=== PATIENT | male | born 1950 | race Caucasian/White ===

== ENCOUNTER 2016-07-02 13:26 | Emergency (ER) | payer MEDICARE, OTHER ==
[~2016-07-02] VITALS: Ht 177.8 cm; Wt 124.7 kg
[~2016-07-02 13:26] MED LIST: GLYB5TAB8 PO; NORCO
[2016-07-02 15:14] LABS: Basophils # (auto) 0 uL; Basophils % (auto) 0.2 % (0.0-2.0); DEFINITIVE VIEW TRANSMISSION; Eosinophils # (auto) 0.1 uL; Eosinophils % (auto) 0.4 % (0.0-7.0); Hemoglobin 13.1 g/dL (13.5-17.5); Lymphocytes # (auto) 1.4 uL; Lymphocytes % (auto) 8.3 % (10.0-50.0); Mean Corpuscular Hemoglobin 26.5 pg (28.0-32.0); Mean Corpuscular Volume 82.8 fL (80.0-100.0); Mean Platelet Volume 7.4 fL (7.4-10.4); Monocytes % (auto) 5.8 % (0.0-12.0); Neutrophils # (auto) 14.8 uL; Neutrophils % (auto) 85.3 % (37.0-80.0); Platelet Count (auto) 392 10^3/uL (140-450); Red Cell Distribution Width 14.4 % (11.6-16.0); White Blood Cell 17.3 10^3/uL (4.4-10.8)
[2016-07-02 15:23] LABS: Albumin 2.3 g/dL (3.4-5.0); BUN/Creatinine Ratio 17.2; Calcium 8.5 mg/dL (8.5-10.1); INR 1.12 (0.9-1.15); Partial Thromboplastin Time 29.7 sec (22.64-33.71); Potassium 3.5 mmol/L (3.5-5.1); Prothrombin Time 11.5 sec (9.37-12.3)
[2016-07-02 15:30] LABS: Bilirubin, Total 0.5 mg/dL (0.2-1.0); Total Protein 8.9 g/dL (6.4-8.2)
[2016-07-03] MEDS ORDERED: ACETAMINOPHEN 500 MG TAB PO ONE ×3 (00:45→01:46)
[2016-07-03] MEDS ORDERED: InsuLIN REG 1unit/0.01ml Soln (100units/ml) SC ONE (00:45)
[2016-07-03] MEDS ORDERED: VANCOMYCIN 1GM/250ML D5W 250 ML IV ONE (00:45)
[2016-07-03] MEDS: SODIUM CHLORIDE 0.9% 1,000 ML IV SCH ×3 (00:45→07:55)
[2016-07-03] MEDS ORDERED: cefTRIAXone 1GM/50ML D5W 50 ML IV ONE (00:45)
[2016-07-03 01:03] LABS: Basophils # (auto) 0.2 uL; Basophils % (auto) 1.7 % (0.0-2.0); DEFINITIVE VIEW TRANSMISSION; Eosinophils # (auto) 0 uL; Eosinophils % (auto) 0.2 % (0.0-7.0); Hematocrit 36.9 % (41.0-53.0); Hemoglobin 11.9 g/dL (13.5-17.5); Lymphocytes % (auto) 7.2 % (10.0-50.0); Mean Corpuscular Hemoglobin 26.7 pg (28.0-32.0); Mean Corpuscular Hgb Conc. 32.2 g/dL (32.0-36.0); Mean Corpuscular Volume 82.8 fL (80.0-100.0); Mean Platelet Volume 7.3 fL (7.4-10.4); Monocytes # (auto) 0.8 uL; Monocytes % (auto) 6.1 % (0.0-12.0); Neutrophils # (auto) 11.6 uL; Neutrophils % (auto) 84.8 % (37.0-80.0); Platelet Count (auto) 342 10^3/uL (140-450); Red Cell Distribution Width 13.8 % (11.6-16.0); SUSPECT VIEW TRANSMISSION; White Blood Cell 13.6 10^3/uL (4.4-10.8)
[2016-07-03 01:19] LABS: Albumin 2.1 g/dL (3.4-5.0); Calcium 7.5 mg/dL (8.5-10.1); Potassium 3.6 mmol/L (3.5-5.1)
[2016-07-03 01:21] LABS: BUN/Creatinine Ratio 15.8
[2016-07-03 01:23] LABS: Bilirubin, Total 0.2 mg/dL (0.2-1.0); Total Protein 8.1 g/dL (6.4-8.2)
[2016-07-03 01:30] LABS: Lactic Acid 2.1 mmol/L (0.4-2.0)
[2016-07-03 01:35] LABS: REFLEX LACTIC ACID YES OR NO YES
[2016-07-03 08:00] VITALS: BP 112/61
[2016-07-03 08:40] LABS: Urine Bilirubin Negative (Negative); Urine Blood Negative /uL (Negative); Urine Color Yellow (Yellow); Urine Glucose 3+ mg/dL (Normal); Urine Ketone Negative (Negative); Urine Nitrite Negative (Negative); Urine RBC <1 /hpf (0 - 3); Urine Urobilinogen Normal (Negative)
== END 2016-07-03 08:21 | disposition short-term general hospital (02) ==
LOC: ER 13:29
DX: A41.9 Sepsis, unspecified organism (principal); E11.65 Type 2 diabetes mellitus with hyperglycemia; E11.621 Type 2 diabetes mellitus with foot ulcer; E78.5 Hyperlipidemia, unspecified; J44.9 Chronic obstructive pulmonary disease, unspecified; L03.116 Cellulitis of left lower limb
CPT/HCPCS: 36415; 73700; 80053; 81001; 82010; 82962; 83605; 85025; 85610; 85730; 87040; 87205; 96365; 96368; 96372; 99285; J0696; J1815; J3370

== ENCOUNTER 2016-07-20 15:06 | Inpatient (IN) | payer OTHER ==
[~2016-07-20] VITALS: Ht 177.8 cm; Wt 103.1 kg
[2016-07-20 16:55] VITALS: BP 142/62
[2016-07-20] MEDS ORDERED: ALBUTEROL SULF 2.5 MG/0.5ML(0.5%) NEB SOLN NEB PRN (17:00)
[2016-07-20] MEDS ORDERED: DEXTROSE (50%) 50ML SYRG IV PRN ×2 (17:00)
[2016-07-20] MEDS ORDERED: hydrALAZINE HCL 20 MG/ML VL IV PRN (17:00)
[2016-07-20] MEDS ORDERED: ZOLPIDEM TARTRATE 5 MG TAB PO PRN (17:00)
[2016-07-20] MEDS: ACCU-CHEK COMFORT CURVE STRIP VI SCH ×2 (17:00→21:51)
[2016-07-20] MEDS: InsuLIN REG 1unit/0.01ml Soln (100units/ml) SC SCH ×2 (17:00→21:49)
[2016-07-20] MEDS: MORPHINE SULFATE 4 MG/ML SYRG IV PRN (17:27)
[2016-07-20] MEDS ORDERED: VANCOMYCIN PER PHARMACY 0 MG IV SCH (17:30)
[2016-07-20] MEDS ORDERED: HYDROcodone-ACET 5/325MG TAB PO PRN (17:45)
[2016-07-20] MEDS ORDERED: TEMAZEPAM 15 MG CAP PO PRN (17:45)
[2016-07-20] MEDS ORDERED: ACETAMINOPHEN 325 MG TAB PO PRN (17:45)
[2016-07-20] MEDS ORDERED: MULTIPLE VITAMIN TAB PO ONE (18:00)
[2016-07-20] MEDS ORDERED: ZINC SULFATE 220 MG CAP PO ONE (18:00)
[2016-07-20 18:19] LABS: Basophils # (auto) 0.1 uL; Basophils % (auto) 0.7 % (0.0-2.0); DEFINITIVE VIEW TRANSMISSION; Eosinophils # (auto) 0.2 uL; Eosinophils % (auto) 2.3 % (0.0-7.0); Hematocrit 33.3 % (41.0-53.0); Hemoglobin 10.8 g/dL (13.5-17.5); Lymphocytes # (auto) 2.7 uL; Lymphocytes % (auto) 26.1 % (10.0-50.0); Mean Corpuscular Hemoglobin 25.9 pg (28.0-32.0); Mean Corpuscular Hgb Conc. 32.3 g/dL (32.0-36.0); Mean Corpuscular Volume 80.3 fL (80.0-100.0); Mean Platelet Volume 7.2 fL (7.4-10.4); Monocytes # (auto) 0.9 uL; Monocytes % (auto) 8.2 % (0.0-12.0); Neutrophils # (auto) 6.5 uL; Neutrophils % (auto) 62.7 % (37.0-80.0); Platelet Count (auto) 332 10^3/uL (140-450); Red Cell Distribution Width 15.3 % (11.6-16.0); White Blood Cell 10.4 10^3/uL (4.4-10.8)
[2016-07-20 18:39] LABS: INR 1.08 (0.9-1.15); Prothrombin Time 11.1 sec (9.37-12.3)
[2016-07-20 18:47] LABS: Albumin 2.1 g/dL (3.4-5.0); BUN/Creatinine Ratio 19.3; Calcium 8.3 mg/dL (8.5-10.1); Potassium 3.8 mmol/L (3.5-5.1)
[2016-07-20] MEDS: PIPERACILLIN-TAZOB 3.375GM 100 ML IV SCH ×2 (18:53→23:32)
[2016-07-20] MEDS: Boost Glucose Control 8 Ounces PO SCH ×2 (18:53→21:39)
[2016-07-20 18:55] LABS: Bilirubin, Total 0.4 mg/dL (0.2-1.0); Total Protein 9.4 g/dL (6.4-8.2)
[2016-07-20 20:42] VITALS: BP 142/62
[2016-07-20] MEDS ORDERED: VANCOMYCIN 1,500 MG in D5W 5% 250 ML IV ONE (21:00)
[2016-07-20] MEDS: SODIUM CHLOR 0.9% PF (SALINE LOCK) 10ML VIAL IV SCH (21:10)
[2016-07-20 21:32] VITALS: BP 124/83
[2016-07-20] MEDS: FAMOTIDINE 20 MG TAB PO SCH (21:39)
[2016-07-20] MEDS: ASCORBIC ACID 500 MG TAB PO SCH (21:39)
[2016-07-20] MEDS: ATORVASTATIN 20 MG TAB PO SCH (21:39)
[2016-07-20] MEDS: CIPROFLOXACIN 0.3%OPTH(EYE) SOL 5ML EACHEYE SCH (21:39)
[2016-07-20] MEDS: INSULIN DETEMIR(LEVEMIR) 1unit/0.01ml Soln (100units/ml) SC SCH (21:51)
[2016-07-21] MEDS: CIPROFLOXACIN 0.3%OPTH(EYE) SOL 5ML EACHEYE SCH ×6 (02:00→21:03)
[2016-07-21] MEDS: MORPHINE SULFATE 4 MG/ML SYRG IV PRN ×4 (04:53→16:56)
[2016-07-21] MEDS: ONDANSETRON HCL 4 MG/2 ML VIAL IV PRN ×4 (04:54→16:56)
[2016-07-21 05:17] VITALS: BP 138/76
[2016-07-21] MEDS: SODIUM CHLOR 0.9% PF (SALINE LOCK) 10ML VIAL IV SCH ×3 (05:29→20:59)
[2016-07-21] MEDS: InsuLIN REG 1unit/0.01ml Soln (100units/ml) SC SCH ×4 (05:30→20:58)
[2016-07-21] MEDS: ACCU-CHEK COMFORT CURVE STRIP VI SCH ×4 (05:30→20:59)
[2016-07-21] MEDS: Boost Glucose Control 8 Ounces PO SCH ×4 (05:30→20:59)
[2016-07-21] MEDS: PIPERACILLIN-TAZOB 3.375GM 100 ML IV SCH ×3 (05:48→18:28)
[2016-07-21 09:00] VITALS: BP 100/53
[2016-07-21] MEDS: ENOXAPARIN SOD 40 MG/0.4 ML SYRINGE SC SCH (09:05)
[2016-07-21] MEDS: ASCORBIC ACID 500 MG TAB PO SCH ×2 (09:05→21:02)
[2016-07-21] MEDS: ZINC SULFATE 220 MG CAP PO SCH (09:05)
[2016-07-21] MEDS: FAMOTIDINE 20 MG TAB PO SCH ×2 (09:06→21:02)
[2016-07-21] MEDS: MULTIPLE VITAMIN TAB PO SCH (09:06)
[2016-07-21] MEDS: INSULIN DETEMIR(LEVEMIR) 1unit/0.01ml Soln (100units/ml) SC SCH ×2 (10:00→20:58)
[2016-07-21 12:57] VITALS: BP 145/85
[2016-07-21] MEDS: VANCOMYCIN 1,500 MG in D5W 5% 250 ML IV SCH (15:55)
[2016-07-21 16:53] VITALS: BP 122/71
[2016-07-21] MEDS: DOCUSATE SOD 100 MG CAP PO PRN (16:57)
[2016-07-21 20:58] LABS: INR 1.11 (0.9-1.15); Prothrombin Time 11.4 sec (9.37-12.3)
[2016-07-21] MEDS: ATORVASTATIN 20 MG TAB PO SCH (21:02)
[2016-07-21 22:00] VITALS: BP 120/65
[2016-07-22] MEDS: PIPERACILLIN-TAZOB 3.375GM 100 ML IV SCH ×4 (00:11→17:49)
[2016-07-22] MEDS: ONDANSETRON HCL 4 MG/2 ML VIAL IV PRN ×2 (01:29→17:49)
[2016-07-22] MEDS: MORPHINE SULFATE 4 MG/ML SYRG IV PRN ×2 (01:29→13:46)
[2016-07-22] MEDS: CIPROFLOXACIN 0.3%OPTH(EYE) SOL 5ML EACHEYE SCH ×6 (02:00→22:20)
[2016-07-22] MEDS: VANCOMYCIN 1,500 MG in D5W 5% 250 ML IV SCH ×2 (03:00→17:19)
[2016-07-22 05:00] VITALS: BP 145/83
[2016-07-22] MEDS: SODIUM CHLOR 0.9% PF (SALINE LOCK) 10ML VIAL IV SCH ×4 (05:52→22:20)
[2016-07-22] MEDS: ACCU-CHEK COMFORT CURVE STRIP VI SCH ×4 (05:53→22:00)
[2016-07-22] MEDS: Boost Glucose Control 8 Ounces PO SCH ×3 (05:53→17:37)
[2016-07-22] MEDS: InsuLIN REG 1unit/0.01ml Soln (100units/ml) SC SCH ×4 (05:53→22:38)
[2016-07-22 06:24] LABS: Basophils # (auto) 0.1 uL; DEFINITIVE VIEW TRANSMISSION; Eosinophils # (auto) 0.5 uL; Eosinophils % (auto) 6.2 % (0.0-7.0); Hematocrit 32.5 % (41.0-53.0); Hemoglobin 10.3 g/dL (13.5-17.5); Lymphocytes # (auto) 2.6 uL; Lymphocytes % (auto) 29.1 % (10.0-50.0); Mean Corpuscular Hemoglobin 25.7 pg (28.0-32.0); Mean Corpuscular Hgb Conc. 31.8 g/dL (32.0-36.0); Mean Corpuscular Volume 80.9 fL (80.0-100.0); Mean Platelet Volume 7.4 fL (7.4-10.4); Monocytes # (auto) 0.9 uL; Monocytes % (auto) 9.7 % (0.0-12.0); Neutrophils # (auto) 4.7 uL; Platelet Count (auto) 305 10^3/uL (140-450); Red Cell Distribution Width 15.4 % (11.6-16.0); White Blood Cell 8.8 10^3/uL (4.4-10.8)
[2016-07-22 06:55] LABS: BUN/Creatinine Ratio 13.9; Calcium 8.1 mg/dL (8.5-10.1); Potassium 3.8 mmol/L (3.5-5.1)
[2016-07-22 08:00] VITALS: BP 134/75
[2016-07-22] MEDS ORDERED: ceFAZolin 1GM VL ONE (08:09)
[2016-07-22] MEDS ORDERED: BUPIVACAINE 0.75% INJ 10ML MPV SDV IJ ONE (08:10)
[2016-07-22] MEDS ORDERED: ceFAZolin 1GM/50ML D5W 0 ML IV ONE (09:00)
[2016-07-22] MEDS ORDERED: MIDAZOLAM HCL 1MG/1ML-2 ML VIAL ONE (09:04)
[2016-07-22] MEDS ORDERED: fentaNYL CITRATE 100 MCG/2 ML VL ONE (09:04)
[2016-07-22] MEDS ORDERED: ATROPINE SULF 0.5 MG/5ML SYR ONE (09:05)
[2016-07-22] MEDS ORDERED: KETOROLAC TROMETH 60MG/2ML VIAL IM ONE (09:05)
[2016-07-22] MEDS ORDERED: DEXAMETHASONE SOD PHOS 10MG/1ML VIAL INJ ONE (09:05)
[2016-07-22] MEDS ORDERED: PROPOFOL 10 MG/ML 20 ML IV ONE (09:05)
[2016-07-22] MEDS ORDERED: ONDANSETRON HCL 4 MG/2 ML VIAL ONE (09:05)
[2016-07-22] MEDS ORDERED: LIDOCAINE HCL 2 %PF INJ 10ML AMP IJ ONE (09:05)
[2016-07-22] MEDS ORDERED: KETAMINE HCL 50 MG/ML 10ML VIAL ONE (09:08)
[2016-07-22] MEDS ORDERED: ONDANSETRON HCL 4 MG/2 ML VIAL IV ONE (09:45)
[2016-07-22] MEDS ORDERED: HYDROmorphone HCL 2 MG/ML VL IV PRN (09:45)
[2016-07-22] MEDS: ENOXAPARIN SOD 40 MG/0.4 ML SYRINGE SC SCH (10:00)
[2016-07-22] MEDS: INSULIN DETEMIR(LEVEMIR) 1unit/0.01ml Soln (100units/ml) SC SCH ×2 (10:00→22:39)
[2016-07-22 11:53] VITALS: BP 126/64
[2016-07-22] MEDS ORDERED: LIDOCAINE 1% HCL (LOCAL ANESTH.) INJ 20ML MDV ID ONE (12:30)
[2016-07-22] MEDS: FAMOTIDINE 20 MG TAB PO SCH ×2 (13:09→22:18)
[2016-07-22] MEDS: MULTIPLE VITAMIN TAB PO SCH (13:09)
[2016-07-22] MEDS: ZINC SULFATE 220 MG CAP PO SCH (13:09)
[2016-07-22] MEDS: ASCORBIC ACID 500 MG TAB PO SCH ×2 (13:09→22:18)
[2016-07-22] MEDS: DOCUSATE SOD 100 MG CAP PO PRN (13:46)
[2016-07-22 16:38] VITALS: BP 123/51
[2016-07-22 21:47] VITALS: BP 123/86
[2016-07-22] MEDS: ATORVASTATIN 20 MG TAB PO SCH (22:18)
[2016-07-23] MEDS: PIPERACILLIN-TAZOB 3.375GM 100 ML IV SCH ×3 (00:12→11:33)
[2016-07-23] MEDS: CIPROFLOXACIN 0.3%OPTH(EYE) SOL 5ML EACHEYE SCH ×4 (02:00→15:26)
[2016-07-23 02:28] LABS: BUN/Creatinine Ratio 18.4; Calcium 8.1 mg/dL (8.5-10.1); Potassium 4.4 mmol/L (3.5-5.1)
[2016-07-23] MEDS: VANCOMYCIN 1,500 MG in D5W 5% 250 ML IV SCH (03:00)
[2016-07-23 05:36] VITALS: BP 140/85
[2016-07-23] MEDS: InsuLIN REG 1unit/0.01ml Soln (100units/ml) SC SCH ×2 (06:00→12:11)
[2016-07-23] MEDS: ACCU-CHEK COMFORT CURVE STRIP VI SCH ×2 (06:01→11:33)
[2016-07-23] MEDS: Boost Glucose Control 8 Ounces PO SCH ×3 (06:02→11:34)
[2016-07-23] MEDS: SODIUM CHLOR 0.9% PF (SALINE LOCK) 10ML VIAL IV SCH ×3 (06:03→15:25)
[2016-07-23 06:06] LABS: Basophils # (auto) 0 uL; Basophils % (auto) 0.6 % (0.0-2.0); DEFINITIVE VIEW TRANSMISSION; Eosinophils # (auto) 0 uL; Eosinophils % (auto) 0.1 % (0.0-7.0); Hematocrit 29.9 % (41.0-53.0); Hemoglobin 9.8 g/dL (13.5-17.5); Lymphocytes # (auto) 1.7 uL; Lymphocytes % (auto) 26.1 % (10.0-50.0); Mean Corpuscular Hemoglobin 26.2 pg (28.0-32.0); Mean Corpuscular Hgb Conc. 32.8 g/dL (32.0-36.0); Mean Corpuscular Volume 79.8 fL (80.0-100.0); Mean Platelet Volume 7.8 fL (7.4-10.4); Monocytes # (auto) 0.6 uL; Monocytes % (auto) 9.9 % (0.0-12.0); Neutrophils # (auto) 4.1 uL; Neutrophils % (auto) 63.3 % (37.0-80.0); Platelet Count (auto) 252 10^3/uL (140-450); Potassium 4.2 mmol/L (3.5-5.1); Red Cell Distribution Width 14.9 % (11.6-16.0); White Blood Cell 6.4 10^3/uL (4.4-10.8)
[2016-07-23 06:10] LABS: BUN/Creatinine Ratio 17.8; Calcium 8.4 mg/dL (8.5-10.1)
[2016-07-23 08:42] VITALS: BP 116/62
[2016-07-23] MEDS: ASCORBIC ACID 500 MG TAB PO SCH (10:04)
[2016-07-23] MEDS: FAMOTIDINE 20 MG TAB PO SCH (10:04)
[2016-07-23] MEDS: ZINC SULFATE 220 MG CAP PO SCH (10:05)
[2016-07-23] MEDS: MULTIPLE VITAMIN TAB PO SCH (10:05)
[2016-07-23] MEDS: ENOXAPARIN SOD 40 MG/0.4 ML SYRINGE SC SCH (10:05)
[2016-07-23] MEDS: INSULIN DETEMIR(LEVEMIR) 1unit/0.01ml Soln (100units/ml) SC SCH (10:14)
[2016-07-23 13:00] VITALS: BP_SYST 104; BP_SYST 111; BP_DIAS 58; BP_DIAS 77
[2016-07-23] MEDS: MORPHINE SULFATE 4 MG/ML SYRG IV PRN (15:25)
== END 2016-07-23 18:25 | disposition home or self-care (01) | DRG 981 ==
LOC: TELE-CENTR 15:06 → CENTRAL 07-21 09:06
PROVIDERS: ADMIT Family Medicine; ATTEND Family Medicine
PROC: 0HRNXK3 Replacement of Left Foot Skin with Nonautologous Tissue Substitute, Full Thickness, External Approach (ICD-10-PCS; 2016-07-22)
PROC: 02HV33Z Insertion of Infusion Device into Superior Vena Cava, Percutaneous Approach (ICD-10-PCS; principal; 2016-07-22 09:08)
DX: E11.69 Type 2 diabetes mellitus with other specified complication (principal); E43 Unspecified severe protein-calorie malnutrition; M86.9 Osteomyelitis, unspecified; E87.1 Hypo-osmolality and hyponatremia; L97.529 Non-pressure chronic ulcer of other part of left foot with unspecified severity; D63.8 Anemia in other chronic diseases classified elsewhere; E78.5 Hyperlipidemia, unspecified; N18.3 Chronic kidney disease, stage 3 (moderate); E11.22 Type 2 diabetes mellitus with diabetic chronic kidney disease; E11.21 Type 2 diabetes mellitus with diabetic nephropathy; E11.621 Type 2 diabetes mellitus with foot ulcer; J44.9 Chronic obstructive pulmonary disease, unspecified; Y83.8 Other surgical procedures as the cause of abnormal reaction of the patient, or of later complication, without mention of misadventure at the time of the procedure; Z79.899 Other long term (current) drug therapy; Y92.89 Other specified places as the place of occurrence of the external cause; Z79.4 Long term (current) use of insulin; Z89.412 Acquired absence of left great toe; Z90.49 Acquired absence of other specified parts of digestive tract; Z98.890 Other specified postprocedural states; Z88.1 Allergy status to other antibiotic agents; Z68.32 Body mass index [BMI] 32.0-32.9, adult
CPT/HCPCS: 36415; 36569; 71010; 73630; 80048; 80053; 80202; 82962; 83036; 85025; 85049; 85610; 85730; 86850; 86900; 86901; 87070; 87075; 87081; 87205; 93005; 94640; 97001; 97116; 97530; J0461; J0690; J1100; J1815; J1885; J2250; J2405; J2543; J2704; J3490; J7060; Q4126

== ENCOUNTER → 2016-08-13 | Outpatient (CLI) | payer OTHER ==
[2016-08-13 10:54] LABS: Basophils # (auto) 0 uL; Basophils % (auto) 0.5 % (0.0-2.0); DEFINITIVE VIEW TRANSMISSION; Eosinophils # (auto) 0.4 uL; Eosinophils % (auto) 5.3 % (0.0-7.0); Hematocrit 35.3 % (41.0-53.0); Lymphocytes # (auto) 2.8 uL; Lymphocytes % (auto) 35.2 % (10.0-50.0); Mean Corpuscular Hemoglobin 24.8 pg (28.0-32.0); Mean Corpuscular Hgb Conc. 31.1 g/dL (32.0-36.0); Mean Corpuscular Volume 79.6 fL (80.0-100.0); Mean Platelet Volume 8.4 fL (7.4-10.4); Monocytes # (auto) 0.5 uL; Monocytes % (auto) 6.6 % (0.0-12.0); Neutrophils # (auto) 4.2 uL; Neutrophils % (auto) 52.4 % (37.0-80.0); Platelet Count (auto) 304 10^3/uL (140-450); Red Cell Distribution Width 16.3 % (11.6-16.0)
[2016-08-13 11:08] LABS: Urine Bilirubin Negative (Negative); Urine Blood Negative /uL (Negative); Urine Color Yellow (Yellow); Urine Glucose Normal (Normal); Urine Ketone Negative (Negative); Urine Nitrite Negative (Negative); Urine RBC 1 /hpf (0 - 3); Urine Squamous Epithelial Cell FEW /hpf (<5); Urine Urobilinogen Normal (Negative); Urine pH 5.5 (5.0-8.0)
[2016-08-13 11:41] LABS: Albumin 2.7 g/dL (3.4-5.0); BUN/Creatinine Ratio 13.7; Bilirubin, Total 0.2 mg/dL (0.2-1.0); Calcium 8.5 mg/dL (8.5-10.1); Potassium 4.1 mmol/L (3.5-5.1); Total Protein 9.1 g/dL (6.4-8.2)
== END | disposition home or self-care (01) ==
LOC: LAB 09:57
DX: M86.9 Osteomyelitis, unspecified (principal); E11.21 Type 2 diabetes mellitus with diabetic nephropathy
CPT/HCPCS: 36415; 80053; 80061; 81001; 83036; 84443; 85025; 85652

== ENCOUNTER 2016-09-03 18:10 | Inpatient (IN) | payer OTHER ==
[~2016-09-03] VITALS: Ht 177.8 cm; Wt 100.3 kg
[2016-09-03 19:12] LABS: Basophils # (auto) 0 uL; Basophils % (auto) 0.5 % (0.0-2.0); DEFINITIVE VIEW TRANSMISSION; Eosinophils # (auto) 0.4 uL; Eosinophils % (auto) 4.6 % (0.0-7.0); Hematocrit 35.1 % (41.0-53.0); Hemoglobin 11.5 g/dL (13.5-17.5); Lymphocytes # (auto) 2.6 uL; Lymphocytes % (auto) 31.2 % (10.0-50.0); Mean Corpuscular Hemoglobin 26.1 pg (28.0-32.0); Mean Corpuscular Hgb Conc. 32.8 g/dL (32.0-36.0); Mean Corpuscular Volume 79.6 fL (80.0-100.0); Mean Platelet Volume 8.5 fL (7.4-10.4); Monocytes # (auto) 0.6 uL; Monocytes % (auto) 6.7 % (0.0-12.0); Neutrophils # (auto) 4.7 uL; Platelet Count (auto) 314 10^3/uL (140-450); Red Cell Distribution Width 17.4 % (11.6-16.0); White Blood Cell 8.3 10^3/uL (4.4-10.8)
[2016-09-03 19:18] LABS: INR 1.02 (0.9-1.15); Partial Thromboplastin Time 26.1 sec (22.64-33.71); Prothrombin Time 10.5 sec (9.37-12.3)
[2016-09-03 20:58] LABS: Alkaline Phosphatase 92 U/L (45-117); Anion Gap 13 (5-15); Aspartate Aminotransferase 38 U/L (15-37); BUN/Creatinine Ratio 10.4; Bilirubin, Total 0.2 mg/dL (0.2-1.0); Blood Urea Nitrogen 13 mg/dL (7-18); Calcium 8.8 mg/dL (8.5-10.1); Carbon Dioxide 25 mmol/L (21-32); Chloride 103 mmol/L (98-107); GFR African American 75 mL/min; GFR Non-African American 62 mL/min; Glucose 286 mg/dL (74-106); Sodium 141 mmol/L (136-145); Total Protein 8.9 g/dL (6.4-8.2)
[2016-09-03] MEDS ORDERED: SODIUM CHLORIDE 0.9% 1,000 ML IV ONE (23:00)
[2016-09-04] MEDS ORDERED: HYDROcodone-ACET 10/325MG TAB PO ONE
[2016-09-04] MEDS ORDERED: DEXTROSE (50%) 50ML SYRG IV PRN (05:00)
[2016-09-04] MEDS: SODIUM CHLORIDE 0.9% 1,000 ML IV SCH ×3 (05:20→21:40)
[2016-09-04] MEDS: ACCU-CHEK COMFORT CURVE STRIP VI SCH ×4 (06:00→23:36)
[2016-09-04] MEDS: InsuLIN REG 1unit/0.01ml Soln (100units/ml) SC SCH ×4 (06:00→23:47)
[2016-09-04 08:00] VITALS: BP 111/85
[2016-09-04] MEDS: MORPHINE SULF INJ 2 MG/ML SYRINGE 1ML IV PRN ×4 (08:34→21:25)
[2016-09-04] MEDS: ONDANSETRON HCL 4 MG/2 ML VIAL IV PRN ×3 (08:39→21:32)
[2016-09-04 09:08] VITALS: BP 111/85
[2016-09-04] MEDS ORDERED: ceFAZolin 1GM/50ML D5W 50 ML IV ONE (09:23)
[2016-09-04] MEDS ORDERED: ceFAZolin 1GM VL ONE (09:47)
[2016-09-04] MEDS ORDERED: fentaNYL CITRATE 100 MCG/2 ML VL ONE (10:51)
[2016-09-04] MEDS ORDERED: MIDAZOLAM HCL 1MG/1ML-2 ML VIAL ONE (10:51)
[2016-09-04] MEDS ORDERED: PROPOFOL 10 MG/ML 20 ML IV ONE (10:52)
[2016-09-04] MEDS ORDERED: DEXAMETHASONE SOD PHOS 10MG/1ML VIAL INJ ONE (10:52)
[2016-09-04] MEDS ORDERED: HYDROmorphone HCL 2 MG/ML VL IV PRN (11:30)
[2016-09-04] MEDS ORDERED: ePHEDrine SULFATE 50 MG/ML AMP IV PRN (11:30)
[2016-09-04] MEDS ORDERED: LABETALOL HCL 5 MG/ML 4ML SYRINGE IV PRN (11:30)
[2016-09-04] MEDS ORDERED: KETOROLAC TROMETH 30 MG/ML 1ML VIAL IV ONE (11:30)
[2016-09-04] MEDS ORDERED: ONDANSETRON HCL 4 MG/2 ML VIAL IV ONE (11:30)
[2016-09-04] MEDS ORDERED: MORPHINE SULF INJ 2 MG/ML SYRINGE 1ML IV PRN (11:30)
[2016-09-04] MEDS ORDERED: hydrALAZINE HCL 20 MG/ML VL IV PRN (11:30)
[2016-09-04] MEDS ORDERED: MIDAZOLAM HCL 1MG/1ML-2 ML VIAL IV PRN (11:30)
[2016-09-04] MEDS: HYDROcodone-ACET 5/325MG TAB PO PRN (17:23)
[2016-09-04 20:00] VITALS: BP 130/79
[2016-09-04 22:00] VITALS: BP 130/79
[2016-09-05] MEDS: HYDROcodone-ACET 5/325MG TAB PO PRN (02:38)
[2016-09-05] MEDS ORDERED: diphenhdrAMINE HCL 25 MG CAP PO PRN (04:00)
[2016-09-05 05:00] VITALS: BP 116/70
[2016-09-05 06:03] LABS: Basophils # (auto) 0 uL; Basophils % (auto) 0.2 % (0.0-2.0); DEFINITIVE VIEW TRANSMISSION; Eosinophils # (auto) 0 uL; Hematocrit 31.5 % (41.0-53.0); Hemoglobin 10.3 g/dL (13.5-17.5); Lymphocytes # (auto) 1.2 uL; Lymphocytes % (auto) 17.6 % (10.0-50.0); Mean Corpuscular Hemoglobin 25.8 pg (28.0-32.0); Mean Corpuscular Hgb Conc. 32.6 g/dL (32.0-36.0); Mean Corpuscular Volume 79.2 fL (80.0-100.0); Mean Platelet Volume 8.6 fL (7.4-10.4); Monocytes # (auto) 0.2 uL; Neutrophils # (auto) 5.4 uL; Neutrophils % (auto) 79.2 % (37.0-80.0); Platelet Count (auto) 270 10^3/uL (140-450); Red Cell Distribution Width 17.2 % (11.6-16.0); White Blood Cell 6.9 10^3/uL (4.4-10.8)
[2016-09-05] MEDS: ACCU-CHEK COMFORT CURVE STRIP VI SCH ×2 (06:11→12:00)
[2016-09-05] MEDS: InsuLIN REG 1unit/0.01ml Soln (100units/ml) SC SCH ×2 (06:30→12:00)
[2016-09-05 06:38] LABS: Calcium 8.1 mg/dL (8.5-10.1); Potassium 4.2 mmol/L (3.5-5.1)
[2016-09-05 06:42] LABS: BUN/Creatinine Ratio 15.5
[2016-09-05 07:57] VITALS: BP 122/66
[2016-09-05 11:40] VITALS: BP 104/63
[2016-09-05 13:32] VITALS: BP 122/66
== END 2016-09-05 14:30 | disposition home or self-care (01) | DRG 623 ==
LOC: ER 18:23 → OVERFLOW 18:24 → TELE-CENTR 09-04 12:37
PROVIDERS: ADMIT Emergency Medicine; ATTEND Internal Medicine
PROC: 0HRNXK3 Replacement of Left Foot Skin with Nonautologous Tissue Substitute, Full Thickness, External Approach (ICD-10-PCS; 2016-09-04)
PROC: 0JBR0ZZ Excision of Left Foot Subcutaneous Tissue and Fascia, Open Approach (ICD-10-PCS; principal; 2016-09-04 11:01)
DX: E11.621 Type 2 diabetes mellitus with foot ulcer (principal); L97.429 Non-pressure chronic ulcer of left heel and midfoot with unspecified severity; E11.65 Type 2 diabetes mellitus with hyperglycemia; J44.9 Chronic obstructive pulmonary disease, unspecified; E78.5 Hyperlipidemia, unspecified; E66.9 Obesity, unspecified; Z88.2 Allergy status to sulfonamides; Z88.1 Allergy status to other antibiotic agents; Z87.891 Personal history of nicotine dependence; Z68.31 Body mass index [BMI] 31.0-31.9, adult
CPT/HCPCS: 36415; 71010; 80048; 80053; 82962; 83036; 84484; 85025; 85610; 85730; 87070; 87075; 87077; 87081; 87186; 87205; 93005; 96360; 96361; J0690; J1100; J1815; J2250; J2405; J2704

== ENCOUNTER 2016-10-08 17:10 | Inpatient (IN) | payer OTHER ==
[~2016-10-08] VITALS: Ht 177.8 cm; Wt 103.4 kg
[2016-10-08 19:26] LABS: Basophils # (auto) 0.1 uL; Basophils % (auto) 0.7 % (0.0-2.0); DEFINITIVE VIEW TRANSMISSION; Eosinophils # (auto) 0.4 uL; Eosinophils % (auto) 4.6 % (0.0-7.0); Hematocrit 36.2 % (41.0-53.0); Hemoglobin 12.1 g/dL (13.5-17.5); Lymphocytes # (auto) 3.5 uL; Lymphocytes % (auto) 41.8 % (10.0-50.0); Mean Corpuscular Hemoglobin 26.5 pg (28.0-32.0); Mean Corpuscular Hgb Conc. 33.3 g/dL (32.0-36.0); Mean Corpuscular Volume 79.6 fL (80.0-100.0); Mean Platelet Volume 8.8 fL (7.4-10.4); Monocytes # (auto) 0.6 uL; Monocytes % (auto) 6.8 % (0.0-12.0); Neutrophils # (auto) 3.9 uL; Neutrophils % (auto) 46.1 % (37.0-80.0); Platelet Count (auto) 290 10^3/uL (140-450); Red Cell Distribution Width 16.2 % (11.6-16.0); White Blood Cell 8.4 10^3/uL (4.4-10.8)
[2016-10-08 19:42] LABS: Albumin 3.1 g/dL (3.4-5.0); BUN/Creatinine Ratio 15.4; Calcium 8.3 mg/dL (8.5-10.1); Magnesium 1.9 mg/dL (1.6-2.6); Potassium 4.4 mmol/L (3.5-5.1)
[2016-10-08 19:44] LABS: Bilirubin, Total 0.2 mg/dL (0.2-1.0); Total Protein 8.2 g/dL (6.4-8.2)
[2016-10-08 19:45] LABS: INR 0.93 (0.9-1.15); Partial Thromboplastin Time 25.5 sec (22.64-33.71)
[2016-10-08] MEDS ORDERED: ONDANSETRON HCL 4 MG/2 ML VIAL IV ONE (19:45)
[2016-10-08] MEDS ORDERED: CLINDAMYCIN 600MG IV 50 ML IV ONE (19:45)
[2016-10-08] MEDS ORDERED: ACETAMINOPHEN 325 MG TAB PO PRN (22:30)
[2016-10-08] MEDS ORDERED: DEXTROSE (50%) 50ML SYRG IV PRN (22:30)
[2016-10-08] MEDS ORDERED: HYDROcodone-ACET 5/325MG TAB PO PRN (22:30)
[2016-10-08] MEDS ORDERED: ONDANSETRON HCL 4 MG/2 ML VIAL IV PRN (22:30)
[2016-10-08] MEDS: SODIUM CHLORIDE 0.9% 1,000 ML IV SCH (22:44)
[2016-10-08 23:00] VITALS: BP 157/78
[2016-10-08] MEDS: ACCU-CHEK COMFORT CURVE STRIP VI SCH (23:28)
[2016-10-08] MEDS: InsuLIN REG 1unit/0.01ml Soln (100units/ml) SC SCH (23:49)
[2016-10-09] MEDS ORDERED: SIMV-8 PO (02:42)
[2016-10-09] MEDS: MORPHINE SULF INJ 2 MG/ML SYRINGE 1ML IV PRN ×3 (04:59→23:03)
[2016-10-09 05:00] VITALS: BP 111/68
[2016-10-09] MEDS: CLINDAMYCIN 600MG IV 50 ML IV SCH ×3 (05:39→22:38)
[2016-10-09] MEDS: ACCU-CHEK COMFORT CURVE STRIP VI SCH ×4 (05:48→22:00)
[2016-10-09] MEDS: InsuLIN REG 1unit/0.01ml Soln (100units/ml) SC SCH ×2 (05:48→11:35)
[2016-10-09 05:52] LABS: Basophils # (auto) 0.1 uL; Basophils % (auto) 0.6 % (0.0-2.0); DEFINITIVE VIEW TRANSMISSION; Eosinophils # (auto) 0.4 uL; Eosinophils % (auto) 4.2 % (0.0-7.0); Hematocrit 38.6 % (41.0-53.0); Hemoglobin 12.6 g/dL (13.5-17.5); Lymphocytes % (auto) 32.8 % (10.0-50.0); Mean Corpuscular Hemoglobin 26.4 pg (28.0-32.0); Mean Corpuscular Hgb Conc. 32.7 g/dL (32.0-36.0); Mean Corpuscular Volume 80.7 fL (80.0-100.0); Mean Platelet Volume 8.8 fL (7.4-10.4); Monocytes # (auto) 0.6 uL; Monocytes % (auto) 7.1 % (0.0-12.0); Neutrophils % (auto) 55.3 % (37.0-80.0); Platelet Count (auto) 305 10^3/uL (140-450); Red Cell Distribution Width 16.7 % (11.6-16.0)
[2016-10-09 06:20] LABS: Albumin 3.2 g/dL (3.4-5.0); Bilirubin, Total 0.2 mg/dL (0.2-1.0); Calcium 8.4 mg/dL (8.5-10.1); Total Protein 8.6 g/dL (6.4-8.2)
[2016-10-09 08:00] VITALS: BP 111/73
[2016-10-09 08:38] VITALS: BP 111/73
[2016-10-09] MEDS: FAMOTIDINE 20 MG TAB PO SCH ×2 (09:30→22:39)
[2016-10-09] MEDS ORDERED: ceFAZolin 1GM/50ML D5W 50 ML IV ONE (10:53)
[2016-10-09] MEDS: SODIUM CHLORIDE 0.9% 1,000 ML IV SCH (11:34)
[2016-10-09] MEDS ORDERED: ceFAZolin 1GM VL ONE (12:37)
[2016-10-09] MEDS ORDERED: fentaNYL CITRATE 100 MCG/2 ML VL ONE (12:46)
[2016-10-09] MEDS ORDERED: PROPOFOL 10 MG/ML 20 ML IV ONE (12:46)
[2016-10-09] MEDS ORDERED: ONDANSETRON HCL 4 MG/2 ML VIAL IV ONE (13:30)
[2016-10-09] MEDS ORDERED: ePHEDrine SULFATE 50 MG/ML AMP IV PRN (13:30)
[2016-10-09] MEDS ORDERED: hydrALAZINE HCL 20 MG/ML VL IV PRN (13:30)
[2016-10-09] MEDS ORDERED: fentaNYL CITRATE 100 MCG/2 ML VL IV ONE (14:00)
[2016-10-09] MEDS ORDERED: DEXTROSE (50%) 50ML SYRG IV PRN (17:15)
[2016-10-09 17:40] VITALS: BP 102/70
[2016-10-09] MEDS: metFORMIN HYDROCHLORIDE 500 MG TAB PO SCH (18:11)
[2016-10-09] MEDS: glyBURIDE 5 MG TAB PO SCH (18:12)
[2016-10-09 22:00] VITALS: BP 113/52
[2016-10-09] MEDS ORDERED: ATORVASTATIN 20 MG TAB PO SCH (22:00)
[2016-10-09] MEDS ORDERED: InsuLIN REG 1unit/0.01ml Soln (100units/ml) SC SCH (22:00)
[2016-10-10 05:00] VITALS: BP 124/75
[2016-10-10] MEDS: MORPHINE SULF INJ 2 MG/ML SYRINGE 1ML IV PRN (05:31)
[2016-10-10] MEDS: CLINDAMYCIN 600MG IV 50 ML IV SCH (06:53)
[2016-10-10] MEDS: ACCU-CHEK COMFORT CURVE STRIP VI SCH ×2 (06:53→11:57)
[2016-10-10] MEDS: InsuLIN REG 1unit/0.01ml Soln (100units/ml) SC SCH ×2 (06:53→11:57)
[2016-10-10 08:00] VITALS: BP 133/68
[2016-10-10] MEDS: metFORMIN HYDROCHLORIDE 500 MG TAB PO SCH (08:37)
[2016-10-10] MEDS: glyBURIDE 5 MG TAB PO SCH (08:37)
[2016-10-10] MEDS: FAMOTIDINE 20 MG TAB PO SCH (10:21)
[2016-10-10 12:00] VITALS: BP 135/73
[2016-10-10] MEDS ORDERED: fentaNYL CITRATE 100 MCG/2 ML VL ONE (12:21)
[2016-10-10 13:16] VITALS: BP 135/73
== END 2016-10-10 14:15 | disposition home or self-care (01) | DRG 623 ==
LOC: ER 17:18 → OVERFLOW 17:19 → WEST WING 22:49
PROVIDERS: ADMIT Nurse Practitioner; ATTEND Internal Medicine Pulmonary Disease
PROC: 0HRNXK3 Replacement of Left Foot Skin with Nonautologous Tissue Substitute, Full Thickness, External Approach (ICD-10-PCS; 2016-10-09)
PROC: 0JBR0ZZ Excision of Left Foot Subcutaneous Tissue and Fascia, Open Approach (ICD-10-PCS; principal; 2016-10-09 12:49)
DX: E11.628 Type 2 diabetes mellitus with other skin complications (principal); E44.1 Mild protein-calorie malnutrition; L03.116 Cellulitis of left lower limb; S91.302A Unspecified open wound, left foot, initial encounter; J44.9 Chronic obstructive pulmonary disease, unspecified; I10 Essential (primary) hypertension; E78.5 Hyperlipidemia, unspecified; I27.2 Other secondary pulmonary hypertension; M20.42 Other hammer toe(s) (acquired), left foot; D63.8 Anemia in other chronic diseases classified elsewhere; L30.9 Dermatitis, unspecified; E11.65 Type 2 diabetes mellitus with hyperglycemia; M47.814 Spondylosis without myelopathy or radiculopathy, thoracic region; Z82.49 Family history of ischemic heart disease and other diseases of the circulatory system; Z83.3 Family history of diabetes mellitus; Z89.412 Acquired absence of left great toe; Z88.2 Allergy status to sulfonamides; Z68.32 Body mass index [BMI] 32.0-32.9, adult
CPT/HCPCS: 36415; 71010; 73630; 80053; 82962; 83036; 83735; 85025; 85610; 85730; 87070; 87075; 87077; 87081; 87186; 87205; 93005; 94761; 96365; 96366; 96375; J0690; J1815; J2405; J2704; J3490; Q4126

== ENCOUNTER 2016-11-12 16:50 | Inpatient (IN) | payer OTHER ==
[~2016-11-12] VITALS: Ht 177.8 cm; Wt 98.4 kg
[~2016-11-12 16:50] MED LIST changes: +SIMV-8 PO
[2016-11-12 17:45] LABS: Basophils # (auto) 0.1 uL; Basophils % (auto) 0.6 % (0.0-2.0); Eosinophils # (auto) 0.3 uL; Eosinophils % (auto) 3.6 % (0.0-7.0); Hemoglobin 13.1 g/dL (13.5-17.5); Lymphocytes # (auto) 3.1 uL; Lymphocytes % (auto) 33.6 % (10.0-50.0); Mean Corpuscular Hgb Conc. 33.7 g/dL (32.0-36.0); Mean Corpuscular Volume 80.4 fL (80.0-100.0); Mean Platelet Volume 8.9 fL (7.4-10.4); Monocytes # (auto) 0.6 uL; Monocytes % (auto) 6.5 % (0.0-12.0); Neutrophils # (auto) 5.2 uL; Neutrophils % (auto) 55.7 % (37.0-80.0); Platelet Count (auto) 312 10^3/uL (140-450); Red Cell Distribution Width 15.3 % (11.6-16.0); White Blood Cell 9.4 10^3/uL (4.4-10.8)
[2016-11-12 18:01] LABS: Albumin 3.3 g/dL (3.4-5.0); Alkaline Phosphatase 84 U/L (45-117); Anion Gap 9 (5-15); Aspartate Aminotransferase 17 U/L (15-37); BUN/Creatinine Ratio 17.5; Bilirubin, Total 0.2 mg/dL (0.2-1.0); Blood Urea Nitrogen 22 mg/dL (7-18); Calcium 8.5 mg/dL (8.5-10.1); Carbon Dioxide 26 mmol/L (21-32); Chloride 106 mmol/L (98-107); GFR African American 74 mL/min; GFR Non-African American 61 mL/min; Glucose 305 mg/dL (74-106); Potassium 4.3 mmol/L (3.5-5.1); Sodium 141 mmol/L (136-145); Total Protein 8.5 g/dL (6.4-8.2)
[2016-11-12 22:07] LABS: Urine RBC None Seen /hpf (0 - 3)
[2016-11-12 22:23] LABS: Urine Bilirubin Negative (Negative); Urine Blood Negative /uL (Negative); Urine Color Yellow (Yellow); Urine Hyaline Cast FEW /lpf (0 - 2); Urine Ketone Negative (Negative); Urine Nitrite Negative (Negative); Urine Urobilinogen Normal (Negative)
[2016-11-12 22:24] LABS: Urine Glucose 4+ mg/dL (Normal)
[2016-11-13] MEDS ORDERED: DEXTROSE (50%) 50ML SYRG IV PRN (00:15)
[2016-11-13] MEDS ORDERED: ACETAMINOPHEN 325 MG TAB PO PRN (00:15)
[2016-11-13] MEDS ORDERED: ONDANSETRON HCL 4 MG/2 ML VIAL IV PRN (00:15)
[2016-11-13] MEDS ORDERED: TEMAZEPAM 15 MG CAP PO PRN (00:15)
[2016-11-13] MEDS ORDERED: ONDANSETRON HCL 4 MG/2 ML VIAL ONE (00:21)
[2016-11-13] MEDS ORDERED: HYDROcodone-ACET 5/325MG TAB ONE (00:21)
[2016-11-13 00:42] LABS: INR 0.95 (0.9-1.15); Partial Thromboplastin Time 24.7 sec (22.64-33.71); Prothrombin Time 10.3 sec (9.37-12.3)
[2016-11-13 01:00] VITALS: BP 112/62
[2016-11-13] MEDS: SODIUM CHLORIDE 0.9% 1,000 ML IV SCH ×2 (01:00→14:20)
[2016-11-13] MEDS ORDERED: METF-316 PO (01:24)
[2016-11-13] MEDS ORDERED: NOR5T PO (01:24)
[2016-11-13] MEDS: InsuLIN REG 1unit/0.01ml Soln (100units/ml) SC SCH ×4 (05:43→23:52)
[2016-11-13] MEDS: ACCU-CHEK COMFORT CURVE STRIP VI SCH ×4 (05:43→23:51)
[2016-11-13 06:00] VITALS: BP 94/58
[2016-11-13] MEDS: HYDROcodone-ACET 5/325MG TAB PO PRN ×3 (06:50→20:23)
[2016-11-13 08:00] VITALS: BP 110/70
[2016-11-13] MEDS ORDERED: ceFAZolin 1GM/50ML D5W 50 ML IV ONE (08:14)
[2016-11-13] MEDS: FAMOTIDINE 20 MG TAB PO SCH ×2 (10:00→21:31)
[2016-11-13] MEDS: LOSARTAN POTASSIUM 25 MG TAB PO SCH (10:00)
[2016-11-13] MEDS ORDERED: ceFAZolin 1GM VL ONE (11:04)
[2016-11-13] MEDS ORDERED: BUPIVACAINE 0.75% INJ 10ML MPV SDV IJ ONE (11:04)
[2016-11-13] MEDS ORDERED: fentaNYL CITRATE 100 MCG/2 ML VL ONE (11:11)
[2016-11-13] MEDS ORDERED: MIDAZOLAM HCL 1MG/1ML-2 ML VIAL ONE (11:13)
[2016-11-13] MEDS ORDERED: HYDROmorphone HCL 2 MG/ML VL IV PRN (11:15)
[2016-11-13] MEDS ORDERED: KETOROLAC TROMETH 30 MG/ML 1ML VIAL IV ONE (11:15)
[2016-11-13] MEDS ORDERED: ePHEDrine SULFATE 50 MG/ML AMP IV PRN (11:15)
[2016-11-13] MEDS ORDERED: ONDANSETRON HCL 4 MG/2 ML VIAL IV ONE (11:15)
[2016-11-13] MEDS ORDERED: LABETALOL HCL 5 MG/ML 4ML SYRINGE IV PRN (11:15)
[2016-11-13] MEDS ORDERED: MORPHINE SULF INJ 2 MG/ML SYRINGE 1ML IV PRN (11:15)
[2016-11-13] MEDS ORDERED: MIDAZOLAM HCL 1MG/1ML-2 ML VIAL IV PRN (11:15)
[2016-11-13] MEDS ORDERED: PROPOFOL 10 MG/ML 20 ML IV ONE (11:25)
[2016-11-13] MEDS: Boost Glucose Control 8 Ounces PO SCH ×3 (12:00→21:31)
[2016-11-13 12:31] VITALS: BP 122/66
[2016-11-13 17:00] VITALS: BP 112/62
[2016-11-13 22:00] VITALS: BP 137/76
[2016-11-13] MEDS ORDERED: ATORVASTATIN 20 MG TAB PO SCH (22:00)
[2016-11-14] MEDS: SODIUM CHLORIDE 0.9% 1,000 ML IV SCH (04:20)
[2016-11-14 05:00] VITALS: BP 119/68
[2016-11-14 05:42] LABS: Basophils # (auto) 0.1 uL; Basophils % (auto) 0.7 % (0.0-2.0); Eosinophils # (auto) 0.3 uL; Eosinophils % (auto) 4.7 % (0.0-7.0); Hematocrit 35.1 % (41.0-53.0); Hemoglobin 11.9 g/dL (13.5-17.5); Lymphocytes # (auto) 2.8 uL; Lymphocytes % (auto) 37.5 % (10.0-50.0); Mean Corpuscular Hemoglobin 27.1 pg (28.0-32.0); Mean Corpuscular Hgb Conc. 33.8 g/dL (32.0-36.0); Mean Corpuscular Volume 80.1 fL (80.0-100.0); Monocytes # (auto) 0.6 uL; Monocytes % (auto) 7.5 % (0.0-12.0); Neutrophils # (auto) 3.7 uL; Neutrophils % (auto) 49.6 % (37.0-80.0); Platelet Count (auto) 235 10^3/uL (140-450); Red Cell Distribution Width 14.9 % (11.6-16.0); White Blood Cell 7.4 10^3/uL (4.4-10.8)
[2016-11-14] MEDS: InsuLIN REG 1unit/0.01ml Soln (100units/ml) SC SCH ×2 (06:00→11:02)
[2016-11-14] MEDS: ACCU-CHEK COMFORT CURVE STRIP VI SCH ×2 (06:00→11:03)
[2016-11-14] MEDS: Boost Glucose Control 8 Ounces PO SCH ×2 (06:00→12:16)
[2016-11-14] MEDS: HYDROcodone-ACET 5/325MG TAB PO PRN (06:01)
[2016-11-14 06:12] LABS: Albumin 2.7 g/dL (3.4-5.0); Bilirubin, Total 0.2 mg/dL (0.2-1.0); Calcium 8.1 mg/dL (8.5-10.1); Total Protein 7.3 g/dL (6.4-8.2)
[2016-11-14 07:54] VITALS: BP 123/74
[2016-11-14 08:23] VITALS: BP 110/10
[2016-11-14] MEDS: LOSARTAN POTASSIUM 25 MG TAB PO SCH (09:59)
[2016-11-14] MEDS: FAMOTIDINE 20 MG TAB PO SCH (09:59)
[2016-11-14 12:14] VITALS: BP 118/74
[2016-11-14 14:28] VITALS: BP 103/67
[2016-11-14] MEDS ORDERED: CLIN1CAP4 PO (14:34)
[2016-11-14] MEDS ORDERED: SACC250C PO (14:34)
[2016-11-14 14:58] VITALS: BP 103/67
== END 2016-11-14 15:16 | disposition home or self-care (01) | DRG 623 ==
LOC: ER 16:53 → OVERFLOW 16:54 → EAST 11-13 00:40
PROVIDERS: ADMIT Nurse Practitioner; ATTEND Internal Medicine
PROC: 0HRLXK3 Replacement of Left Lower Leg Skin with Nonautologous Tissue Substitute, Full Thickness, External Approach (ICD-10-PCS; 2016-11-13)
PROC: 0JBR0ZZ Excision of Left Foot Subcutaneous Tissue and Fascia, Open Approach (ICD-10-PCS; principal; 2016-11-13 11:18)
DX: E11.621 Type 2 diabetes mellitus with foot ulcer (principal); L03.116 Cellulitis of left lower limb; E44.0 Moderate protein-calorie malnutrition; L97.529 Non-pressure chronic ulcer of other part of left foot with unspecified severity; E11.65 Type 2 diabetes mellitus with hyperglycemia; E78.5 Hyperlipidemia, unspecified; E66.9 Obesity, unspecified; I10 Essential (primary) hypertension; J44.9 Chronic obstructive pulmonary disease, unspecified; Z82.49 Family history of ischemic heart disease and other diseases of the circulatory system; Z83.3 Family history of diabetes mellitus; Z88.2 Allergy status to sulfonamides; Z80.8 Family history of malignant neoplasm of other organs or systems; Z68.31 Body mass index [BMI] 31.0-31.9, adult; Z79.899 Other long term (current) drug therapy; Z89.412 Acquired absence of left great toe
CPT/HCPCS: 36415; 80053; 81001; 82962; 83735; 84484; 85025; 85610; 85730; 87070; 87075; 87081; J0690; J1815; J2250; J2405; J2704; J3490

== ENCOUNTER → 2016-12-26 | Outpatient (CLI) | payer OTHER ==
[~2016-12-26] MED LIST changes: +CLIN1CAP4 PO; +HYDR-4663 PO; +METF-372 PO; -NORCO; +SACC250C PO
== END | disposition home or self-care (01) ==
LOC: LAB 12:09
PROVIDERS: ATTEND Internal Medicine
DX: G89.29 Other chronic pain (principal)
CPT/HCPCS: 80307

== ENCOUNTER → 2017-01-22 | Outpatient (CLI) | payer OTHER ==
[2017-01-22 11:39] LABS: Basophils # (auto) 0.1 uL; CONDITION Y; Eosinophils # (auto) 0.3 uL; Eosinophils % (auto) 4.2 % (0.0-7.0); Hematocrit 35.4 % (41.0-53.0); Hemoglobin 11.9 g/dL (13.5-17.5); Lymphocytes # (auto) 3.2 uL; Mean Corpuscular Hemoglobin 27.4 pg (28.0-32.0); Mean Corpuscular Hgb Conc. 33.8 g/dL (32.0-36.0); Mean Corpuscular Volume 81.1 fL (80.0-100.0); Mean Platelet Volume 7.9 fL (7.4-10.4); Monocytes # (auto) 0.5 uL; Monocytes % (auto) 7.1 % (0.0-12.0); Neutrophils # (auto) 3.3 uL; Neutrophils % (auto) 44.7 % (37.0-80.0); Platelet Count (auto) 317 10^3/uL (140-450); Red Cell Distribution Width 14.7 % (11.6-16.0); White Blood Cell 7.4 10^3/uL (4.4-10.8)
[2017-01-22 12:17] LABS: Albumin 3.1 g/dL (3.4-5.0); BUN/Creatinine Ratio 13.7; Bilirubin, Total 0.2 mg/dL (0.2-1.0); Calcium 8.6 mg/dL (8.5-10.1); Potassium 4.2 mmol/L (3.5-5.1); Total Protein 8.6 g/dL (6.4-8.2)
== END | disposition home or self-care (01) ==
LOC: LAB 11:10
PROVIDERS: ATTEND Physician Assistant
DX: E11.21 Type 2 diabetes mellitus with diabetic nephropathy (principal); I73.9 Peripheral vascular disease, unspecified; N18.2 Chronic kidney disease, stage 2 (mild); L97.929 Non-pressure chronic ulcer of unspecified part of left lower leg with unspecified severity
CPT/HCPCS: 36415; 80053; 80061; 82306; 82607; 83036; 84153; 84403; 84443; 85025

== ENCOUNTER 2017-03-18 23:14 | Inpatient (IN) | payer OTHER ==
[~2017-03-18] VITALS: Ht 177.8 cm; Wt 103.0 kg
[2017-03-19 00:10] LABS: Basophils # (auto) 0.1 uL; Basophils % (auto) 0.6 % (0.0-2.0); Eosinophils # (auto) 0.3 uL; Eosinophils % (auto) 2.9 % (0.0-7.0); Hematocrit 35.5 % (41.0-53.0); Hemoglobin 11.7 g/dL (13.5-17.5); Lymphocytes # (auto) 2.9 uL; Lymphocytes % (auto) 26.1 % (10.0-50.0); Mean Corpuscular Hemoglobin 26.7 pg (28.0-32.0); Mean Corpuscular Hgb Conc. 32.8 g/dL (32.0-36.0); Mean Corpuscular Volume 81.3 fL (80.0-100.0); Mean Platelet Volume 7.8 fL (6.9-10.8); Monocytes # (auto) 0.7 uL; Monocytes % (auto) 6.3 % (0.0-12.0); Neutrophils # (auto) 7.3 uL; Neutrophils % (auto) 64.1 % (37.0-80.0); Nucleated Red Blood Cells % 0.1 %; Platelet Count (auto) 335 10^3/uL (140-450); Red Cell Distribution Width 15.2 % (11.8-14.3); White Blood Cell 11.3 10^3/uL (4.4-10.8)
[2017-03-19 00:33] LABS: Albumin 3.1 g/dL (3.4-5.0); BUN/Creatinine Ratio 14.2; Calcium 7.9 mg/dL (8.5-10.1); Potassium 4.5 mmol/L (3.5-5.1)
[2017-03-19 00:39] LABS: Bilirubin, Total 0.2 mg/dL (0.2-1.0); Total Protein 8.8 g/dL (6.4-8.2)
[2017-03-19] MEDS ORDERED: ALUM & MAG HYDROX-SIMETH LIQ(MAALOX) 30 ML PO ONE (03:45)
[2017-03-19] MEDS ORDERED: cefTRIAXone 1GM/50ML D5W 50 ML IV ONE (09:15)
[2017-03-19] MEDS ORDERED: CLINDAMYCIN 600MG IV 50 ML IV ONE (09:15)
[2017-03-19] MEDS ORDERED: LORazepam 0.5 MG TAB PO PRN (09:15)
[2017-03-19] MEDS ORDERED: PROMETHAZINE HCL 25 MG/ML 1ML IV PRN (09:15)
[2017-03-19] MEDS ORDERED: MORPHINE SULF INJ 2 MG/ML SYRINGE 1ML IV PRN ×2 (09:15)
[2017-03-19] MEDS ORDERED: DEXTROSE (50%) 50ML SYRG IV PRN (09:15)
[2017-03-19] MEDS ORDERED: NITROGLYCERIN 0.4 MG SL TAB SL PRN (09:15)
[2017-03-19] MEDS ORDERED: LACTULOSE 20Gm/30ML SOLN PO PRN (09:15)
[2017-03-19] MEDS ORDERED: TEMAZEPAM 15 MG CAP PO PRN (09:15)
[2017-03-19] MEDS ORDERED: ACETAMINOPHEN 500 MG TAB PO PRN (09:15)
[2017-03-19] MEDS ORDERED: PIPERACILLIN-TAZOB 3.375GM 100 ML IV ONE (09:30)
[2017-03-19] MEDS ORDERED: VANCOMYCIN PER PHARMACY 0 MG IV SCH (09:30)
[2017-03-19 09:46] LABS: INR 0.94 (0.9-1.15); Partial Thromboplastin Time 26.2 sec (22.64-33.71); Prothrombin Time 10.2 sec (9.37-12.3)
[2017-03-19] MEDS: SODIUM CHLORIDE 0.9% 1,000 ML IV SCH ×2 (09:54→11:00)
[2017-03-19] MEDS: ENOXAPARIN SOD 40 MG/0.4 ML SYRINGE SC SCH (09:59)
[2017-03-19] MEDS: HYDROcodone-ACET 5/325MG TAB PO PRN ×2 (10:00→19:54)
[2017-03-19] MEDS ORDERED: VANCOMYCIN 1GM/250ML D5W 250 ML IV SCH (11:00)
[2017-03-19] MEDS: PIPERACILLIN-TAZOB 3.375GM 100 ML IV SCH ×3 (12:00→23:57)
[2017-03-19] MEDS ORDERED: DULO20CA PO (12:00)
[2017-03-19] MEDS: InsuLIN REG 1unit/0.01ml Soln (100units/ml) SC SCH ×3 (12:00→19:58)
[2017-03-19] MEDS: ACCU-CHEK COMFORT CURVE STRIP VI SCH ×3 (12:25→19:54)
[2017-03-19] MEDS: VANCOMYCIN 1GM/250ML D5W 250 ML IV SCH (12:59)
[2017-03-19] MEDS ORDERED: CLINDAMYCIN 600MG IV 50 ML IV SCH (14:00)
[2017-03-19] MEDS ORDERED: BUPIVACAINE 0.75% INJ 10ML MPV SDV IJ ONE (15:00)
[2017-03-19] MEDS ORDERED: ceFAZolin 1GM VL ONE (15:00)
[2017-03-19] MEDS ORDERED: SODIUM CHLORIDE LOCK 20 ML ONE (15:14)
[2017-03-19] MEDS ORDERED: PROPOFOL 10 MG/ML 20 ML IV ONE (15:14)
[2017-03-19] MEDS ORDERED: MEPERIDINE HCL (50 MG/ML) 1 ML VIAL ONE (15:14)
[2017-03-19] MEDS ORDERED: MIDAZOLAM HCL 1MG/1ML-2 ML VIAL ONE (15:14)
[2017-03-19] MEDS ORDERED: ACCU-CHEK COMFORT CURVE STRIP VI ONE (16:00)
[2017-03-19] MEDS ORDERED: METOCLOPRAMIDE HCL 5MG/ml INJ 2ml VIAL IV ONE (16:00)
[2017-03-19] MEDS ORDERED: HYDROmorphone HCL 2 MG/ML VL IV PRN (16:00)
[2017-03-19 17:00] VITALS: BP 112/69
[2017-03-19 22:00] VITALS: BP 103/60
[2017-03-20] MEDS: ACCU-CHEK COMFORT CURVE STRIP VI SCH ×6 (00:03→20:15)
[2017-03-20] MEDS: InsuLIN REG 1unit/0.01ml Soln (100units/ml) SC SCH ×6 (00:04→20:15)
[2017-03-20] MEDS: VANCOMYCIN 1GM/250ML D5W 250 ML IV SCH ×2 (01:13→15:24)
[2017-03-20] MEDS: HYDROcodone-ACET 5/325MG TAB PO PRN ×2 (01:37→07:48)
[2017-03-20 04:53] LABS: Urine Bilirubin Negative (Negative); Urine Blood Negative /uL (Negative); Urine Color Yellow (Yellow); Urine Glucose 4+ mg/dL (Normal); Urine Ketone Negative (Negative); Urine Nitrite Negative (Negative); Urine RBC <1 /hpf (0 - 3); Urine Urobilinogen Normal (Negative); Urine pH 5.5 (5.0-8.0)
[2017-03-20 05:00] VITALS: BP 104/60
[2017-03-20] MEDS: SODIUM CHLORIDE 0.9% 1,000 ML IV SCH ×2 (05:01→16:32)
[2017-03-20 06:00] LABS: Basophils # (auto) 0 uL; Basophils % (auto) 0.5 % (0.0-2.0); Eosinophils # (auto) 0 uL; Eosinophils % (auto) 0.1 % (0.0-7.0); Hematocrit 35.1 % (41.0-53.0); Hemoglobin 11.5 g/dL (13.5-17.5); Lymphocytes % (auto) 10.7 % (10.0-50.0); Mean Corpuscular Hemoglobin 26.3 pg (28.0-32.0); Mean Corpuscular Hgb Conc. 32.7 g/dL (32.0-36.0); Mean Corpuscular Volume 80.4 fL (80.0-100.0); Mean Platelet Volume 8.1 fL (6.9-10.8); Monocytes # (auto) 0.1 uL; Monocytes % (auto) 1.3 % (0.0-12.0); Neutrophils # (auto) 8.4 uL; Neutrophils % (auto) 87.4 % (37.0-80.0); Platelet Count (auto) 291 10^3/uL (140-450); Red Cell Distribution Width 15.3 % (11.8-14.3); White Blood Cell 9.6 10^3/uL (4.4-10.8)
[2017-03-20] MEDS: PIPERACILLIN-TAZOB 3.375GM 100 ML IV SCH ×3 (06:11→18:12)
[2017-03-20] MEDS ORDERED: DEXTROSE (50%) 50ML SYRG IV PRN (06:15)
[2017-03-20 06:27] LABS: Albumin 2.7 g/dL (3.4-5.0); BUN/Creatinine Ratio 17.4; Bilirubin, Total 0.2 mg/dL (0.2-1.0); Calcium 8.2 mg/dL (8.5-10.1); Potassium 4.5 mmol/L (3.5-5.1); Total Protein 8.2 g/dL (6.4-8.2)
[2017-03-20 08:00] VITALS: BP 143/81
[2017-03-20] MEDS ORDERED: cefTRIAXone 1GM/50ML D5W 50 ML IV SCH (09:00)
[2017-03-20] MEDS: ENOXAPARIN SOD 40 MG/0.4 ML SYRINGE SC SCH (10:11)
[2017-03-20 12:00] VITALS: BP_SYST 93
[2017-03-20 17:00] VITALS: BP 127/71
[2017-03-20] MEDS: PRO-STAT 64 30ML PO SCH (18:12)
[2017-03-20] MEDS: ASCORBIC ACID 500 MG TAB PO SCH (21:15)
[2017-03-20 21:50] VITALS: BP 105/56
[2017-03-21] MEDS: SODIUM CHLORIDE 0.9% 1,000 ML IV SCH ×2 (02:14→11:29)
[2017-03-21] MEDS: VANCOMYCIN 1GM/250ML D5W 250 ML IV SCH (02:14)
[2017-03-21] MEDS: InsuLIN REG 1unit/0.01ml Soln (100units/ml) SC SCH ×4 (04:25→12:00)
[2017-03-21] MEDS: ACCU-CHEK COMFORT CURVE STRIP VI SCH ×4 (04:25→12:00)
[2017-03-21 05:00] VITALS: BP 109/71
[2017-03-21] MEDS: HYDROcodone-ACET 5/325MG TAB PO PRN (05:32)
[2017-03-21 05:47] LABS: Basophils # (auto) 0.1 uL; Basophils % (auto) 0.5 % (0.0-2.0); Eosinophils # (auto) 0 uL; Eosinophils % (auto) 0.1 % (0.0-7.0); Hematocrit 35.9 % (41.0-53.0); Hemoglobin 11.7 g/dL (13.5-17.5); Lymphocytes # (auto) 2.5 uL; Lymphocytes % (auto) 19.4 % (10.0-50.0); Mean Corpuscular Hemoglobin 25.9 pg (28.0-32.0); Mean Corpuscular Hgb Conc. 32.5 g/dL (32.0-36.0); Mean Corpuscular Volume 79.7 fL (80.0-100.0); Mean Platelet Volume 7.8 fL (6.9-10.8); Monocytes # (auto) 0.5 uL; Monocytes % (auto) 4.1 % (0.0-12.0); Neutrophils # (auto) 9.9 uL; Neutrophils % (auto) 75.9 % (37.0-80.0); Platelet Count (auto) 311 10^3/uL (140-450); Red Cell Distribution Width 15.4 % (11.8-14.3)
[2017-03-21 05:56] LABS: INR 0.98 (0.9-1.15); Prothrombin Time 10.7 sec (9.37-12.3)
[2017-03-21 06:07] LABS: Albumin 2.8 g/dL (3.4-5.0); BUN/Creatinine Ratio 17.5; Calcium 8.7 mg/dL (8.5-10.1); Magnesium 2.5 mg/dL (1.6-2.6)
[2017-03-21 06:09] LABS: Bilirubin, Total 0.2 mg/dL (0.2-1.0)
[2017-03-21] MEDS: PIPERACILLIN-TAZOB 3.375GM 100 ML IV SCH ×3 (06:22→12:00)
[2017-03-21] MEDS ORDERED: INSULIN DETEMIR(LEVEMIR) 1unit/0.01ml Soln (100units/ml) SC SCH (07:00)
[2017-03-21 07:38] VITALS: BP 143/81
[2017-03-21] MEDS: PRO-STAT 64 30ML PO SCH (08:00)
[2017-03-21] MEDS: ASCORBIC ACID 500 MG TAB PO SCH (09:10)
[2017-03-21] MEDS: ENOXAPARIN SOD 40 MG/0.4 ML SYRINGE SC SCH (09:10)
[2017-03-21] MEDS ORDERED: MULTIPLE VITAMINS W/ MINERALS TAB PO SCH (10:00)
[2017-03-21 10:54] VITALS: BP 111/49
[2017-03-21 11:24] VITALS: BP 111/49
== END 2017-03-21 12:20 | disposition home or self-care (01) | DRG 264 ==
LOC: ER 23:15 → TELE 23:16 → TELE-E-ADS 03-19 11:39 → TELE-EAST 03-19 16:18 → EAST 03-19 20:43
PROVIDERS: ADMIT Internal Medicine; ATTEND Family Medicine
PROC: 0JBR0ZZ Excision of Left Foot Subcutaneous Tissue and Fascia, Open Approach (ICD-10-PCS; 2017-03-19)
PROC: 0HRNXK3 Replacement of Left Foot Skin with Nonautologous Tissue Substitute, Full Thickness, External Approach (ICD-10-PCS; principal; 2017-03-19 15:20)
DX: E11.51 Type 2 diabetes mellitus with diabetic peripheral angiopathy without gangrene (principal); E11.621 Type 2 diabetes mellitus with foot ulcer; I50.9 Heart failure, unspecified; I11.0 Hypertensive heart disease with heart failure; F33.9 Major depressive disorder, recurrent, unspecified; E11.65 Type 2 diabetes mellitus with hyperglycemia; A49.02 Methicillin resistant Staphylococcus aureus infection, unspecified site; E78.5 Hyperlipidemia, unspecified; D72.829 Elevated white blood cell count, unspecified; L97.529 Non-pressure chronic ulcer of other part of left foot with unspecified severity; I25.10 Atherosclerotic heart disease of native coronary artery without angina pectoris; Z83.3 Family history of diabetes mellitus; Z82.49 Family history of ischemic heart disease and other diseases of the circulatory system; Z89.412 Acquired absence of left great toe; Z90.49 Acquired absence of other specified parts of digestive tract; Z89.422 Acquired absence of other left toe(s); Z88.2 Allergy status to sulfonamides
CPT/HCPCS: 36415; 71020; 73630; 80053; 80202; 81001; 82962; 83036; 83735; 85025; 85610; 85652; 85730; 87040; 87081; 87086; 93005; 96365; 96367; J0690; J1815; J2250; J2543; J2704; J3490

== ENCOUNTER 2017-04-20 11:55 | Emergency (ER) | payer OTHER ==
[~2017-04-20] VITALS: Ht 177.8 cm; Wt 101.2 kg
[~2017-04-20 11:55] MED LIST changes: -CLIN1CAP4 PO; +DULO20CA PO; -HYDR-4663 PO; +HYDR-4683 PO; -SACC250C PO
[2017-04-20 13:14] LABS: Basophils # (auto) 0.1 uL; Eosinophils # (auto) 0.2 uL; Lymphocytes # (auto) 1.5 uL; Monocytes # (auto) 0.4 uL
[2017-04-20 13:16] LABS: Basophils % (auto) 1.3 % (0.0-2.0); Eosinophils % (auto) 2.3 % (0.0-7.0); Hematocrit 42.5 % (41.0-53.0); Hemoglobin 14.1 g/dL (13.5-17.5); Lymphocytes % (auto) 18.3 % (10.0-50.0); Mean Corpuscular Hemoglobin 26.6 pg (28.0-32.0); Mean Corpuscular Hgb Conc. 33.1 g/dL (32.0-36.0); Mean Corpuscular Volume 80.5 fL (80.0-100.0); Mean Platelet Volume 8.4 fL (6.9-10.8); Monocytes % (auto) 4.9 % (0.0-12.0); Neutrophils % (auto) 73.2 % (37.0-80.0); Platelet Count (auto) 307 10^3/uL (140-450); Red Cell Distribution Width 16.5 % (11.8-14.3); White Blood Cell 8.2 10^3/uL (4.4-10.8)
[2017-04-20 13:34] LABS: Albumin 3.7 g/dL (3.4-5.0); Anion Gap 8 (5-15); Blood Urea Nitrogen 17 mg/dL (7-18); Carbon Dioxide 24 mmol/L (21-32); Chloride 107 mmol/L (98-107); Glucose 304 mg/dL (74-106); Magnesium 1.9 mg/dL (1.6-2.6); Sodium 139 mmol/L (136-145)
[2017-04-20 13:36] LABS: Aspartate Aminotransferase 19 U/L (15-37); BUN/Creatinine Ratio 14.9; GFR African American 83 mL/min; GFR Non-African American 68 mL/min
[2017-04-20 13:41] LABS: Alkaline Phosphatase 112 U/L (45-117); Bilirubin, Total 0.3 mg/dL (0.2-1.0)
[2017-04-20 13:44] LABS: Potassium 5.9 mmol/L (3.5-5.1)
[2017-04-20] MEDS ORDERED: SODIUM CHLORIDE 0.9% 1,000 ML IV ONE (14:41)
[2017-04-20] MEDS ORDERED: PROMETHAZINE HCL 25 MG/ML 1ML IV ONE (15:15)
[2017-04-20] MEDS ORDERED: NALBUPHINE HCL 10 MG/1ml INJECTION IV ONE (15:15)
[2017-04-20] MEDS ORDERED: InsuLIN REG 1unit/0.01ml Soln (100units/ml) IV ONE (15:15)
[2017-04-20] MEDS ORDERED: cefTRIAXone 1GM/50ML D5W 50 ML IV ONE (15:15)
[2017-04-20] MEDS ORDERED: FUROSEMIDE 20 MG TAB PO ONE (17:45)
[2017-04-20 18:21] VITALS: BP 98/60
== END 2017-04-20 17:32 | disposition home or self-care (01) ==
LOC: ER 11:55
DX: E11.65 Type 2 diabetes mellitus with hyperglycemia (principal); E87.5 Hyperkalemia; E11.622 Type 2 diabetes mellitus with other skin ulcer; L98.499 Non-pressure chronic ulcer of skin of other sites with unspecified severity; Z88.8 Allergy status to other drugs, medicaments and biological substances; Z79.899 Other long term (current) drug therapy; E78.5 Hyperlipidemia, unspecified
CPT/HCPCS: 36415; 71020; 80053; 82962; 83735; 84443; 84484; 85025; 93005; 94761; 96361; 96365; 96375; 99285; J0696; J2300; J2550; J7030

== ENCOUNTER → 2017-09-01 | Outpatient (CLI) | payer OTHER | END | disposition home or self-care (01) | LOC: LAB 11:12 | PROVIDERS: ATTEND Family Medicine | DX: E11.8 Type 2 diabetes mellitus with unspecified complications (principal) | CPT/HCPCS: 36415; 83036 ==

== ENCOUNTER → 2017-10-15 | Day surgery (SDC) | payer OTHER ==
[2017-10-13 12:41] LABS: Urine WBC None Seen /hpf (0 - 3)
[2017-10-13 13:02] LABS: Basophils # (auto) 0.1 uL; Eosinophils # (auto) 0.3 uL; Hemoglobin 13.1 g/dL (13.5-17.5); Lymphocytes # (auto) 2.2 uL; Mean Corpuscular Hemoglobin 26.6 pg (28.0-32.0); Nucleated Red Blood Cells % 0.1 %; Red Blood Cells 4.94 10^6/uL (4.5-5.90); White Blood Cell 6.9 10^3/uL (4.4-10.8)
[2017-10-13 13:04] LABS: Eosinophils % (auto) 3.8 % (0.0-7.0); Hematocrit 39.8 % (41.0-53.0); Lymphocytes % (auto) 31.5 % (10.0-50.0); Mean Corpuscular Volume 80.5 fL (80.0-100.0); Monocytes # (auto) 0.5 uL; Monocytes % (auto) 7.5 % (0.0-12.0); Neutrophils # (auto) 3.9 uL; Neutrophils % (auto) 56.2 % (37.0-80.0); Platelet Count (auto) 267 10^3/uL (140-450); Red Cell Distribution Width 16.3 % (11.8-14.3)
[2017-10-13 13:17] LABS: Urine Bacteria NONE SEEN /hpf (None Seen); Urine Blood Negative /uL (Negative); Urine Specific Gravity 1.022 (1.001-1.035)
[2017-10-13 13:24] LABS: BUN/Creatinine Ratio 11.4; Bilirubin, Total 0.3 mg/dL (0.2-1.0); Calcium 8.2 mg/dL (8.5-10.1); Potassium 4.7 mmol/L (3.5-5.1); Total Protein 8.8 g/dL (6.4-8.2)
[2017-10-13 13:26] LABS: INR 0.91 (0.9-1.15); Partial Thromboplastin Time 25.5 sec (22.64-33.71); Prothrombin Time 9.9 sec (9.37-12.3)
[~2017-10-15] VITALS: Ht 177.8 cm; Wt 104.3 kg
[~2017-10-15] MED LIST changes: +ACCU-CHEK COMFORT CURVE STRIP VI ONE; +DEXAMETHASONE SOD PHOS 10MG/1ML VIAL INJ ONE; +INSUINJ49 SC; +KETOROLAC TROMETH 30 MG/ML 1ML VIAL IV ONE; +LABETALOL HCL 5 MG/ML 4ML SYRINGE IV PRN; -METF-372 PO; +MIDAZOLAM HCL 1MG/1ML-2 ML VIAL IV PRN; +MIDAZOLAM HCL 1MG/1ML-2 ML VIAL ONE; +MORPHINE SULFATE 8mg/ml INJ SDV IV ONE; +MORPHINE SULFATE 8mg/ml INJ SDV IV PRN; +ONDANSETRON HCL 4 MG/2 ML VIAL IV ONE; +PROPOFOL 10 MG/ML 20 ML IV ONE; +ceFAZolin 1GM VL ONE; +ceFAZolin 1GM/50ML 50 ML IV ONE; +ePHEDrine SULFATE 50 MG/ML AMP IV PRN; +fentaNYL CITRATE 100 MCG/2 ML VL IV ONE; +fentaNYL CITRATE 100 MCG/2 ML VL ONE
[2017-10-15 17:09] VITALS: BP 123/67
== END | disposition home or self-care (01) ==
LOC: SUR 10:33
PROVIDERS: ATTEND Podiatrist Foot & Ankle Surgery
DX: E11.621 Type 2 diabetes mellitus with foot ulcer (principal); L97.529 Non-pressure chronic ulcer of other part of left foot with unspecified severity; Z88.1 Allergy status to other antibiotic agents; Z88.2 Allergy status to sulfonamides; E66.9 Obesity, unspecified; Z68.33 Body mass index [BMI] 33.0-33.9, adult; J44.9 Chronic obstructive pulmonary disease, unspecified; F32.9 Major depressive disorder, single episode, unspecified; Z87.891 Personal history of nicotine dependence; I10 Essential (primary) hypertension
CPT/HCPCS: 15004; 15275; 36415; 80053; 81001; 82962; 85025; 85610; 85730; 87075; 87077; 87186; 87205; C1887; J0690; J1100; J2250; J2704; J3010; Q4126

== ENCOUNTER 2017-12-01 03:37 | Inpatient (IN) | payer OTHER ==
[~2017-12-01] VITALS: Ht 177.8 cm; Wt 102.1 kg
[~2017-12-01 03:37] MED LIST changes: -ACCU-CHEK COMFORT CURVE STRIP VI ONE; -DEXAMETHASONE SOD PHOS 10MG/1ML VIAL INJ ONE; -KETOROLAC TROMETH 30 MG/ML 1ML VIAL IV ONE; -LABETALOL HCL 5 MG/ML 4ML SYRINGE IV PRN; -MIDAZOLAM HCL 1MG/1ML-2 ML VIAL IV PRN; -MIDAZOLAM HCL 1MG/1ML-2 ML VIAL ONE; -MORPHINE SULFATE 8mg/ml INJ SDV IV ONE; -MORPHINE SULFATE 8mg/ml INJ SDV IV PRN; -ONDANSETRON HCL 4 MG/2 ML VIAL IV ONE; -PROPOFOL 10 MG/ML 20 ML IV ONE; -ceFAZolin 1GM VL ONE; -ceFAZolin 1GM/50ML 50 ML IV ONE; -ePHEDrine SULFATE 50 MG/ML AMP IV PRN; -fentaNYL CITRATE 100 MCG/2 ML VL IV ONE; -fentaNYL CITRATE 100 MCG/2 ML VL ONE
[2017-12-01 04:21] LABS: Basophils # (auto) 0.1 uL; Lymphocytes # (auto) 2.8 uL
[2017-12-01 04:22] LABS: Basophils % (auto) 1.1 % (0.0-2.0); Eosinophils # (auto) 0.3 uL; Eosinophils % (auto) 3.8 % (0.0-7.0); Hematocrit 38.3 % (41.0-53.0); Hemoglobin 12.8 g/dL (13.5-17.5); Mean Corpuscular Hemoglobin 26.8 pg (28.0-32.0); Mean Corpuscular Hgb Conc. 33.4 g/dL (32.0-36.0); Mean Corpuscular Volume 80.4 fL (80.0-100.0); Monocytes # (auto) 0.7 uL; Monocytes % (auto) 7.7 % (0.0-12.0); Neutrophils # (auto) 5.1 uL; Neutrophils % (auto) 56.4 % (37.0-80.0); Platelet Count (auto) 241 10^3/uL (140-450); Red Blood Cells 4.76 10^6/uL (4.5-5.90); Red Cell Distribution Width 15.1 % (11.8-14.3)
[2017-12-01 04:42] LABS: Alanine Aminotransferase 28 U/L (16-61); Alkaline Phosphatase 101 U/L (45-117); Anion Gap 9 (5-15); Aspartate Aminotransferase 16 U/L (15-37); BUN/Creatinine Ratio 16.8; Bilirubin, Total 0.2 mg/dL (0.2-1.0); Blood Urea Nitrogen 24 mg/dL (7-18); Calcium 8.1 mg/dL (8.5-10.1); Carbon Dioxide 25 mmol/L (21-32); Chloride 102 mmol/L (98-107); GFR African American 63 mL/min; GFR Non-African American 52 mL/min; Glucose 341 mg/dL (74-106); Potassium 4.1 mmol/L (3.5-5.1); Sodium 136 mmol/L (136-145); Total Protein 8.6 g/dL (6.4-8.2)
[2017-12-01 04:47] LABS: INR 0.93 (0.9-1.15); Partial Thromboplastin Time 26.8 sec (23.78-33.04)
[2017-12-01] MEDS ORDERED: ONDANSETRON HCL 4 MG/2 ML VIAL IV ONE (06:45)
[2017-12-01] MEDS ORDERED: ONDANSETRON HCL 4 MG/2 ML VIAL ONE (06:47)
[2017-12-01] MEDS ORDERED: ASPirin 81 mg TAB PO ONE (07:30)
[2017-12-01] MEDS ORDERED: InsuLIN REG 1unit/0.01ml Soln (100units/ml) IV ONE (07:45)
[2017-12-01] MEDS ORDERED: glyBURIDE 5 MG TAB PO ONE (10:00)
[2017-12-01] MEDS ORDERED: DOCUSATE SOD 100 MG CAP PO PRN (10:00)
[2017-12-01] MEDS ORDERED: MORPHINE SULFATE 8mg/ml INJ SDV IV PRN (10:00)
[2017-12-01] MEDS ORDERED: TEMAZEPAM 15 MG CAP PO PRN (10:00)
[2017-12-01] MEDS ORDERED: ACETAMINOPHEN 325 MG TAB PO PRN (10:00)
[2017-12-01] MEDS ORDERED: ONDANSETRON HCL 4 MG/2 ML VIAL IV PRN (10:00)
[2017-12-01] MEDS ORDERED: cefTRIAXone 1GM/10ml IVPUSH 10 ML IV ONE (10:00)
[2017-12-01] MEDS ORDERED: INSULIN 70/30 1unit/0.01ml Susp (100units/ml) SC ONE (10:00)
[2017-12-01] MEDS ORDERED: DEXTROSE (50%) 50ML SYRG IV PRN (10:00)
[2017-12-01] MEDS: CLINDAMYCIN 300MG IV 50 ML IV SCH ×2 (11:00→11:20)
[2017-12-01] MEDS: DULoxetine HCL 30 MG CAP PO SCH (11:12)
[2017-12-01] MEDS: ASCORBIC ACID 500 MG TAB PO SCH ×2 (11:12→21:17)
[2017-12-01] MEDS: MULTIPLE VITAMIN TAB PO SCH (11:12)
[2017-12-01] MEDS: ZINC SULFATE 220 MG CAP PO SCH (11:12)
[2017-12-01] MEDS: FAMOTIDINE 20 MG TAB PO SCH ×2 (11:12→21:16)
[2017-12-01] MEDS: ACCU-CHEK COMFORT CURVE STRIP VI SCH ×3 (11:21→21:24)
[2017-12-01] MEDS: InsuLIN REG 1unit/0.01ml Soln (100units/ml) SC SCH ×3 (11:21→21:32)
[2017-12-01] MEDS ORDERED: VANCOMYCIN PER PHARMACY 0 MG IV SCH (11:45)
[2017-12-01] MEDS: IPRATROPIUM BROM 0.5 MG/2.5ML INH SOL NEB SCH ×2 (11:50→19:48)
[2017-12-01] MEDS: ALBUTEROL SULF 2.5 MG/0.5ML(0.5%) NEB SOLN NEB SCH ×2 (11:50→19:48)
[2017-12-01] MEDS ORDERED: ALUM & MAG HYDROX-SIMETH LIQ(MAALOX) 30 ML ONE (11:58)
[2017-12-01] MEDS ORDERED: ALUM & MAG HYDROX-SIMETH LIQ(MAALOX) 30 ML PO PRN (12:00)
[2017-12-01 12:08] LABS: Urine Bacteria NONE SEEN /hpf (None Seen); Urine Blood Negative /uL (Negative); Urine Specific Gravity 1.033 (1.001-1.035); Urine WBC 1 /hpf (0 - 3)
[2017-12-01] MEDS: PANTOPRAZOLE 40 MG/10 ML VIAL IV SCH (12:25)
[2017-12-01] MEDS: Boost Glucose Control 8 Ounces PO SCH ×2 (12:36→18:00)
[2017-12-01] MEDS: VANCOMYCIN 1GM/250ML 250 ML IV SCH (13:11)
[2017-12-01 13:39] VITALS: BP 146/75
[2017-12-01] MEDS: SODIUM CHLOR 0.9% PF (SALINE LOCK) 10ML VIAL/SYR IV SCH ×2 (14:04→21:16)
[2017-12-01 14:43] VITALS: BP 146/75
[2017-12-01] MEDS: HYDROcodone-ACET 5/325MG TAB PO PRN (17:05)
[2017-12-01 17:07] VITALS: BP 124/74
[2017-12-01] MEDS: INSULIN 70/30 1unit/0.01ml Susp (100units/ml) SC SCH (18:00)
[2017-12-01] MEDS: glyBURIDE 5 MG TAB PO SCH (20:18)
[2017-12-01] MEDS: ATORVASTATIN 20 MG TAB PO SCH (21:17)
[2017-12-01 22:00] VITALS: BP 118/66
[2017-12-02] MEDS: ALBUTEROL SULF 2.5 MG/0.5ML(0.5%) NEB SOLN NEB SCH ×4 (00:20→18:17)
[2017-12-02] MEDS: IPRATROPIUM BROM 0.5 MG/2.5ML INH SOL NEB SCH ×4 (00:20→18:17)
[2017-12-02] MEDS: VANCOMYCIN 1GM/250ML 250 ML IV SCH ×2 (01:08→14:08)
[2017-12-02 04:56] VITALS: BP 105/70
[2017-12-02 05:53] LABS: Basophils # (auto) 0.1 uL; Hemoglobin 12.9 g/dL (13.5-17.5); Lymphocytes # (auto) 1.3 uL; Monocytes # (auto) 0.5 uL; Neutrophils # (auto) 4.9 uL; White Blood Cell 7.1 10^3/uL (4.4-10.8)
[2017-12-02 05:55] LABS: Basophils % (auto) 0.8 % (0.0-2.0); Eosinophils # (auto) 0.3 uL; Eosinophils % (auto) 4.9 % (0.0-7.0); Hematocrit 38.2 % (41.0-53.0); Lymphocytes % (auto) 18.4 % (10.0-50.0); Mean Corpuscular Hgb Conc. 33.8 g/dL (32.0-36.0); Mean Corpuscular Volume 79.7 fL (80.0-100.0); Monocytes % (auto) 6.8 % (0.0-12.0); Neutrophils % (auto) 69.1 % (37.0-80.0); Platelet Count (auto) 210 10^3/uL (140-450)
[2017-12-02] MEDS: SODIUM CHLOR 0.9% PF (SALINE LOCK) 10ML VIAL/SYR IV SCH ×3 (06:11→22:01)
[2017-12-02] MEDS: glyBURIDE 5 MG TAB PO SCH ×2 (06:35→18:00)
[2017-12-02] MEDS: ACCU-CHEK COMFORT CURVE STRIP VI SCH ×4 (06:35→21:56)
[2017-12-02 06:40] LABS: Alanine Aminotransferase 25 U/L (16-61); Albumin 2.7 g/dL (3.4-5.0); Alkaline Phosphatase 94 U/L (45-117); Anion Gap 10 (5-15); Aspartate Aminotransferase 16 U/L (15-37); BUN/Creatinine Ratio 17.8; Bilirubin, Total 0.3 mg/dL (0.2-1.0); Blood Urea Nitrogen 16 mg/dL (7-18); Calcium 8.4 mg/dL (8.5-10.1); Carbon Dioxide 24 mmol/L (21-32); Chloride 104 mmol/L (98-107); GFR African American 108 mL/min; GFR Non-African American 89 mL/min; Glucose 206 mg/dL (74-106); Potassium 4.2 mmol/L (3.5-5.1); Sodium 138 mmol/L (136-145); Total Protein 7.9 g/dL (6.4-8.2)
[2017-12-02] MEDS: InsuLIN REG 1unit/0.01ml Soln (100units/ml) SC SCH ×4 (06:42→21:55)
[2017-12-02] MEDS: Boost Glucose Control 8 Ounces PO SCH ×3 (08:00→18:00)
[2017-12-02 09:00] VITALS: BP 133/69
[2017-12-02] MEDS ORDERED: cefTRIAXone 1GM/10ml IVPUSH 10 ML IV SCH (09:00)
[2017-12-02] MEDS: INSULIN 70/30 1unit/0.01ml Susp (100units/ml) SC SCH ×2 (10:00→17:46)
[2017-12-02] MEDS: DULoxetine HCL 30 MG CAP PO SCH (10:28)
[2017-12-02] MEDS: ZINC SULFATE 220 MG CAP PO SCH (10:28)
[2017-12-02] MEDS: PANTOPRAZOLE 40 MG/10 ML VIAL IV SCH (10:28)
[2017-12-02] MEDS: MULTIPLE VITAMIN TAB PO SCH (10:29)
[2017-12-02] MEDS: ASCORBIC ACID 500 MG TAB PO SCH ×2 (10:29→21:55)
[2017-12-02] MEDS: FAMOTIDINE 20 MG TAB PO SCH ×2 (10:29→21:55)
[2017-12-02] MEDS: HYDROcodone-ACET 5/325MG TAB PO PRN ×2 (10:31→22:00)
[2017-12-02 13:00] VITALS: BP 121/83
[2017-12-02] MEDS: LEVOFLOXACIN 500MG 100 ML IV SCH (14:08)
[2017-12-02 17:00] VITALS: BP 147/78
[2017-12-02] MEDS: BUDESONIDE (INHALATION) 0.5 MG/2 ML NEB NEB SCH (18:18)
[2017-12-02] MEDS: ATORVASTATIN 20 MG TAB PO SCH (21:55)
[2017-12-02 22:00] VITALS: BP 123/71
[2017-12-03] MEDS: VANCOMYCIN 1GM/250ML 250 ML IV SCH ×2 (01:29→13:07)
[2017-12-03 05:23] VITALS: BP 107/56
[2017-12-03] MEDS: glyBURIDE 5 MG TAB PO SCH ×2 (06:43→18:14)
[2017-12-03] MEDS: HYDROcodone-ACET 5/325MG TAB PO PRN ×2 (06:43→18:30)
[2017-12-03] MEDS: InsuLIN REG 1unit/0.01ml Soln (100units/ml) SC SCH ×4 (06:44→17:00)
[2017-12-03] MEDS: ACCU-CHEK COMFORT CURVE STRIP VI SCH ×3 (06:44→17:00)
[2017-12-03] MEDS: SODIUM CHLOR 0.9% PF (SALINE LOCK) 10ML VIAL/SYR IV SCH ×2 (06:44→13:45)
[2017-12-03] MEDS: IPRATROPIUM BROM 0.5 MG/2.5ML INH SOL NEB SCH ×4 (07:49→18:00)
[2017-12-03] MEDS: BUDESONIDE (INHALATION) 0.5 MG/2 ML NEB NEB SCH (07:49)
[2017-12-03] MEDS: ALBUTEROL SULF 2.5 MG/0.5ML(0.5%) NEB SOLN NEB SCH ×4 (07:49→18:00)
[2017-12-03] MEDS: INSULIN 70/30 1unit/0.01ml Susp (100units/ml) SC SCH ×2 (08:00→18:14)
[2017-12-03] MEDS: Boost Glucose Control 8 Ounces PO SCH ×3 (08:00→18:13)
[2017-12-03 09:05] VITALS: BP 120/65
[2017-12-03] MEDS: PANTOPRAZOLE 40 MG/10 ML VIAL IV SCH (09:31)
[2017-12-03] MEDS: LEVOFLOXACIN 500MG 100 ML IV SCH (09:31)
[2017-12-03] MEDS: DULoxetine HCL 30 MG CAP PO SCH (10:00)
[2017-12-03] MEDS: ASCORBIC ACID 500 MG TAB PO SCH (10:00)
[2017-12-03] MEDS: FAMOTIDINE 20 MG TAB PO SCH (10:00)
[2017-12-03] MEDS: MULTIPLE VITAMIN TAB PO SCH (10:00)
[2017-12-03] MEDS: ZINC SULFATE 220 MG CAP PO SCH (10:00)
[2017-12-03] MEDS ORDERED: SODIUM CHLORIDE 0.9% 1,000 ML IV ONE (12:00)
[2017-12-03 13:26] VITALS: BP 120/40
[2017-12-03] MEDS ORDERED: IOHEXOL 350 MG/ML 100ML IJ ONE (13:31)
[2017-12-03] MEDS ORDERED: ASCO500T11 PO (14:54)
[2017-12-03] MEDS ORDERED: LEVO-28 PO (15:45)
[2017-12-03] MEDS ORDERED: [UNRECOGNIZED DRUG - CODE] EX (15:45)
[2017-12-03] MEDS ORDERED: ASPI81CH43 PO (15:45)
[2017-12-03 16:58] VITALS: BP 120/70
[2017-12-03] MEDS ORDERED: Boost Glucose Control 8 Ounces PO SCH (18:00)
[2017-12-04] MEDS ORDERED: ASPirin-EC 81 mg tab PO SCH (10:00)
== END 2017-12-03 20:20 | disposition home or self-care (01) | DRG 191 ==
LOC: EDBD 03:37 → ER 03:42 → OVERFLOW 03:43 → CENTRAL 13:30
PROVIDERS: ADMIT Internal Medicine; ATTEND Internal Medicine
DX: J44.0 Chronic obstructive pulmonary disease with (acute) lower respiratory infection (principal); J45.901 Unspecified asthma with (acute) exacerbation; I24.9 Acute ischemic heart disease, unspecified; E44.0 Moderate protein-calorie malnutrition; I13.0 Hypertensive heart and chronic kidney disease with heart failure and stage 1 through stage 4 chronic kidney disease, or unspecified chronic kidney disease; N17.9 Acute kidney failure, unspecified; J44.1 Chronic obstructive pulmonary disease with (acute) exacerbation; E11.21 Type 2 diabetes mellitus with diabetic nephropathy; J20.9 Acute bronchitis, unspecified; E11.65 Type 2 diabetes mellitus with hyperglycemia; E83.51 Hypocalcemia; D63.8 Anemia in other chronic diseases classified elsewhere; E11.22 Type 2 diabetes mellitus with diabetic chronic kidney disease; Z68.32 Body mass index [BMI] 32.0-32.9, adult; E78.00 Pure hypercholesterolemia, unspecified; E78.5 Hyperlipidemia, unspecified; F41.9 Anxiety disorder, unspecified; N18.3 Chronic kidney disease, stage 3 (moderate); G47.00 Insomnia, unspecified; K59.00 Constipation, unspecified; I70.0 Atherosclerosis of aorta; I70.201 Unspecified atherosclerosis of native arteries of extremities, right leg; I50.9 Heart failure, unspecified; B95.61 Methicillin susceptible Staphylococcus aureus infection as the cause of diseases classified elsewhere; S81.802A Unspecified open wound, left lower leg, initial encounter; S81.801A Unspecified open wound, right lower leg, initial encounter; X58.XXXA Exposure to other specified factors, initial encounter; Z79.4 Long term (current) use of insulin; Z82.49 Family history of ischemic heart disease and other diseases of the circulatory system; Z83.3 Family history of diabetes mellitus; Z86.14 Personal history of Methicillin resistant Staphylococcus aureus infection; Z89.412 Acquired absence of left great toe; Z88.2 Allergy status to sulfonamides; Z79.899 Other long term (current) drug therapy; Z88.1 Allergy status to other antibiotic agents; Y93.89 Activity, other specified; Y92.89 Other specified places as the place of occurrence of the external cause; Y99.8 Other external cause status
CPT/HCPCS: 36415; 71045; 75635; 78582; 80053; 80202; 81001; 82962; 83036; 83605; 83735; 83880; 84443; 84484; 85025; 85379; 85610; 85730; 87040; 87077; 87081; 87186; 87205; 93005; 93306; 93923; 93970; 94640; 96365; 96372; 96375; C9113; J1815; J1956; J2405; J3490

== ENCOUNTER → 2018-03-23 | Outpatient (CLI) | payer OTHER ==
[~2018-03-23] MED LIST changes: +ASCO500T11 PO; +ASPI81CH43 PO; +LEVO-28 PO; +[UNRECOGNIZED DRUG - CODE] EX
[2018-03-23 10:41] LABS: Urine Bacteria NONE SEEN /hpf (None Seen); Urine Blood Negative /uL (Negative); Urine Specific Gravity 1.027 (1.001-1.035); Urine WBC 2 /hpf (0 - 3)
[2018-03-23 10:54] LABS: Albumin 3.1 g/dL (3.4-5.0); BUN/Creatinine Ratio 14.3; Bilirubin, Total 0.3 mg/dL (0.2-1.0); Calcium 8.4 mg/dL (8.5-10.1); Potassium 4.1 mmol/L (3.5-5.1); Total Protein 9.2 g/dL (6.4-8.2)
[2018-03-23 10:58] LABS: Basophils # (auto) 0.1 uL; Eosinophils # (auto) 0.4 uL; Hemoglobin 14.5 g/dL (13.5-17.5); Lymphocytes # (auto) 3.7 uL; Monocytes # (auto) 0.7 uL
[2018-03-23 10:59] LABS: Basophils % (auto) 1.1 % (0.0-2.0); Eosinophils % (auto) 4.7 % (0.0-7.0); Hematocrit 44.2 % (41.0-53.0); Lymphocytes % (auto) 42.5 % (10.0-50.0); Mean Corpuscular Hemoglobin 26.5 pg (28.0-32.0); Mean Corpuscular Hgb Conc. 32.8 g/dL (32.0-36.0); Mean Corpuscular Volume 80.7 fL (80.0-100.0); Monocytes % (auto) 7.8 % (0.0-12.0); Neutrophils # (auto) 3.8 uL; Neutrophils % (auto) 43.9 % (37.0-80.0); Nucleated Red Blood Cells % 0.1 %; Platelet Count (auto) 238 10^3/uL (140-450); Red Blood Cells 5.48 10^6/uL (4.5-5.90); Red Cell Distribution Width 15.2 % (11.8-14.3); White Blood Cell 8.6 10^3/uL (4.4-10.8)
== END | disposition home or self-care (01) ==
LOC: LAB 10:11
PROVIDERS: ATTEND Nurse Practitioner
DX: E11.9 Type 2 diabetes mellitus without complications (principal); E78.00 Pure hypercholesterolemia, unspecified; E55.9 Vitamin D deficiency, unspecified; Z88.1 Allergy status to other antibiotic agents; Z88.2 Allergy status to sulfonamides
CPT/HCPCS: 36415; 80053; 80061; 81001; 82043; 82306; 83036; 84443; 85025

== ENCOUNTER → 2018-04-08 | Outpatient (CLI) | payer OTHER ==
[2018-04-08 10:25] LABS: Alcohol, Urine < 3.0 mg/dL (0-5); Amphetamine Screen, Urine NEGATIVE (NEGATIVE); Barbiturate Scree,Urine NEGATIVE (NEGATIVE); Benzodiazephine Screen, Urine NEGATIVE (NEGATIVE); Cannabinoid Screen, Urine NEGATIVE (NEGATIVE); Cocaine Screen, Urine NEGATIVE (NEGATIVE); Opiate Scree,Urine NEGATIVE (NEGATIVE); Phencyclidine Screen, Urine NEGATIVE (NEGATIVE)
== END | disposition home or self-care (01) ==
LOC: LAB 09:32
PROVIDERS: ATTEND Nurse Practitioner
DX: Z02.83 Encounter for blood-alcohol and blood-drug test (principal)
CPT/HCPCS: 80307

== ENCOUNTER → 2018-06-16 | Outpatient (CLI) | payer OTHER | END | disposition home or self-care (01) | LOC: XY 09:01 | PROVIDERS: ATTEND Internal Medicine | DX: I70.202 Unspecified atherosclerosis of native arteries of extremities, left leg (principal); I77.1 Stricture of artery | CPT/HCPCS: 93925 ==

== ENCOUNTER → 2018-08-19 | Outpatient (CLI) | payer OTHER, MEDICARE ==
[2018-08-19 15:46] LABS: Basophils # (auto) 0.1 uL; Mean Corpuscular Hemoglobin 26.6 pg (28.0-32.0); Monocytes # (auto) 0.5 uL; Neutrophils # (auto) 4.2 uL; Nucleated Red Blood Cells % 0.1 %; White Blood Cell 7.8 10^3/uL (4.4-10.8)
[2018-08-19 15:47] LABS: Basophils % (auto) 1.6 % (0.0-2.0); Eosinophils # (auto) 0.4 uL; Eosinophils % (auto) 4.7 % (0.0-7.0); Hematocrit 43.4 % (41.0-53.0); Hemoglobin 14.1 g/dL (13.5-17.5); Lymphocytes # (auto) 2.6 uL; Lymphocytes % (auto) 33.8 % (10.0-50.0); Mean Corpuscular Hgb Conc. 32.5 g/dL (32.0-36.0); Monocytes % (auto) 6.5 % (0.0-12.0); Neutrophils % (auto) 53.4 % (37.0-80.0); Platelet Count (auto) 267 10^3/uL (140-450); Red Blood Cells 5.29 10^6/uL (4.5-5.90); Red Cell Distribution Width 14.4 % (11.8-14.3)
[2018-08-19 15:59] LABS: Potassium 4.2 mmol/L (3.5-5.1)
[2018-08-19 16:08] LABS: BUN/Creatinine Ratio 12.5
[2018-08-19 16:09] LABS: Albumin 3.2 g/dL (3.4-5.0); Bilirubin, Total 0.3 mg/dL (0.2-1.0); Calcium 8.6 mg/dL (8.5-10.1); Total Protein 9.6 g/dL (6.4-8.2); Uric Acid 5.2 mg/dL (3.5-7.2)
[2018-08-19 16:10] LABS: Prostate Specific Antigen 3.25 ng/mL (0.0-4.0)
[2018-08-19 16:12] LABS: Folate (Folic Acid) 19.04 ng/mL (5.38-24)
[2018-08-19 16:31] LABS: Urine Bacteria NONE SEEN /hpf (None Seen); Urine Blood Negative /uL (Negative); Urine Specific Gravity 1.027 (1.001-1.035); Urine WBC 2 /hpf (0 - 3)
== END | disposition home or self-care (01) ==
LOC: LAB 15:10
PROVIDERS: ATTEND Nurse Practitioner
DX: E11.9 Type 2 diabetes mellitus without complications (principal); E78.5 Hyperlipidemia, unspecified; I11.0 Hypertensive heart disease with heart failure; I50.9 Heart failure, unspecified
CPT/HCPCS: 36415; 80053; 80061; 81001; 82043; 82270; 82306; 82607; 82746; 83036; 84153; 84443; 84550; 85025

== ENCOUNTER → 2018-11-11 | Outpatient (CLI) | payer OTHER, MEDICARE ==
[2018-11-11 11:55] LABS: Basophils # (auto) 0.1 uL; Monocytes # (auto) 0.5 uL
[2018-11-11 11:57] LABS: Basophils % (auto) 1.1 % (0.0-2.0); Eosinophils # (auto) 0.4 uL; Eosinophils % (auto) 6.1 % (0.0-7.0); Hematocrit 39.9 % (41.0-53.0); Hemoglobin 13.3 g/dL (13.5-17.5); Lymphocytes # (auto) 2.2 uL; Lymphocytes % (auto) 30.7 % (10.0-50.0); Mean Corpuscular Hemoglobin 26.3 pg (28.0-32.0); Mean Corpuscular Hgb Conc. 33.4 g/dL (32.0-36.0); Mean Corpuscular Volume 78.8 fL (80.0-100.0); Neutrophils # (auto) 3.9 uL; Neutrophils % (auto) 55.1 % (37.0-80.0); Nucleated Red Blood Cells % 0.1 %; Platelet Count (auto) 288 10^3/uL (140-450); Red Blood Cells 5.06 10^6/uL (4.5-5.90); Red Cell Distribution Width 15.6 % (11.8-14.3); White Blood Cell 7.1 10^3/uL (4.4-10.8)
[2018-11-11 12:28] LABS: Urine Bacteria NONE SEEN /hpf (None Seen); Urine Blood Negative /uL (Negative); Urine Specific Gravity 1.021 (1.001-1.035); Urine WBC 2 /hpf (0 - 3)
[2018-11-11 12:42] LABS: Calcium 8.6 mg/dL (8.5-10.1); Potassium 4.1 mmol/L (3.5-5.1)
[2018-11-11 12:49] LABS: BUN/Creatinine Ratio 15.4; Bilirubin, Total 0.3 mg/dL (0.2-1.0); Total Protein 9.2 g/dL (6.4-8.2)
== END | disposition home or self-care (01) ==
LOC: LAB 11:25
PROVIDERS: ATTEND Nurse Practitioner
DX: E78.5 Hyperlipidemia, unspecified (principal); E11.9 Type 2 diabetes mellitus without complications
CPT/HCPCS: 36415; 80053; 80061; 81001; 82043; 82306; 83036; 85025

== ENCOUNTER → 2018-12-29 | Outpatient (CLI) | payer OTHER, MEDICARE ==
[2018-12-29 13:32] LABS: Basophils # (auto) 0.1 uL; Eosinophils # (auto) 0.4 uL; Mean Corpuscular Volume 79.2 fL (80.0-100.0); Neutrophils # (auto) 3.9 uL; Nucleated Red Blood Cells % 0.1 %; Red Cell Distribution Width 16.3 % (11.8-14.3); Urine Bacteria NONE SEEN /hpf (None Seen); Urine Blood Negative /uL (Negative); Urine Specific Gravity 1.024 (1.001-1.035); Urine Sperm PRESENT /hpf (None Seen); Urine WBC 3 /hpf (0 - 3)
[2018-12-29 13:34] LABS: Basophils % (auto) 1.3 % (0.0-2.0); Eosinophils % (auto) 5.3 % (0.0-7.0); Hematocrit 40.1 % (41.0-53.0); Hemoglobin 13.3 g/dL (13.5-17.5); Lymphocytes # (auto) 2.7 uL; Lymphocytes % (auto) 35.5 % (10.0-50.0); Mean Corpuscular Hemoglobin 26.3 pg (28.0-32.0); Mean Corpuscular Hgb Conc. 33.2 g/dL (32.0-36.0); Monocytes # (auto) 0.5 uL; Monocytes % (auto) 6.6 % (0.0-12.0); Neutrophils % (auto) 51.3 % (37.0-80.0); Platelet Count (auto) 277 10^3/uL (140-450); Red Blood Cells 5.07 10^6/uL (4.5-5.90); White Blood Cell 7.7 10^3/uL (4.4-10.8)
[2018-12-29 14:43] LABS: Albumin 3.1 g/dL (3.4-5.0); BUN/Creatinine Ratio 12.9; Calcium 8.9 mg/dL (8.5-10.1); Potassium 4.1 mmol/L (3.5-5.1)
[2018-12-29 14:47] LABS: Bilirubin, Total 0.3 mg/dL (0.2-1.0); Total Protein 9.4 g/dL (6.4-8.2)
== END | disposition home or self-care (01) ==
LOC: LAB 12:59
PROVIDERS: ATTEND Nurse Practitioner
DX: E78.5 Hyperlipidemia, unspecified (principal); E11.9 Type 2 diabetes mellitus without complications
CPT/HCPCS: 36415; 80053; 80061; 81001; 82043; 82306; 83036; 85025

== ENCOUNTER 2019-03-03 11:28 | Day surgery (SDC) | payer OTHER ==
[2019-02-26 14:46] LABS: Basophils # (auto) 0.1 uL; Eosinophils # (auto) 0.3 uL; Hemoglobin 13.5 g/dL (13.5-17.5); Nucleated Red Blood Cells % 0.1 %
[2019-02-26 14:48] LABS: Basophils % (auto) 1.2 % (0.0-2.0); Eosinophils % (auto) 2.7 % (0.0-7.0); Hematocrit 41.2 % (41.0-53.0); Lymphocytes # (auto) 2.9 uL; Lymphocytes % (auto) 27.3 % (10.0-50.0); Mean Corpuscular Hemoglobin 26.1 pg (28.0-32.0); Mean Corpuscular Hgb Conc. 32.7 g/dL (32.0-36.0); Monocytes # (auto) 0.7 uL; Monocytes % (auto) 6.9 % (0.0-12.0); Neutrophils # (auto) 6.5 uL; Neutrophils % (auto) 61.9 % (37.0-80.0); Platelet Count (auto) 301 10^3/uL (140-450); Red Blood Cells 5.15 10^6/uL (4.5-5.90); Red Cell Distribution Width 15.8 % (11.8-14.3); Urine Blood Negative /uL (Negative); Urine Specific Gravity 1.026 (1.001-1.035); White Blood Cell 10.5 10^3/uL (4.4-10.8)
[2019-02-26 15:04] LABS: INR 0.95 (0.9-1.15); Partial Thromboplastin Time 25.4 sec (23.64-32.05)
[2019-02-26 15:24] LABS: Albumin 3.4 g/dL (3.4-5.0); Calcium 8.8 mg/dL (8.5-10.1); Potassium 4.4 mmol/L (3.5-5.1)
[2019-02-26 15:27] LABS: BUN/Creatinine Ratio 13.8; Bilirubin, Total 0.3 mg/dL (0.2-1.0); Total Protein 10.2 g/dL (6.4-8.2)
[~2019-03-03] VITALS: Ht 177.8 cm; Wt 102.1 kg
[~2019-03-03 11:28] MED LIST changes: -HYDR-4683 PO; +HYDR-4833 PO; -LEVO-28 PO; -[UNRECOGNIZED DRUG - CODE] EX
[2019-03-03] MEDS ORDERED: ceFAZolin 1GM/50ML 50 ML IV ONE (12:44)
[2019-03-03] MEDS ORDERED: ROPIVACAINE 0.5% (5MG/ML) 20ML AMPULE IJ ONE (14:15)
[2019-03-03] MEDS ORDERED: MIDAZOLAM HCL 1MG/1ML-2 ML VIAL ONE (14:43)
[2019-03-03] MEDS ORDERED: fentaNYL CITRATE 100 MCG/2 ML VL ONE (14:43)
[2019-03-03] MEDS ORDERED: PROPOFOL 10 MG/ML 20 ML IV ONE (14:45)
[2019-03-03] MEDS ORDERED: ceFAZolin 1GM VL ONE (14:51)
[2019-03-03 15:52] VITALS: BP 106/65
== END 2019-03-03 16:05 | disposition home or self-care (01) ==
LOC: SUR 11:28
PROVIDERS: ATTEND Podiatrist Foot & Ankle Surgery
DX: E11.621 Type 2 diabetes mellitus with foot ulcer (principal); J44.9 Chronic obstructive pulmonary disease, unspecified; F32.9 Major depressive disorder, single episode, unspecified; Z88.2 Allergy status to sulfonamides; Z88.8 Allergy status to other drugs, medicaments and biological substances; Z88.1 Allergy status to other antibiotic agents; Z79.899 Other long term (current) drug therapy; Z79.4 Long term (current) use of insulin; Z79.82 Long term (current) use of aspirin; Z87.891 Personal history of nicotine dependence
CPT/HCPCS: 28112; 36415; 80053; 81003; 82962; 85025; 85610; 85730; 87070; 87075; 87077; 87186; 87205; 93005; C1781; C1887; J0690; J2250; J2704; J2795; J3010; J7030

== ENCOUNTER → 2019-03-18 | Outpatient (CLI) | payer OTHER ==
[2019-03-18 08:59] LABS: Potassium 4.2 mmol/L (3.5-5.1)
[2019-03-18 09:08] LABS: Albumin 3.2 g/dL (3.4-5.0); BUN/Creatinine Ratio 11.1; Bilirubin, Total 0.3 mg/dL (0.2-1.0); Calcium 8.8 mg/dL (8.5-10.1); Total Protein 9.5 g/dL (6.4-8.2)
== END | disposition home or self-care (01) ==
LOC: LAB 08:25
PROVIDERS: ATTEND Nurse Practitioner
DX: E11.9 Type 2 diabetes mellitus without complications (principal); J44.9 Chronic obstructive pulmonary disease, unspecified; Z87.891 Personal history of nicotine dependence
CPT/HCPCS: 36415; 80053; 83036

== ENCOUNTER → 2019-05-26 | Outpatient (CLI) | payer OTHER ==
[2019-05-26 10:25] LABS: Basophils # (auto) 0.1 uL; Eosinophils # (auto) 0.3 uL; Monocytes # (auto) 0.5 uL; Neutrophils # (auto) 4.1 uL
[2019-05-26 10:27] LABS: Basophils % (auto) 1.2 % (0.0-2.0); Eosinophils % (auto) 4.5 % (0.0-7.0); Hematocrit 38.4 % (41.0-53.0); Hemoglobin 12.6 g/dL (13.5-17.5); Lymphocytes # (auto) 2.3 uL; Lymphocytes % (auto) 31.3 % (10.0-50.0); Mean Corpuscular Hemoglobin 26.4 pg (28.0-32.0); Mean Corpuscular Hgb Conc. 32.8 g/dL (32.0-36.0); Mean Corpuscular Volume 80.4 fL (80.0-100.0); Monocytes % (auto) 7.1 % (0.0-12.0); Neutrophils % (auto) 55.9 % (37.0-80.0); Nucleated Red Blood Cells % 0.1 %; Platelet Count (auto) 281 10^3/uL (140-450); Red Blood Cells 4.77 10^6/uL (4.5-5.90); White Blood Cell 7.3 10^3/uL (4.4-10.8)
[2019-05-26 11:00] LABS: Albumin 2.9 g/dL (3.4-5.0); Calcium 8.3 mg/dL (8.5-10.1); Potassium 4.3 mmol/L (3.5-5.1)
[2019-05-26 11:05] LABS: BUN/Creatinine Ratio 9.7; Bilirubin, Total 0.3 mg/dL (0.2-1.0); Total Protein 8.8 g/dL (6.4-8.2)
== END | disposition home or self-care (01) ==
LOC: LAB 10:08
PROVIDERS: ATTEND Nurse Practitioner
DX: E78.5 Hyperlipidemia, unspecified (principal); E11.9 Type 2 diabetes mellitus without complications
CPT/HCPCS: 36415; 80053; 80061; 83036; 85025

== ENCOUNTER 2019-06-10 10:34 | Emergency (ER) | payer MEDICARE, OTHER ==
[~2019-06-10] VITALS: Ht 177.8 cm; Wt 101.2 kg
[2019-06-10 10:51] VITALS: BP 103/63
[2019-06-10] MEDS ORDERED: KETOROLAC TROMETH 30 MG/ML 1ML VIAL IM ONE (13:00)
[2019-06-10] MEDS ORDERED: HYDROcodone-ACET 7.5/325MG TAB PO ONE (13:00)
[2019-06-10] MEDS ORDERED: KETOROLAC TROMETH 30 MG/ML 1ML VIAL IV ONE (13:00)
== END 2019-06-10 13:32 | disposition home or self-care (01) ==
LOC: ER 10:34
DX: M10.041 Idiopathic gout, right hand (principal); J44.9 Chronic obstructive pulmonary disease, unspecified; I11.0 Hypertensive heart disease with heart failure; I50.9 Heart failure, unspecified; E78.5 Hyperlipidemia, unspecified; E11.9 Type 2 diabetes mellitus without complications; Z88.1 Allergy status to other antibiotic agents; Z88.2 Allergy status to sulfonamides; Z79.4 Long term (current) use of insulin
CPT/HCPCS: 82962; 96372; J1885

== ENCOUNTER 2019-06-19 22:09 | Emergency (ER) | payer MEDICARE, OTHER ==
[~2019-06-19] VITALS: Ht 177.8 cm; Wt 99.8 kg
[2019-06-19 22:48] LABS: Basophils # (auto) 0.1 uL; Eosinophils # (auto) 0.3 uL; Hemoglobin 12.7 g/dL (13.5-17.5); Lymphocytes # (auto) 2.6 uL; Nucleated Red Blood Cells % 0.1 %
[2019-06-19 22:50] LABS: Basophils % (auto) 0.6 % (0.0-2.0); Eosinophils % (auto) 3.2 % (0.0-7.0); Hematocrit 38.9 % (41.0-53.0); Lymphocytes % (auto) 28.3 % (10.0-50.0); Mean Corpuscular Hemoglobin 25.9 pg (28.0-32.0); Mean Corpuscular Hgb Conc. 32.7 g/dL (32.0-36.0); Mean Corpuscular Volume 79.2 fL (80.0-100.0); Monocytes % (auto) 10.6 % (0.0-12.0); Neutrophils # (auto) 5.2 uL; Neutrophils % (auto) 57.3 % (37.0-80.0); Platelet Count (auto) 317 10^3/uL (140-450); Red Blood Cells 4.91 10^6/uL (4.5-5.90); Red Cell Distribution Width 14.6 % (11.8-14.3)
[2019-06-19 23:05] LABS: Calcium 8.5 mg/dL (8.5-10.1); Potassium 3.9 mmol/L (3.5-5.1)
[2019-06-19 23:09] LABS: BUN/Creatinine Ratio 11.5; Bilirubin, Total 0.3 mg/dL (0.2-1.0); Total Protein 9.4 g/dL (6.4-8.2); Uric Acid 4.4 mg/dL (3.5-7.2)
[2019-06-20 05:08] VITALS: BP 129/72
[2019-06-20] MEDS ORDERED: ONDANSETRON HCL 4 MG/2 ML VIAL IV ONE (05:30)
[2019-06-20] MEDS ORDERED: MORPHINE SULFATE 4 MG/ML SYR/VIAL IV ONE (05:30)
== END 2019-06-20 05:46 | disposition left against medical advice (07) ==
LOC: ER 22:11
DX: M10.9 Gout, unspecified (principal); M25.531 Pain in right wrist; Z53.21 Procedure and treatment not carried out due to patient leaving prior to being seen by health care provider
CPT/HCPCS: 36415; 80053; 82962; 84550; 85025

== ENCOUNTER 2019-06-21 22:58 | Inpatient (IN) | payer OTHER ==
[~2019-06-21] VITALS: Ht 177.8 cm; Wt 100.1 kg
[2019-06-21 22:28] VITALS: BP 143/68
--- NOTE | 2019-06-21 22:28 | NUR ---
Direct Admit Note SOLISTIFFANY admitted to Telemetry/MS unit as a direct admit from [place]. Patient oriented to Jody Newell, primary RN, unit, room, bed, and unit policies regarding patient care and visiting hours. Patient now on continuous telemetry monitoring, tele box # [id number] and telemetry reading on arrival to unit is sinus tachycardia. Patient placed on bedside oxygen, weighed by bedscale and encouraged to call if they need something. All questions and concerns addressed, patient verbalized understanding. MD notified of patients arrival and admit orders received.
[2019-06-22] MEDS ORDERED: DEXTROSE (50%) 50ML SYRG IV PRN
[2019-06-22] MEDS ORDERED: TEMAZEPAM 15 MG CAP PO PRN
[2019-06-22] MEDS ORDERED: VANCOMYCIN PER PHARMACY 0 MG IV SCH
[2019-06-22] MEDS ORDERED: ACETAMINOPHEN 325 MG TAB PO PRN
[2019-06-22] MEDS ORDERED: VANCOMYCIN 1GM/250ML 250 ML IV ONE (00:15)
[2019-06-22] MEDS: ACCU-CHEK COMFORT CURVE STRIP VI SCH ×4 (00:22→18:55)
[2019-06-22] MEDS: PIPERACILLIN-TAZOB 3.375GM 100 ML IV SCH ×2 (00:43→06:12)
[2019-06-22 01:56] LABS: Basophils # (auto) 0.1 uL; Basophils % (auto) 1.2 % (0.0-2.0); Eosinophils # (auto) 0.1 uL; Eosinophils % (auto) 1.1 % (0.0-7.0); Hematocrit 35.6 % (41.0-53.0); Hemoglobin 11.5 g/dL (13.5-17.5); Lymphocytes # (auto) 2.3 uL; Lymphocytes % (auto) 24.4 % (10.0-50.0); Mean Corpuscular Hemoglobin 25.5 pg (28.0-32.0); Mean Corpuscular Hgb Conc. 32.4 g/dL (32.0-36.0); Mean Corpuscular Volume 78.9 fL (80.0-100.0); Monocytes # (auto) 1.3 uL; Monocytes % (auto) 13.5 % (0.0-12.0); Neutrophils # (auto) 5.7 uL; Neutrophils % (auto) 59.8 % (37.0-80.0); Nucleated Red Blood Cells % 0.1 %; Platelet Count (auto) 262 10^3/uL (140-450); Red Blood Cells 4.51 10^6/uL (4.5-5.90); Red Cell Distribution Width 15.3 % (11.8-14.3); White Blood Cell 9.5 10^3/uL (4.4-10.8)
[2019-06-22 02:15] LABS: Albumin 2.6 g/dL (3.4-5.0); Anion Gap 10 (5-15); BUN/Creatinine Ratio 12.2; Blood Urea Nitrogen 19 mg/dL (7-18); Calcium 8.5 mg/dL (8.5-10.1); Carbon Dioxide 21 mmol/L (21-32); Chloride 104 mmol/L (98-107); GFR African American 57 mL/min; GFR Non-African American 47 mL/min; Glucose 130 mg/dL (74-106); Potassium 3.8 mmol/L (3.5-5.1); Sodium 135 mmol/L (136-145)
[2019-06-22 02:18] LABS: Alanine Aminotransferase 21 U/L (16-61); Alkaline Phosphatase 107 U/L (45-117); Aspartate Aminotransferase 23 U/L (15-37); Bilirubin, Total 0.6 mg/dL (0.2-1.0); Total Protein 9.1 g/dL (6.4-8.2)
[2019-06-22] MEDS: HYDROcodone-ACET 5/325MG TAB PO PRN ×2 (02:20→06:25)
[2019-06-22] MEDS ORDERED: SODIUM CHLORIDE 0.9% 500 ML IV ONE (03:00)
[2019-06-22 03:43] LABS: CRP High Sensitivity > 19.0 mg/dL (< 0.3)
[2019-06-22] MEDS: SODIUM CHLORIDE 0.9% 1,000 ML IV SCH ×2 (04:08→18:15)
[2019-06-22 04:22] LABS: Urine Bacteria FEW /hpf (None Seen); Urine Blood Negative /uL (Negative); Urine Hyaline Cast FEW /lpf (0 - 2); Urine Mucus FEW (None Seen); Urine Specific Gravity 1.027 (1.001-1.035); Urine WBC 19 /hpf (0 - 3)
[2019-06-22 05:07] VITALS: BP 120/48
[2019-06-22] MEDS: InsuLIN REG 1unit/0.01ml Soln (100units/ml) SC SCH ×4 (06:12→18:55)
[2019-06-22 06:54] LABS: Basophils # (auto) 0.1 uL; Basophils % (auto) 0.7 % (0.0-2.0); Eosinophils # (auto) 0.1 uL; Eosinophils % (auto) 0.6 % (0.0-7.0); Hematocrit 34.3 % (41.0-53.0); Hemoglobin 11.5 g/dL (13.5-17.5); Mean Corpuscular Volume 79.4 fL (80.0-100.0); Red Blood Cells 4.32 10^6/uL (4.5-5.90)
[2019-06-22 06:58] LABS: Lymphocytes # (auto) 1.3 uL; Lymphocytes % (auto) 13.4 % (10.0-50.0); Mean Corpuscular Hemoglobin 26.5 pg (28.0-32.0); Mean Corpuscular Hgb Conc. 33.4 g/dL (32.0-36.0); Neutrophils # (auto) 7.4 uL; Neutrophils % (auto) 75.3 % (37.0-80.0); Platelet Count (auto) 230 10^3/uL (140-450); Red Cell Distribution Width 15.2 % (11.8-14.3); White Blood Cell 9.8 10^3/uL (4.4-10.8)
[2019-06-22 07:26] LABS: Calcium 8.3 mg/dL (8.5-10.1); Potassium 3.9 mmol/L (3.5-5.1)
[2019-06-22 07:28] LABS: BUN/Creatinine Ratio 13.9
--- NOTE | 2019-06-22 08:25 | NUR ---
Opening Note Assumed care of patient, he is A& O x4, no s/s of distress at this time. Patient is c/o pain to the right hand, states that [place] does not work. Will notify MD. Patient is otherwise comfortable. POC discussed with patient, bed is in lowest, locked position, call light within reach, will continue to monitor Q1h and PRN.
[2019-06-22 09:00] VITALS: BP 112/68
[2019-06-22] MEDS: FAMOTIDINE 20 MG TAB PO SCH ×3 (09:57→22:00)
--- NOTE | 2019-06-22 10:30 | NUR ---
Paged Dr. Blas Regarding patient pain. Will await orders.
--- NOTE | 2019-06-22 11:52 | NUR ---
WOUND CARE NOTE: Wound care in to see patient per wound care request regarding multiple wounds that are noted present on admission. Bedside nurse took photograph of patient's wounds upon admission for reference. Patient is 68 y/o male admitted for Rt hand swelling. Patient with history of DM. Patient is resting in bed in Rm. 294B. He's awake, alert and oriented. He's in no stated pain at this time. Patient is able to turn and reposition self. His Alexandre score is 19. Skin/wound assessment done with the assistance of another nurse, ÓGMEZ Hampton. Patient noted with multiple open and scabbed wounds to BLE and Rt posterior upper back. Patient reported that he has had the BLE wound for four years and he' s under the care of Dr. Le for his wounds. Scabbed wound to his Rt upper back is "from scratching" he reported. He added that it will heal but then he will itch and scratch it. Patient's L plantar foot has 3x1.5x0.5cm open full thickness wound. Wound bed is red with yellow hyperkeratotic ring, no drainage or odor noted. His L great toe noted missing with well healed scar to dorsal aspect of L foot. Cleansed patient's multiple wounds with wound cleanser,patted dry with gauze, applied Thera honey gel to Lt plantar foot and Rt. upper back wound. Covered Rt upper back wound with large Opti foam gentle dressing. Covered L Plantar foot wound with Opti foam, wrapped with Kerlix and secured with tape. BLE wounds covered with Xeroform dressing, Telfa, wrapped with Kerlix and secured with tape. Patient tolerated well. All wound stats documented in nurse intervention, wound assessment part. RECOMMENDATION: Daily/PRN dressing change to Lt plantar foot wound ;EOD/PRN dressing change to BLE wounds, Q3days/PRN dressing change to Rt upper back wounds per MD order; BID/PRN cleaning and application of Barrier cream to sacral,buttocks as preventative, Dietary consult due to presence of wounds, frequent turning and repositioning schedule as condition permits, redistribute pressure points with pillows, elevate heels on pillows, continue monitoring by wound care while patient is hospitalized. Addendum: 06/22/19 at 1721 by Beatriz Ramirez RN Amended: Links added.
--- NOTE | 2019-06-22 12:36 | NUR ---
Dr. Blas at bedside. Informed doctor of patient pain unrelieved with [place]onough, would like stronger pain meds. Doctor notified this RN he will place the order. Orders for hand CT and solumedrol, received read back and verified. Will medicate per orders.
[2019-06-22] MEDS ORDERED: methylPREDNISolone SOD SUCC 125 MG/2 ML VL IV ONE (12:45)
[2019-06-22] MEDS: MEROPENEM 1GM IVPB 100 ML IV SCH ×2 (14:39→21:57)
--- NOTE | 2019-06-22 16:30 | NUR ---
Patient complaining of pain to the IV in the left hand Patient not tolerating IV, painful. No s/s of infiltration or swelling, patient states "it hurts" when normal saline flushed through IV. Will attempt new IV. IV discontinued, catheter intact pressure dressing applied.
[2019-06-22] MEDS: OXYCODONE W/ ACETAMINOPHEN 5/325MG TABLET PO PRN (16:31)
[2019-06-22] MEDS ORDERED: VANCOMYCIN 1GM/250ML 250 ML IV SCH (17:00)
--- NOTE | 2019-06-22 17:00 | NUR ---
No IV attempt successful at this time.
--- NOTE | 2019-06-22 17:19 | NUR ---
Spoke to Dr. Sotelo on telephone Orders received, read back and verified.
[2019-06-22] MEDS ORDERED: CHOL20007 PO (17:24)
[2019-06-22 17:29] VITALS: BP 154/67
--- NOTE | 2019-06-22 18:00 | NUR ---
No IV attempt successful at this time. Will place order for midline.
--- NOTE | 2019-06-22 18:30 | NUR ---
Spoke to Tag Meter Operator Diana. No PICC/midline nurse available. Sent ER nurse to place IV.
--- NOTE | 2019-06-22 19:06 | NUR ---
IV placed to the left upper arm 20G, patient tolerated well. MANGANESE WHEELER Jose Armando placed successfully.
[2019-06-22] MEDS: VANCOMYCIN 1GM/250ML 250 ML IV SCH (19:51)
[2019-06-22 21:47] VITALS: BP 148/80
[2019-06-22] MEDS: methylPREDNISolone SOD SUCC 125 MG/2 ML VL IV SCH (21:57)
[2019-06-22] MEDS: ATORVASTATIN 20 MG TAB PO SCH ×2 (21:58→22:00)
--- NOTE | 2019-06-22 22:41 | NUR ---
Confusion Pt attempted to walk out of room claiming "Im going to walk home." Pt states "you are all trying to kill me." Pt called . Pt placed back into bed. Pt given temazepam 15mg Po after reorienting for 40 mins.
[2019-06-23] MEDS: InsuLIN REG 1unit/0.01ml Soln (100units/ml) SC SCH ×4 (00:59→18:05)
--- NOTE | 2019-06-23 01:02 | NUR ---
Rounds pt apologized for earlier episode of confusion, and claims he is "much better now."
--- NOTE | 2019-06-23 01:31 | NUR ---
Rounds Pt sleeping in bed. Sitter at bedside.
[2019-06-23 05:01] VITALS: BP 141/67
[2019-06-23] MEDS: SODIUM CHLORIDE 0.9% 1,000 ML IV SCH ×2 (05:40→19:00)
--- NOTE | 2019-06-23 05:53 | NUR ---
IV insertion IV access obtained, via clean sterile technique by inserting 22 gauge catheter at right forearm after 2 attempts. IV secured properly. No trauma to site. Patient tolerated well.
[2019-06-23] MEDS: ACCU-CHEK COMFORT CURVE STRIP VI SCH ×4 (06:00→17:46)
[2019-06-23] MEDS: MEROPENEM 1GM IVPB 100 ML IV SCH ×3 (06:45→22:19)
--- NOTE | 2019-06-23 07:31 | NUR ---
closing Notes endorsed care to day shift nursetaisha.
--- NOTE | 2019-06-23 07:55 | NUR ---
Opening Shift Note Assumed care of patient, awake and alertx4. Patient on room air, no S/S of distress/SOB or pain. Instructed on POC and to call for assist PRN. Bed at lowest locked position, side rails up x2 and call light within reach. Will continue to monitor for changes Q1hr and PRN.
[2019-06-23 08:30] VITALS: BP 121/78
[2019-06-23 08:34] LABS: Basophils # (auto) 0 uL; Eosinophils # (auto) 0 uL; Lymphocytes # (auto) 0.9 uL; Mean Corpuscular Hgb Conc. 33.2 g/dL (32.0-36.0); Monocytes # (auto) 0.2 uL; Neutrophils # (auto) 9.3 uL; White Blood Cell 10.5 10^3/uL (4.4-10.8)
[2019-06-23 08:37] LABS: Basophils % (auto) 0.1 % (0.0-2.0); Hematocrit 39.5 % (41.0-53.0); Hemoglobin 13.1 g/dL (13.5-17.5); Lymphocytes % (auto) 8.8 % (10.0-50.0); Mean Corpuscular Hemoglobin 26.5 pg (28.0-32.0); Mean Corpuscular Volume 79.9 fL (80.0-100.0); Monocytes % (auto) 2.1 % (0.0-12.0); Platelet Count (auto) 332 10^3/uL (140-450); Red Blood Cells 4.94 10^6/uL (4.5-5.90); Red Cell Distribution Width 15.2 % (11.8-14.3)
[2019-06-23 09:00] VITALS: BP 121/78
[2019-06-23] MEDS: methylPREDNISolone SOD SUCC 125 MG/2 ML VL IV SCH (09:02)
[2019-06-23 09:03] LABS: Calcium 9.5 mg/dL (8.5-10.1); Potassium 3.9 mmol/L (3.5-5.1)
[2019-06-23] MEDS: OXYCODONE W/ ACETAMINOPHEN 5/325MG TABLET PO PRN ×2 (09:03→15:51)
[2019-06-23] MEDS: FAMOTIDINE 20 MG TAB PO SCH ×2 (09:03→22:20)
[2019-06-23 09:08] LABS: BUN/Creatinine Ratio 15.6; Bilirubin, Total 0.4 mg/dL (0.2-1.0); Total Protein 10.9 g/dL (6.4-8.2)
[2019-06-23] MEDS: VANCOMYCIN 1GM/250ML 250 ML IV SCH (11:38)
--- NOTE | 2019-06-23 12:39 | NUR ---
Midline Placement: Patient educated on need for midline placement. All risks and benefits explained and all questions and concerns addresses prior to procedure. 18g/10cm midline inserted via Basilic vein using Ultrasound. Sterile technique utilized. Blood return obtained from single lumen and flushed easily with NS using proper technique. Midline secured with saline lock; biodisc and occlusive dressing applied. Primary RN notified. Midline lot # [id number].
[2019-06-23 13:00] VITALS: BP 128/62
--- NOTE | 2019-06-23 13:35 | NUR ---
Nutrition consult/assessment Notes Please see attached link for complete assessment Est. Needs ABW 89 k kcal (23-25 kcal/kgBW), 71-89 gms pro (0.8-1.0 gms/kgBW r/t wounds elev RFT). Will continue to monitor pertinent labs and reassess nutrient need prn Addendum: 06/23/19 at [address] Amended: Links added.
[2019-06-23 17:00] VITALS: BP 139/72
--- NOTE | 2019-06-23 18:40 | NUR ---
WOUND CARE TO LEFT FOOT AND RIGHT BACK COMPLETED, PER MD ORDERS. PATIENT TOLERATED WELL.
--- NOTE | 2019-06-23 19:26 | NUR ---
Opening Shift Note Received report from day nurseAlta. Assumed care of patient, awake, alert, and orientated x 4. No S/S of distress/SOB or pain. Bed brakes locked, and bed is in lowest position. Side rails are up x 2 and call light is with in reach. Hob is 30 degrees. Instructed on POC and to call for assist PRN, will continue to monitor for changes Q1hr and PRN.
--- NOTE | 2019-06-23 19:35 | NUR ---
END OF SHIFT NOTE: CARE ENDORSED TO NOC RN . PATIENT COMFORTABLY RESTING IN BED, BED IN LOWEST LOCKED POSITION AND CALL LIGHT WITHIN REACH.
[2019-06-23 21:56] VITALS: BP 138/84
[2019-06-23] MEDS: ATORVASTATIN 20 MG TAB PO SCH (22:20)
[2019-06-24] MEDS: InsuLIN REG 1unit/0.01ml Soln (100units/ml) SC SCH ×4 (00:43→17:02)
[2019-06-24 02:53] LABS: Basophils # (auto) 0.1 uL; Eosinophils # (auto) 0 uL; Hemoglobin 11.2 g/dL (13.5-17.5); Mean Corpuscular Volume 78.6 fL (80.0-100.0); Monocytes # (auto) 0.6 uL; Red Cell Distribution Width 15.4 % (11.8-14.3)
[2019-06-24 02:55] LABS: Basophils % (auto) 0.4 % (0.0-2.0); Hematocrit 33.9 % (41.0-53.0); Lymphocytes # (auto) 1.2 uL; Lymphocytes % (auto) 8.6 % (10.0-50.0); Mean Corpuscular Hemoglobin 25.9 pg (28.0-32.0); Monocytes % (auto) 4.5 % (0.0-12.0); Neutrophils # (auto) 11.6 uL; Neutrophils % (auto) 86.5 % (37.0-80.0); Platelet Count (auto) 336 10^3/uL (140-450); Red Blood Cells 4.32 10^6/uL (4.5-5.90); White Blood Cell 13.4 10^3/uL (4.4-10.8)
[2019-06-24 03:21] LABS: BUN/Creatinine Ratio 24.6; Calcium 8.8 mg/dL (8.5-10.1); Potassium 4.2 mmol/L (3.5-5.1)
[2019-06-24 03:30] LABS: CRP High Sensitivity 13.8 mg/dL (< 0.3)
[2019-06-24] MEDS: VANCOMYCIN 1GM/250ML 250 ML IV SCH ×2 (03:59→16:25)
[2019-06-24] MEDS: HYDROcodone-ACET 5/325MG TAB PO PRN ×2 (04:08→20:45)
[2019-06-24 04:54] VITALS: BP 127/66
[2019-06-24] MEDS: ACCU-CHEK COMFORT CURVE STRIP VI SCH ×4 (05:21→17:01)
[2019-06-24] MEDS: MEROPENEM 1GM IVPB 100 ML IV SCH ×3 (05:21→20:53)
--- NOTE | 2019-06-24 07:37 | NUR ---
CLOSING NOTES ENDORSED CARE TO DAY SHIFT NURSEBOUBACAR.
[2019-06-24 08:00] VITALS: BP 142/86
--- NOTE | 2019-06-24 08:00 | NUR ---
Opening Shift Note Assumed care of patient, awake and alert. No S/S of distress/SOB or pain. Rt and Lt leg dressings clean, dry, and intact. Instructed on POC and to call for assist PRN, will continue to monitor for changes Q1hr and PRN.
[2019-06-24 09:00] VITALS: BP 174/87
[2019-06-24] MEDS: FAMOTIDINE 20 MG TAB PO SCH ×2 (09:02→20:53)
[2019-06-24] MEDS: ENOXAPARIN SOD 40 MG/0.4 ML SYRINGE SC SCH (09:03)
[2019-06-24] MEDS: SODIUM CHLORIDE 0.9% 1,000 ML IV SCH ×2 (09:03→20:54)
[2019-06-24 12:42] VITALS: BP 146/73
--- NOTE | 2019-06-24 13:01 | NUR ---
MIDLINE ASSESSED Primary RN reports that midline to left upper extremity is not flushing. Midline assessed. Dressing is clean, dry, and in tact. No redness or swelling noted. Pt denies any pain at the insertion site. Midline is not flushing with NS and no blood return noted. Dressing removed and catheter was noted to be kinked. Catheter adjusted using sterile technique. Resecured with stat-lock and biodisc. New tegaderm occlusive dressing was placed. Pt tolerated well. Flushes easily with NS, and blood return noted. Primary RN notified.
[2019-06-24 13:20] LABS: INR 1.06 (0.9-1.15); Partial Thromboplastin Time 26.5 sec (23.64-32.05)
--- NOTE | 2019-06-24 16:07 | NUR ---
Called and talked to Dr. Sánchez as per pt's request regarding pt receiving Humalin 70/30 30 units BID, orders received to place the order for pt to receive the humalin 70/30.
[2019-06-24 17:00] VITALS: BP 142/67
[2019-06-24] MEDS: INSULIN 70/30 1unit/0.01ml Susp (100units/ml) SC SCH (17:03)
[2019-06-24] MEDS ORDERED: INSULIN 70/30 1unit/0.01ml Susp (100units/ml) SC SCH (18:00)
--- NOTE | 2019-06-24 19:55 | NUR ---
Opening Shift Note Assumed care of patient, awake and alert. No S/S of distress/SOB on room air. Instructed on POC and to call for assistance PRN, will continue to monitor for changes Q1hr and PRN. Dressings to back changed for open scratch burt, area cleansed and patted dry with sterile gauze, and covered with optifoam
[2019-06-24 20:00] VITALS: BP 142/86
[2019-06-24] MEDS: ATORVASTATIN 20 MG TAB PO SCH (20:53)
[2019-06-25] MEDS: InsuLIN REG 1unit/0.01ml Soln (100units/ml) SC SCH ×5 (00:46→23:34)
[2019-06-25] MEDS: HYDROcodone-ACET 5/325MG TAB PO PRN ×4 (03:32→21:36)
[2019-06-25 05:11] VITALS: BP 128/78
[2019-06-25] MEDS: ACCU-CHEK COMFORT CURVE STRIP VI SCH ×5 (06:17→23:35)
[2019-06-25] MEDS: VANCOMYCIN 1GM/250ML 250 ML IV SCH ×2 (06:18→20:04)
[2019-06-25] MEDS: OXYCODONE W/ ACETAMINOPHEN 5/325MG TABLET PO PRN ×2 (06:25→12:50)
[2019-06-25] MEDS: MEROPENEM 1GM IVPB 100 ML IV SCH ×3 (07:32→21:36)
[2019-06-25 08:00] VITALS: BP 136/92
[2019-06-25] MEDS: ENOXAPARIN SOD 40 MG/0.4 ML SYRINGE SC SCH (08:50)
[2019-06-25] MEDS: FAMOTIDINE 20 MG TAB PO SCH ×2 (08:51→21:36)
[2019-06-25] MEDS: INSULIN 70/30 1unit/0.01ml Susp (100units/ml) SC SCH ×2 (08:51→17:52)
[2019-06-25 09:17] VITALS: BP 136/92
--- NOTE | 2019-06-25 09:30 | NUR ---
MD EDWARDS REQUESTED FOR PATIENT TO RECEIVE PICC LINE. WILL CARRY OUT ORDERS
[2019-06-25] MEDS: SODIUM CHLORIDE 0.9% 1,000 ML IV SCH (11:00)
--- NOTE | 2019-06-25 11:04 | NUR ---
PATIENT REFUSES PICC LINE PATIENT CURRENTLY HAS MID LINE. CALLED MD EDWARDS TO SEE IF MID LINE IS ACCEPTABLE SINCE PATIENT IS REFUSING MID LINE. MD VERBALIZED MID LINE IS ACCEPTABLE. WILL CONTINUE TO MONITOR
[2019-06-25 13:14] VITALS: BP 126/73
[2019-06-25 16:54] VITALS: BP 134/83
[2019-06-25] MEDS: ONDANSETRON HCL 4 MG/2 ML VIAL IV PRN (20:15)
--- NOTE | 2019-06-25 20:15 | NUR ---
assumed care, pt. awake, relatives at bedside, rt. hand elevated on pillow, c/o nausea, zofran given iv as ordered, no sob.
[2019-06-25] MEDS: ATORVASTATIN 20 MG TAB PO SCH (21:36)
[2019-06-25 22:43] VITALS: BP 143/84
[2019-06-26] MEDS: SODIUM CHLORIDE 0.9% 1,000 ML IV SCH (00:20)
[2019-06-26] MEDS: HYDROcodone-ACET 5/325MG TAB PO PRN ×3 (01:37→17:55)
[2019-06-26 05:16] VITALS: BP 123/88
[2019-06-26] MEDS: MEROPENEM 1GM IVPB 100 ML IV SCH (05:34)
[2019-06-26] MEDS: OXYCODONE W/ ACETAMINOPHEN 5/325MG TABLET PO PRN ×3 (05:35→21:34)
[2019-06-26] MEDS: ACCU-CHEK COMFORT CURVE STRIP VI SCH ×4 (05:35→23:35)
[2019-06-26] MEDS: InsuLIN REG 1unit/0.01ml Soln (100units/ml) SC SCH ×4 (05:35→23:35)
--- NOTE | 2019-06-26 08:00 | NUR ---
OPENING SHIFT NOTE ASSUMED CARE OF PT. PT IS AWAKE AND ALERT. NO SOB OR SIGNS OF DISTRESS NOTED. ASSESSED BLOOD GLUCOSE AND ADMINISTERED SCHEDULED INSULIN. INSTRUCTED ON POC AND TO CALL FOR HELP PRN. BED IN LOWEST POSITION WITH SIDE RAILS UP X2. WILL CONTINUE TO MONITOR.
[2019-06-26] MEDS: INSULIN 70/30 1unit/0.01ml Susp (100units/ml) SC SCH ×2 (08:43→17:48)
[2019-06-26 08:58] VITALS: BP 130/71
[2019-06-26] MEDS: ENOXAPARIN SOD 40 MG/0.4 ML SYRINGE SC SCH (10:00)
[2019-06-26 10:04] LABS: Basophils # (auto) 0.1 uL; Eosinophils # (auto) 0.2 uL; Hemoglobin 13.1 g/dL (13.5-17.5); Monocytes # (auto) 0.8 uL; Red Blood Cells 4.97 10^6/uL (4.5-5.90)
[2019-06-26 10:06] LABS: Eosinophils % (auto) 1.6 % (0.0-7.0); Hematocrit 39.2 % (41.0-53.0); Lymphocytes # (auto) 2.7 uL; Lymphocytes % (auto) 27.9 % (10.0-50.0); Mean Corpuscular Hemoglobin 26.3 pg (28.0-32.0); Mean Corpuscular Hgb Conc. 33.3 g/dL (32.0-36.0); Mean Corpuscular Volume 78.9 fL (80.0-100.0); Monocytes % (auto) 8.1 % (0.0-12.0); Neutrophils # (auto) 5.9 uL; Neutrophils % (auto) 61.4 % (37.0-80.0); Nucleated Red Blood Cells % 0.1 %; Platelet Count (auto) 344 10^3/uL (140-450); White Blood Cell 9.6 10^3/uL (4.4-10.8)
[2019-06-26 10:39] LABS: Albumin 2.3 g/dL (3.4-5.0); Calcium 8.7 mg/dL (8.5-10.1)
[2019-06-26 10:47] LABS: BUN/Creatinine Ratio 24.3; Bilirubin, Total 0.3 mg/dL (0.2-1.0); CRP High Sensitivity 5.16 mg/dL (< 0.3); Total Protein 8.4 g/dL (6.4-8.2)
[2019-06-26] MEDS: FAMOTIDINE 20 MG TAB PO SCH ×2 (11:52→21:34)
[2019-06-26 13:18] VITALS: BP 124/85
[2019-06-26] MEDS: ceFAZolin 1GM/50ML 50 ML IV SCH ×2 (13:52→21:33)
[2019-06-26] MEDS ORDERED: LIDOCAINE 1% (LOCAL ANESTH.) PF 5ml SDV ID ONE (14:00)
--- NOTE | 2019-06-26 14:30 | NUR ---
Nutrition Follow-up Notes Wt.: 101.1 kg pt was sleeping with no family by bedside. per records pt with severe sepsis, due to cellulitis and gout. pt with no distress noted currently on CCHO 60 gm/meal diet with adequate PO of 75% x 4 per RN doc Est. Needs ABW 89 k kcal (23-25 kcal/kgBW), 71-89 gms pro (0.8-1.0 gms/kgBW r/t wounds elev RFT). Will continue to monitor pertinent labs and reassess nutrient need prn Labs: BUN 31 H, GLU 352 H Skin: Alexandre scale 17, mod risk cellulitis, ulcer per casing tester. refer to WC notes for details GI: Pt had 1 BM today per casing tester. PES: Altered nutrition related lab values r/t current/chronic medical condition aeb elev RFT A1C hyperglycemia, mild hypoalb Decreased nutrient needs r/t adiposity aeb pt`s high BMI of 32.8 kgm2 Will continue to monitor PO intake, skin status, pertinent labs and weight trend. F/u in 3-5 days. Rec.: 1.) refer to CDE on DC. 2) consider MVI/C bid. 3) consider renal specific 80 gm protein 2 gm na diet along with current diet if RFT elev. 4) continue current plan of care
--- NOTE | 2019-06-26 15:38 | NUR ---
PICC line placement Patient/Patient significant other educated on need for PICC line placement. All risks and benefits explained and all questions and concerns addressed prior to procedure. Noted past medical history and allergies with no contraindications. INR and Plt counts within acceptable range. 4 fr PICC line inserted via left cephalic vein using [employer] US and Tip Location System. Sterile technique with maximum barrier precautions utilized. Blood return obtained from the lumen and each flushed easily with NS using proper technique. PICC secured with Stat-lock; biodisc and occlusive dressing applied. Stat portable chest x-ray obtained for PICC tip placement.PICC was exchanged over guidewire.
--- NOTE | 2019-06-26 16:00 | NUR ---
PAGED WAX PATTERN REPAIRER ENGINEERING PATTERNMAKER REGARDING CONSULT. AWAITING CALL BACK.
--- NOTE | 2019-06-26 17:00 | NUR ---
ASSISTANT ATTORNEY GENERAL RETURNED CALL. SAID THEY WOULD FOLLOW UP ON 06/28.
[2019-06-26 17:01] VITALS: BP 134/78
--- NOTE | 2019-06-26 18:21 | NUR ---
WOUND CARE PERFORMED ON LEFT FOOT ORDERED.
--- NOTE | 2019-06-26 19:35 | NUR ---
ASSUMED CARE, PT. AWAKE, NO SOB.
[2019-06-26] MEDS: SODIUM CHLOR 0.9% PF (SALINE LOCK) 10ML VIAL/SYR IV SCH (21:33)
[2019-06-26] MEDS: ATORVASTATIN 20 MG TAB PO SCH (21:34)
[2019-06-26 22:00] VITALS: BP 131/74
[2019-06-26 23:59] LABS: Creatinine, Urine 44.5 mg/dL (30.0-125.0); Protein, Urine 14.9 mg/dL (0.0-11.9)
[2019-06-27] MEDS: OXYCODONE W/ ACETAMINOPHEN 5/325MG TABLET PO PRN ×4 (03:13→21:48)
[2019-06-27] MEDS: ceFAZolin 1GM/50ML 50 ML IV SCH ×3 (05:36→21:45)
[2019-06-27] MEDS: ACCU-CHEK COMFORT CURVE STRIP VI SCH ×4 (05:37→23:26)
[2019-06-27] MEDS: InsuLIN REG 1unit/0.01ml Soln (100units/ml) SC SCH ×4 (05:37→23:26)
[2019-06-27 05:40] VITALS: BP 137/78
--- NOTE | 2019-06-27 08:12 | NUR ---
OPENING SHIFT NOTE RESUMED CARE OF PT. PT IS AWAKE AND ALERT. SITTING UP IN BED. NO SOB OR SIGNS OF DISTRESS NOTED. ASSESSED BLOOD GLUCOSE AND ADMINISTERED SCHEDULED INSULIN. INSTRUCTED ON POC AND TO CALL FOR HELP PRN. BED IN LOWEST POSITION WITH SIDE RAILS UP X2. WILL CONTINUE TO MONITOR.
[2019-06-27] MEDS: INSULIN 70/30 1unit/0.01ml Susp (100units/ml) SC SCH ×2 (08:17→19:00)
[2019-06-27 09:00] VITALS: BP 133/75
[2019-06-27] MEDS: SODIUM CHLOR 0.9% PF (SALINE LOCK) 10ML VIAL/SYR IV SCH ×2 (09:52→21:45)
[2019-06-27] MEDS: FAMOTIDINE 20 MG TAB PO SCH ×2 (09:52→21:45)
[2019-06-27] MEDS: ENOXAPARIN SOD 40 MG/0.4 ML SYRINGE SC SCH (09:52)
[2019-06-27 13:00] VITALS: BP 134/84
--- NOTE | 2019-06-27 13:30 | NUR ---
PT STATED HE WILL NOT DO MRI HE IS CLAUSTROPHOBIC. WOULD LIKE TO EXPLORE DEFERENT OPTIONS OUTPATIENT. IS AWARE.
[2019-06-27] MEDS: ONDANSETRON HCL 4 MG/2 ML VIAL IV PRN (14:02)
[2019-06-27 17:07] VITALS: BP 122/69
--- NOTE | 2019-06-27 18:22 | NUR ---
EOD WOUND CARE PERFORMED TO BLE AND DAILY WOUND CARE PERFORMED TO LEFT FOOT, AND RIGHT UPPER BACK PER ORDERS.
--- NOTE | 2019-06-27 19:05 | NUR ---
ASSUMED CARE, PT. AWAKE, NO C/O PAIN, NO SOB.
[2019-06-27] MEDS: ATORVASTATIN 20 MG TAB PO SCH (21:45)
[2019-06-27 22:00] VITALS: BP 137/67
[2019-06-28] MEDS: OXYCODONE W/ ACETAMINOPHEN 5/325MG TABLET PO PRN ×3 (01:49→20:28)
[2019-06-28 05:00] VITALS: BP 113/75
[2019-06-28] MEDS: ceFAZolin 1GM/50ML 50 ML IV SCH ×2 (05:31→14:30)
[2019-06-28] MEDS: InsuLIN REG 1unit/0.01ml Soln (100units/ml) SC SCH ×3 (05:31→18:00)
[2019-06-28] MEDS: ACCU-CHEK COMFORT CURVE STRIP VI SCH ×3 (05:32→18:00)
--- NOTE | 2019-06-28 07:55 | NUR ---
ASSUMED CARE OF PT. SLEEPING DEEPLY. HAS CALLED [facility] ASKING PT BE TOLD TO CALL HER URGENTLY. AWAKENED, VERBALLY APPROPRIATE. LUNG SOUNDS CLEAR. RETURNED FOR ASSESSMENT C/O PAIN TO RT WRIST AND HAND. UN ABLE TO USE TO WRITE ON MENU FROM DIETARY ASKS FOR ASSISTANCE. MEDICATED WITH PRN FOR PAIN.
[2019-06-28] MEDS: INSULIN 70/30 1unit/0.01ml Susp (100units/ml) SC SCH ×2 (08:16→18:00)
--- NOTE | 2019-06-28 08:51 | NUR ---
I faxed home IV ATB order to [facility].
[2019-06-28 09:00] VITALS: BP_SYST 122; BP_SYST 137; BP_DIAS 77; BP_DIAS 78
[2019-06-28] MEDS: SODIUM CHLOR 0.9% PF (SALINE LOCK) 10ML VIAL/SYR IV SCH ×2 (10:00→22:32)
[2019-06-28] MEDS: ENOXAPARIN SOD 40 MG/0.4 ML SYRINGE SC SCH (10:30)
[2019-06-28] MEDS: FAMOTIDINE 20 MG TAB PO SCH ×2 (10:30→22:33)
[2019-06-28 10:52] LABS: Hepatitis B Core IgM Negative; Hepatitis B Surface Antigen Negative (Negative)
[2019-06-28] MEDS ORDERED: ALPRAZolam 0.5 MG TAB PO ONE (12:30)
[2019-06-28] MEDS ORDERED: COLCHICINE 0.6 MG CAP PO ONE (12:30)
[2019-06-28 13:00] VITALS: BP 150/65
--- NOTE | 2019-06-28 16:54 | NUR ---
assessment Patient is a 68 year old male who is alert and oriented. Patients cognitive abilities are intact. Prior to admission patient lived home with family and functioned independently. Patient informed me he is able to care for his own ADLs. Per patient he will return home to his prior living arrangements post discharge and family will transport him home. Patient uses [facility] for PCP. Patient has a ss consult for home IV ABX. Patient informed me his daughter Tammie can be taught to do IV ABX. Veronika SW 1 will satisfy MD order. I informed patient he has a right to speak to a social media designer regarding all care. I informed patient he has a right to participate in any and all discharge planning. Patient does not have a POA and advanced directive. I have offered patient information on POA and advanced directives. I informed the patient the advantages and benefits of having an Advanced Directive. Patient verbalized understanding and agreed to discharge plan. Addendum: 06/28/19 at 1656 by Jennifer TAM Amended: Links added.
[2019-06-28 16:56] VITALS: BP 117/77
--- NOTE | 2019-06-28 19:10 | NUR ---
OPENING NOTE- NOC SHIFT PATIENT IS ALERT AND ORIENTED X4 AND MAKES APPROPRIATE EYE CONTACT. PATIENT IS IN BED, BED IS LOCKED AT LOWEST POSITION, BED RAILS UP X2 AND HEAD OF BED IS UP >30 DEGREES FOR SAFETY PRECAUTIONS. PATIENT STATES THAT PAIN TO RIGHT ARM IS CONSTANT AND DOES NOT FEEL BETTER WITH MEDICATION. DISCUSSED POC WITH PATIENT AND INSTRUCTED PATIENT TO CALL PRN; PATIENT VERBALIZED UNDERSTANDING. WILL CONTINUE TO MONITOR Q1H AND PRN.
[2019-06-28 21:37] VITALS: BP 137/72
[2019-06-28] MEDS: ATORVASTATIN 20 MG TAB PO SCH (22:33)
[2019-06-29] MEDS: ACCU-CHEK COMFORT CURVE STRIP VI SCH ×4 (00:18→17:39)
[2019-06-29] MEDS: InsuLIN REG 1unit/0.01ml Soln (100units/ml) SC SCH ×4 (00:18→17:54)
[2019-06-29] MEDS: OXYCODONE W/ ACETAMINOPHEN 5/325MG TABLET PO PRN ×3 (02:02→13:07)
[2019-06-29 05:05] VITALS: BP 129/71
--- NOTE | 2019-06-29 07:10 | NUR ---
ENDORSED PATIENT CARE TO DAY SHIFT NURSE YAMILA MAGAÑA.
[2019-06-29] MEDS: INSULIN 70/30 1unit/0.01ml Susp (100units/ml) SC SCH ×2 (08:00→17:54)
[2019-06-29 08:06] LABS: Immunoglobulin G, Serum 2010 mg/dL (700-1600)
[2019-06-29 09:00] VITALS: BP 128/71
[2019-06-29] MEDS: SODIUM CHLOR 0.9% PF (SALINE LOCK) 10ML VIAL/SYR IV SCH (09:23)
[2019-06-29] MEDS ORDERED: COLCHICINE 0.6 MG CAP PO SCH (10:00)
[2019-06-29] MEDS: ENOXAPARIN SOD 40 MG/0.4 ML SYRINGE SC SCH (10:19)
[2019-06-29] MEDS: FAMOTIDINE 20 MG TAB PO SCH (10:19)
--- NOTE | 2019-06-29 10:53 | NUR ---
I faxed order for home IV ATB Rocephin to [facility].
--- NOTE | 2019-06-29 10:55 | NUR ---
D/C planning Per consult for home health IV abx. Order has been reviewed and approved by YONATAN Atwood. [employer] will be working on IV abx. Contact [facility] fax:( [phone]) faxed [facility] records with authorization number for home health [id number] and for [facility] [id number]. Contact [facility] Ph:) Fax:( [phone]) faxed medical records. Per Don from [facility] order has been received and service to start upon d/c day. Informed patient at bedside regarding home health orders. Patient stated his daughter in law aTmmie will help with IV abx. Patient verbalize understating d/c plan. Addendum: 06/29/19 at 1154 by ANSLEY CALDERON Amended: Links added.
--- NOTE | 2019-06-29 12:00 | NUR ---
WOUND CARE NOTE: IN TO TAKE DISCHARGE PHOTOS OF ALL WOUNDS PER PROTOCOL AT THIS TIME. PATIENT SCHEDULED TO DISCHARGE THIS PM. ALL WOUNDS CLEANSED AND DRESSED PER MD ORDER, PHOTOGRAPHED FOR REFERENCE. PATIENT EDUCATED IN WOUND CARE AND NEED TO CONTINUES WITH DRESSING CHANGES AND FOLLOW UP WITH DR. EDWARDS OUT PATIENT. PATIENT VERBALIZED UNDERSTANDING. WOUND CARE TEAM WILL CONTINUE TO MONITOR UNTIL DISCHARGE.
--- NOTE | 2019-06-29 12:18 | NUR ---
I re-faxed home IV Rocephin order to [facility].
--- NOTE | 2019-06-29 12:32 | NUR ---
I spoke with Tammie at [facility], she did receive the additional order for home IV Rocephin-she is aware that the patient is discharging home today-she will contact patient regarding delivery time.
[2019-06-29 13:00] VITALS: BP 129/69
[2019-06-29] MEDS: ONDANSETRON HCL 4 MG/2 ML VIAL IV PRN (13:07)
[2019-06-29 17:00] VITALS: BP 154/82
[2019-06-29] MEDS ORDERED: ceFAZolin 1GM/50ML 50 ML IV SCH (17:50)
--- NOTE | 2019-06-29 18:45 | NUR ---
pt to be discharged home. home health arranged per case mgt. all paperwork signed. picc line in right upper arm intact. awaiting family to pick pt up at this time.
--- NOTE | 2019-06-29 19:15 | NUR ---
OPENING NOTE NOC SHIFT PATIENT IS WAITING IN BED FOR FAMILY. DISCHARGE HAS BEEN COMPLETED BY DAY SHIFT NURSE.
--- NOTE | 2019-06-29 19:59 | NUR ---
PATIENT OFF FLOOR WITH FAMILY AT THIS TIME DISCHARGE COMPLETED BY DAY SHIFT RN. PATIENT WENT HOME WITH PICC LINE TO LEFT UA, NO REDNESS OR TENDERNESS NOTED TO SITE. FLUSHES WELL. PATIENT IS AWARE OF HOME HEALTH THAT WAS ARRANGED FOR HOME ANTIBIOTICS AND WAS GIVEN FOLLOW UP INFORMATION. PATIENT LEFT FLOOR WITH FAMILY IN WHEELCHAIR. NO S/SX OF DISTRESS, SOB OR PAIN.
--- NOTE | 2019-07-02 17:04 | NUR ---
re-assessment I have called patient and left him a message to return my call. I will offer patient private pay caregiver resources. Waiting for return call now. Addendum: 07/02/19 at 1705 by Jennifer TAM Amended: Links added.
== END 2019-06-29 19:59 | disposition home health service (06) | DRG 871 ==
LOC: TELE-WESTW 22:58 → WEST WING 06-23 09:33
PROVIDERS: ADMIT Nurse Practitioner; ATTEND Internal Medicine
PROC: 02HV33Z Insertion of Infusion Device into Superior Vena Cava, Percutaneous Approach (ICD-10-PCS; principal; 2019-06-26)
DX: A41.9 Sepsis, unspecified organism (principal); N17.0 Acute kidney failure with tubular necrosis; L03.113 Cellulitis of right upper limb; M86.672 Other chronic osteomyelitis, left ankle and foot; R65.20 Severe sepsis without septic shock; L97.529 Non-pressure chronic ulcer of other part of left foot with unspecified severity; E11.621 Type 2 diabetes mellitus with foot ulcer; E11.69 Type 2 diabetes mellitus with other specified complication; D50.9 Iron deficiency anemia, unspecified; I11.0 Hypertensive heart disease with heart failure; E78.5 Hyperlipidemia, unspecified; I50.9 Heart failure, unspecified; Z88.8 Allergy status to other drugs, medicaments and biological substances; Z88.2 Allergy status to sulfonamides; Z89.412 Acquired absence of left great toe
CPT/HCPCS: 36415; 36569; 71045; 73200; 73700; 80048; 80053; 80202; 81001; 82570; 82784; 82962; 83036; 83883; 84156; 84550; 85025; 85610; 85652; 85730; 86141; 86334; 86335; 86703; 86705; 86803; 87040; 87077; 87186; 87205; 87340; 93306; G0378; J0690; J1815; J2185; J2405; J2543

== ENCOUNTER → 2019-07-09 | Outpatient (CLI) | payer OTHER ==
[~2019-07-09] MED LIST changes: -ASCO500T11 PO; +CHOL20007 PO
[2019-07-09 11:25] LABS: Basophils # (auto) 0.1 uL; Eosinophils # (auto) 0.4 uL; Monocytes # (auto) 0.7 uL; Neutrophils # (auto) 4.8 uL
[2019-07-09 11:26] LABS: Basophils % (auto) 1.2 % (0.0-2.0); Eosinophils % (auto) 5.2 % (0.0-7.0); Hematocrit 35.5 % (41.0-53.0); Hemoglobin 11.6 g/dL (13.5-17.5); Lymphocytes # (auto) 2.3 uL; Lymphocytes % (auto) 27.4 % (10.0-50.0); Mean Corpuscular Hemoglobin 25.8 pg (28.0-32.0); Mean Corpuscular Hgb Conc. 32.8 g/dL (32.0-36.0); Mean Corpuscular Volume 78.7 fL (80.0-100.0); Monocytes % (auto) 8.4 % (0.0-12.0); Neutrophils % (auto) 57.8 % (37.0-80.0); Platelet Count (auto) 305 10^3/uL (140-450); Red Blood Cells 4.51 10^6/uL (4.5-5.90); White Blood Cell 8.3 10^3/uL (4.4-10.8)
[2019-07-09 11:45] LABS: Urine Bacteria NONE SEEN /hpf (None Seen); Urine Blood Negative /uL (Negative); Urine Hyaline Cast FEW /lpf (0 - 2); Urine Mucus FEW (None Seen); Urine Specific Gravity 1.011 (1.001-1.035); Urine WBC 3 /hpf (0 - 3)
[2019-07-09 11:54] LABS: Calcium 8.5 mg/dL (8.5-10.1); Potassium 3.8 mmol/L (3.5-5.1)
[2019-07-09 11:58] LABS: Albumin 2.5 g/dL (3.4-5.0); BUN/Creatinine Ratio 7.6; Bilirubin, Total 0.3 mg/dL (0.2-1.0); Total Protein 8.7 g/dL (6.4-8.2)
== END | disposition home or self-care (01) ==
LOC: LAB 10:58
PROVIDERS: ATTEND Nurse Practitioner
DX: E11.9 Type 2 diabetes mellitus without complications (principal); E78.5 Hyperlipidemia, unspecified
CPT/HCPCS: 36415; 80053; 80061; 81001; 82043; 83036; 84443; 85025

== ENCOUNTER → 2019-07-12 | Outpatient (CLI) | payer OTHER ==
[~2019-07-12] MED LIST changes: +PERCOT PO
[2019-07-12 12:32] LABS: Basophils # (auto) 0.1 uL; Eosinophils # (auto) 0.3 uL; Monocytes # (auto) 0.8 uL; Platelet Count (auto) 217 10^3/uL (140-450)
[2019-07-12 12:34] LABS: Basophils % (auto) 0.9 % (0.0-2.0); Hematocrit 31.7 % (41.0-53.0); Hemoglobin 10.6 g/dL (13.5-17.5); Lymphocytes # (auto) 1.5 uL; Lymphocytes % (auto) 20.7 % (10.0-50.0); Mean Corpuscular Hemoglobin 26.3 pg (28.0-32.0); Mean Corpuscular Hgb Conc. 33.6 g/dL (32.0-36.0); Mean Corpuscular Volume 78.3 fL (80.0-100.0); Monocytes % (auto) 11.4 % (0.0-12.0); Neutrophils # (auto) 4.6 uL; Red Blood Cells 4.05 10^6/uL (4.5-5.90); Red Cell Distribution Width 15.9 % (11.8-14.3); White Blood Cell 7.3 10^3/uL (4.4-10.8)
[2019-07-12 13:34] LABS: Albumin 2.4 g/dL (3.4-5.0); Potassium 5.2 mmol/L (3.5-5.1)
[2019-07-12 13:41] LABS: Bilirubin, Total 0.3 mg/dL (0.2-1.0)
== END | disposition home or self-care (01) ==
LOC: LAB 12:17
PROVIDERS: ATTEND Internal Medicine
DX: M86.9 Osteomyelitis, unspecified (principal)
CPT/HCPCS: 36415; 80053; 80202; 85025

== ENCOUNTER 2019-07-13 11:34 | Inpatient (IN) | payer OTHER ==
[~2019-07-13] VITALS: Ht 177.8 cm; Wt 79.6 kg
[~2019-07-13 11:34] MED LIST changes: -PERCOT PO
[2019-07-13] MEDS ORDERED: SODIUM CHLORIDE 0.9% 500 ML IV ONE (12:15)
[2019-07-13 14:03] LABS: Basophils # (auto) 0.1 uL; Hemoglobin 10.2 g/dL (13.5-17.5); Neutrophils # (auto) 4.6 uL; White Blood Cell 6.8 10^3/uL (4.4-10.8)
[2019-07-13 14:05] LABS: Basophils % (auto) 0.8 % (0.0-2.0); Eosinophils # (auto) 0.3 uL; Eosinophils % (auto) 3.7 % (0.0-7.0); Hematocrit 30.7 % (41.0-53.0); Lymphocytes # (auto) 1.1 uL; Lymphocytes % (auto) 16.3 % (10.0-50.0); Mean Corpuscular Hemoglobin 26.1 pg (28.0-32.0); Mean Corpuscular Hgb Conc. 33.2 g/dL (32.0-36.0); Mean Corpuscular Volume 78.7 fL (80.0-100.0); Monocytes # (auto) 0.8 uL; Monocytes % (auto) 11.4 % (0.0-12.0); Neutrophils % (auto) 67.8 % (37.0-80.0); Platelet Count (auto) 205 10^3/uL (140-450); Red Cell Distribution Width 15.3 % (11.8-14.3)
[2019-07-13 14:11] LABS: Albumin 2.3 g/dL (3.4-5.0); Calcium 8.6 mg/dL (8.5-10.1); Potassium 4.2 mmol/L (3.5-5.1)
[2019-07-13 14:15] LABS: Bilirubin, Total 0.2 mg/dL (0.2-1.0); Total Protein 8.5 g/dL (6.4-8.2)
[2019-07-13] MEDS ORDERED: MORPHINE SULFATE 4 MG/ML SYR/VIAL IV PRN (16:15)
[2019-07-13] MEDS ORDERED: NITROGLYCERIN 0.4 MG SL TAB SL PRN (16:15)
[2019-07-13] MEDS ORDERED: LEVOFLOXACIN 250MG 50 ML IV SCH (16:15)
[2019-07-13] MEDS ORDERED: DEXTROSE (50%) 50ML SYRG IV PRN (16:15)
[2019-07-13] MEDS ORDERED: MORPHINE SULF INJ 2 MG/ML SYRINGE 1ML IV PRN (16:15)
[2019-07-13] MEDS: InsuLIN REG 1unit/0.01ml Soln (100units/ml) SC SCH ×2 (17:00→21:39)
[2019-07-13] MEDS: ACCU-CHEK COMFORT CURVE STRIP VI SCH ×2 (17:29→21:39)
[2019-07-13] MEDS: SODIUM CHLORIDE 0.9% 1,000 ML IV SCH (17:31)
[2019-07-13 18:33] VITALS: BP 146/75
[2019-07-13] MEDS: LEVOFLOXACIN 500MG 100 ML IV SCH (18:52)
[2019-07-13] MEDS ORDERED: PERCOT PO (19:09)
[2019-07-13] MEDS ORDERED: PNEUMOCOCCAL VACC POLYS 25 MCG/0.5 ML VIAL IM ONE (19:15)
[2019-07-13] MEDS: metroNIDAZOLE 500MG/100ML 100 ML IV SCH (21:38)
[2019-07-13] MEDS: INSULIN 70/30 1unit/0.01ml Susp (100units/ml) SC SCH (21:38)
[2019-07-13] MEDS: FAMOTIDINE (10MG/ML) 2ML VL IV SCH (21:39)
[2019-07-13 22:10] VITALS: BP 112/65
[2019-07-13] MEDS: OXYCODONE W/ ACETAMINOPHEN 5/325MG TABLET PO PRN (22:32)
[2019-07-14] MEDS: SODIUM CHLORIDE 0.9% 1,000 ML IV SCH ×3 (02:45→20:40)
[2019-07-14 05:04] VITALS: BP 124/57
[2019-07-14] MEDS: metroNIDAZOLE 500MG/100ML 100 ML IV SCH ×3 (06:13→22:10)
[2019-07-14] MEDS: OXYCODONE W/ ACETAMINOPHEN 5/325MG TABLET PO PRN ×2 (06:14→20:06)
[2019-07-14 06:43] LABS: Basophils # (auto) 0 uL; Basophils % (auto) 0.7 % (0.0-2.0); Eosinophils # (auto) 0.3 uL; Hematocrit 30.1 % (41.0-53.0); Lymphocytes # (auto) 1.2 uL; Monocytes # (auto) 0.7 uL; Red Blood Cells 3.84 10^6/uL (4.5-5.90); White Blood Cell 5.7 10^3/uL (4.4-10.8)
[2019-07-14] MEDS: InsuLIN REG 1unit/0.01ml Soln (100units/ml) SC SCH ×4 (06:43→22:00)
[2019-07-14] MEDS: ACCU-CHEK COMFORT CURVE STRIP VI SCH ×4 (06:43→22:10)
[2019-07-14 06:44] LABS: Eosinophils % (auto) 5.1 % (0.0-7.0); Lymphocytes % (auto) 20.7 % (10.0-50.0); Mean Corpuscular Hemoglobin 26.1 pg (28.0-32.0); Mean Corpuscular Hgb Conc. 33.3 g/dL (32.0-36.0); Mean Corpuscular Volume 78.4 fL (80.0-100.0); Monocytes % (auto) 12.2 % (0.0-12.0); Neutrophils # (auto) 3.5 uL; Neutrophils % (auto) 61.3 % (37.0-80.0); Platelet Count (auto) 194 10^3/uL (140-450); Red Cell Distribution Width 15.4 % (11.8-14.3)
[2019-07-14 06:58] LABS: Albumin 2.1 g/dL (3.4-5.0); BUN/Creatinine Ratio 7.4; Bilirubin, Total 0.2 mg/dL (0.2-1.0); Calcium 8.4 mg/dL (8.5-10.1)
[2019-07-14 09:00] VITALS: BP_SYST 91; BP_SYST 98; BP_DIAS 63; BP_DIAS 70
[2019-07-14] MEDS: INSULIN 70/30 1unit/0.01ml Susp (100units/ml) SC SCH ×2 (10:00→22:00)
[2019-07-14] MEDS: FAMOTIDINE (10MG/ML) 2ML VL IV SCH (10:06)
[2019-07-14 13:00] VITALS: BP 128/75
[2019-07-14 17:00] VITALS: BP 118/76
[2019-07-14] MEDS: ONDANSETRON HCL 4 MG/2 ML VIAL IV PRN (17:26)
[2019-07-14 21:35] VITALS: BP 129/68
[2019-07-14] MEDS: FLORASTOR (S. BOULARDII) 250 MG CAP PO SCH (22:10)
[2019-07-15 01:17] LABS: Urine Bacteria FEW /hpf (None Seen); Urine Blood Negative /uL (Negative); Urine Hyaline Cast FEW /lpf (0 - 2); Urine Specific Gravity 1.006 (1.001-1.035); Urine WBC 2 /hpf (0 - 3)
[2019-07-15 04:42] VITALS: BP 123/62
[2019-07-15] MEDS: metroNIDAZOLE 500MG/100ML 100 ML IV SCH ×3 (05:35→21:29)
[2019-07-15] MEDS: OXYCODONE W/ ACETAMINOPHEN 5/325MG TABLET PO PRN ×2 (05:39→21:29)
[2019-07-15 05:59] LABS: Calcium 8.7 mg/dL (8.5-10.1); Potassium 4.8 mmol/L (3.5-5.1)
[2019-07-15 06:02] LABS: BUN/Creatinine Ratio 6.9
[2019-07-15] MEDS: InsuLIN REG 1unit/0.01ml Soln (100units/ml) SC SCH ×4 (06:43→21:28)
[2019-07-15] MEDS: ACCU-CHEK COMFORT CURVE STRIP VI SCH ×4 (06:43→21:28)
[2019-07-15 09:00] VITALS: BP 109/57
[2019-07-15] MEDS: FAMOTIDINE (10MG/ML) 2ML VL IV SCH (09:17)
[2019-07-15] MEDS: FLORASTOR (S. BOULARDII) 250 MG CAP PO SCH ×2 (09:18→21:29)
[2019-07-15] MEDS: INSULIN 70/30 1unit/0.01ml Susp (100units/ml) SC SCH ×2 (10:00→21:28)
[2019-07-15] MEDS: ONDANSETRON HCL 4 MG/2 ML VIAL IV PRN ×2 (10:31→21:29)
[2019-07-15 13:00] VITALS: BP 106/60
[2019-07-15] MEDS: SODIUM CHLORIDE 0.9% 1,000 ML IV SCH (15:00)
[2019-07-15 17:00] VITALS: BP 105/63
[2019-07-15] MEDS: LEVOFLOXACIN 500MG 100 ML IV SCH (17:30)
[2019-07-15] MEDS ORDERED: MORPHINE SULF INJ 2 MG/ML SYRINGE 1ML IV PRN (18:15)
[2019-07-15 21:38] VITALS: BP 134/68
[2019-07-15] MEDS: DAKINS HALF STR 0.25% (NaHypochlorite) 473 ML TOPICAL SOL TOP SCH (23:45)
[2019-07-16 04:48] VITALS: BP 145/72
[2019-07-16] MEDS: metroNIDAZOLE 500MG/100ML 100 ML IV SCH ×3 (05:34→21:53)
[2019-07-16] MEDS: OXYCODONE W/ ACETAMINOPHEN 5/325MG TABLET PO PRN ×3 (05:34→18:20)
[2019-07-16 05:37] LABS: Eosinophils # (auto) 0.4 uL; Eosinophils % (auto) 6.8 % (0.0-7.0); Monocytes # (auto) 0.7 uL; Red Cell Distribution Width 15.4 % (11.8-14.3); White Blood Cell 5.6 10^3/uL (4.4-10.8)
[2019-07-16] MEDS: ACCU-CHEK COMFORT CURVE STRIP VI SCH ×4 (05:38→22:02)
[2019-07-16] MEDS: InsuLIN REG 1unit/0.01ml Soln (100units/ml) SC SCH ×4 (05:38→21:59)
[2019-07-16 05:41] LABS: Basophils # (auto) 0.1 uL; Hemoglobin 10.6 g/dL (13.5-17.5); Lymphocytes # (auto) 1.3 uL; Lymphocytes % (auto) 23.8 % (10.0-50.0); Mean Corpuscular Hgb Conc. 33.1 g/dL (32.0-36.0); Mean Corpuscular Volume 78.5 fL (80.0-100.0); Neutrophils # (auto) 3.2 uL; Neutrophils % (auto) 56.4 % (37.0-80.0); Platelet Count (auto) 228 10^3/uL (140-450); Red Blood Cells 4.08 10^6/uL (4.5-5.90)
[2019-07-16 05:55] LABS: Calcium 8.7 mg/dL (8.5-10.1); Potassium 4.8 mmol/L (3.5-5.1)
[2019-07-16 09:00] VITALS: BP 125/64
[2019-07-16] MEDS: INSULIN 70/30 1unit/0.01ml Susp (100units/ml) SC SCH ×2 (10:00→21:59)
[2019-07-16] MEDS: FLORASTOR (S. BOULARDII) 250 MG CAP PO SCH ×2 (10:09→21:53)
[2019-07-16] MEDS: FAMOTIDINE (10MG/ML) 2ML VL IV SCH (10:09)
[2019-07-16] MEDS: DAKINS HALF STR 0.25% (NaHypochlorite) 473 ML TOPICAL SOL TOP SCH ×2 (10:10→22:02)
[2019-07-16] MEDS: SODIUM CHLORIDE 0.9% 1,000 ML IV SCH (11:03)
[2019-07-16] MEDS: ONDANSETRON HCL 4 MG/2 ML VIAL IV PRN ×2 (11:49→18:19)
[2019-07-16 13:00] VITALS: BP 115/69
[2019-07-16 17:00] VITALS: BP 110/60
[2019-07-16 22:00] VITALS: BP 144/74
[2019-07-17] MEDS: ONDANSETRON HCL 4 MG/2 ML VIAL IV PRN ×2 (02:10→16:58)
[2019-07-17 05:00] VITALS: BP_SYST 134; BP_SYST 160; BP_DIAS 80; BP_DIAS 81
[2019-07-17] MEDS: metroNIDAZOLE 500MG/100ML 100 ML IV SCH ×3 (05:46→23:12)
[2019-07-17] MEDS: SODIUM CHLORIDE 0.9% 1,000 ML IV SCH (06:44)
[2019-07-17] MEDS: ACCU-CHEK COMFORT CURVE STRIP VI SCH ×4 (06:44→23:12)
[2019-07-17] MEDS: InsuLIN REG 1unit/0.01ml Soln (100units/ml) SC SCH ×4 (06:44→23:48)
[2019-07-17 07:42] LABS: Calcium 8.6 mg/dL (8.5-10.1); Potassium 4.7 mmol/L (3.5-5.1)
[2019-07-17] MEDS: OXYCODONE W/ ACETAMINOPHEN 5/325MG TABLET PO PRN ×2 (08:10→16:59)
[2019-07-17 09:00] VITALS: BP 138/66
[2019-07-17] MEDS: DAKINS HALF STR 0.25% (NaHypochlorite) 473 ML TOPICAL SOL TOP SCH ×2 (10:00→22:00)
[2019-07-17] MEDS: ENOXAPARIN SOD 30 MG/0.3 ML SYRINGE SC SCH (10:09)
[2019-07-17] MEDS: FAMOTIDINE (10MG/ML) 2ML VL IV SCH (10:10)
[2019-07-17] MEDS: FLORASTOR (S. BOULARDII) 250 MG CAP PO SCH ×2 (10:10→23:12)
[2019-07-17] MEDS: INSULIN 70/30 1unit/0.01ml Susp (100units/ml) SC SCH ×2 (10:10→22:00)
[2019-07-17 13:00] VITALS: BP 128/74
[2019-07-17] MEDS: LEVOFLOXACIN 500MG 100 ML IV SCH (16:59)
[2019-07-17 17:00] VITALS: BP 123/66
[2019-07-17 22:00] VITALS: BP 138/85
[2019-07-18] MEDS: SODIUM CHLORIDE 0.9% 1,000 ML IV SCH ×2 (03:00→21:53)
[2019-07-18] MEDS: OXYCODONE W/ ACETAMINOPHEN 5/325MG TABLET PO PRN ×2 (03:44→13:59)
[2019-07-18] MEDS: ONDANSETRON HCL 4 MG/2 ML VIAL IV PRN ×3 (03:50→13:59)
[2019-07-18 05:23] VITALS: BP 148/72
[2019-07-18 05:53] LABS: Potassium 4.4 mmol/L (3.5-5.1)
[2019-07-18 06:06] LABS: Eosinophils # (auto) 0.4 uL; Hemoglobin 10.3 g/dL (13.5-17.5); Lymphocytes # (auto) 1.1 uL
[2019-07-18 06:08] LABS: Basophils # (auto) 0 uL; Basophils % (auto) 0.9 % (0.0-2.0); Eosinophils % (auto) 7.1 % (0.0-7.0); Hematocrit 31.3 % (41.0-53.0); Lymphocytes % (auto) 22.7 % (10.0-50.0); Mean Corpuscular Hemoglobin 25.8 pg (28.0-32.0); Mean Corpuscular Hgb Conc. 32.8 g/dL (32.0-36.0); Mean Corpuscular Volume 78.6 fL (80.0-100.0); Monocytes # (auto) 0.6 uL; Monocytes % (auto) 12.7 % (0.0-12.0); Neutrophils # (auto) 2.8 uL; Neutrophils % (auto) 56.6 % (37.0-80.0); Platelet Count (auto) 237 10^3/uL (140-450); Red Blood Cells 3.99 10^6/uL (4.5-5.90); Red Cell Distribution Width 15.2 % (11.8-14.3)
[2019-07-18 06:12] LABS: Albumin 2.3 g/dL (3.4-5.0); BUN/Creatinine Ratio 8.7; Bilirubin, Total 0.2 mg/dL (0.2-1.0); Calcium 8.3 mg/dL (8.5-10.1); Magnesium 1.7 mg/dL (1.6-2.6); Phosphorus 4.9 mg/dL (2.5-4.90); Total Protein 8.3 g/dL (6.4-8.2)
[2019-07-18] MEDS: metroNIDAZOLE 500MG/100ML 100 ML IV SCH ×3 (06:45→21:50)
[2019-07-18] MEDS: InsuLIN REG 1unit/0.01ml Soln (100units/ml) SC SCH ×4 (06:46→21:52)
[2019-07-18] MEDS: ACCU-CHEK COMFORT CURVE STRIP VI SCH ×4 (06:46→21:51)
[2019-07-18 08:00] LABS: BUN/Creatinine Ratio 8.3; Calcium 8.4 mg/dL (8.5-10.1); Potassium 4.8 mmol/L (3.5-5.1)
[2019-07-18 09:00] VITALS: BP 142/72
[2019-07-18] MEDS: ENOXAPARIN SOD 30 MG/0.3 ML SYRINGE SC SCH (09:44)
[2019-07-18] MEDS: FAMOTIDINE (10MG/ML) 2ML VL IV SCH (09:44)
[2019-07-18] MEDS: FLORASTOR (S. BOULARDII) 250 MG CAP PO SCH ×2 (09:45→21:50)
[2019-07-18] MEDS: INSULIN 70/30 1unit/0.01ml Susp (100units/ml) SC SCH ×2 (09:45→21:53)
[2019-07-18] MEDS: DAKINS HALF STR 0.25% (NaHypochlorite) 473 ML TOPICAL SOL TOP SCH ×2 (09:45→17:45)
[2019-07-18 13:00] VITALS: BP 121/74
[2019-07-18] MEDS ORDERED: SACC250C PO (14:36)
[2019-07-18] MEDS ORDERED: FAM20T PO (14:36)
[2019-07-18] MEDS ORDERED: INSUINJ49 SC (14:36)
[2019-07-18] MEDS ORDERED: ASPI81CH43 PO (14:36)
[2019-07-18] MEDS ORDERED: CHOL20007 PO (14:36)
[2019-07-18] MEDS ORDERED: SIMV-8 PO (14:36)
[2019-07-18] MEDS ORDERED: DAKI0.25 TOP (14:36)
[2019-07-18] MEDS ORDERED: DULO20CA PO (14:36)
[2019-07-18 17:00] VITALS: BP 142/78
[2019-07-18 21:46] VITALS: BP 147/77
[2019-07-19] MEDS: ONDANSETRON HCL 4 MG/2 ML VIAL IV PRN ×4 (00:53→21:23)
[2019-07-19] MEDS: OXYCODONE W/ ACETAMINOPHEN 5/325MG TABLET PO PRN ×3 (00:53→21:23)
[2019-07-19 05:32] VITALS: BP 125/88
[2019-07-19] MEDS: ACCU-CHEK COMFORT CURVE STRIP VI SCH ×4 (05:57→22:19)
[2019-07-19] MEDS: InsuLIN REG 1unit/0.01ml Soln (100units/ml) SC SCH ×4 (05:57→22:00)
[2019-07-19] MEDS: metroNIDAZOLE 500MG/100ML 100 ML IV SCH ×3 (05:57→22:18)
[2019-07-19 06:54] LABS: Calcium 8.7 mg/dL (8.5-10.1); Potassium 4.8 mmol/L (3.5-5.1)
[2019-07-19 09:00] VITALS: BP 123/65
[2019-07-19] MEDS: FLORASTOR (S. BOULARDII) 250 MG CAP PO SCH ×2 (09:59→22:18)
[2019-07-19] MEDS: FAMOTIDINE (10MG/ML) 2ML VL IV SCH (09:59)
[2019-07-19] MEDS: ENOXAPARIN SOD 30 MG/0.3 ML SYRINGE SC SCH (09:59)
[2019-07-19] MEDS: DAKINS HALF STR 0.25% (NaHypochlorite) 473 ML TOPICAL SOL TOP SCH ×2 (10:00→22:00)
[2019-07-19] MEDS: INSULIN 70/30 1unit/0.01ml Susp (100units/ml) SC SCH ×2 (10:00→22:00)
[2019-07-19 13:00] VITALS: BP 124/63
[2019-07-19] MEDS: LEVOFLOXACIN 500MG 100 ML IV SCH (17:17)
[2019-07-19 22:00] VITALS: BP 140/83
[2019-07-20] MEDS: SODIUM CHLORIDE 0.9% 1,000 ML IV SCH ×2 (01:00→15:15)
[2019-07-20 05:09] VITALS: BP 148/83
[2019-07-20] MEDS: metroNIDAZOLE 500MG/100ML 100 ML IV SCH ×3 (06:04→21:59)
[2019-07-20] MEDS: InsuLIN REG 1unit/0.01ml Soln (100units/ml) SC SCH ×4 (06:33→21:59)
[2019-07-20] MEDS: ACCU-CHEK COMFORT CURVE STRIP VI SCH ×4 (06:33→22:00)
[2019-07-20 06:43] LABS: BUN/Creatinine Ratio 10.5; Calcium 8.4 mg/dL (8.5-10.1); Potassium 4.5 mmol/L (3.5-5.1)
[2019-07-20] MEDS: ONDANSETRON HCL 4 MG/2 ML VIAL IV PRN ×2 (07:52→15:21)
[2019-07-20] MEDS: OXYCODONE W/ ACETAMINOPHEN 5/325MG TABLET PO PRN ×2 (07:53→15:21)
[2019-07-20 08:00] VITALS: BP 127/73
[2019-07-20 09:00] VITALS: BP 127/73
[2019-07-20] MEDS: FAMOTIDINE (10MG/ML) 2ML VL IV SCH (09:43)
[2019-07-20] MEDS: ENOXAPARIN SOD 30 MG/0.3 ML SYRINGE SC SCH (09:44)
[2019-07-20] MEDS: DAKINS HALF STR 0.25% (NaHypochlorite) 473 ML TOPICAL SOL TOP SCH ×2 (09:44→22:00)
[2019-07-20] MEDS: FLORASTOR (S. BOULARDII) 250 MG CAP PO SCH ×2 (09:44→21:59)
[2019-07-20] MEDS: INSULIN 70/30 1unit/0.01ml Susp (100units/ml) SC SCH ×2 (11:11→21:59)
[2019-07-20 13:00] VITALS: BP 114/75
[2019-07-20 17:02] VITALS: BP 133/80
[2019-07-20 22:00] VITALS: BP 115/71
[2019-07-21] MEDS: OXYCODONE W/ ACETAMINOPHEN 5/325MG TABLET PO PRN ×3 (00:40→19:48)
[2019-07-21 05:07] VITALS: BP 144/71
[2019-07-21] MEDS: ONDANSETRON HCL 4 MG/2 ML VIAL IV PRN ×2 (06:45→16:36)
[2019-07-21] MEDS: metroNIDAZOLE 500MG/100ML 100 ML IV SCH (06:48)
[2019-07-21] MEDS: InsuLIN REG 1unit/0.01ml Soln (100units/ml) SC SCH ×4 (06:49→21:49)
[2019-07-21] MEDS: ACCU-CHEK COMFORT CURVE STRIP VI SCH ×4 (06:49→21:49)
[2019-07-21 07:17] LABS: BUN/Creatinine Ratio 11.2; Calcium 8.2 mg/dL (8.5-10.1); Potassium 4.2 mmol/L (3.5-5.1)
[2019-07-21 08:00] VITALS: BP 128/67
[2019-07-21 08:30] VITALS: BP 128/67
[2019-07-21] MEDS: DAKINS HALF STR 0.25% (NaHypochlorite) 473 ML TOPICAL SOL TOP SCH ×2 (10:00→21:49)
[2019-07-21] MEDS: ENOXAPARIN SOD 30 MG/0.3 ML SYRINGE SC SCH (11:28)
[2019-07-21] MEDS: FLORASTOR (S. BOULARDII) 250 MG CAP PO SCH ×2 (11:29→21:48)
[2019-07-21] MEDS: FAMOTIDINE (10MG/ML) 2ML VL IV SCH (11:29)
[2019-07-21] MEDS: INSULIN 70/30 1unit/0.01ml Susp (100units/ml) SC SCH ×2 (11:29→21:49)
[2019-07-21 12:30] VITALS: BP 125/75
[2019-07-21] MEDS: ceFAZolin 1GM 2 GM in D5W 5% 100 ML IV SCH ×2 (15:46→21:48)
[2019-07-21] MEDS: ALPRAZolam 0.5 MG TAB PO PRN ×2 (16:36→22:40)
[2019-07-21 17:11] VITALS: BP 99/56
[2019-07-21 20:00] VITALS: BP 101/75
[2019-07-22 00:24] VITALS: BP 132/48
[2019-07-22 04:55] VITALS: BP 134/65
[2019-07-22] MEDS: ceFAZolin 1GM 2 GM in D5W 5% 100 ML IV SCH ×3 (06:00→22:09)
[2019-07-22] MEDS: ACCU-CHEK COMFORT CURVE STRIP VI SCH ×4 (06:42→22:18)
[2019-07-22] MEDS: InsuLIN REG 1unit/0.01ml Soln (100units/ml) SC SCH ×4 (06:43→22:00)
[2019-07-22] MEDS: ALPRAZolam 0.5 MG TAB PO PRN ×3 (06:43→21:30)
[2019-07-22 06:50] LABS: BUN/Creatinine Ratio 11.8; Calcium 8.3 mg/dL (8.5-10.1); Potassium 4.1 mmol/L (3.5-5.1)
[2019-07-22 09:00] VITALS: BP 113/65
[2019-07-22] MEDS: DAKINS HALF STR 0.25% (NaHypochlorite) 473 ML TOPICAL SOL TOP SCH ×2 (10:00→22:21)
[2019-07-22] MEDS: FAMOTIDINE (10MG/ML) 2ML VL IV SCH (11:06)
[2019-07-22] MEDS: ENOXAPARIN SOD 30 MG/0.3 ML SYRINGE SC SCH (11:06)
[2019-07-22] MEDS: FLORASTOR (S. BOULARDII) 250 MG CAP PO SCH ×2 (11:06→22:14)
[2019-07-22] MEDS: INSULIN 70/30 1unit/0.01ml Susp (100units/ml) SC SCH ×2 (11:34→22:00)
[2019-07-22 13:00] VITALS: BP 118/68
[2019-07-22 17:00] VITALS: BP 126/67
[2019-07-22 22:00] VITALS: BP 130/66
[2019-07-23 05:00] VITALS: BP 114/75
[2019-07-23] MEDS: ALPRAZolam 0.5 MG TAB PO PRN (06:02)
[2019-07-23] MEDS: ceFAZolin 1GM 2 GM in D5W 5% 100 ML IV SCH ×2 (06:30→14:00)
[2019-07-23] MEDS: ACCU-CHEK COMFORT CURVE STRIP VI SCH ×2 (06:34→12:11)
[2019-07-23] MEDS: InsuLIN REG 1unit/0.01ml Soln (100units/ml) SC SCH ×2 (06:38→12:11)
[2019-07-23 07:00] LABS: Potassium 4.3 mmol/L (3.5-5.1)
[2019-07-23 07:08] LABS: BUN/Creatinine Ratio 13.9; Calcium 8.7 mg/dL (8.5-10.1)
[2019-07-23 09:00] VITALS: BP 132/84
[2019-07-23] MEDS: DAKINS HALF STR 0.25% (NaHypochlorite) 473 ML TOPICAL SOL TOP SCH (10:00)
[2019-07-23] MEDS: ENOXAPARIN SOD 30 MG/0.3 ML SYRINGE SC SCH (10:14)
[2019-07-23] MEDS: FLORASTOR (S. BOULARDII) 250 MG CAP PO SCH (10:15)
[2019-07-23] MEDS: FAMOTIDINE (10MG/ML) 2ML VL IV SCH (10:15)
[2019-07-23] MEDS: OXYCODONE W/ ACETAMINOPHEN 5/325MG TABLET PO PRN (10:23)
[2019-07-23] MEDS: INSULIN 70/30 1unit/0.01ml Susp (100units/ml) SC SCH (12:12)
[2019-07-23 13:48] VITALS: BP 125/77
== END 2019-07-23 17:49 | disposition home health service (06) | DRG 683 ==
LOC: ER 11:34 → TELE 11:35 → TELE-CENTR 17:41 → CENTRAL 07-15 17:14
PROVIDERS: ADMIT Internal Medicine; ATTEND Internal Medicine
DX: N17.0 Acute kidney failure with tubular necrosis (principal); L03.116 Cellulitis of left lower limb; L03.113 Cellulitis of right upper limb; E87.2 Acidosis; I13.0 Hypertensive heart and chronic kidney disease with heart failure and stage 1 through stage 4 chronic kidney disease, or unspecified chronic kidney disease; L03.115 Cellulitis of right lower limb; E44.0 Moderate protein-calorie malnutrition; T36.8X5A Adverse effect of other systemic antibiotics, initial encounter; E11.22 Type 2 diabetes mellitus with diabetic chronic kidney disease; E66.9 Obesity, unspecified; D50.9 Iron deficiency anemia, unspecified; L97.529 Non-pressure chronic ulcer of other part of left foot with unspecified severity; R80.9 Proteinuria, unspecified; E11.621 Type 2 diabetes mellitus with foot ulcer; I50.9 Heart failure, unspecified; N18.3 Chronic kidney disease, stage 3 (moderate); E78.00 Pure hypercholesterolemia, unspecified; E78.5 Hyperlipidemia, unspecified; F32.9 Major depressive disorder, single episode, unspecified; J44.9 Chronic obstructive pulmonary disease, unspecified; N14.1 Nephropathy induced by other drugs, medicaments and biological substances; Z79.4 Long term (current) use of insulin; Z79.82 Long term (current) use of aspirin; Z79.899 Other long term (current) drug therapy; Z82.49 Family history of ischemic heart disease and other diseases of the circulatory system; Z83.3 Family history of diabetes mellitus; Y92.89 Other specified places as the place of occurrence of the external cause; Z68.25 Body mass index [BMI] 25.0-25.9, adult
CPT/HCPCS: 36415; 71045; 76775; 80048; 80053; 80202; 81001; 82306; 82550; 82962; 83735; 83970; 84100; 85025; 87045; 87081; 87205; 87427; 87493; 96360; G0378; J0690; J1815; J1956; J2405; J3490; J7060

== ENCOUNTER → 2019-07-30 | Outpatient (CLI) | payer OTHER ==
[~2019-07-30] MED LIST changes: +DAKI0.25 TOP; +FAM20T PO; -GLYB5TAB8 PO; -HYDR-4833 PO; +SACC250C PO
[2019-07-30 10:40] LABS: Basophils # (auto) 0.2 uL; Basophils % (auto) 1.9 % (0.0-2.0); Eosinophils # (auto) 0.2 uL; Hemoglobin 11.7 g/dL (13.5-17.5); Lymphocytes # (auto) 1.9 uL; Monocytes # (auto) 0.6 uL
[2019-07-30 10:42] LABS: Hematocrit 35.9 % (41.0-53.0); Lymphocytes % (auto) 22.4 % (10.0-50.0); Mean Corpuscular Hemoglobin 25.9 pg (28.0-32.0); Mean Corpuscular Hgb Conc. 32.6 g/dL (32.0-36.0); Mean Corpuscular Volume 79.3 fL (80.0-100.0); Monocytes % (auto) 7.7 % (0.0-12.0); Neutrophils # (auto) 5.4 uL; Platelet Count (auto) 279 10^3/uL (140-450); Red Blood Cells 4.52 10^6/uL (4.5-5.90); Red Cell Distribution Width 15.8 % (11.8-14.3); White Blood Cell 8.2 10^3/uL (4.4-10.8)
[2019-07-30 11:23] LABS: Albumin 2.9 g/dL (3.4-5.0); Calcium 8.5 mg/dL (8.5-10.1)
[2019-07-30 11:27] LABS: BUN/Creatinine Ratio 21.3; Bilirubin, Total 0.2 mg/dL (0.2-1.0); Total Protein 9.4 g/dL (6.4-8.2)
== END | disposition home or self-care (01) ==
LOC: LAB 10:16
PROVIDERS: ATTEND Nurse Practitioner
DX: E11.9 Type 2 diabetes mellitus without complications (principal)
CPT/HCPCS: 36415; 80053; 85025

== ENCOUNTER → 2019-08-11 | Outpatient (CLI) | payer OTHER ==
[2019-08-11 14:01] LABS: Basophils # (auto) 0.1 uL; Eosinophils # (auto) 0.6 uL; Hemoglobin 12.6 g/dL (13.5-17.5); Lymphocytes # (auto) 2.9 uL
[2019-08-11 14:02] LABS: Basophils % (auto) 1.3 % (0.0-2.0); Eosinophils % (auto) 6.8 % (0.0-7.0); Hematocrit 38.1 % (41.0-53.0); Lymphocytes % (auto) 30.8 % (10.0-50.0); Mean Corpuscular Hemoglobin 25.8 pg (28.0-32.0); Mean Corpuscular Hgb Conc. 33.1 g/dL (32.0-36.0); Mean Corpuscular Volume 77.9 fL (80.0-100.0); Monocytes # (auto) 0.8 uL; Monocytes % (auto) 8.2 % (0.0-12.0); Neutrophils # (auto) 4.9 uL; Neutrophils % (auto) 52.9 % (37.0-80.0); Nucleated Red Blood Cells % 0.1 %; Platelet Count (auto) 224 10^3/uL (140-450); Red Blood Cells 4.88 10^6/uL (4.5-5.90); Red Cell Distribution Width 16.2 % (11.8-14.3); White Blood Cell 9.2 10^3/uL (4.4-10.8)
[2019-08-11 14:27] LABS: Albumin 3.1 g/dL (3.4-5.0); Calcium 9.2 mg/dL (8.5-10.1); Potassium 4.4 mmol/L (3.5-5.1)
[2019-08-11 14:30] LABS: Bilirubin, Total 0.2 mg/dL (0.2-1.0); Total Protein 9.9 g/dL (6.4-8.2)
[2019-08-11 14:32] LABS: BUN/Creatinine Ratio 29.3
== END | disposition home or self-care (01) ==
LOC: LAB 13:50
PROVIDERS: ATTEND Nurse Practitioner
DX: E11.22 Type 2 diabetes mellitus with diabetic chronic kidney disease (principal); N18.2 Chronic kidney disease, stage 2 (mild)
CPT/HCPCS: 36415; 80053; 85025

== ENCOUNTER → 2019-09-01 | Outpatient (CLI) | payer OTHER ==
[2019-09-01 13:26] LABS: Basophils # (auto) 0.1 10 ^3/uL (0-0.2); Basophils % (auto) 1.2 % (0.0-2.0); Eosinophils # (auto) 0.5 10 ^3/uL (0-0.8); Eosinophils % (auto) 6.7 % (0.0-7.0); Hematocrit 33.9 % (41.0-53.0); Hemoglobin 11.3 g/dL (13.5-17.5); Lymphocytes # (auto) 2.3 10 ^3/uL (0.4-5.4); Lymphocytes % (auto) 31.1 % (10.0-50.0); Mean Corpuscular Hemoglobin 26.1 pg (28.0-32.0); Mean Corpuscular Hgb Conc. 33.3 g/dL (32.0-36.0); Mean Corpuscular Volume 78.3 fL (80.0-100.0); Monocytes # (auto) 0.7 10 ^3/uL (0-1.3); Monocytes % (auto) 9.1 % (0.0-12.0); Neutrophils # (auto) 3.9 10 ^3/uL (1.6-8.6); Neutrophils % (auto) 51.9 % (37.0-80.0); Nucleated Red Blood Cells % 0.1 %; Platelet Count (auto) 254 10^3/uL (140-450); Red Blood Cells 4.33 10^6/uL (4.5-5.90); Red Cell Distribution Width 16.1 % (11.8-14.3); White Blood Cell 7.4 10^3/uL (4.4-10.8)
[2019-09-01 15:18] LABS: Albumin 2.8 g/dL (3.4-5.0); Calcium 9.1 mg/dL (8.5-10.1); Potassium 4.2 mmol/L (3.5-5.1)
[2019-09-01 15:24] LABS: BUN/Creatinine Ratio 18.2; Bilirubin, Total 0.2 mg/dL (0.2-1.0); Total Protein 9.5 g/dL (6.4-8.2)
== END | disposition home or self-care (01) ==
LOC: LAB 13:10
PROVIDERS: ATTEND Nurse Practitioner
DX: E11.9 Type 2 diabetes mellitus without complications (principal); E78.5 Hyperlipidemia, unspecified
CPT/HCPCS: 36415; 80053; 80061; 83036; 85025

== ENCOUNTER → 2019-11-25 | Outpatient (CLI) | payer OTHER | END | disposition home or self-care (01) | LOC: LAB 12:29 | PROVIDERS: ATTEND Nurse Practitioner | DX: Z12.11 Encounter for screening for malignant neoplasm of colon (principal) | CPT/HCPCS: 82270 ==

== ENCOUNTER → 2019-12-06 | Outpatient (CLI) | payer OTHER ==
[~2019-12-06] MED LIST changes: -FAM20T PO; +FAMO20TA10 PO
[2019-12-06 10:23] LABS: Basophils # (auto) 0.1 10 ^3/uL (0-0.2); Basophils % (auto) 1.2 % (0.0-2.0); Eosinophils # (auto) 0.2 10 ^3/uL (0-0.8); Eosinophils % (auto) 2.1 % (0.0-7.0); Hematocrit 38.5 % (41.0-53.0); Lymphocytes # (auto) 2.6 10 ^3/uL (0.4-5.4); Lymphocytes % (auto) 25.3 % (10.0-50.0); Mean Corpuscular Hemoglobin 27.2 pg (28.0-32.0); Mean Corpuscular Hgb Conc. 33.7 g/dL (32.0-36.0); Mean Corpuscular Volume 80.6 fL (80.0-100.0); Monocytes # (auto) 0.8 10 ^3/uL (0-1.3); Monocytes % (auto) 7.6 % (0.0-12.0); Neutrophils # (auto) 6.5 10 ^3/uL (1.6-8.6); Neutrophils % (auto) 63.8 % (37.0-80.0); Platelet Count (auto) 272 10^3/uL (140-450); Red Blood Cells 4.78 10^6/uL (4.5-5.90); Red Cell Distribution Width 15.6 % (11.8-14.3); White Blood Cell 10.3 10^3/uL (4.4-10.8)
[2019-12-06 10:35] LABS: Urine Bacteria NONE SEEN /hpf (None Seen); Urine Blood Negative /uL (Negative); Urine Specific Gravity 1.017 (1.001-1.035); Urine WBC 2 /hpf (0 - 3)
[2019-12-06 10:52] LABS: Albumin 3.1 g/dL (3.4-5.0); Calcium 8.8 mg/dL (8.5-10.1); Potassium 4.2 mmol/L (3.5-5.1)
[2019-12-06 10:56] LABS: Bilirubin, Total 0.3 mg/dL (0.2-1.0); Total Protein 9.9 g/dL (6.4-8.2)
== END | disposition home or self-care (01) ==
LOC: LAB 10:05
PROVIDERS: ATTEND Nurse Practitioner
DX: E78.5 Hyperlipidemia, unspecified (principal); I10 Essential (primary) hypertension; E11.9 Type 2 diabetes mellitus without complications
CPT/HCPCS: 36415; 80053; 80061; 81001; 82043; 83036; 84443; 85025

== ENCOUNTER 2020-02-14 15:13 | Inpatient (IN) | payer OTHER ==
[~2020-02-14] VITALS: Ht 177.8 cm; Wt 87.1 kg
[2020-02-14] MEDS ORDERED: PANT40TA2 PO (15:49)
[2020-02-14 16:40] VITALS: BP 126/71
[2020-02-14] MEDS ORDERED: LORazepam 0.5 MG TAB PO PRN (16:45)
[2020-02-14] MEDS ORDERED: DEXTROSE (50%) 50ML SYRG IV PRN (16:45)
[2020-02-14] MEDS ORDERED: MORPHINE SULF INJ 2 MG/ML SYRINGE 1ML IV PRN ×2 (16:45)
[2020-02-14] MEDS ORDERED: NITROGLYCERIN 0.4 MG SL TAB SL PRN ×2 (16:45)
[2020-02-14] MEDS ORDERED: ACETAMINOPHEN 325 MG TAB PO PRN (16:45)
[2020-02-14] MEDS ORDERED: ALUM & MAG HYDROX-SIMETH LIQ(MAALOX) 30 ML PO PRN (16:45)
[2020-02-14] MEDS: ACCU-CHEK COMFORT CURVE STRIP VI SCH ×2 (17:00→22:32)
[2020-02-14] MEDS: InsuLIN REG 1unit/0.01ml Soln (100units/ml) SC SCH ×2 (18:20→22:34)
--- NOTE | 2020-02-14 18:20 | NUR ---
Blood Glucose Elevated blood glucose of 421, followed protocol. paged awaiting call back.
[2020-02-14 19:03] LABS: Basophils # (auto) 0.1 10 ^3/uL (0-0.2); Basophils % (auto) 0.5 % (0.0-2.0); Eosinophils # (auto) 0 10 ^3/uL (0-0.8); Eosinophils % (auto) 0.1 % (0.0-7.0); Lymphocytes # (auto) 1.6 10 ^3/uL (0.4-5.4); Monocytes # (auto) 0.9 10 ^3/uL (0-1.3)
[2020-02-14 19:05] LABS: Hemoglobin 11.9 g/dL (13.5-17.5); Lymphocytes % (auto) 8.1 % (10.0-50.0); Mean Corpuscular Hemoglobin 25.7 pg (28.0-32.0); Mean Corpuscular Hgb Conc. 31.3 g/dL (32.0-36.0); Mean Corpuscular Volume 82.3 fL (80.0-100.0); Monocytes % (auto) 4.5 % (0.0-12.0); Neutrophils # (auto) 16.8 10 ^3/uL (1.6-8.6); Neutrophils % (auto) 86.8 % (37.0-80.0); Platelet Count (auto) 392 10^3/uL (140-450); Red Blood Cells 4.62 10^6/uL (4.5-5.90); Red Cell Distribution Width 15.6 % (11.8-14.3); White Blood Cell 19.4 10^3/uL (4.4-10.8)
[2020-02-14] MEDS ORDERED: INSULIN LANTUS (GLARGINE) 1 /0.01ml (100units/ml) SC ONE (19:15)
[2020-02-14 19:19] LABS: Anion Gap 13 (5-15); Blood Urea Nitrogen 31 mg/dL (7-18); Calcium 9.2 mg/dL (8.5-10.1); Carbon Dioxide 20 mmol/L (21-32); Chloride 90 mmol/L (98-107); Potassium 3.5 mmol/L (3.5-5.1); Sodium 123 mmol/L (136-145)
--- NOTE | 2020-02-14 19:20 | NUR ---
Opening Shift Note Assumed care of patient after receiving report. Patient is awake and alert with no S/S of distress/SOB or pain. Call light within reach, bed in lowest locked position, HOB semi fowlers. Instructed on POC and to call for assist PRN, will continue to monitor for changes Q1hr and PRN.
--- NOTE | 2020-02-14 19:20 | NUR ---
Care endorsed to NOC RN.
[2020-02-14 19:25] LABS: GFR African American 46 mL/min; GFR Non-African American 38 mL/min; HDL Cholesterol 19 mg/dL (40-59); LDL Cholesterol 77 mg/dL (< 100); Triglycerides 117 mg/dL (< 150)
[2020-02-14] MEDS ORDERED: SODIUM CHLORIDE 0.9% 1,000 ML IV ONE (19:30)
[2020-02-14 19:37] LABS: Glucose 449 mg/dL (74-106)
--- NOTE | 2020-02-14 19:38 | NUR ---
Critical lab Received critical lab result of glucose of 449. aware of elevated blood glucose, administered one time Lantus dose. Will continue to monitor.
[2020-02-14] MEDS: MORPHINE SULF INJ 2 MG/ML SYRINGE 1ML IV PRN (19:43)
--- NOTE | 2020-02-14 19:46 | NUR ---
patient c/o lower extremities pain, rates it at 7/10, pain medication given per MD orders.
--- NOTE | 2020-02-14 20:00 | NUR ---
Assessment Patient is noted to have bandages around bilateral lower extremities, bandages are C/D/I. Bandage also on left foot, C/D/I. Per report and patient, bandages were placed today and not to be removed, following appointment with Dr. Banks where I&D was performed on left foot. Will continue to monitor.
[2020-02-14 20:05] LABS: BUN/Creatinine Ratio 16.5; Cholesterol 114 mg/dL (< 200)
[2020-02-14] MEDS: LINEZOLID 600MG/300ML 300 ML IV SCH (20:23)
[2020-02-14 21:54] VITALS: BP 117/60
--- NOTE | 2020-02-14 22:00 | NUR ---
Elevated glucose Scheduled accu check at this time of 412, followed protocol and rechecked at 419. MD aware of elevated glucose and trending down. Administered scheduled regular insulin and long acting insulin. Will recheck.
[2020-02-14] MEDS: SODIUM CHLORIDE 0.9% 1,000 ML IV SCH (22:31)
[2020-02-14] MEDS: ATORVASTATIN 20 MG TAB PO SCH (22:32)
[2020-02-14] MEDS: INSULIN LANTUS (GLARGINE) 1 /0.01ml (100units/ml) SC SCH (22:33)
[2020-02-14] MEDS: FAMOTIDINE 20 MG TAB PO SCH (22:34)
--- NOTE | 2020-02-14 23:30 | NUR ---
Glucose reassessment Reassessed glucose, trending down at 375. Will continue to monitor.
[2020-02-15] MEDS: HYDROcodone-ACET 5/325MG TAB PO PRN (03:35)
--- NOTE | 2020-02-15 03:35 | NUR ---
Patient complains of pain 8/10 and requesting Bamberg at this time. Administered Bamberg at this time. Will reassess and continue to monitor.
[2020-02-15 05:00] VITALS: BP 100/56
[2020-02-15 06:48] LABS: Basophils # (auto) 0.1 10 ^3/uL (0-0.2); Hemoglobin 10.7 g/dL (13.5-17.5); Lymphocytes # (auto) 1.9 10 ^3/uL (0.4-5.4); Monocytes # (auto) 0.9 10 ^3/uL (0-1.3)
[2020-02-15] MEDS: ACCU-CHEK COMFORT CURVE STRIP VI SCH ×4 (06:48→22:07)
[2020-02-15 06:50] LABS: Basophils % (auto) 0.4 % (0.0-2.0); Eosinophils # (auto) 0.3 10 ^3/uL (0-0.8); Eosinophils % (auto) 1.8 % (0.0-7.0); Hematocrit 33.3 % (41.0-53.0); Lymphocytes % (auto) 13.1 % (10.0-50.0); Mean Corpuscular Hemoglobin 26.1 pg (28.0-32.0); Mean Corpuscular Hgb Conc. 32.2 g/dL (32.0-36.0); Monocytes % (auto) 6.4 % (0.0-12.0); Neutrophils # (auto) 11.4 10 ^3/uL (1.6-8.6); Neutrophils % (auto) 78.3 % (37.0-80.0); Platelet Count (auto) 321 10^3/uL (140-450); Red Blood Cells 4.12 10^6/uL (4.5-5.90); Red Cell Distribution Width 15.3 % (11.8-14.3); White Blood Cell 14.6 10^3/uL (4.4-10.8)
[2020-02-15] MEDS: InsuLIN REG 1unit/0.01ml Soln (100units/ml) SC SCH ×4 (06:51→22:07)
[2020-02-15 07:00] LABS: Potassium 3.2 mmol/L (3.5-5.1)
[2020-02-15 07:08] LABS: Albumin 1.8 g/dL (3.4-5.0); BUN/Creatinine Ratio 26.6; Bilirubin, Total 0.3 mg/dL (0.2-1.0); Calcium 8.7 mg/dL (8.5-10.1); Magnesium 2.1 mg/dL (1.6-2.6); Phosphorus 3.2 mg/dL (2.5-4.90); Total Protein 9.4 g/dL (6.4-8.2)
[2020-02-15 07:18] LABS: INR 1.1 (0.9-1.15); Partial Thromboplastin Time 28.5 sec (23.0-31.2)
[2020-02-15] MEDS: LINEZOLID 600MG/300ML 300 ML IV SCH ×2 (07:47→20:00)
[2020-02-15 07:50] VITALS: BP 99/55
--- NOTE | 2020-02-15 07:50 | NUR ---
Scheduled IV abx given per order. Patient resting comfortably in bed with no distress noted. Patient stable.
--- NOTE | 2020-02-15 08:25 | NUR ---
Patient taken via wheelchair to XR Dept for CT of left foot.
--- NOTE | 2020-02-15 08:35 | NUR ---
Patient returned to unit in stable condition.
[2020-02-15] MEDS: SODIUM CHLORIDE 0.9% 1,000 ML IV SCH (09:15)
[2020-02-15 09:46] VITALS: BP 99/55
--- NOTE | 2020-02-15 09:55 | NUR ---
Patient wheeled to bathroom and back to bed. Had bowel movement and emptied 300 mls of clear, yellow urine from urinal. Patient stable at this time.
[2020-02-15] MEDS ORDERED: MEROPENEM 500MG IVPB 50 ML IV SCH (10:00)
[2020-02-15] MEDS: ASPirin 81 mg TAB PO SCH (10:12)
[2020-02-15] MEDS: PANTOPRAZOLE 40 MG TAB PO SCH (10:12)
[2020-02-15] MEDS: DULoxetine HCL 30 MG CAP PO SCH (10:12)
[2020-02-15] MEDS: FAMOTIDINE 20 MG TAB PO SCH (10:12)
--- NOTE | 2020-02-15 10:13 | NUR ---
Scheduled medications given per order. Patient stable, talking on cell phone.
--- NOTE | 2020-02-15 12:10 | NUR ---
Checked blood sugar: 300 mg/dl - will cover per sliding scale. Addendum: 02/15/20 at 1245 by WANDA VILLAR RN RN Covered per sliding scale.
[2020-02-15 12:55] VITALS: BP 111/60
[2020-02-15 16:49] VITALS: BP 101/57
--- NOTE | 2020-02-15 18:10 | NUR ---
Checked blood sugar: 339 mg/dl - will cover per sliding scale.
[2020-02-15] MEDS: ONDANSETRON HCL 4 MG/2 ML VIAL IV PRN (18:58)
--- NOTE | 2020-02-15 18:58 | NUR ---
Patient resting quietly in bed; requested medication for nausea. Nausea med given and covered per sliding scale. Patient stable throughout shift.
--- NOTE | 2020-02-15 19:30 | NUR ---
Assessment of pt Wrapped wounds to glenroy lower legs and left foot. pt stated he just wrapped them at home and does not wish to have them unwrapped at time of assessment. pt was educated to the fact that staff needs to examine his wounds and document them with pictures. pt stated he understands but will allow it tomorrow morning and that right now he would like to just rest.
--- NOTE | 2020-02-15 20:46 | NUR ---
Opening Shift Note Assumed care of patient after receiving report from GÓMEZ Grant. Patient is awake and alert with no S/S of distress/SOB or pain. Call light within reach, bed in lowest locked position with rails up x2, HOB semi fowlers. Instructed on POC and to call for assist PRN, will continue to monitor for changes Q1hr and PRN.
[2020-02-15 22:00] VITALS: BP 114/73
[2020-02-15] MEDS: INSULIN LANTUS (GLARGINE) 1 /0.01ml (100units/ml) SC SCH (22:08)
[2020-02-15] MEDS: MEROPENEM 1GM IVPB 100 ML IV SCH (22:10)
[2020-02-15] MEDS: ATORVASTATIN 20 MG TAB PO SCH (22:12)
--- NOTE | 2020-02-16 02:12 | NUR ---
pt asleep, resting comfortably in bed. no s/s of distress or pain noted at this time. will continue to monitor Q1H and PRN.
--- NOTE | 2020-02-16 03:56 | NUR ---
during hourly rounding pt had c/o nausea, nausea medication administered, will reassess effectiveness of antinausea medication within the hour. consent for debridement being obtained.
[2020-02-16] MEDS: SODIUM CHLORIDE 0.9% 1,000 ML IV SCH ×2 (03:59→18:20)
[2020-02-16] MEDS: ONDANSETRON HCL 4 MG/2 ML VIAL IV PRN (04:00)
--- NOTE | 2020-02-16 04:30 | NUR ---
reassessed pt's nausea and pt stated it has been relieved. pt was again requested to unwrap wounds for examination and pictures for documentation. pt stated he wants to rest and will do it in the morning. will endorse to day shift nurse.
[2020-02-16 05:00] VITALS: BP 110/65
[2020-02-16] MEDS: ACCU-CHEK COMFORT CURVE STRIP VI SCH ×4 (06:07→21:43)
[2020-02-16] MEDS: InsuLIN REG 1unit/0.01ml Soln (100units/ml) SC SCH ×4 (06:12→21:44)
--- NOTE | 2020-02-16 06:27 | NUR ---
pt asleep, resting comfortably in bed. no s/s of distress or pain noted at this time. BSG taken and insulin administered per orders. will continue to monitor Q1H and PRN
--- NOTE | 2020-02-16 07:19 | NUR ---
End of shift Shift report given to day shift RNJuanita. Endorsed taking pictures of pt glenroy leg wounds back to day shift RN.
[2020-02-16] MEDS: LINEZOLID 600MG/300ML 300 ML IV SCH ×2 (07:50→19:46)
[2020-02-16 07:55] VITALS: BP 112/63
--- NOTE | 2020-02-16 07:55 | NUR ---
Scheduled IV abx given per order. Patient resting quietly in bed with no complaint of pain or discomfort. Patient stable at this time.
[2020-02-16 08:00] VITALS: BP 112/63
[2020-02-16] MEDS: DULoxetine HCL 30 MG CAP PO SCH (10:00)
[2020-02-16] MEDS: ASPirin 81 mg TAB PO SCH (10:00)
[2020-02-16] MEDS: PANTOPRAZOLE 40 MG TAB PO SCH (10:00)
[2020-02-16] MEDS: FAMOTIDINE 20 MG TAB PO SCH (10:00)
--- NOTE | 2020-02-16 10:20 | NUR ---
Patient taken to pre-op for I&D.
[2020-02-16] MEDS ORDERED: ceFAZolin 1GM/50ML 50 ML IV ONE (11:15)
[2020-02-16] MEDS ORDERED: GLYCOPYRROLATE 0.2 MG/ML 1ML VIAL ONE (11:16)
[2020-02-16] MEDS ORDERED: MIDAZOLAM HCL 1MG/1ML-2 ML VIAL ONE (11:16)
[2020-02-16] MEDS ORDERED: METOCLOPRAMIDE HCL 5MG/ml INJ 2ml VIAL ONE (11:16)
[2020-02-16] MEDS ORDERED: diphenhdrAMINE HCL 50 MG/1 ML VL ONE (11:16)
[2020-02-16] MEDS ORDERED: PROPOFOL 10 MG/ML 20 ML IV ONE (11:17)
[2020-02-16] MEDS ORDERED: fentaNYL CITRATE 100 MCG/2 ML VL ONE (11:31)
[2020-02-16] MEDS ORDERED: LIDOCAINE 2% (LOCAL ANESTH.) PF 5ml SDV ONE (11:44)
[2020-02-16] MEDS ORDERED: ACCU-CHEK COMFORT CURVE STRIP VI ONE (11:45)
[2020-02-16] MEDS ORDERED: NALOXONE HCL 0.4 MG/ML VIAL IV PRN (11:45)
[2020-02-16] MEDS ORDERED: ONDANSETRON HCL 4 MG/2 ML VIAL IV PRN (11:45)
[2020-02-16] MEDS ORDERED: HYDROmorphone HCL 2 MG/ML VL IV PRN ×2 (11:45)
--- NOTE | 2020-02-16 11:45 | NUR ---
Patient in OR; unable to to accucheck at this time.
--- NOTE | 2020-02-16 13:05 | NUR ---
Blood sugar checked in OR; result 220 mg/dl.
--- NOTE | 2020-02-16 13:15 | NUR ---
Patient returned to unit in stable condition. Procedure: status-post left foot 2nd and 3rd toe debridement; covered with gauze and coban.
[2020-02-16] MEDS: MEROPENEM 1GM IVPB 100 ML IV SCH ×2 (14:33→21:42)
--- NOTE | 2020-02-16 14:35 | NUR ---
Scheduled IV abx given per order. Patient resting quietly in bed at this time.
--- NOTE | 2020-02-16 15:02 | NUR ---
I faxed home IV ATB order to [facility].
--- NOTE | 2020-02-16 15:43 | NUR ---
I received a call from Jennifer at [facility] ([phone])-she said they did receive the order, they are just waiting on line type, discharge date and home health agency-I let her know that I would follow up with her tomorrow.
--- NOTE | 2020-02-16 16:25 | NUR ---
Received call from Xiao PICC line nurse. Inquired regarding consent; needs to be signed by patient and doctor. Per Xiao, she will insert PICC line tomorrow.
[2020-02-16 16:44] VITALS: BP 113/71
--- NOTE | 2020-02-16 17:00 | NUR ---
Entered patient's room to obtain consent for PICC line placement on tomorrow. Patient states that his insurance will not pay for home visits and did not sign consent at this time. Francisca psychologist social Jennifer Duggan. Awaiting call back. Addendum: 02/16/20 at 1801 by WANDA VILLAR RN RN Francisca Hagen, PICC nurse as well.
--- NOTE | 2020-02-16 18:00 | NUR ---
Checked blood sugar: 223 mg/dl - will cover per sliding scale. Patient resting in bed with no complaint of pain at this time. Patient stable. Addendum: 02/16/20 at 1820 by WANDA VILLAR RN RN Covered per sliding scale.
--- NOTE | 2020-02-16 18:05 | NUR ---
Received call back from Olga Morales daja. Patient's insurance was verified per chart; per Jennifer, patient does have coverage for home visits. Will have patient sign consent for PICC line placement for IV therapy.
--- NOTE | 2020-02-16 18:55 | NUR ---
Patient stable since return to unit from OR.
[2020-02-16] MEDS: HYDROcodone-ACET 5/325MG TAB PO PRN (19:46)
--- NOTE | 2020-02-16 19:46 | NUR ---
OPEN NOTE assumed care of pt upon entering room pt awake, alert and on room air with no distress noted or expressed. pt oriented to this nurse. pt updated on plan of care. pt reports pain of 6 out of 10 in left foot, this nurse to medicate per MD and SHANTEL order. pt bed locked, low and 2x rails up. call light in reach, pt encouraged to call as needed. this nurse to round q1hr and prn.
[2020-02-16] MEDS: ATORVASTATIN 20 MG TAB PO SCH (21:43)
[2020-02-16 22:00] VITALS: BP 118/63
[2020-02-16] MEDS: INSULIN 70/30 1unit/0.01ml Susp (100units/ml) SC SCH (22:19)
[2020-02-17 05:00] VITALS: BP 115/55
[2020-02-17] MEDS: HYDROcodone-ACET 5/325MG TAB PO PRN (05:26)
[2020-02-17] MEDS: ACCU-CHEK COMFORT CURVE STRIP VI SCH ×4 (06:33→22:14)
[2020-02-17] MEDS: InsuLIN REG 1unit/0.01ml Soln (100units/ml) SC SCH ×4 (06:34→22:14)
[2020-02-17 07:02] LABS: Basophils # (auto) 0.1 10 ^3/uL (0-0.2); Basophils % (auto) 0.7 % (0.0-2.0); Eosinophils # (auto) 0.3 10 ^3/uL (0-0.8); Eosinophils % (auto) 3.2 % (0.0-7.0); Hematocrit 30.9 % (41.0-53.0); Hemoglobin 10.4 g/dL (13.5-17.5); Lymphocytes # (auto) 1.8 10 ^3/uL (0.4-5.4); Lymphocytes % (auto) 19.7 % (10.0-50.0); Mean Corpuscular Hgb Conc. 33.8 g/dL (32.0-36.0); Mean Corpuscular Volume 79.9 fL (80.0-100.0); Monocytes # (auto) 0.7 10 ^3/uL (0-1.3); Monocytes % (auto) 7.9 % (0.0-12.0); Neutrophils # (auto) 6.3 10 ^3/uL (1.6-8.6); Neutrophils % (auto) 68.5 % (37.0-80.0); Nucleated Red Blood Cells % 0.5 %; Platelet Count (auto) 334 10^3/uL (140-450); Red Blood Cells 3.87 10^6/uL (4.5-5.90); Red Cell Distribution Width 14.9 % (11.8-14.3); White Blood Cell 9.1 10^3/uL (4.4-10.8)
[2020-02-17 07:28] LABS: Potassium 3.6 mmol/L (3.5-5.1)
[2020-02-17 07:46] LABS: Albumin 1.6 g/dL (3.4-5.0); BUN/Creatinine Ratio 21.9; Bilirubin, Total 0.2 mg/dL (0.2-1.0); Calcium 8.1 mg/dL (8.5-10.1); Magnesium 2.2 mg/dL (1.6-2.6); Phosphorus 3.1 mg/dL (2.5-4.90); Total Protein 8.5 g/dL (6.4-8.2)
--- NOTE | 2020-02-17 07:50 | NUR ---
opening note assumed care of patient from NOC RN. Patient is AOX4 no s/s of distress noted. Bed is in lowest locked position, side rails up x2, call light is with in reach. Updated patient on plan of care and patient verbalized understanding. Will continue to monitor q1hr and PRN.
[2020-02-17 08:00] VITALS: BP 100/59
[2020-02-17] MEDS: LINEZOLID 600MG/300ML 300 ML IV SCH ×2 (09:16→20:35)
[2020-02-17] MEDS: PANTOPRAZOLE 40 MG TAB PO SCH (09:16)
[2020-02-17] MEDS ORDERED: MEROPENEM 1GM IVPB 100 ML IV SCH (09:16)
[2020-02-17] MEDS: ASPirin 81 mg TAB PO SCH (09:16)
[2020-02-17] MEDS: FAMOTIDINE 20 MG TAB PO SCH (09:16)
[2020-02-17] MEDS: DULoxetine HCL 30 MG CAP PO SCH (09:16)
[2020-02-17] MEDS: ENOXAPARIN SOD 30 MG/0.3 ML SYRINGE SC SCH (09:17)
[2020-02-17] MEDS: INSULIN 70/30 1unit/0.01ml Susp (100units/ml) SC SCH ×2 (10:08→22:14)
[2020-02-17] MEDS: SODIUM CHLORIDE 0.9% 1,000 ML IV SCH (11:13)
--- NOTE | 2020-02-17 11:25 | NUR ---
Physician rounding Dr. AVINA at bedside. MD updated patient on plan of care and spoke to patients regarding at home Iv antibiotics infusion. Patient and their verbalized understanding and verbalized agreement. Will continue to monitor.
[2020-02-17 11:49] VITALS: BP 140/72
[2020-02-17] MEDS: MEROPENEM 1GM IVPB 100 ML IV SCH ×2 (14:50→22:20)
--- NOTE | 2020-02-17 15:39 | NUR ---
I faxed updated home IV ATB order to [facility]-I also called [facility] and left message for Jennifer [phone] extension [phone].
[2020-02-17] MEDS: MORPHINE SULF INJ 2 MG/ML SYRINGE 1ML IV PRN ×2 (15:42→22:19)
--- NOTE | 2020-02-17 15:50 | NUR ---
I received a call from Jennifer at [facility]-I let her know that [facility] will be following the patient-will follow up with her tomorrow to finalize the arrangements.
--- NOTE | 2020-02-17 16:46 | NUR ---
Assessment Patient is a 69- year old male who is alert and oriented. Prior to admission patient lived home with his and functioned independently. Patient informed me he can care for his own ADLs. Per patient he will return home to his prior living arrangements post discharge and family will transport him home. Advised patient there is a social service consult for home health IV abx with Zyvox 600mg IV bid and foot dressing wound care. Informed patient clinical information will be faxed to a contracted home health agency with health plan. Informed patient he has a right to speak to a secondary social studies teacher regarding all care. Informed patient he has a right to participate in all discharge planning. Patient verbalized understanding and agreed to discharge plan. Placed call to patient Alena advising her patient will need IV abx twice a day and if she will be able to assist with the IV abx. Per Alena she will be able to assist with the IV abx. Alena verbalize understanding d/c plan. Clinical information was reviewed and approved by [facility]. Faxed clinical information to [facility]. Per Lilian with [facility] patient has been accepted and service to start within 24hrs upon d/c day. HAYDE Hurtado will completed the IV abx. Addendum: 02/17/20 at 1653 by ANSLEY TAM Amended: Links added.
[2020-02-17 16:48] VITALS: BP 122/63
--- NOTE | 2020-02-17 17:59 | NUR ---
PICC LINE 2 UNSUCCESSFUL ATTEMPTS FOR PICC LINE AND ONE ATTEMPT FOR MIDLINE. WIRE WILL NOT ADVANCE. PT REQUESTING TO WAIT UNTIL TOMORROW FOR A NEW ATTEMPT PRIMARY RN NOTIFIED
--- NOTE | 2020-02-17 19:35 | NUR ---
Opening Shift Note Assumed care of patient, awake and alert x4. No S/S of distress/SOB or pain. Dressing to left foot and left/right valdes are C/D/I. Call light is within reach, side rails up x2, bed is in the lowest position. Instructed on POC and to call for assist PRN, will continue to monitor for changes Q1hr and PRN.
[2020-02-17 21:50] VITALS: BP 126/87
[2020-02-17] MEDS: ONDANSETRON HCL 4 MG/2 ML VIAL IV PRN (22:19)
[2020-02-17] MEDS: ATORVASTATIN 20 MG TAB PO SCH (22:19)
--- NOTE | 2020-02-18 02:40 | NUR ---
IV insertion to RFA 22g IV access obtained, via clean sterile technique by inserting 22 gauge catheter at the RFA after 4 attempt(s). IV secured properly. No trauma to site. Patient tolerated well. IV removal from LFA due to leaking IV DC'd with clean sterile technique, catheter fully intact. Pressure dressing applied to site. Patient tolerated well.
[2020-02-18 05:10] VITALS: BP 115/71
[2020-02-18] MEDS: SODIUM CHLORIDE 0.9% 1,000 ML IV SCH ×2 (06:16→20:33)
[2020-02-18] MEDS: ACCU-CHEK COMFORT CURVE STRIP VI SCH ×4 (06:17→22:00)
[2020-02-18] MEDS: MEROPENEM 1GM IVPB 100 ML IV SCH ×3 (06:17→23:06)
[2020-02-18] MEDS: InsuLIN REG 1unit/0.01ml Soln (100units/ml) SC SCH ×4 (06:20→22:00)
[2020-02-18] MEDS ORDERED: DAKINS HALF STR 0.25% (NaHypochlorite) 473 ML TOPICAL SOL TOP ONE (07:15)
--- NOTE | 2020-02-18 07:40 | NUR ---
Opening note Assumed care of patient from NOC RN. Patient is AOx4 no s/s of distress or shortness of breath noted. Bed is in lowest locked position, call light is within reach, and side rails are up x2. Updated patient on plan of care and patient verbalized understanding. Will continue to monitor q1hr and PRN.
[2020-02-18 08:00] VITALS: BP 113/61
--- NOTE | 2020-02-18 09:00 | NUR ---
Received call from block and case maker Received call from [facility] regarding a possibility to have 2000 zyvox changed to an earlier time. Per [facility] if patient is able to receive 2 doses today home health IV infusion can begin tomorrow. Will notify
[2020-02-18] MEDS: LINEZOLID 600MG/300ML 300 ML IV SCH ×2 (09:14→20:29)
[2020-02-18] MEDS: MORPHINE SULF INJ 2 MG/ML SYRINGE 1ML IV PRN ×2 (09:15→20:25)
[2020-02-18] MEDS: ENOXAPARIN SOD 30 MG/0.3 ML SYRINGE SC SCH (10:30)
[2020-02-18] MEDS: DULoxetine HCL 30 MG CAP PO SCH (10:30)
[2020-02-18] MEDS: ASPirin 81 mg TAB PO SCH (10:30)
[2020-02-18] MEDS: PANTOPRAZOLE 40 MG TAB PO SCH (10:30)
[2020-02-18] MEDS: FAMOTIDINE 20 MG TAB PO SCH (10:30)
[2020-02-18] MEDS: INSULIN 70/30 1unit/0.01ml Susp (100units/ml) SC SCH ×2 (10:43→22:00)
[2020-02-18 12:00] VITALS: BP 107/54
--- NOTE | 2020-02-18 12:34 | NUR ---
called physician Called and left message to Dr. Blas regarding antibiotics. Awaiting call back.
--- NOTE | 2020-02-18 12:37 | NUR ---
Received call back Received call back from Dr. Blas. Will be contacting pharmacist regarding antibiotic time change.
--- NOTE | 2020-02-18 12:39 | NUR ---
Spoke with pharmacist spoke with [facility] pharmacist regarding time change fro zyvox. Per pharmacist she will assess availability to change time.
--- NOTE | 2020-02-18 12:40 | NUR ---
Midline Placement: Unsuccessful with PICC line placement. PICC line would not advance central despite multiple interventions. Dr Blas was notified. Informed him that a midline would allow for 4 weeks of IV abx. States okay to place midline if PICC line placement is unsuccessful. Patient educated on need for midline placement. All risks and benefits explained and all questions and concerns addresses prior to procedure. 18g/10cm midline inserted via right cephalic vein using Ultrasound. Sterile technique utilized. Blood return obtained from lumen and flushed easily with NS using proper technique. Midline secured with saline lock; biodisc and occlusive dressing applied. Primary RN notified.
--- NOTE | 2020-02-18 12:50 | NUR ---
Physician rounding at bedside. Updated MD on patient status. MD preformed dressing change to left foot, patient tolerated procedure well. New orders were received, will follow through.
--- NOTE | 2020-02-18 12:55 | NUR ---
Received call back from pharmacist Per Pharmacist patient is able to receive 2000 Zyvox at 1600 or 1700.
[2020-02-18] MEDS ORDERED: INSUINJ49 SC (13:07)
[2020-02-18] MEDS ORDERED: ATOR20TA50 PO (13:07)
--- NOTE | 2020-02-18 13:15 | NUR ---
Dressing change Changed bilateral leg dressings using xeroform and krilex. Patient tolerated procedure well. Educated patient to call fro assistance as needed. Patient verbalized understanding. Will continue to monitor.
--- NOTE | 2020-02-18 13:20 | NUR ---
Left message for Left message for Dr. Blas regarding D/C and wound vac orders. Awaiting call back.
--- NOTE | 2020-02-18 13:25 | NUR ---
Call back received. Per Dr. Blas patient can be D/C once wound vac is placed.
--- NOTE | 2020-02-18 13:27 | NUR ---
Received call from Received call from Dr. Blas regarding wound vac. Per MD he will be contacting Dr. Le regarding placement as out patient. Awaiting call back.
--- NOTE | 2020-02-18 13:29 | NUR ---
Notified manager performance Called [facility] regarding IV Antibiotic time change. Updated [facility] regarding wound vac placement, and discharge.
--- NOTE | 2020-02-18 15:32 | NUR ---
Nutrition Assessment Notes Please refer to link for full assessment notes. Est Energy needs: 2215-6779 kcals (20-23 kcal/kgBW) Est Protein needs: 87-96 gms/day (1.0-1.1 gm/kgBW) Will continue to monitor and reassess prn. Addendum: 02/18/20 at [address] Amended: Links added.
--- NOTE | 2020-02-18 15:55 | NUR ---
Discharge Per Dr. Blas D/C is to be held due to wound vac placement. Will follow through.
[2020-02-18 16:00] VITALS: BP 117/67
--- NOTE | 2020-02-18 16:47 | NUR ---
D/C Planning Regarding social service consult for wound vac. Pending on Wound Vac to be placed and Wound Nurse needs to complete documentation before ordering WOUND VAC. DR. Blas has been informed.
--- NOTE | 2020-02-18 19:21 | NUR ---
End of shift note Endorsed care to BECKY Paz. No s/s of distress noted. Addendum: 02/18/20 at 1921 by EPHRAIM LUX RN Brady GONCALVES.
--- NOTE | 2020-02-18 20:00 | NUR ---
Opening Shift Note Assumed care of patient, awake and alert. Patient c/o of left foot pain. Dressing to left lower extremities are clean, dry and intact. Instructed on POC and to call for assist PRN, will continue to monitor for changes Q1hr and PRN. Bed in low position call light in reach.
[2020-02-18 22:13] VITALS: BP 133/68
[2020-02-18] MEDS: ATORVASTATIN 20 MG TAB PO SCH (23:05)
[2020-02-19 05:07] VITALS: BP 116/66
[2020-02-19] MEDS: ONDANSETRON HCL 4 MG/2 ML VIAL IV PRN (05:14)
--- NOTE | 2020-02-19 05:14 | NUR ---
Patient complains of nausea. Medicated with Zofran MG IVP.
[2020-02-19] MEDS: MEROPENEM 1GM IVPB 100 ML IV SCH ×2 (05:59→15:14)
[2020-02-19] MEDS: InsuLIN REG 1unit/0.01ml Soln (100units/ml) SC SCH ×4 (06:04→22:28)
[2020-02-19] MEDS: ACCU-CHEK COMFORT CURVE STRIP VI SCH ×4 (06:05→22:28)
--- NOTE | 2020-02-19 06:48 | NUR ---
Patient awake and denies nausea or discomfort. AM accucheck: 107 mg/dl.
[2020-02-19 08:00] VITALS: BP 97/58
[2020-02-19 09:00] VITALS: BP 97/58
[2020-02-19] MEDS: LINEZOLID 600MG/300ML 300 ML IV SCH (09:02)
[2020-02-19] MEDS: DULoxetine HCL 30 MG CAP PO SCH (09:02)
[2020-02-19] MEDS: PANTOPRAZOLE 40 MG TAB PO SCH (09:03)
[2020-02-19] MEDS: HYDROcodone-ACET 5/325MG TAB PO PRN (09:03)
[2020-02-19] MEDS: ENOXAPARIN SOD 30 MG/0.3 ML SYRINGE SC SCH (09:04)
[2020-02-19] MEDS: INSULIN 70/30 1unit/0.01ml Susp (100units/ml) SC SCH ×2 (09:04→22:26)
[2020-02-19] MEDS: ASPirin 81 mg TAB PO SCH (10:00)
[2020-02-19] MEDS: FAMOTIDINE 20 MG TAB PO SCH (10:00)
--- NOTE | 2020-02-19 11:00 | NUR ---
WOUND CARE NOTE: IN TO SEE PATIENT AT THIS TIME FOR WOUND VAC PLACEMENT, PER MD ORDER. PATIENT WAS ADMITTED TO [facility] WITH DIAGNOSIS OF SEPSIS, CELLULITIS OF LEFT LOWER LIMB. CURRENT LISA SCORE IS 16. PATIENT HAS MULTIPLE CO-MORBIDITIES, INCLUDING: DIABETES MELLITUS, COPD, HTN, ANEMIA, S/P AMPUTATION OF LEFT # 1 TOE MULTIPLE MONTHS AGO, AND I&D ABSCESS TO THE LEFT FOOT PRIOR TO ADMIT. PATIENT IS AN ACTIVE SMOKER. 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 PATIENT HAS A TOTAL OF 5 WOUNDS TO THE LEFT FOOT, WITH OPEN AMPUTATION OF LEFT FOOT 2,3, TOES, POST DEBRIDEMENT LEFT PLANTAR FOOT, AND 3 INCISIONS FROM HIS INCISION AND DRAINAGE PROCEDURE. WOUND MEASUREMENTS AND PHOTOGRAPHS TAKEN AT THIS TIME. LEFT OPEN AMPUTATION HAS EXPOSED TENDON NOTED, LEFT PLANTAR FOREFOOT WOUND HAS PALPABLE BONE. ALL WOUNDS CLEANSED WITH WOUND CLEANSER, PATTED DRY WITH STERILE GAUZE. APPLIED CAVILON BARRIER FILM, CLEAR FILM DRAPE TO ALL PERIWOUND AREAS, PACKED LEFT DORSAL AND PLANTAR FOREFOOT WOUNDS WITH WHITE FOAM. APPLIED BLACK GRANUFOAM INTO ALL OPEN WOUNDS. CREATED BRIDGE TO LEFT ANTERIOR ANKLE. APPLIED TRAC PADS, WOUND VAC, SETTING TO 125 MM/HG CONTINUOUS. GOOD SUCTION , NO LEAKS DETECTED. PATIENT TOLERATED DRESSING CHANGE WELL, NOTING MINIMAL PAIN BY PATIENT. RECOMMEND: Q 3 DAY/PRN DRESSING CHANGE UTILIZING WOUND VAC, CONTINUED MONITORING BY WOUND CARE TEAM AND RACE CAR MECHANIC UNTIL DISCHARGE. PATIENT TO RECEIVE HOME WOUND VAC WITH HOME HEALTHCARE AT TIME OF DISCHARGE. [employer]. THERAPY INSURANCE AUTHORIZATION FORM V.7.0 FILLED OUT, PLACED IN CHART FOR ACTION BY INDUSTRIAL ROOFER HELPER/CASE MANAGMENT NURSES. Addendum: 02/19/20 at 1421 by Iesha Yousif RN Amended: Links added.
[2020-02-19] MEDS: MORPHINE SULF INJ 2 MG/ML SYRINGE 1ML IV PRN ×2 (12:30→22:13)
[2020-02-19 13:00] VITALS: BP 101/55
[2020-02-19] MEDS: SODIUM CHLORIDE 0.9% 1,000 ML IV SCH (13:13)
--- NOTE | 2020-02-19 14:50 | NUR ---
re-assessment Per Deyanira at [facility] medication will be delivered to patients home between 8pm and 10pm [facility]. Per Alena cardoza it is okay for patient to take wound vac that he has on and we will have a replacement delivered to hospital. Wound Vac request and all paperwork has been sent to [facility]. Per Don at [facility] health service will start tomorrow morning 02/20/2020. Per Dr Blas discharge is in and patient can go home after 5pm dose of antibiotic. Alta MAGAÑA has been notified as well as patient. Addendum: 02/19/20 at 1524 by Jennifer TAM Amended: Links added.
--- NOTE | 2020-02-19 14:58 | NUR ---
Per Jennifer social media senior associate, Home health nurse is unavailable for Friday02/20/20. She will continue working and will notify me once its all figured out. Dr. Blas aware of discharge hold until further notice.
--- NOTE | 2020-02-19 15:00 | NUR ---
Awaiting for call from [facility] Deaf/Hard Of Hearing Specialist regarding discharge plans.
[2020-02-19 17:00] VITALS: BP 113/62
--- NOTE | 2020-02-19 19:09 | NUR ---
Closing note Patient is comfortably resting in bed on room air, no s/s of distress/sob noted/stated. Bed at lowest locked position and call light within reach. Will endorse care to NOC RN.
--- NOTE | 2020-02-19 20:00 | NUR ---
Opening Shift Note Assumed care of patient, awake and alert. No S/S of distress/SOB or pain. Instructed on POC and to call for assist PRN, will continue to monitor for changes Q1hr and PRN. Wound Vac in place with brown drainage noted in tubing. Dressings to bilateral lower extremities are clean and dry. Bed in low position and call light is in reach.
[2020-02-19] MEDS ORDERED: DAPTOmycin 350 MG in SODIUM CHL 0.9% 50 ML IV SCH (21:00)
--- NOTE | 2020-02-19 21:00 | NUR ---
New IV antibiotic order for Daptomycin 350 mg not available for administration.
[2020-02-19 22:00] VITALS: BP 124/82
--- NOTE | 2020-02-19 22:13 | NUR ---
Patient complains of pain to left foot and "cold" sensation. Patient medicated with Morphine 2 mg IVP.
[2020-02-20 05:00] VITALS: BP 136/72
[2020-02-20] MEDS: InsuLIN REG 1unit/0.01ml Soln (100units/ml) SC SCH ×2 (06:22→12:24)
[2020-02-20] MEDS: ACCU-CHEK COMFORT CURVE STRIP VI SCH ×2 (06:23→11:30)
--- NOTE | 2020-02-20 06:37 | NUR ---
IV to right forearm noted with swelling and redness. IV D/C'd with canula intact. Right upper arm midline IV used for IVF.
--- NOTE | 2020-02-20 06:40 | NUR ---
Patient resting comfortably no distress noted.
--- NOTE | 2020-02-20 06:42 | NUR ---
Pharmacy notified regarding a time change for Daptomycin administration. Per Pharmacy administration time will be 1000 this morning.
[2020-02-20 07:01] LABS: Eosinophils # (auto) 0.2 10 ^3/uL (0-0.8); Mean Corpuscular Volume 80.4 fL (80.0-100.0); Monocytes # (auto) 0.6 10 ^3/uL (0-1.3)
[2020-02-20 07:04] LABS: Basophils # (auto) 0.1 10 ^3/uL (0-0.2); Basophils % (auto) 0.7 % (0.0-2.0); Eosinophils % (auto) 2.8 % (0.0-7.0); Hematocrit 32.6 % (41.0-53.0); Lymphocytes # (auto) 2.2 10 ^3/uL (0.4-5.4); Lymphocytes % (auto) 25.7 % (10.0-50.0); Mean Corpuscular Hemoglobin 27.2 pg (28.0-32.0); Mean Corpuscular Hgb Conc. 33.8 g/dL (32.0-36.0); Neutrophils # (auto) 5.5 10 ^3/uL (1.6-8.6); Neutrophils % (auto) 63.8 % (37.0-80.0); Platelet Count (auto) 353 10^3/uL (140-450); Red Blood Cells 4.05 10^6/uL (4.5-5.90); Red Cell Distribution Width 15.1 % (11.8-14.3); White Blood Cell 8.7 10^3/uL (4.4-10.8)
[2020-02-20 07:25] LABS: Calcium 8.1 mg/dL (8.5-10.1); Potassium 3.8 mmol/L (3.5-5.1)
[2020-02-20 07:32] LABS: BUN/Creatinine Ratio 16.3
--- NOTE | 2020-02-20 07:39 | NUR ---
Opening Shift Note Assumed care of patient, patient sitting up in bed on room air, breath sounds even and unlabored. No S/S of distress/SOB. Patient c/o pain to the left foot, rates it 8/10, will medicate per MD orders. Instructed on POC and to call for assist PRN. Bed at lowest locked position and call light within reach. Will continue to monitor for changes Q1hr and PRN
[2020-02-20 08:00] VITALS: BP 141/71
--- NOTE | 2020-02-20 08:11 | NUR ---
Received a call from the volunteer desk, to inform me that the patient's was downstairs to pick pulling machine operator something from the patient. Upon questioning he patient, he stated "my is downstairs and is here to pick pulling machine operator her medication, i dispense it to her". I explained to him that he cannot hold her medication here with us, i explained our policy, he verbalized [id number] and sent the medication down for his .
--- NOTE | 2020-02-20 08:14 | NUR ---
Patient is c/o pain to left foot, will medicate per MD orders. Addendum: 02/20/20 at 1120 by Lizzy Sewell RN 08:47 patient states no pain to left foot.
[2020-02-20] MEDS: ASPirin 81 mg TAB PO SCH (08:15)
[2020-02-20] MEDS: FAMOTIDINE 20 MG TAB PO SCH (08:16)
[2020-02-20] MEDS: ENOXAPARIN SOD 30 MG/0.3 ML SYRINGE SC SCH (08:16)
[2020-02-20] MEDS: DULoxetine HCL 30 MG CAP PO SCH (08:16)
[2020-02-20] MEDS: PANTOPRAZOLE 40 MG TAB PO SCH (08:16)
[2020-02-20] MEDS: MORPHINE SULF INJ 2 MG/ML SYRINGE 1ML IV PRN (08:17)
--- NOTE | 2020-02-20 09:00 | NUR ---
[facility] Print Color Operator called inquiring about the patient's discharge planning. Awaiting for Dr. Blas.
[2020-02-20] MEDS ORDERED: DAPTOmycin 350 MG in SODIUM CHL 0.9% 50 ML IV SCH (10:00)
[2020-02-20 10:01] VITALS: BP 141/71
[2020-02-20] MEDS: INSULIN 70/30 1unit/0.01ml Susp (100units/ml) SC SCH (11:19)
--- NOTE | 2020-02-20 12:00 | NUR ---
Faxed paper work to [facility] and [facility]. Jennifer from Feed Management Advisor informed/ aware.
[2020-02-20] MEDS: HYDROcodone-ACET 5/325MG TAB PO PRN (12:31)
[2020-02-20 13:00] VITALS: BP 111/61
--- NOTE | 2020-02-20 13:12 | NUR ---
Per Jennifer (YONATAN), patient is all set up to go home. Per Lucy at [facility] patient's medication will be delivered between 7-10PM.
[2020-02-20 13:29] VITALS: BP 111/61
--- NOTE | 2020-02-20 14:44 | NUR ---
Called patient's and informed her that patient is has an order to discharge.
--- NOTE | 2020-02-20 16:15 | NUR ---
received a call from the volunteer's desk, patient's is worried because their preferred pharmacy will not have the prescribed insulin ready until tomorrow. Informed patient , that they can try another [facility]. Patient's is requesting for patient to stay until tomorrow. I kindly stated that the patient is already discharged and is expecting to start his home health antibiotics and wound vac tomorrow. I explained to the patient to follow the discharge orders, again.
--- NOTE | 2020-02-20 16:15 | NUR ---
Discharge instructions given as ordered. Encourage to follow up with PMD as instructed. All questions and concerns addressed. Patient verbalized understanding. Medication reconciliation form completed and copy given to patient. Patient taken to vehicle via wheelchair with all personal belongings, accompanied by this nurse. Patient left with midline on the right upper arm secured, in place,dressing CDI. No distress noted at time of departure.
--- NOTE | 2020-02-22 15:34 | NUR ---
re-assessment Per Gabe at [facility] [phone] ext [phone] he had authorized wound vac yesterday and someone canceled the order on his end. I call Gabe back and he informed me everything was set to be delivered and when they called patient he refused the wound vac. I call patient and he informed me he has a copay and wanted to keep the hospital wound vac so he didn't have to pay. I informed patient he will have to pay his copay and return the hospital wound vac. Patient agreed. I informed Gabe from [facility] to deliver wound vac to patient. Addendum: 02/22/20 at 1547 by Jennifer TAM Amended: Links added.
== END 2020-02-20 16:22 | disposition home health service (06) | DRG 853 ==
LOC: UNDOADMIN 15:13 → WEST WING 15:13 → TELE-WESTW 15:13
PROVIDERS: ADMIT Hospitalist; ATTEND Internal Medicine
PROC: 0Y6U0Z3 Detachment at Left 3rd Toe, Low, Open Approach (ICD-10-PCS; 2020-02-16)
PROC: 0JBR0ZZ Excision of Left Foot Subcutaneous Tissue and Fascia, Open Approach (ICD-10-PCS; 2020-02-16)
PROC: 0Y6S0Z3 Detachment at Left 2nd Toe, Low, Open Approach (ICD-10-PCS; principal; 2020-02-16 11:20)
DX: A41.9 Sepsis, unspecified organism (principal); A48.0 Gas gangrene; L03.116 Cellulitis of left lower limb; L02.612 Cutaneous abscess of left foot; E44.0 Moderate protein-calorie malnutrition; M86.8X7 Other osteomyelitis, ankle and foot; E11.52 Type 2 diabetes mellitus with diabetic peripheral angiopathy with gangrene; B95.2 Enterococcus as the cause of diseases classified elsewhere; B95.61 Methicillin susceptible Staphylococcus aureus infection as the cause of diseases classified elsewhere; E11.21 Type 2 diabetes mellitus with diabetic nephropathy; N18.3 Chronic kidney disease, stage 3 (moderate); D64.9 Anemia, unspecified; E78.5 Hyperlipidemia, unspecified; E11.65 Type 2 diabetes mellitus with hyperglycemia; E11.22 Type 2 diabetes mellitus with diabetic chronic kidney disease; E11.69 Type 2 diabetes mellitus with other specified complication; J44.9 Chronic obstructive pulmonary disease, unspecified; Z83.3 Family history of diabetes mellitus; Z82.49 Family history of ischemic heart disease and other diseases of the circulatory system; Z79.899 Other long term (current) drug therapy; Z79.82 Long term (current) use of aspirin; Z91.19 Patient's noncompliance with other medical treatment and regimen; Z88.1 Allergy status to other antibiotic agents; Z88.2 Allergy status to sulfonamides; Z91.11 Patient's noncompliance with dietary regimen; Z68.27 Body mass index [BMI] 27.0-27.9, adult
CPT/HCPCS: 36415; 71045; 73700; 80048; 80053; 80061; 82550; 82962; 83036; 83735; 84100; 84443; 84484; 85025; 85610; 85730; 87040; 87070; 87077; 87186; 87205; 93005; 93306; G0378; J0690; J1815; J2001; J2185; J2250; J2405; J2704

== ENCOUNTER → 2020-02-15 | Outpatient (CLI) | payer OTHER ==
[~2020-02-15] MED LIST changes: +PANT40TA2 PO
== END | disposition home or self-care (01) ==
LOC: LAB 07:43
PROVIDERS: ATTEND Podiatrist
DX: E11.621 Type 2 diabetes mellitus with foot ulcer (principal)
CPT/HCPCS: 87075; 87077; 87186; 87205

== ENCOUNTER → 2020-02-24 | Emergency (ER) | payer OTHER ==
[~2020-02-24] VITALS: Ht 177.8 cm; Wt 86.2 kg
[~2020-02-24] MED LIST changes: +ATOR20TA50 PO
[2020-02-24 10:31] VITALS: BP 102/55
== END | disposition home or self-care (01) ==
LOC: ER 09:12
DX: T82.49XA Other complication of vascular dialysis catheter, initial encounter (principal); E11.621 Type 2 diabetes mellitus with foot ulcer; I11.0 Hypertensive heart disease with heart failure; I50.9 Heart failure, unspecified; J44.9 Chronic obstructive pulmonary disease, unspecified; Z86.14 Personal history of Methicillin resistant Staphylococcus aureus infection; Y83.9 Surgical procedure, unspecified as the cause of abnormal reaction of the patient, or of later complication, without mention of misadventure at the time of the procedure; Y92.89 Other specified places as the place of occurrence of the external cause
CPT/HCPCS: 36410

== ENCOUNTER → 2020-02-25 | Outpatient (CLI) | payer OTHER ==
[2020-02-25 13:24] LABS: Basophils # (auto) 0 10 ^3/uL (0-0.2); Hematocrit 24.3 % (41.0-53.0); Hemoglobin 7.9 g/dL (13.5-17.5); Lymphocytes # (auto) 2.1 10 ^3/uL (0.4-5.4); Monocytes # (auto) 0.5 10 ^3/uL (0-1.3); Monocytes % (auto) 7.1 % (0.0-12.0); Neutrophils # (auto) 3.8 10 ^3/uL (1.6-8.6); Nucleated Red Blood Cells % 0.1 %; Platelet Count (auto) 213 10^3/uL (140-450); White Blood Cell 6.6 10^3/uL (4.4-10.8)
[2020-02-25 13:26] LABS: Basophils % (auto) 0.2 % (0.0-2.0); Eosinophils # (auto) 0.3 10 ^3/uL (0-0.8); Eosinophils % (auto) 3.8 % (0.0-7.0); Mean Corpuscular Hemoglobin 26.5 pg (28.0-32.0); Mean Corpuscular Hgb Conc. 32.5 g/dL (32.0-36.0); Mean Corpuscular Volume 81.8 fL (80.0-100.0); Neutrophils % (auto) 56.9 % (37.0-80.0); Red Blood Cells 2.97 10^6/uL (4.5-5.90); Red Cell Distribution Width 15.1 % (11.8-14.3)
[2020-02-25 13:32] LABS: Albumin 2.1 g/dL (3.4-5.0); Potassium 5.3 mmol/L (3.5-5.1)
[2020-02-25 13:35] LABS: Bilirubin, Total 0.3 mg/dL (0.2-1.0); Total Protein 8.5 g/dL (6.4-8.2)
== END | disposition home or self-care (01) ==
LOC: LAB 13:08
PROVIDERS: ATTEND Internal Medicine
DX: M86.172 Other acute osteomyelitis, left ankle and foot (principal)
CPT/HCPCS: 36415; 80053; 82550; 85025

== ENCOUNTER → 2020-05-10 | Day surgery (SDC) | payer OTHER ==
[2020-05-05 12:39] LABS: Urine WBC None Seen /hpf (0 - 3)
[2020-05-05 12:42] LABS: Basophils # (auto) 0.1 10 ^3/uL (0-0.2); Basophils % (auto) 1.4 % (0.0-2.0); Eosinophils # (auto) 0.3 10 ^3/uL (0-0.8); Eosinophils % (auto) 4.4 % (0.0-7.0); Hematocrit 35.6 % (41.0-53.0); Hemoglobin 11.8 g/dL (13.5-17.5); Lymphocytes # (auto) 3.2 10 ^3/uL (0.4-5.4); Lymphocytes % (auto) 41.7 % (10.0-50.0); Mean Corpuscular Hemoglobin 27.2 pg (28.0-32.0); Mean Corpuscular Hgb Conc. 33.2 g/dL (32.0-36.0); Monocytes # (auto) 0.5 10 ^3/uL (0-1.3); Monocytes % (auto) 6.9 % (0.0-12.0); Neutrophils # (auto) 3.5 10 ^3/uL (1.6-8.6); Neutrophils % (auto) 45.6 % (37.0-80.0); Nucleated Red Blood Cells % 0.2 %; Platelet Count (auto) 219 10^3/uL (140-450); Red Blood Cells 4.34 10^6/uL (4.5-5.90); Red Cell Distribution Width 15.9 % (11.8-14.3); White Blood Cell 7.7 10^3/uL (4.4-10.8)
[2020-05-05 12:55] LABS: Urine Bacteria NONE SEEN /hpf (None Seen); Urine Blood Negative /uL (Negative); Urine Specific Gravity 1.017 (1.001-1.035)
[2020-05-05 13:05] LABS: INR 0.97 (0.9-1.15); Partial Thromboplastin Time 25.2 sec (23.0-31.2)
[2020-05-05 13:49] LABS: Potassium 4.1 mmol/L (3.5-5.1)
[2020-05-05 13:57] LABS: Albumin 2.9 g/dL (3.4-5.0); BUN/Creatinine Ratio 25.9; Bilirubin, Total 0.2 mg/dL (0.2-1.0); Calcium 8.2 mg/dL (8.5-10.1); Total Protein 9.1 g/dL (6.4-8.2)
[~2020-05-10] VITALS: Ht 177.8 cm; Wt 86.2 kg
[~2020-05-10] MED LIST changes: +ACCU-CHEK COMFORT CURVE STRIP VI ONE; -DAKI0.25 TOP; +DexAMETHasone SOD PHOS 10MG/1ML VIAL INJ ONE; +HYDROmorphone HCL 2 MG/ML VL IV PRN; +LABETALOL HCL 5 MG/ML 4ML SYRINGE IV PRN; +MEPERIDINE HCL (25 MG/ML) 1ML VIAL ONE; +METO5TAB2 PO; +MIDAZOLAM HCL 1MG/1ML-2 ML VIAL IV PRN; +MIDAZOLAM HCL 1MG/1ML-2 ML VIAL ONE; +MORPHINE SULFATE 4 MG/ML SYR/VIAL IV PRN; +NEOMYCIN-BACITRACIN-POLYM 15GM TOP OINT TOP ONE; +ONDANSETRON HCL 4 MG/2 ML VIAL IV PRN; +PROPOFOL 10 MG/ML 20 ML IV ONE; -SACC250C PO; -SIMV-8 PO; +ceFAZolin 1GM VL ONE; +ceFAZolin 1GM/50ML 50 ML IV ONE; +ePHEDrine SULFATE 50 MG/ML AMP IV PRN; +fentaNYL CITRATE 100 MCG/2 ML VL ONE
[2020-05-10] MEDS: ROPIVACAINE 0.5% (5MG/ML) 20ML AMPULE IJ ONE (10:38)
[2020-05-10 11:37] VITALS: BP 114/53
== END | disposition home or self-care (01) ==
LOC: SUR 07:32
PROVIDERS: ATTEND Podiatrist Foot & Ankle Surgery
DX: E11.621 Type 2 diabetes mellitus with foot ulcer (principal); M86.8X8 Other osteomyelitis, other site; J43.9 Emphysema, unspecified; I25.10 Atherosclerotic heart disease of native coronary artery without angina pectoris; E11.42 Type 2 diabetes mellitus with diabetic polyneuropathy; Z20.828 Contact with and (suspected) exposure to other viral communicable diseases; Z88.1 Allergy status to other antibiotic agents; Z98.890 Other specified postprocedural states; Z79.899 Other long term (current) drug therapy; Z79.82 Long term (current) use of aspirin
CPT/HCPCS: 28112; 28820; 36415; 80053; 81001; 82962; 85025; 85610; 85730; 87070; 87075; 87077; 87186; 87205; J0690; J1100; J2175; J2250; J2704; J2795; J3010; U0003

== ENCOUNTER 2020-10-31 13:38 | Observation (INO) | payer OTHER ==
[~2020-10-31] VITALS: Ht 177.8 cm; Wt 96.6 kg
[~2020-10-31 13:38] MED LIST changes: -ACCU-CHEK COMFORT CURVE STRIP VI ONE; -DexAMETHasone SOD PHOS 10MG/1ML VIAL INJ ONE; -HYDROmorphone HCL 2 MG/ML VL IV PRN; -LABETALOL HCL 5 MG/ML 4ML SYRINGE IV PRN; -MEPERIDINE HCL (25 MG/ML) 1ML VIAL ONE; -MIDAZOLAM HCL 1MG/1ML-2 ML VIAL IV PRN; -MIDAZOLAM HCL 1MG/1ML-2 ML VIAL ONE; -MORPHINE SULFATE 4 MG/ML SYR/VIAL IV PRN; -NEOMYCIN-BACITRACIN-POLYM 15GM TOP OINT TOP ONE; -ONDANSETRON HCL 4 MG/2 ML VIAL IV PRN; -PROPOFOL 10 MG/ML 20 ML IV ONE; -ceFAZolin 1GM VL ONE; -ceFAZolin 1GM/50ML 50 ML IV ONE; -ePHEDrine SULFATE 50 MG/ML AMP IV PRN; -fentaNYL CITRATE 100 MCG/2 ML VL ONE
[2020-10-31] MEDS ORDERED: cefTRIAXone 1GM/50ML D5W 50 ML IV ONE (14:00)
[2020-10-31] MEDS ORDERED: CLINDAMYCIN 600MG IV 50 ML IV ONE (14:00)
[2020-10-31] MEDS ORDERED: OXYCODONE W/ ACETAMINOPHEN 5/325MG TABLET PO ONE (15:00)
[2020-10-31 15:02] LABS: Basophils # (auto) 0.1 10 ^3/uL (0-0.2); Basophils % (auto) 0.7 % (0.0-2.0); Eosinophils # (auto) 0.4 10 ^3/uL (0-0.8); Eosinophils % (auto) 3.2 % (0.0-7.0); Hematocrit 35.9 % (41.0-53.0); Lymphocytes # (auto) 2.6 10 ^3/uL (0.4-5.4); Lymphocytes % (auto) 22.4 % (10.0-50.0); Mean Corpuscular Hemoglobin 27.2 pg (28.0-32.0); Mean Corpuscular Hgb Conc. 33.3 g/dL (32.0-36.0); Mean Corpuscular Volume 81.5 fL (80.0-100.0); Monocytes # (auto) 0.8 10 ^3/uL (0-1.3); Monocytes % (auto) 7.3 % (0.0-12.0); Neutrophils # (auto) 7.7 10 ^3/uL (1.6-8.6); Neutrophils % (auto) 66.4 % (37.0-80.0); Nucleated Red Blood Cells % 0.2 %; Platelet Count (auto) 283 10^3/uL (140-450); Red Cell Distribution Width 15.2 % (11.8-14.3); White Blood Cell 11.6 10^3/uL (4.4-10.8)
[2020-10-31 15:14] LABS: Albumin 2.9 g/dL (3.4-5.0); Anion Gap 10 (5-15); Blood Urea Nitrogen 28 mg/dL (7-18); Calcium 8.7 mg/dL (8.5-10.1); Carbon Dioxide 20 mmol/L (21-32); Chloride 105 mmol/L (98-107); Glucose 270 mg/dL (74-106); Potassium 4.5 mmol/L (3.5-5.1); Sodium 135 mmol/L (136-145)
[2020-10-31 15:21] LABS: INR 0.99 (0.9-1.15); Partial Thromboplastin Time 27.9 sec (23.0-31.2)
[2020-10-31 15:30] LABS: Alanine Aminotransferase 22 U/L (16-61); Alkaline Phosphatase 128 U/L (45-117); Aspartate Aminotransferase 20 U/L (15-37); Bilirubin, Total 0.3 mg/dL (0.2-1.0); GFR African American 72 mL/min; GFR Non-African American 60 mL/min; Total Protein 9.7 g/dL (6.4-8.2)
[2020-10-31] MEDS ORDERED: DEXTROSE (50%) 50ML SYRG IV PRN (17:15)
[2020-10-31] MEDS ORDERED: MORPHINE SULF INJ 2 MG/ML SYRINGE 1ML IV PRN ×2 (17:15)
[2020-10-31] MEDS ORDERED: ONDANSETRON HCL 4 MG/2 ML VIAL IV PRN (17:15)
[2020-10-31] MEDS ORDERED: NITROGLYCERIN 0.4 MG SL TAB SL PRN (17:15)
[2020-10-31] MEDS ORDERED: VANCOMYCIN PER PHARMACY 0 MG IV SCH (17:15)
[2020-10-31] MEDS ORDERED: ACETAMINOPHEN 500 MG TAB PO PRN (17:15)
[2020-10-31] MEDS ORDERED: VANCOMYCIN 1GM/250ML 250 ML IV ONE (18:00)
[2020-10-31] MEDS: InsuLIN REG 1unit/0.01ml Soln (100units/ml) SC SCH (20:51)
[2020-10-31] MEDS: INSULIN 70/30 1unit/0.01ml Susp (100units/ml) SC SCH (20:51)
[2020-10-31] MEDS: metroNIDAZOLE 500MG/100ML 100 ML IV SCH (20:54)
[2020-10-31] MEDS: ACCU-CHEK COMFORT CURVE STRIP VI SCH (20:55)
[2020-10-31 22:00] VITALS: BP 137/75
[2020-10-31] MEDS ORDERED: FAMOTIDINE 20 MG TAB PO SCH (22:00)
[2020-10-31] MEDS ORDERED: ATORVASTATIN 20 MG TAB PO SCH (22:00)
[2020-10-31] MEDS: HYDROcodone-ACET 5/325MG TAB PO PRN (22:19)
[2020-10-31 23:36] VITALS: BP 137/75
[2020-11-01 02:48] LABS: Urine Bacteria FEW /hpf (None Seen); Urine Blood Negative /uL (Negative); Urine Mucus FEW (None Seen); Urine Specific Gravity 1.009 (1.001-1.035); Urine WBC 1 /hpf (0 - 3)
[2020-11-01 05:00] VITALS: BP 119/59
[2020-11-01] MEDS: InsuLIN REG 1unit/0.01ml Soln (100units/ml) SC SCH ×3 (05:45→17:00)
[2020-11-01] MEDS: metroNIDAZOLE 500MG/100ML 100 ML IV SCH ×2 (05:45→14:11)
[2020-11-01] MEDS: ACCU-CHEK COMFORT CURVE STRIP VI SCH ×3 (05:45→17:00)
[2020-11-01] MEDS: HYDROcodone-ACET 5/325MG TAB PO PRN ×2 (08:24→14:11)
[2020-11-01] MEDS ORDERED: cefTRIAXone 1GM/50ML D5W 50 ML IV SCH (08:30)
[2020-11-01 09:00] VITALS: BP 122/69
[2020-11-01] MEDS ORDERED: VANCOMYCIN 1GM/250ML 250 ML IV SCH (09:00)
[2020-11-01] MEDS ORDERED: PROPOFOL 10 MG/ML 20 ML IV ONE (09:23)
[2020-11-01] MEDS ORDERED: MIDAZOLAM HCL 1MG/1ML-2 ML VIAL ONE (09:23)
[2020-11-01] MEDS ORDERED: fentaNYL CITRATE 100 MCG/2 ML VL ONE (09:23)
[2020-11-01] MEDS ORDERED: SODIUM CHLORIDE LOCK 10 ML ONE (09:23)
[2020-11-01] MEDS ORDERED: ONDANSETRON HCL 4 MG/2 ML VIAL ONE (09:23)
[2020-11-01] MEDS: SILVER SULFADIAZINE 1 % TOPICAL CREAM 50GM TOP ONE ×2 (09:25→11:48)
[2020-11-01] MEDS ORDERED: ROPIVACAINE 0.5% (5MG/ML) 20ML AMPULE IJ ONE (09:44)
[2020-11-01] MEDS ORDERED: MORPHINE SULFATE 4 MG/ML SYR/VIAL IV PRN (09:45)
[2020-11-01] MEDS ORDERED: METOCLOPRAMIDE HCL 5MG/ml INJ 2ml VIAL IV PRN (09:45)
[2020-11-01] MEDS ORDERED: HYDROmorphone HCL 2 MG/ML VL IV PRN (09:45)
[2020-11-01] MEDS ORDERED: ACCU-CHEK COMFORT CURVE STRIP VI ONE (09:45)
[2020-11-01] MEDS ORDERED: ceFAZolin 1GM/50ML 50 ML IV ONE (09:57)
[2020-11-01] MEDS ORDERED: ASPirin 81 mg TAB PO SCH (10:00)
[2020-11-01] MEDS: INSULIN 70/30 1unit/0.01ml Susp (100units/ml) SC SCH (10:00)
[2020-11-01] MEDS ORDERED: PANTOPRAZOLE 40 MG TAB PO SCH (10:00)
[2020-11-01] MEDS ORDERED: ceFAZolin 1GM VL ONE (10:06)
[2020-11-01 17:00] VITALS: BP 101/70
[2020-11-01 18:18] VITALS: BP 101/70
== END 2020-11-01 18:50 | disposition home or self-care (01) ==
LOC: ER 13:38 → OVERFLOW 17:14 → INTOOBSV 17:14 → CENTRAL 20:27
PROVIDERS: ADMIT Nurse Practitioner Acute Care; ATTEND Internal Medicine
DX: L03.116 Cellulitis of left lower limb (principal); Z20.822 Contact with and (suspected) exposure to COVID-19; S90.822A Blister (nonthermal), left foot, initial encounter; E11.65 Type 2 diabetes mellitus with hyperglycemia; E11.22 Type 2 diabetes mellitus with diabetic chronic kidney disease; I12.9 Hypertensive chronic kidney disease with stage 1 through stage 4 chronic kidney disease, or unspecified chronic kidney disease; N18.30 Chronic kidney disease, stage 3 unspecified; E44.0 Moderate protein-calorie malnutrition; E78.00 Pure hypercholesterolemia, unspecified; J44.9 Chronic obstructive pulmonary disease, unspecified; I70.8 Atherosclerosis of other arteries; J98.11 Atelectasis; Z79.82 Long term (current) use of aspirin; Z79.899 Other long term (current) drug therapy; Z87.891 Personal history of nicotine dependence; Z79.4 Long term (current) use of insulin; Z86.14 Personal history of Methicillin resistant Staphylococcus aureus infection; X58.XXXA Exposure to other specified factors, initial encounter; Y93.89 Activity, other specified; Y92.89 Other specified places as the place of occurrence of the external cause
CPT/HCPCS: 10140; 36415; 71045; 73700; 80053; 81001; 82043; 82565; 82962; 83036; 83605; 84484; 85025; 85610; 85730; 86850; 86900; 86901; 87040; 87070; 87075; 87077; 87081; 87186; 87205; 87426; 93005; 93925; 96365; 96366; 96367; 96372; 99285; G0378; J0690; J0696; J1815; J2250; J2405; J2704; J2795; J3010; J3370; J3490; J7030; U0003

== ENCOUNTER 2020-12-11 08:29 | Inpatient (IN) | payer OTHER ==
[~2020-12-11] VITALS: Ht 177.8 cm; Wt 98.0 kg
[2020-12-11] MEDS ORDERED: PIPERACILLIN-TAZOB 3.375GM 100 ML IV ONE (09:30)
[2020-12-11] MEDS ORDERED: SODIUM CHLORIDE 0.9% 1,000 ML IV ONE (09:30)
[2020-12-11 10:53] LABS: Basophils # (auto) 0.1 10 ^3/uL (0-0.2); Basophils % (auto) 1.1 % (0.0-2.0); Eosinophils # (auto) 0.3 10 ^3/uL (0-0.8); Eosinophils % (auto) 3.9 % (0.0-7.0); Hematocrit 40.5 % (41.0-53.0); Hemoglobin 13.5 g/dL (13.5-17.5); Lymphocytes # (auto) 2.9 10 ^3/uL (0.4-5.4); Lymphocytes % (auto) 41.4 % (10.0-50.0); Mean Corpuscular Hemoglobin 27.5 pg (28.0-32.0); Mean Corpuscular Hgb Conc. 33.3 g/dL (32.0-36.0); Mean Corpuscular Volume 82.4 fL (80.0-100.0); Monocytes # (auto) 0.5 10 ^3/uL (0-1.3); Monocytes % (auto) 7.4 % (0.0-12.0); Neutrophils # (auto) 3.2 10 ^3/uL (1.6-8.6); Neutrophils % (auto) 46.2 % (37.0-80.0); Nucleated Red Blood Cells % 0.1 %; Platelet Count (auto) 233 10^3/uL (140-450); Red Blood Cells 4.92 10^6/uL (4.5-5.90); Red Cell Distribution Width 15.2 % (11.8-14.3); White Blood Cell 6.9 10^3/uL (4.4-10.8)
[2020-12-11 11:10] LABS: INR 0.97 (0.9-1.15); Partial Thromboplastin Time 25.7 sec (23.0-31.2)
[2020-12-11 11:12] LABS: Albumin 3.2 g/dL (3.4-5.0); Anion Gap 8 (5-15); Blood Urea Nitrogen 24 mg/dL (7-18); Carbon Dioxide 23 mmol/L (21-32); Chloride 107 mmol/L (98-107); Glucose 179 mg/dL (74-106); Potassium 4.1 mmol/L (3.5-5.1); Sodium 138 mmol/L (136-145)
[2020-12-11 11:20] LABS: Alanine Aminotransferase 27 U/L (16-61); Alkaline Phosphatase 104 U/L (45-117); Aspartate Aminotransferase 17 U/L (15-37); BUN/Creatinine Ratio 22.6; Bilirubin, Total 0.4 mg/dL (0.2-1.0); GFR African American 89 mL/min; GFR Non-African American 73 mL/min
[2020-12-11] MEDS ORDERED: IOHEXOL 300 MG/ML 100ML BOTTLE IJ ONE (11:27)
[2020-12-11] MEDS ORDERED: HYDROcodone-ACET 10/325MG TAB PO ONE (11:30)
[2020-12-11] MEDS ORDERED: MORPHINE SULF INJ 2 MG/ML SYRINGE 1ML IV PRN ×2 (11:45)
[2020-12-11] MEDS ORDERED: ACETAMINOPHEN 500 MG TAB PO PRN (11:45)
[2020-12-11] MEDS ORDERED: DEXTROSE (50%) 50ML SYRG IV PRN (11:45)
[2020-12-11] MEDS ORDERED: NITROGLYCERIN 0.4 MG SL TAB SL PRN (11:45)
[2020-12-11] MEDS: metroNIDAZOLE 500MG/100ML 100 ML IV SCH ×2 (14:14→22:13)
[2020-12-11 18:31] VITALS: BP 137/67
[2020-12-11] MEDS: ACCU-CHEK COMFORT CURVE STRIP VI SCH ×2 (18:39→22:14)
[2020-12-11] MEDS: InsuLIN REG 1unit/0.01ml Soln (100units/ml) SC SCH ×2 (18:48→23:24)
[2020-12-11 21:17] LABS: Urine Bacteria FEW /hpf (None Seen); Urine Blood Negative /uL (Negative); Urine Specific Gravity 1.012 (1.001-1.035); Urine WBC <1 /hpf (0 - 3)
[2020-12-11 22:00] VITALS: BP_SYST 145
[2020-12-11] MEDS: ATORVASTATIN 20 MG TAB PO SCH (22:13)
[2020-12-12 06:00] VITALS: BP 108/68
[2020-12-12] MEDS: metroNIDAZOLE 500MG/100ML 100 ML IV SCH ×3 (06:18→21:48)
[2020-12-12] MEDS: ACCU-CHEK COMFORT CURVE STRIP VI SCH ×4 (06:19→21:47)
[2020-12-12] MEDS: InsuLIN REG 1unit/0.01ml Soln (100units/ml) SC SCH ×4 (06:20→22:00)
[2020-12-12] MEDS: cefTRIAXone 1GM/50ML D5W 50 ML IV SCH (09:16)
[2020-12-12] MEDS: PANTOPRAZOLE 40 MG TAB PO SCH (09:16)
[2020-12-12 09:38] VITALS: BP 103/64
[2020-12-12 12:41] VITALS: BP 144/73
[2020-12-12 16:57] VITALS: BP 107/65
[2020-12-12] MEDS: ATORVASTATIN 20 MG TAB PO SCH (21:48)
[2020-12-12] MEDS: HYDROcodone-ACET 5/325MG TAB PO PRN (21:51)
[2020-12-12 22:00] VITALS: BP 135/69
[2020-12-13 05:00] VITALS: BP 113/65
[2020-12-13] MEDS: metroNIDAZOLE 500MG/100ML 100 ML IV SCH ×3 (05:33→21:25)
[2020-12-13] MEDS: ACCU-CHEK COMFORT CURVE STRIP VI SCH ×4 (06:17→21:26)
[2020-12-13] MEDS: InsuLIN REG 1unit/0.01ml Soln (100units/ml) SC SCH ×4 (07:00→21:36)
[2020-12-13 08:48] VITALS: BP 105/66
[2020-12-13] MEDS: cefTRIAXone 1GM/50ML D5W 50 ML IV SCH (09:54)
[2020-12-13] MEDS: HYDROcodone-ACET 5/325MG TAB PO PRN ×2 (09:55→23:52)
[2020-12-13] MEDS: PANTOPRAZOLE 40 MG TAB PO SCH (09:55)
[2020-12-13] MEDS ORDERED: ceFAZolin 1GM VL ONE (10:56)
[2020-12-13] MEDS ORDERED: ROPIVACAINE 0.5% (5MG/ML) 20ML AMPULE IJ ONE (10:56)
[2020-12-13] MEDS ORDERED: NEOMYCIN-BACITRACIN-POLYM 15GM TOP OINT TOP ONE (10:56)
[2020-12-13] MEDS ORDERED: MEPERIDINE HCL (25 MG/ML) 1ML VIAL ONE (11:09)
[2020-12-13] MEDS ORDERED: MIDAZOLAM HCL 1MG/1ML-2 ML VIAL ONE (11:09)
[2020-12-13] MEDS ORDERED: fentaNYL CITRATE 100 MCG/2 ML VL ONE (11:09)
[2020-12-13] MEDS ORDERED: ceFAZolin 1GM/50ML 100 ML IV ONE (11:23)
[2020-12-13] MEDS ORDERED: DexAMETHasone SOD PHOS 10MG/1ML VIAL INJ ONE (11:41)
[2020-12-13] MEDS ORDERED: PROPOFOL 10 MG/ML 20 ML IV ONE (11:42)
[2020-12-13] MEDS ORDERED: MIDAZOLAM HCL 1MG/1ML-2 ML VIAL IV PRN (12:30)
[2020-12-13] MEDS ORDERED: HYDROmorphone HCL 2 MG/ML VL IV PRN (12:30)
[2020-12-13] MEDS ORDERED: ePHEDrine SULFATE 50 MG/ML AMP IV PRN (12:30)
[2020-12-13] MEDS ORDERED: LABETALOL HCL 5 MG/ML 4ML SYRINGE IV PRN (12:30)
[2020-12-13] MEDS ORDERED: MORPHINE SULFATE 4 MG/ML SYR/VIAL IV PRN (12:30)
[2020-12-13] MEDS ORDERED: ONDANSETRON HCL 4 MG/2 ML VIAL IV PRN (12:30)
[2020-12-13 13:43] VITALS: BP 107/69
[2020-12-13 16:38] VITALS: BP 112/70
[2020-12-13] MEDS ORDERED: LIDOCAINE 1% (LOCAL ANESTH.) PF 5ml SDV ID ONE (20:00)
[2020-12-13] MEDS: SODIUM CHLOR 0.9% PF (SALINE LOCK) 10ML VIAL/SYR IV SCH (21:23)
[2020-12-13] MEDS: ATORVASTATIN 20 MG TAB PO SCH (21:26)
[2020-12-13 22:00] VITALS: BP 113/64
[2020-12-14 05:00] VITALS: BP 119/68
[2020-12-14] MEDS: ACCU-CHEK COMFORT CURVE STRIP VI SCH ×4 (06:11→23:36)
[2020-12-14] MEDS: metroNIDAZOLE 500MG/100ML 100 ML IV SCH ×3 (06:12→22:43)
[2020-12-14] MEDS: InsuLIN REG 1unit/0.01ml Soln (100units/ml) SC SCH ×4 (06:17→22:45)
[2020-12-14 08:44] VITALS: BP 127/69
[2020-12-14] MEDS: PANTOPRAZOLE 40 MG TAB PO SCH (09:02)
[2020-12-14] MEDS: SODIUM CHLOR 0.9% PF (SALINE LOCK) 10ML VIAL/SYR IV SCH ×2 (09:03→22:43)
[2020-12-14] MEDS: cefTRIAXone 1GM/50ML D5W 50 ML IV SCH (09:03)
[2020-12-14] MEDS: HYDROcodone-ACET 5/325MG TAB PO PRN (11:53)
[2020-12-14 13:16] VITALS: BP 131/69
[2020-12-14 16:29] VITALS: BP 136/74
[2020-12-14 22:00] VITALS: BP 138/74
[2020-12-14] MEDS: ATORVASTATIN 20 MG TAB PO SCH (22:43)
[2020-12-15 05:00] VITALS: BP 130/81
[2020-12-15] MEDS: metroNIDAZOLE 500MG/100ML 100 ML IV SCH (06:11)
[2020-12-15] MEDS: ACCU-CHEK COMFORT CURVE STRIP VI SCH ×2 (06:11→11:36)
[2020-12-15] MEDS: InsuLIN REG 1unit/0.01ml Soln (100units/ml) SC SCH ×2 (06:12→11:37)
[2020-12-15 09:00] VITALS: BP 99/59
[2020-12-15] MEDS: cefTRIAXone 1GM/50ML D5W 50 ML IV SCH (09:27)
[2020-12-15] MEDS: HYDROcodone-ACET 5/325MG TAB PO PRN (09:28)
[2020-12-15] MEDS: PANTOPRAZOLE 40 MG TAB PO SCH (09:28)
[2020-12-15] MEDS: SODIUM CHLOR 0.9% PF (SALINE LOCK) 10ML VIAL/SYR IV SCH (09:29)
[2020-12-15] MEDS ORDERED: levoFLOXacin 750MG 150 ML IV ONE (11:15)
[2020-12-15 12:56] VITALS: BP 102/62
[2020-12-16] MEDS ORDERED: levoFLOXacin 750MG 150 ML IV SCH (10:00)
== END 2020-12-15 14:28 | disposition home health service (06) | DRG 617 ==
LOC: ER 08:29 → TELE 11:41 → TELE-WESTW 17:30
PROVIDERS: ADMIT Nurse Practitioner Acute Care; ATTEND Family Medicine
PROC: 05HA33Z Insertion of Infusion Device into Left Brachial Vein, Percutaneous Approach (ICD-10-PCS; 2020-12-13)
PROC: B54NZZA Ultrasonography of Left Upper Extremity Veins, Guidance (ICD-10-PCS; 2020-12-13)
PROC: 0Y6W0Z0 Detachment at Left 4th Toe, Complete, Open Approach (ICD-10-PCS; principal; 2020-12-13 11:30)
PROC: 0QTP0ZZ Resection of Left Metatarsal, Open Approach (ICD-10-PCS; 2020-12-13 11:30)
DX: E11.69 Type 2 diabetes mellitus with other specified complication (principal); M86.8X8 Other osteomyelitis, other site; Z20.822 Contact with and (suspected) exposure to COVID-19; T87.9 Unspecified complications of amputation stump; N18.31 Chronic kidney disease, stage 3a; E66.9 Obesity, unspecified; J44.9 Chronic obstructive pulmonary disease, unspecified; E11.621 Type 2 diabetes mellitus with foot ulcer; B95.61 Methicillin susceptible Staphylococcus aureus infection as the cause of diseases classified elsewhere; E11.22 Type 2 diabetes mellitus with diabetic chronic kidney disease; I12.9 Hypertensive chronic kidney disease with stage 1 through stage 4 chronic kidney disease, or unspecified chronic kidney disease; Y83.8 Other surgical procedures as the cause of abnormal reaction of the patient, or of later complication, without mention of misadventure at the time of the procedure; L08.9 Local infection of the skin and subcutaneous tissue, unspecified; L97.529 Non-pressure chronic ulcer of other part of left foot with unspecified severity; Z79.4 Long term (current) use of insulin; Z79.82 Long term (current) use of aspirin; Z82.49 Family history of ischemic heart disease and other diseases of the circulatory system; Z83.3 Family history of diabetes mellitus; Z87.891 Personal history of nicotine dependence; Z89.432 Acquired absence of left foot; Z79.899 Other long term (current) drug therapy; Y92.89 Other specified places as the place of occurrence of the external cause; Z68.31 Body mass index [BMI] 31.0-31.9, adult
CPT/HCPCS: 36415; 36569; 71045; 73701; 73718; 80053; 81001; 82962; 83036; 83605; 84484; 85025; 85610; 85730; 86850; 86900; 86901; 87040; 87070; 87075; 87077; 87081; 87186; 87205; 87426; 93005; 93926; 96365; 96366; 96367; G0378; J0690; J0696; J1100; J1815; J1956; J2250; J2543; J2704; J3490

== ENCOUNTER → 2021-08-21 | Outpatient (CLI) | payer OTHER ==
[2021-08-21 11:25] LABS: Basophils # (auto) 0.1 10 ^3/uL (0-0.2); Basophils % (auto) 0.8 % (0.0-2.0); Eosinophils # (auto) 0.4 10 ^3/uL (0-0.8); Eosinophils % (auto) 4.9 % (0.0-7.0); Hematocrit 35.7 % (41.0-53.0); Hemoglobin 12.1 g/dL (13.5-17.5); Lymphocytes # (auto) 2.8 10 ^3/uL (0.4-5.4); Lymphocytes % (auto) 38.6 % (10.0-50.0); Mean Corpuscular Hemoglobin 25.9 pg (28.0-32.0); Mean Corpuscular Hgb Conc. 33.9 g/dL (32.0-36.0); Mean Corpuscular Volume 76.5 fL (80.0-100.0); Monocytes # (auto) 0.6 10 ^3/uL (0-1.3); Neutrophils # (auto) 3.4 10 ^3/uL (1.6-8.6); Neutrophils % (auto) 47.7 % (37.0-80.0); Nucleated Red Blood Cells % 0.3 %; Red Blood Cells 4.67 10^6/uL (4.5-5.90); Red Cell Distribution Width 15.1 % (11.8-14.3); White Blood Cell 7.2 10^3/uL (4.4-10.8)
[2021-08-21 14:09] LABS: Albumin 2.4 g/dL (3.4-5.0); Calcium 8.3 mg/dL (8.5-10.1)
[2021-08-21 14:16] LABS: BUN/Creatinine Ratio 17.5; Bilirubin, Total 0.3 mg/dL (0.2-1.0); Cholesterol 163.4 mg/dL (< 200); Total Protein 8.8 g/dL (6.4-8.2); Triglycerides 161.9 mg/dL (< 150)
== END | disposition home or self-care (01) ==
LOC: LAB 07:05
PROVIDERS: ATTEND Student in an Organized Health Care Education/Training Program
DX: Z00.01 Encounter for general adult medical examination with abnormal findings (principal)
CPT/HCPCS: 36415; 80053; 80061; 82274; 83036; 85025

== ENCOUNTER 2021-12-15 17:29 | Emergency (ER) | payer MEDICARE, OTHER ==
[~2021-12-15] VITALS: Ht 177.8 cm; Wt 88.9 kg
[2021-12-15 20:43] VITALS: BP 116/78
[2021-12-15] MEDS ORDERED: AMOXICILLIN/CLAVUL 875 MG TAB PO ONE (21:15)
[2021-12-15] MEDS ORDERED: AMOX-277 PO (21:30)
== END 2021-12-15 21:44 | disposition home or self-care (01) ==
LOC: ER 17:29
DX: J06.9 Acute upper respiratory infection, unspecified (principal); R07.89 Other chest pain; J44.9 Chronic obstructive pulmonary disease, unspecified; E11.9 Type 2 diabetes mellitus without complications; I10 Essential (primary) hypertension; E78.5 Hyperlipidemia, unspecified; Z88.1 Allergy status to other antibiotic agents; Z88.2 Allergy status to sulfonamides
CPT/HCPCS: 93005

== ENCOUNTER → 2022-02-12 | Outpatient (CLI) | payer OTHER, MEDICARE ==
[~2022-02-12] MED LIST changes: +AMOX-277 PO
[2022-02-12 14:28] LABS: Basophils # (auto) 0.1 10 ^3/uL (0-0.2); Eosinophils # (auto) 0.3 10 ^3/uL (0-0.8); Hemoglobin 11.4 g/dL (13.5-17.5); Lymphocytes # (auto) 2.4 10 ^3/uL (0.4-5.4); White Blood Cell 6.1 10^3/uL (4.4-10.8)
[2022-02-12 14:31] LABS: Eosinophils % (auto) 4.7 % (0.0-7.0); Hematocrit 35.7 % (41.0-53.0); Lymphocytes % (auto) 39.4 % (10.0-50.0); Mean Corpuscular Hemoglobin 25.4 pg (28.0-32.0); Mean Corpuscular Hgb Conc. 31.9 g/dL (32.0-36.0); Mean Corpuscular Volume 79.4 fL (80.0-100.0); Monocytes # (auto) 0.5 10 ^3/uL (0-1.3); Monocytes % (auto) 7.6 % (0.0-12.0); Neutrophils # (auto) 2.9 10 ^3/uL (1.6-8.6); Neutrophils % (auto) 47.3 % (37.0-80.0); Nucleated Red Blood Cells % 0.1 %; Red Blood Cells 4.49 10^6/uL (4.5-5.90); Red Cell Distribution Width 17.5 % (11.8-14.3)
[2022-02-12 14:49] LABS: BUN/Creatinine Ratio 22.4; Calcium 8.6 mg/dL (8.5-10.1); Potassium 4.2 mmol/L (3.5-5.1)
== END | disposition home or self-care (01) ==
LOC: LAB 14:04
PROVIDERS: ATTEND Student in an Organized Health Care Education/Training Program
DX: Z01.812 Encounter for preprocedural laboratory examination (principal); H25.011 Cortical age-related cataract, right eye
CPT/HCPCS: 36415; 80048; 83036; 85025

== ENCOUNTER 2022-05-26 17:40 | Emergency (ER) | payer MEDICARE, OTHER ==
[~2022-05-26] VITALS: Ht 177.8 cm; Wt 87.0 kg
[2022-05-26] MEDS ORDERED: ALBUTEROL SULF 2.5 MG/0.5ML(0.5%) NEB SOLN HHN ONE (18:15)
[2022-05-26] MEDS ORDERED: IPRATROPIUM BROM 0.5 MG/2.5ML INH SOL HHN ONE (18:15)
[2022-05-26 19:10] LABS: Basophils # (auto) 0.1 10 ^3/uL (0-0.2); Basophils % (auto) 1.1 % (0.0-2.0); Eosinophils # (auto) 0.4 10 ^3/uL (0-0.8); Eosinophils % (auto) 3.9 % (0.0-7.0); Hematocrit 37.3 % (41.0-53.0); Hemoglobin 12.1 g/dL (13.5-17.5); Lymphocytes # (auto) 3.1 10 ^3/uL (0.4-5.4); Lymphocytes % (auto) 32.1 % (10.0-50.0); Mean Corpuscular Hemoglobin 25.9 pg (28.0-32.0); Mean Corpuscular Hgb Conc. 32.5 g/dL (32.0-36.0); Mean Corpuscular Volume 79.8 fL (80.0-100.0); Monocytes # (auto) 0.7 10 ^3/uL (0-1.3); Monocytes % (auto) 7.2 % (0.0-12.0); Neutrophils # (auto) 5.4 10 ^3/uL (1.6-8.6); Neutrophils % (auto) 55.7 % (37.0-80.0); Nucleated Red Blood Cells % 0.1 %; Red Blood Cells 4.68 10^6/uL (4.5-5.90); White Blood Cell 9.6 10^3/uL (4.4-10.8)
[2022-05-26 20:56] LABS: Alanine Aminotransferase 24 U/L (16-61); Albumin 3.1 g/dL (3.4-5.0); Anion Gap 10 (5-15); Aspartate Aminotransferase 15 U/L (15-37); Blood Urea Nitrogen 36 mg/dL (7-18); Calcium 8.9 mg/dL (8.5-10.1); Carbon Dioxide 26 mmol/L (21-32); Chloride 104 mmol/L (98-107); GFR African American 62 mL/min; GFR Non-African American 51 mL/min; Glucose 227 mg/dL (74-106); Sodium 140 mmol/L (136-145)
[2022-05-26 20:59] LABS: Alkaline Phosphatase 131 U/L (45-117); Bilirubin, Total 0.3 mg/dL (0.2-1.0); Total Protein 9.1 g/dL (6.4-8.2)
[2022-05-26] MEDS ORDERED: ALBU108A5 IN (21:44)
[2022-05-26] MEDS ORDERED: predniSONE 20 MG TAB PO ONE (21:45)
[2022-05-26] MEDS ORDERED: PRED20TA2 PO (21:51)
[2022-05-27 01:25] VITALS: BP 131/76
== END 2022-05-27 01:30 | disposition home or self-care (01) ==
LOC: ER 17:40
DX: J44.9 Chronic obstructive pulmonary disease, unspecified (principal); E11.9 Type 2 diabetes mellitus without complications; L97.329 Non-pressure chronic ulcer of left ankle with unspecified severity; L97.319 Non-pressure chronic ulcer of right ankle with unspecified severity; I10 Essential (primary) hypertension; Z20.822 Contact with and (suspected) exposure to COVID-19
CPT/HCPCS: 36415; 71045; 80053; 83880; 84484; 85025; 87040; 87426; 87804; 94640; 99284; J7512; J7644

== ENCOUNTER 2023-04-30 17:06 | Inpatient (IN) | payer OTHER, MEDICAID ==
[~2023-04-30] VITALS: Ht 167.6 cm; Wt 75.5 kg
[~2023-04-30 17:06] MED LIST changes: +ALBU108A5 IN; -AMOX-277 PO; +AMOX875T4 PO; +PRED20TA2 PO
[2023-04-30 19:09] VITALS: PULSE 81; RESP 20; O2SAT 97
[2023-04-30 19:20] VITALS: PULSE 77; RESP 18; O2SAT 95
[2023-04-30] MEDS ORDERED: PIPERACILLIN-TAZOB 3.375GM 100 ML IV ONE (19:30)
[2023-04-30 20:11] LABS: Basophils # (auto) 0.1 10 ^3/uL (0-0.2); Basophils % (auto) 0.6 % (0.0-2.0); Eosinophils # (auto) 0.3 10 ^3/uL (0-0.8); Eosinophils % (auto) 2.1 % (0.0-7.0); Hematocrit 34.4 % (41.0-53.0); Hemoglobin 11.3 g/dL (13.5-17.5); Lymphocytes # (auto) 1.7 10 ^3/uL (0.4-5.4); Lymphocytes % (auto) 13.6 % (10.0-50.0); Mean Corpuscular Hemoglobin 27.4 pg (28.0-32.0); Mean Corpuscular Hgb Conc. 32.7 g/dL (32.0-36.0); Mean Corpuscular Volume 83.6 fL (80.0-100.0); Neutrophils # (auto) 9.6 10 ^3/uL (1.6-8.6); Neutrophils % (auto) 75.7 % (37.0-80.0); Nucleated Red Blood Cells % 0.1 %; Red Blood Cells 4.12 10^6/uL (4.5-5.90); Red Cell Distribution Width 14.7 % (11.8-14.3); White Blood Cell 12.7 10^3/uL (4.4-10.8)
[2023-04-30 20:22] LABS: Alanine Aminotransferase 12 U/L (7-40); Albumin 3.4 g/dL (3.2-4.8); Alkaline Phosphatase 101 U/L (46-116); Anion Gap 8 (5-15); Aspartate Aminotransferase 10 U/L (13-40); BUN/Creatinine Ratio 12.6 (10.0-20.0); Bilirubin, Total 0.3 mg/dL (0.2-1.0); Blood Urea Nitrogen 13 mg/dL (9-23); Calcium 8.6 mg/dL (8.5-10.1); Carbon Dioxide 28 mmol/L (20-30); Chloride 95 mmol/L (98-107); Glucose 363 mg/dL (74-106); Potassium 3.8 mmol/L (3.5-5.1); Sodium 131 mmol/L (136-145); Total Protein 8.4 g/dL (5.7-8.2)
[2023-04-30 20:30] LABS: CRP High Sensitivity 19.69 mg/dL (<1.0)
[2023-04-30] MEDS ORDERED: MORPHINE SULFATE INJ 2 MG/ml SYRG IV PRN (21:00)
[2023-04-30] MEDS ORDERED: NITROGLYCERIN 0.4 MG SL TAB SL PRN (21:00)
[2023-04-30] MEDS ORDERED: DEXTROSE (50%) 50ML SYRG IV PRN (21:00)
[2023-04-30] MEDS ORDERED: ONDANSETRON HCL 4 MG/2 ML VIAL IV PRN (21:00)
[2023-04-30] MEDS ORDERED: HYDROcodone-ACET 5/325MG TAB PO PRN (21:00)
[2023-04-30] MEDS ORDERED: ATORVASTATIN 20 MG TAB PO SCH (22:00)
[2023-04-30] MEDS: ACCU-CHEK COMFORT CURVE STRIP VI SCH (22:24)
[2023-04-30] MEDS: InsuLIN REG 1unit/0.01ml Soln (100units/ml) SC SCH (22:30)
[2023-04-30 23:30] VITALS: BP_SYST 105; BP_SYST 170; BP_DIAS 59; BP_DIAS 63; PULSE 72; PULSE 89; RESP 14; RESP 18; TEMP 97.6; TEMP 98.4; O2SAT 93; O2SAT 96
[2023-04-30 23:45] VITALS: BP 105/59; PULSE 72; RESP 18; TEMP 97.6; O2SAT 93
[2023-05-01] VITALS (11 sets, daily range): BP systolic 99–131; BP diastolic 48–63; PULSE 59–78; RESP 12–19; TEMP 97.6–98; O2SAT 92–100
[2023-05-01] MEDS ORDERED: METO25TA93 PO (03:28)
[2023-05-01] MEDS ORDERED: FUR20T PO (03:28)
[2023-05-01] MEDS ORDERED: CLOP75TA70 PO (03:28)
[2023-05-01] MEDS ORDERED: CEPH250C PO (03:28)
[2023-05-01] MEDS ORDERED: ONDA-155 PO (03:28)
[2023-05-01] MEDS: PIPERACILLIN-TAZOB 3.375GM 100 ML IV SCH ×3 (03:36→21:27)
[2023-05-01 05:08] LABS: Basophils # (auto) 0.1 10 ^3/uL (0-0.2); Basophils % (auto) 0.6 % (0.0-2.0); Eosinophils # (auto) 0.4 10 ^3/uL (0-0.8); Eosinophils % (auto) 3.2 % (0.0-7.0); Hematocrit 32.9 % (41.0-53.0); Hemoglobin 10.9 g/dL (13.5-17.5); Lymphocytes # (auto) 1.9 10 ^3/uL (0.4-5.4); Lymphocytes % (auto) 17.2 % (10.0-50.0); Mean Corpuscular Hemoglobin 27.5 pg (28.0-32.0); Mean Corpuscular Hgb Conc. 33.1 g/dL (32.0-36.0); Mean Corpuscular Volume 82.9 fL (80.0-100.0); Monocytes # (auto) 0.8 10 ^3/uL (0-1.3); Monocytes % (auto) 7.4 % (0.0-12.0); Neutrophils % (auto) 71.6 % (37.0-80.0); Nucleated Red Blood Cells % 0.1 %; Red Blood Cells 3.96 10^6/uL (4.5-5.90); Red Cell Distribution Width 14.7 % (11.8-14.3); White Blood Cell 11.1 10^3/uL (4.4-10.8)
[2023-05-01 05:34] LABS: Albumin 3.1 g/dL (3.2-4.8); Alkaline Phosphatase 97 U/L (46-116); Anion Gap 8 (5-15); Aspartate Aminotransferase 12 U/L (13-40); BUN/Creatinine Ratio 14.3 (10.0-20.0); Bilirubin, Total 0.2 mg/dL (0.2-1.0); Blood Urea Nitrogen 14 mg/dL (9-23); Calcium 8.3 mg/dL (8.7-10.4); Carbon Dioxide 27 mmol/L (20-30); Chloride 98 mmol/L (98-107); INR 1.07 (0.9-1.15); Partial Thromboplastin Time 29.4 SEC (24.5-34.5); Potassium 3.4 mmol/L (3.5-5.1); Prothrombin Time 11.2 sec (9.3-11.8); Sodium 133 mmol/L (136-145); Total Protein 7.7 g/dL (5.7-8.2)
[2023-05-01 05:56] LABS: Alanine Aminotransferase < 9 U/L (7-40); Glucose 235 mg/dL (74-106)
[2023-05-01] MEDS: ACCU-CHEK COMFORT CURVE STRIP VI SCH ×4 (06:18→21:47)
[2023-05-01] MEDS: InsuLIN REG 1unit/0.01ml Soln (100units/ml) SC SCH ×3 (06:24→21:42)
[2023-05-01] MEDS ORDERED: POTASSIUM CHL 20 Meq TABLET PO ONE (08:15)
[2023-05-01 09:34] LABS: Magnesium 1.9 mg/dL (1.6-2.6)
[2023-05-01] MEDS: FUROSEMIDE 20 MG TAB PO SCH (10:00)
[2023-05-01] MEDS ORDERED: CLOPIDOGREL BISULFATE 75 MG TAB PO SCH (10:00)
[2023-05-01] MEDS: METOPROLOL SUCCINATE XL 50 MG TAB PO SCH (10:00)
[2023-05-01] MEDS: LINEZOLID 600MG/300ML 300 ML IV SCH ×2 (11:15→23:13)
[2023-05-01] MEDS ORDERED: fentaNYL CITRATE 100 MCG/2 ML VL ONE (16:17)
[2023-05-01] MEDS ORDERED: LIDOCAINE 2%HCL (LOCAL ANESTH.) INJ 20ML MDV ONE (16:17)
[2023-05-01] MEDS ORDERED: IODIXANOL 320MG/ML 100ML BTL IV ONE (16:17)
[2023-05-01] MEDS ORDERED: MIDAZOLAM HCL 2MG/2ML 2ml VIAL (1mg/ml) ONE (16:18)
[2023-05-01] MEDS ORDERED: SODIUM CHL 0.9% 50 ML ONE (16:22)
[2023-05-01] MEDS ORDERED: ANGIOMAX 250 MG VIAL IV ONE (16:23)
[2023-05-01] MEDS ORDERED: ASPirin 325 MG TAB ONE (17:36)
[2023-05-01] MEDS ORDERED: CLOPIDOGREL 300 MG TAB ONE (17:36)
[2023-05-01] MEDS: ATORVASTATIN 20 MG TAB PO SCH (21:28)
[2023-05-02] VITALS (8 sets, daily range): BP systolic 81–126; BP diastolic 35–63; PULSE 60–84; RESP 12–21; TEMP 97.6–98.6; O2SAT 87–100
[2023-05-02] MEDS: PIPERACILLIN-TAZOB 3.375GM 100 ML IV SCH ×3 (03:08→20:52)
[2023-05-02] MEDS: InsuLIN REG 1unit/0.01ml Soln (100units/ml) SC SCH ×4 (06:30→22:31)
[2023-05-02] MEDS: ACCU-CHEK COMFORT CURVE STRIP VI SCH ×4 (06:32→22:14)
[2023-05-02 06:46] LABS: Basophils # (auto) 0.1 10 ^3/uL (0-0.2); Basophils % (auto) 0.9 % (0.0-2.0); Eosinophils # (auto) 0.3 10 ^3/uL (0-0.8); Eosinophils % (auto) 3.7 % (0.0-7.0); Hematocrit 34.5 % (41.0-53.0); Hemoglobin 11.3 g/dL (13.5-17.5); Lymphocytes # (auto) 1.5 10 ^3/uL (0.4-5.4); Lymphocytes % (auto) 19.3 % (10.0-50.0); Mean Corpuscular Hemoglobin 28.2 pg (28.0-32.0); Mean Corpuscular Hgb Conc. 32.9 g/dL (32.0-36.0); Mean Corpuscular Volume 85.8 fL (80.0-100.0); Monocytes # (auto) 0.5 10 ^3/uL (0-1.3); Neutrophils # (auto) 5.4 10 ^3/uL (1.6-8.6); Neutrophils % (auto) 69.1 % (37.0-80.0); Nucleated Red Blood Cells % 0.2 %; Red Blood Cells 4.02 10^6/uL (4.5-5.90); White Blood Cell 7.8 10^3/uL (4.4-10.8)
[2023-05-02 06:58] LABS: Alkaline Phosphatase 85 U/L (46-116); Anion Gap 7 (5-15); Aspartate Aminotransferase 13 U/L (13-40); BUN/Creatinine Ratio 7.7 (10.0-20.0); Blood Urea Nitrogen 8 mg/dL (9-23); Calcium 8.2 mg/dL (8.5-10.1); Carbon Dioxide 26 mmol/L (20-30); Chloride 98 mmol/L (98-107); Potassium 4.3 mmol/L (3.5-5.1); Sodium 131 mmol/L (136-145)
[2023-05-02 06:59] LABS: Bilirubin, Total 0.2 mg/dL (0.2-1.0); Total Protein 7.9 g/dL (5.7-8.2)
[2023-05-02 07:06] LABS: Alanine Aminotransferase < 9 U/L (7-40); Glucose 377 mg/dL (74-106)
[2023-05-02 07:48] LABS: Urine Bacteria NONE SEEN /hpf (None Seen); Urine Blood Negative /uL (Negative); Urine Clarity Clear (Clear); Urine Color Colorless (Yellow); Urine Protein, UAD TRACE (Negative); Urine Urobilinogen Normal (Negative); Urine WBC <1 /hpf (0 - 3); Urine pH 6.5 (5.0-8.0)
[2023-05-02 08:05] LABS: Amphetamine Screen, Urine Neg (NEGATIVE); Barbiturate Scree,Urine Neg (NEGATIVE); Benzodiazephine Screen, Urine Pos (NEGATIVE); Cocaine Screen, Urine Neg (NEGATIVE); Opiate Scree,Urine Neg (NEGATIVE)
[2023-05-02 08:06] LABS: Cannabinoid Screen, Urine Neg (NEGATIVE); Phencyclidine Screen, Urine Neg (NEGATIVE)
[2023-05-02] MEDS ORDERED: ceFAZolin 1GM VL ONE (08:47)
[2023-05-02] MEDS ORDERED: ROPIVACAINE 0.5% (5MG/ML) 20ML AMPULE IJ ONE (08:47)
[2023-05-02] MEDS ORDERED: ceFAZolin 1GM/50ML 100 ML IV ONE (09:04)
[2023-05-02] MEDS ORDERED: BACITRACIN TOP OINT 1 UD PKG TOP ONE ×2 (09:18→10:26)
[2023-05-02] MEDS ORDERED: fentaNYL CITRATE 100 MCG/2 ML VL ONE (09:22)
[2023-05-02] MEDS ORDERED: MIDAZOLAM HCL 2MG/2ML 2ml VIAL (1mg/ml) ONE (09:23)
[2023-05-02] MEDS: ASPirin 81 mg TAB PO SCH (09:56)
[2023-05-02] MEDS: LINEZOLID 600MG/300ML 300 ML IV SCH ×2 (09:56→22:24)
[2023-05-02] MEDS: CLOPIDOGREL BISULFATE 75 MG TAB PO SCH (09:59)
[2023-05-02] MEDS: FUROSEMIDE 20 MG TAB PO SCH (09:59)
[2023-05-02] MEDS: METOPROLOL SUCCINATE XL 50 MG TAB PO SCH (10:00)
[2023-05-02] MEDS ORDERED: PROPOFOL 10 MG/ML 20 ML IV ONE (10:04)
[2023-05-02] MEDS ORDERED: ONDANSETRON HCL 4 MG/2 ML VIAL ONE (10:05)
[2023-05-02] MEDS ORDERED: ePHEDrine SULFATE 50 MG/ML AMP ONE (10:05)
[2023-05-02] MEDS ORDERED: LIDOCAINE HCL 100 MG/5ML (2%) SYRG INJ IV ONE (10:05)
[2023-05-02] MEDS ORDERED: HYDROmorphone HCL 2 MG/ML VL/or syr IV PRN (10:30)
[2023-05-02] MEDS ORDERED: ONDANSETRON HCL 4 MG/2 ML VIAL IV PRN (10:30)
[2023-05-02] MEDS: PANTOPRAZOLE 40 MG TAB PO SCH (16:29)
[2023-05-02] MEDS: ATORVASTATIN 20 MG TAB PO SCH (22:13)
[2023-05-02] MEDS: INSULIN LANTUS (GLARGINE) 1 /0.01ml (100units/ml) SC SCH (22:30)
[2023-05-03] VITALS (7 sets, daily range): BP systolic 104–118; BP diastolic 50–65; PULSE 76–94; RESP 16–18; TEMP 97.8–98.9; O2SAT 93–99
[2023-05-03] MEDS: PIPERACILLIN-TAZOB 3.375GM 100 ML IV SCH ×3 (03:54→19:30)
[2023-05-03 05:52] LABS: Anion Gap 5 (5-15); Carbon Dioxide 28 mmol/L (20-30); Chloride 100 mmol/L (98-107); Potassium 4.3 mmol/L (3.5-5.1); Sodium 133 mmol/L (136-145)
[2023-05-03 05:53] LABS: Basophils # (auto) 0.1 10 ^3/uL (0-0.2); Basophils % (auto) 0.7 % (0.0-2.0); Eosinophils # (auto) 0.3 10 ^3/uL (0-0.8); Eosinophils % (auto) 3.2 % (0.0-7.0); Hematocrit 30.7 % (41.0-53.0); Hemoglobin 10.1 g/dL (13.5-17.5); Lymphocytes # (auto) 1.9 10 ^3/uL (0.4-5.4); Lymphocytes % (auto) 21.9 % (10.0-50.0); Mean Corpuscular Hemoglobin 27.4 pg (28.0-32.0); Mean Corpuscular Hgb Conc. 32.9 g/dL (32.0-36.0); Mean Corpuscular Volume 83.3 fL (80.0-100.0); Monocytes # (auto) 0.7 10 ^3/uL (0-1.3); Neutrophils # (auto) 5.6 10 ^3/uL (1.6-8.6); Neutrophils % (auto) 66.2 % (37.0-80.0); Nucleated Red Blood Cells % 0.2 %; Red Blood Cells 3.69 10^6/uL (4.5-5.90); Red Cell Distribution Width 14.7 % (11.8-14.3); White Blood Cell 8.4 10^3/uL (4.4-10.8)
[2023-05-03 05:54] LABS: Calcium 7.9 mg/dL (8.7-10.4)
[2023-05-03 05:58] LABS: BUN/Creatinine Ratio 8.1 (10.0-20.0); Blood Urea Nitrogen 9 mg/dL (9-23); Glucose 305 mg/dL (74-106)
[2023-05-03] MEDS: ACCU-CHEK COMFORT CURVE STRIP VI SCH ×4 (06:42→21:44)
[2023-05-03] MEDS: InsuLIN REG 1unit/0.01ml Soln (100units/ml) SC SCH ×4 (06:45→22:01)
[2023-05-03] MEDS: LINEZOLID 600MG/300ML 300 ML IV SCH ×2 (11:05→21:44)
[2023-05-03] MEDS: METOPROLOL SUCCINATE XL 50 MG TAB PO SCH (11:07)
[2023-05-03] MEDS: PANTOPRAZOLE 40 MG TAB PO SCH (11:08)
[2023-05-03] MEDS: ASPirin 81 mg TAB PO SCH (11:09)
[2023-05-03] MEDS: FUROSEMIDE 20 MG TAB PO SCH (11:09)
[2023-05-03] MEDS: CLOPIDOGREL BISULFATE 75 MG TAB PO SCH (11:09)
[2023-05-03] MEDS: ATORVASTATIN 20 MG TAB PO SCH (21:43)
[2023-05-03] MEDS: INSULIN LANTUS (GLARGINE) 1 /0.01ml (100units/ml) SC SCH (22:00)
[2023-05-04] VITALS (9 sets, daily range): BP systolic 89–110; BP diastolic 42–64; PULSE 46–86; RESP 16–18; TEMP 97.5–98.3; O2SAT 91–98
[2023-05-04] MEDS: PIPERACILLIN-TAZOB 3.375GM 100 ML IV SCH ×3 (02:33→19:30)
[2023-05-04 05:29] LABS: Anion Gap 9 (5-15); Carbon Dioxide 25 mmol/L (20-30); Chloride 98 mmol/L (98-107); Potassium 4.1 mmol/L (3.5-5.1); Sodium 132 mmol/L (136-145)
[2023-05-04 05:30] LABS: Calcium 8.2 mg/dL (8.7-10.4)
[2023-05-04 05:35] LABS: BUN/Creatinine Ratio 7.5 (10.0-20.0); Blood Urea Nitrogen 8 mg/dL (9-23); Glucose 228 mg/dL (74-106)
[2023-05-04 05:44] LABS: Basophils # (auto) 0.1 10 ^3/uL (0-0.2); Basophils % (auto) 0.8 % (0.0-2.0); Eosinophils # (auto) 0.3 10 ^3/uL (0-0.8); Eosinophils % (auto) 2.7 % (0.0-7.0); Hematocrit 30.6 % (41.0-53.0); Hemoglobin 10.1 g/dL (13.5-17.5); Lymphocytes # (auto) 2.5 10 ^3/uL (0.4-5.4); Lymphocytes % (auto) 22.3 % (10.0-50.0); Mean Corpuscular Hemoglobin 27.3 pg (28.0-32.0); Mean Corpuscular Hgb Conc. 33.1 g/dL (32.0-36.0); Mean Corpuscular Volume 82.3 fL (80.0-100.0); Monocytes % (auto) 8.7 % (0.0-12.0); Neutrophils # (auto) 7.4 10 ^3/uL (1.6-8.6); Neutrophils % (auto) 65.5 % (37.0-80.0); Nucleated Red Blood Cells % 0.1 %; Red Blood Cells 3.71 10^6/uL (4.5-5.90); Red Cell Distribution Width 14.5 % (11.8-14.3); White Blood Cell 11.3 10^3/uL (4.4-10.8)
[2023-05-04] MEDS: ACCU-CHEK COMFORT CURVE STRIP VI SCH ×4 (06:07→21:41)
[2023-05-04] MEDS: InsuLIN REG 1unit/0.01ml Soln (100units/ml) SC SCH ×4 (06:09→21:54)
[2023-05-04] MEDS: FUROSEMIDE 20 MG TAB PO SCH (10:00)
[2023-05-04] MEDS: METOPROLOL SUCCINATE XL 50 MG TAB PO SCH (10:00)
[2023-05-04] MEDS: ASPirin 81 mg TAB PO SCH (10:29)
[2023-05-04] MEDS: ACETAMINOPHEN 325 MG TAB PO PRN ×2 (10:29→22:32)
[2023-05-04] MEDS: LINEZOLID 600MG/300ML 300 ML IV SCH ×2 (10:29→21:46)
[2023-05-04] MEDS ORDERED: diphenhdrAMINE-ZINC ACETATE 1 APPLIC APPL TOP PRN (10:30)
[2023-05-04] MEDS: PANTOPRAZOLE 40 MG TAB PO SCH (10:30)
[2023-05-04] MEDS: CLOPIDOGREL BISULFATE 75 MG TAB PO SCH (10:30)
[2023-05-04] MEDS ORDERED: ASCORBIC ACID 500 MG TAB PO ONE (16:30)
[2023-05-04] MEDS: SODIUM CHLORIDE 0.9% 500 ML IV SCH ×3 (16:52→21:30)
[2023-05-04 17:17] LABS: Basophils # (auto) 0.1 10 ^3/uL (0-0.2); Eosinophils # (auto) 0.3 10 ^3/uL (0-0.8); Eosinophils % (auto) 3.1 % (0.0-7.0); Hematocrit 33.6 % (41.0-53.0); Hemoglobin 10.9 g/dL (13.5-17.5); Lymphocytes # (auto) 2.2 10 ^3/uL (0.4-5.4); Lymphocytes % (auto) 20.2 % (10.0-50.0); Mean Corpuscular Hemoglobin 27.3 pg (28.0-32.0); Mean Corpuscular Hgb Conc. 32.6 g/dL (32.0-36.0); Mean Corpuscular Volume 83.8 fL (80.0-100.0); Monocytes # (auto) 0.9 10 ^3/uL (0-1.3); Monocytes % (auto) 8.1 % (0.0-12.0); Neutrophils # (auto) 7.3 10 ^3/uL (1.6-8.6); Neutrophils % (auto) 67.6 % (37.0-80.0); Red Blood Cells 4.01 10^6/uL (4.5-5.90); Red Cell Distribution Width 14.6 % (11.8-14.3); White Blood Cell 10.7 10^3/uL (4.4-10.8)
[2023-05-04 17:29] LABS: Alanine Aminotransferase 10 U/L (7-40); Alkaline Phosphatase 88 U/L (46-116); Anion Gap 8 (5-15); Aspartate Aminotransferase 22 U/L (13-40); BUN/Creatinine Ratio 10.4 (10.0-20.0); Blood Urea Nitrogen 12 mg/dL (9-23); Calcium 8.2 mg/dL (8.7-10.4); Carbon Dioxide 27 mmol/L (20-30); Chloride 99 mmol/L (98-107); Glucose 214 mg/dL (74-106); Magnesium 1.6 mg/dL (1.6-2.6); Potassium 4.4 mmol/L (3.5-5.1); Sodium 134 mmol/L (136-145)
[2023-05-04 17:30] LABS: Bilirubin, Total 0.2 mg/dL (0.2-1.0); Total Protein 8.1 g/dL (5.7-8.2)
[2023-05-04 18:12] LABS: Urine Bacteria NONE SEEN /hpf (None Seen); Urine Blood Negative /uL (Negative); Urine Clarity Clear (Clear); Urine Color Colorless (Yellow); Urine Protein, UAD TRACE (Negative); Urine Specific Gravity 1.009 (1.001-1.035); Urine Urobilinogen Normal (Negative); Urine WBC <1 /hpf (0 - 3)
[2023-05-04] MEDS: ATORVASTATIN 20 MG TAB PO SCH (21:41)
[2023-05-04] MEDS: ASCORBIC ACID 500 MG TAB PO SCH (21:41)
[2023-05-04] MEDS: INSULIN LANTUS (GLARGINE) 1 /0.01ml (100units/ml) SC SCH (22:06)
[2023-05-05] MEDS: SODIUM CHLORIDE 0.9% 500 ML IV SCH ×8 (02:30→17:30)
[2023-05-05] MEDS: PIPERACILLIN-TAZOB 3.375GM 100 ML IV SCH ×2 (03:30→11:54)
[2023-05-05 05:00] VITALS: BP 98/50; PULSE 77; RESP 18; TEMP 99.2; O2SAT 100
[2023-05-05 05:23] LABS: Basophils # (auto) 0.1 10 ^3/uL (0-0.2); Basophils % (auto) 0.8 % (0.0-2.0); Eosinophils # (auto) 0.5 10 ^3/uL (0-0.8); Eosinophils % (auto) 4.7 % (0.0-7.0); Hematocrit 31.7 % (41.0-53.0); Hemoglobin 10.4 g/dL (13.5-17.5); Lymphocytes # (auto) 2.5 10 ^3/uL (0.4-5.4); Lymphocytes % (auto) 25.5 % (10.0-50.0); Mean Corpuscular Hgb Conc. 32.7 g/dL (32.0-36.0); Mean Corpuscular Volume 82.6 fL (80.0-100.0); Monocytes # (auto) 0.8 10 ^3/uL (0-1.3); Monocytes % (auto) 7.7 % (0.0-12.0); Neutrophils # (auto) 6.1 10 ^3/uL (1.6-8.6); Neutrophils % (auto) 61.3 % (37.0-80.0); Nucleated Red Blood Cells % 0.1 %; Red Blood Cells 3.84 10^6/uL (4.5-5.90); Red Cell Distribution Width 14.7 % (11.8-14.3)
[2023-05-05 05:26] LABS: Chloride 101 mmol/L (98-107); Sodium 135 mmol/L (136-145)
[2023-05-05 05:27] LABS: Anion Gap 6 (5-15); Carbon Dioxide 28 mmol/L (20-30)
[2023-05-05 05:28] LABS: Calcium 8.4 mg/dL (8.7-10.4)
[2023-05-05 05:32] LABS: BUN/Creatinine Ratio 8.3 (10.0-20.0); Blood Urea Nitrogen 10 mg/dL (9-23); Glucose 247 mg/dL (74-106)
[2023-05-05 05:33] LABS: Magnesium 1.6 mg/dL (1.6-2.6)
[2023-05-05 06:36] VITALS: BP 103/63
[2023-05-05] MEDS: ACCU-CHEK COMFORT CURVE STRIP VI SCH ×3 (06:38→17:04)
[2023-05-05] MEDS: InsuLIN REG 1unit/0.01ml Soln (100units/ml) SC SCH ×3 (06:43→17:05)
[2023-05-05 08:00] VITALS: BP 91/60; PULSE 70; RESP 17; TEMP 97.6; O2SAT 96
[2023-05-05 08:30] VITALS: BP 91/60; PULSE 70; RESP 17; TEMP 97.9; O2SAT 96
[2023-05-05] MEDS ORDERED: EUCERIN CREAM 2OZ TUBE TOP SCH (10:00)
[2023-05-05] MEDS: FUROSEMIDE 20 MG TAB PO SCH ×2 (10:00→10:33)
[2023-05-05] MEDS: PANTOPRAZOLE 40 MG TAB PO SCH (10:32)
[2023-05-05] MEDS: LINEZOLID 600MG/300ML 300 ML IV SCH (10:32)
[2023-05-05] MEDS: ASPirin 81 mg TAB PO SCH (10:32)
[2023-05-05] MEDS: CLOPIDOGREL BISULFATE 75 MG TAB PO SCH (10:32)
[2023-05-05] MEDS: ASCORBIC ACID 500 MG TAB PO SCH (10:33)
[2023-05-05] MEDS: METOPROLOL SUCCINATE XL 50 MG TAB PO SCH (10:33)
[2023-05-05] MEDS ORDERED: CIPR-173 PO (11:57)
[2023-05-05 13:40] VITALS: BP 107/55; PULSE 70; RESP 16; TEMP 98; O2SAT 97
[2023-05-05 16:45] VITALS: BP 110/59; PULSE 66; RESP 17; TEMP 97.9; O2SAT 95
== END 2023-05-05 19:38 | disposition hospice, home (50) | DRG 239 ==
LOC: ER 17:06 → EDBD 17:06 → OVERFLOW 21:06 → WEST WING 23:26
PROVIDERS: ADMIT Internal Medicine
PROC: 047P3ZZ Dilation of Right Anterior Tibial Artery, Percutaneous Approach (ICD-10-PCS; principal; 2023-05-01)
PROC: B41F1ZZ Fluoroscopy of Right Lower Extremity Arteries using Low Osmolar Contrast (ICD-10-PCS; 2023-05-01)
PROC: B44GZZZ Ultrasonography of Left Lower Extremity Arteries (ICD-10-PCS; 2023-05-01)
PROC: 0Y6M0Z9 Detachment at Right Foot, Partial 1st Ray, Open Approach (ICD-10-PCS; 2023-05-02)
PROC: 0Y6M0ZB Detachment at Right Foot, Partial 2nd Ray, Open Approach (ICD-10-PCS; 2023-05-02)
PROC: 0Y6M0ZC Detachment at Right Foot, Partial 3rd Ray, Open Approach (ICD-10-PCS; 2023-05-02)
PROC: 0Y6M0ZD Detachment at Right Foot, Partial 4th Ray, Open Approach (ICD-10-PCS; 2023-05-02)
PROC: 0Y6M0ZF Detachment at Right Foot, Partial 5th Ray, Open Approach (ICD-10-PCS; 2023-05-02)
DX: E11.52 Type 2 diabetes mellitus with diabetic peripheral angiopathy with gangrene (principal); I50.21 Acute systolic (congestive) heart failure; I70.261 Atherosclerosis of native arteries of extremities with gangrene, right leg; M86.9 Osteomyelitis, unspecified; L03.115 Cellulitis of right lower limb; E11.69 Type 2 diabetes mellitus with other specified complication; I82.401 Acute embolism and thrombosis of unspecified deep veins of right lower extremity; I99.8 Other disorder of circulatory system; I11.0 Hypertensive heart disease with heart failure; J44.9 Chronic obstructive pulmonary disease, unspecified; E78.5 Hyperlipidemia, unspecified; Z88.8 Allergy status to other drugs, medicaments and biological substances; Z79.899 Other long term (current) drug therapy; Z83.3 Family history of diabetes mellitus; Z79.82 Long term (current) use of aspirin; Z88.1 Allergy status to other antibiotic agents; Z88.3 Allergy status to other anti-infective agents; Z87.891 Personal history of nicotine dependence; Z82.49 Family history of ischemic heart disease and other diseases of the circulatory system; Z79.4 Long term (current) use of insulin
CPT/HCPCS: 36415; 37228; 71045; 73620; 73700; 73718; 75710; 76937; 80048; 80053; 80061; 80307; 81001; 82962; 83036; 83605; 83735; 83880; 84443; 84484; 85025; 85610; 85730; 86141; 86850; 86900; 86901; 87040; 87077; 87081; 87186; 87205; 93005; 93306; 93926; 93971; 99152; 99153; C1894; G0378; J0690; J1815; J2250; J2405; J2543; J2704; Q9967

== ENCOUNTER 2023-06-26 17:04 | Inpatient (IN) | payer OTHER, MEDICAID ==
[~2023-06-26] VITALS: Ht 177.8 cm; Wt 78.2 kg
[2023-06-26] MEDS: SODIUM CHLORIDE 0.9% 1,000 ML IV SCH (03:00)
[~2023-06-26 17:04] MED LIST changes: -ALBU108A5 IN; -AMOX875T4 PO; -ATOR20TA50 PO; +CEPH250C PO; -CHOL20007 PO; +CIPR-173 PO; +CLOP75TA70 PO; -FAMO20TA10 PO; +FUR20T PO; -INSUINJ49 SC; +METO25TA93 PO; -METO5TAB2 PO; +ONDA-155 PO; -PRED20TA2 PO
[2023-06-26 19:54] LABS: Basophils # (auto) 0.1 10 ^3/uL (0-0.2); Basophils % (auto) 0.9 % (0.0-2.0); Eosinophils # (auto) 0.6 10 ^3/uL (0-0.8); Eosinophils % (auto) 7.6 % (0.0-7.0); Hematocrit 35.4 % (41.0-53.0); Hemoglobin 11.5 g/dL (13.5-17.5); Lymphocytes # (auto) 2.6 10 ^3/uL (0.4-5.4); Lymphocytes % (auto) 31.4 % (10.0-50.0); Mean Corpuscular Hemoglobin 26.6 pg (28.0-32.0); Mean Corpuscular Hgb Conc. 32.5 g/dL (32.0-36.0); Mean Corpuscular Volume 81.7 fL (80.0-100.0); Monocytes # (auto) 0.5 10 ^3/uL (0-1.3); Monocytes % (auto) 5.9 % (0.0-12.0); Neutrophils # (auto) 4.6 10 ^3/uL (1.6-8.6); Neutrophils % (auto) 54.2 % (37.0-80.0); Red Blood Cells 4.34 10^6/uL (4.5-5.90); Red Cell Distribution Width 15.8 % (11.8-14.3); White Blood Cell 8.4 10^3/uL (4.4-10.8)
[2023-06-26] MEDS ORDERED: PIPERACILLIN-TAZOB 3.375GM 100 ML IV ONE (20:00)
[2023-06-26 20:10] LABS: INR 0.99 (0.9-1.15); Partial Thromboplastin Time 28.4 SEC (24.5-34.5); Prothrombin Time 10.4 sec (9.3-11.8)
[2023-06-26] MEDS ORDERED: ACETAMINOPHEN 325 MG TAB PO PRN (20:15)
[2023-06-26] MEDS ORDERED: InsuLIN REG 1unit/0.01ml Soln (100units/ml) SC ONE (20:15)
[2023-06-26] MEDS ORDERED: ONDANSETRON HCL 4 MG/2 ML VIAL IV PRN (20:15)
[2023-06-26] MEDS ORDERED: DOCUSATE SOD 100 MG CAP PO PRN (20:15)
[2023-06-26] MEDS ORDERED: DEXTROSE (50%) 50ML SYRG IV PRN (20:15)
[2023-06-26] MEDS ORDERED: SODIUM CHLORIDE 0.9% 1,000 ML IV SCH (20:15)
[2023-06-26 20:16] LABS: Alanine Aminotransferase 15 U/L (7-40); Albumin 3.7 g/dL (3.2-4.8); Alkaline Phosphatase 137 U/L (46-116); Anion Gap 5 (5-15); Aspartate Aminotransferase 12 U/L (13-40); BUN/Creatinine Ratio 27.9 (10.0-20.0); Blood Urea Nitrogen 34 mg/dL (9-23); Calcium 8.1 mg/dL (8.7-10.4); Carbon Dioxide 27 mmol/L (20-30); Chloride 98 mmol/L (98-107); Sodium 130 mmol/L (136-145)
[2023-06-26 20:17] LABS: Bilirubin, Total 0.2 mg/dL (0.2-1.0); Total Protein 8.6 g/dL (5.7-8.2)
[2023-06-26 20:20] LABS: Lactic Acid w/Reflex 2.2 mmol/L (0.4-2.0)
[2023-06-26 20:21] LABS: Glucose 525 mg/dL (74-106); Potassium 5.6 mmol/L (3.5-5.1)
[2023-06-26] MEDS ORDERED: IOHEXOL 300 MG/ML 100ML BOTTLE IJ ONE (20:25)
[2023-06-26 20:41] LABS: CRP High Sensitivity 4.51 mg/dL (<1.0)
[2023-06-26] MEDS ORDERED: SODIUM ZIRCONIUM CYCL 10 GM PAK PO ONE (21:00)
[2023-06-26 21:27] LABS: Erythrocyte Sedimentation Rate 93 mm/hr (0-20)
[2023-06-26] MEDS ORDERED: SODIUM CHLORIDE 0.9% 500 ML IV ONE (21:30)
[2023-06-27] VITALS (8 sets, daily range): BP systolic 108–128; BP diastolic 59–88; PULSE 69–96; RESP 16–18; TEMP 97.3–98.7; O2SAT 95–98
[2023-06-27] MEDS: PIPERACILLIN-TAZOB 3.375GM 100 ML IV SCH ×4 (06:00→22:07)
[2023-06-27 06:41] LABS: Basophils # (auto) 0.1 10 ^3/uL (0-0.2); Monocytes # (auto) 0.5 10 ^3/uL (0-1.3); Neutrophils # (auto) 3.4 10 ^3/uL (1.6-8.6); Nucleated Red Blood Cells % 0.1 %; White Blood Cell 6.9 10^3/uL (4.4-10.8)
[2023-06-27 06:44] LABS: Basophils % (auto) 1.1 % (0.0-2.0); Eosinophils # (auto) 0.6 10 ^3/uL (0-0.8); Eosinophils % (auto) 8.2 % (0.0-7.0); Hematocrit 32.2 % (41.0-53.0); Hemoglobin 10.6 g/dL (13.5-17.5); Lymphocytes # (auto) 2.4 10 ^3/uL (0.4-5.4); Lymphocytes % (auto) 34.9 % (10.0-50.0); Mean Corpuscular Hemoglobin 26.8 pg (28.0-32.0); Mean Corpuscular Volume 81.2 fL (80.0-100.0); Monocytes % (auto) 6.7 % (0.0-12.0); Neutrophils % (auto) 49.1 % (37.0-80.0); Red Blood Cells 3.96 10^6/uL (4.5-5.90); Red Cell Distribution Width 15.8 % (11.8-14.3)
[2023-06-27 07:06] LABS: Alanine Aminotransferase 13 U/L (7-40); Albumin 3.7 g/dL (3.2-4.8); Alkaline Phosphatase 124 U/L (46-116); Anion Gap 8 (5-15); Aspartate Aminotransferase 11 U/L (13-40); BUN/Creatinine Ratio 24.1 (10.0-20.0); Blood Urea Nitrogen 27 mg/dL (9-23); Calcium 8.6 mg/dL (8.5-10.1); Carbon Dioxide 27 mmol/L (20-30); Chloride 98 mmol/L (98-107); Potassium 4.2 mmol/L (3.5-5.1); Sodium 133 mmol/L (136-145)
[2023-06-27 07:07] LABS: Bilirubin, Total 0.2 mg/dL (0.2-1.0); Total Protein 8.7 g/dL (5.7-8.2)
[2023-06-27 07:37] LABS: Glucose 412 mg/dL (74-106)
[2023-06-27] MEDS: InsuLIN REG 1unit/0.01ml Soln (100units/ml) SC SCH ×5 (07:49→22:13)
[2023-06-27] MEDS: ACCU-CHEK COMFORT CURVE STRIP VI SCH ×5 (07:50→22:14)
[2023-06-27] MEDS ORDERED: ceFAZolin 1GM VL ONE ×2 (09:18→12:18)
[2023-06-27] MEDS ORDERED: ROPIVACAINE 0.5% (5MG/ML) 20ML AMPULE IJ ONE (09:18)
[2023-06-27] MEDS ORDERED: ATORVASTATIN 20 MG TAB PO SCH (10:00)
[2023-06-27] MEDS: OMEPRAZOLE-SOD BICARB 20 MG POWDER PO SCH (10:00)
[2023-06-27] MEDS ORDERED: METOPROLOL SUCCINATE XL 50 MG TAB PO SCH (10:00)
[2023-06-27] MEDS: FUROSEMIDE 20 MG TAB PO SCH (10:00)
[2023-06-27] MEDS: DULoxetine HCL 30 MG CAP PO SCH (10:00)
[2023-06-27] MEDS: SODIUM CHLORIDE 0.9% 1,000 ML IV SCH (12:03)
[2023-06-27] MEDS ORDERED: ceFAZolin 2 GM/D5W100ml 100 ML IV ONE (12:13)
[2023-06-27] MEDS ORDERED: TETRACAINE 1% INJ 2 ML VIAL IJ ONE (12:32)
[2023-06-27] MEDS ORDERED: NEOMYCIN-BACITRACIN-POLYM 15GM TOP OINT TOP ONE (13:41)
[2023-06-27] MEDS ORDERED: HYDROmorphone HCL 2 MG/ML VL/or syr IV PRN (15:00)
[2023-06-27] MEDS ORDERED: LABETALOL HCL 5 MG/ML 4ML SYRINGE IV PRN (15:00)
[2023-06-27] MEDS ORDERED: ePHEDrine SULFATE 50 MG/ML AMP IV PRN (15:00)
[2023-06-27] MEDS ORDERED: MORPHINE SULFATE 4 MG/ML SYR/VIAL IV PRN (15:00)
[2023-06-27] MEDS ORDERED: MIDAZOLAM HCL 2MG/2ML 2ml VIAL (1mg/ml) IV PRN (15:00)
[2023-06-27] MEDS ORDERED: ONDANSETRON HCL 4 MG/2 ML VIAL IV PRN (15:00)
[2023-06-27] MEDS: ATORVASTATIN 20 MG TAB PO SCH (22:07)
[2023-06-27] MEDS: METOPROLOL TARTRATE 25 MG TAB PO SCH (22:08)
[2023-06-28] VITALS (7 sets, daily range): BP systolic 96–105; BP diastolic 43–58; PULSE 69–97; RESP 17–19; TEMP 97.6–99; O2SAT 90–96
[2023-06-28] MEDS: SODIUM CHLORIDE 0.9% 1,000 ML IV SCH (02:21)
[2023-06-28] MEDS: PIPERACILLIN-TAZOB 3.375GM 100 ML IV SCH ×2 (06:05→13:54)
[2023-06-28] MEDS: ACCU-CHEK COMFORT CURVE STRIP VI SCH ×4 (06:09→22:00)
[2023-06-28] MEDS: InsuLIN REG 1unit/0.01ml Soln (100units/ml) SC SCH ×4 (06:09→22:00)
[2023-06-28] MEDS: DULoxetine HCL 30 MG CAP PO SCH (09:02)
[2023-06-28] MEDS: CLOPIDOGREL BISULFATE 75 MG TAB PO SCH (09:02)
[2023-06-28] MEDS: ASPirin 81 mg TAB PO SCH (09:02)
[2023-06-28] MEDS: HYDROcodone-ACET 5/325MG TAB PO PRN ×2 (09:03→13:59)
[2023-06-28] MEDS: FUROSEMIDE 20 MG TAB PO SCH (09:05)
[2023-06-28] MEDS: METOPROLOL TARTRATE 25 MG TAB PO SCH ×2 (09:06→22:00)
[2023-06-28] MEDS: OMEPRAZOLE-SOD BICARB 20 MG POWDER PO SCH (10:00)
[2023-06-28] MEDS: CEFEPIME 1GM/ 50ML 50 ML IV SCH ×2 (17:34→22:00)
[2023-06-28] MEDS: LINEZOLID 600MG/300ML 300 ML IV SCH (21:00)
[2023-06-28] MEDS: ATORVASTATIN 20 MG TAB PO SCH (22:00)
[2023-06-29] VITALS (7 sets, daily range): BP systolic 88–107; BP diastolic 48–62; PULSE 74–105; RESP 17–20; TEMP 97.6–99.4; O2SAT 91–96
[2023-06-29] MEDS: CEFEPIME 1GM/ 50ML 50 ML IV SCH ×3 (05:31→22:09)
[2023-06-29 05:52] LABS: Basophils # (auto) 0.1 10 ^3/uL (0-0.2); Hemoglobin 8.5 g/dL (13.5-17.5); Lymphocytes # (auto) 2.4 10 ^3/uL (0.4-5.4); Monocytes # (auto) 0.8 10 ^3/uL (0-1.3); Monocytes % (auto) 9.6 % (0.0-12.0); Neutrophils # (auto) 4.7 10 ^3/uL (1.6-8.6)
[2023-06-29 05:55] LABS: Basophils % (auto) 0.7 % (0.0-2.0); Eosinophils # (auto) 0.4 10 ^3/uL (0-0.8); Eosinophils % (auto) 4.3 % (0.0-7.0); Hematocrit 25.8 % (41.0-53.0); Mean Corpuscular Hemoglobin 26.3 pg (28.0-32.0); Mean Corpuscular Volume 79.8 fL (80.0-100.0); Neutrophils % (auto) 56.4 % (37.0-80.0); Red Blood Cells 3.23 10^6/uL (4.5-5.90); White Blood Cell 8.4 10^3/uL (4.4-10.8)
[2023-06-29 05:58] LABS: Chloride 101 mmol/L (98-107); Potassium 4.1 mmol/L (3.5-5.1); Sodium 132 mmol/L (136-145)
[2023-06-29 05:59] LABS: Anion Gap 9 (5-15); Calcium 8.2 mg/dL (8.7-10.4); Carbon Dioxide 22 mmol/L (20-30)
[2023-06-29 06:04] LABS: BUN/Creatinine Ratio 16.8 (10.0-20.0); Blood Urea Nitrogen 16 mg/dL (9-23)
[2023-06-29 06:19] LABS: Glucose 266 mg/dL (74-106)
[2023-06-29] MEDS: InsuLIN REG 1unit/0.01ml Soln (100units/ml) SC SCH ×4 (06:26→22:28)
[2023-06-29] MEDS: ACCU-CHEK COMFORT CURVE STRIP VI SCH ×4 (06:27→22:28)
[2023-06-29] MEDS: LINEZOLID 600MG/300ML 300 ML IV SCH ×2 (08:39→20:08)
[2023-06-29] MEDS: HYDROcodone-ACET 5/325MG TAB PO PRN (08:43)
[2023-06-29] MEDS ORDERED: LACTULOSE 20Gm/30ML SOLN PO ONE (09:15)
[2023-06-29] MEDS: METOPROLOL TARTRATE 25 MG TAB PO SCH ×2 (10:00→22:10)
[2023-06-29] MEDS: ASPirin 81 mg TAB PO SCH (11:45)
[2023-06-29] MEDS: DULoxetine HCL 30 MG CAP PO SCH (11:46)
[2023-06-29] MEDS: CLOPIDOGREL BISULFATE 75 MG TAB PO SCH (11:47)
[2023-06-29] MEDS: FUROSEMIDE 20 MG TAB PO SCH (12:21)
[2023-06-29] MEDS: OMEPRAZOLE-SOD BICARB 20 MG POWDER PO SCH (12:22)
[2023-06-29] MEDS: ATORVASTATIN 20 MG TAB PO SCH (22:09)
[2023-06-30] VITALS (7 sets, daily range): BP systolic 91–123; BP diastolic 49–70; PULSE 85–96; RESP 17–18; TEMP 37.2; O2SAT 92–96
[2023-06-30] MEDS: CEFEPIME 1GM/ 50ML 50 ML IV SCH ×3 (05:58→22:15)
[2023-06-30] MEDS: InsuLIN REG 1unit/0.01ml Soln (100units/ml) SC SCH ×4 (06:10→22:20)
[2023-06-30] MEDS: ACCU-CHEK COMFORT CURVE STRIP VI SCH ×4 (06:12→22:20)
[2023-06-30 06:31] LABS: Eosinophils # (auto) 0.3 10 ^3/uL (0-0.8); Hematocrit 26.9 % (41.0-53.0); Hemoglobin 8.8 g/dL (13.5-17.5); Mean Corpuscular Hemoglobin 26.1 pg (28.0-32.0); Mean Corpuscular Hgb Conc. 32.6 g/dL (32.0-36.0); Monocytes # (auto) 0.7 10 ^3/uL (0-1.3); Red Blood Cells 3.36 10^6/uL (4.5-5.90)
[2023-06-30 06:34] LABS: Basophils # (auto) 0.1 10 ^3/uL (0-0.2); Basophils % (auto) 0.9 % (0.0-2.0); Eosinophils % (auto) 3.6 % (0.0-7.0); Lymphocytes # (auto) 2.2 10 ^3/uL (0.4-5.4); Lymphocytes % (auto) 25.8 % (10.0-50.0); Monocytes % (auto) 8.1 % (0.0-12.0); Neutrophils # (auto) 5.2 10 ^3/uL (1.6-8.6); Neutrophils % (auto) 61.6 % (37.0-80.0); Nucleated Red Blood Cells % 0.2 %; Red Cell Distribution Width 15.9 % (11.8-14.3); White Blood Cell 8.4 10^3/uL (4.4-10.8)
[2023-06-30 06:41] LABS: Anion Gap 8 (5-15); Carbon Dioxide 22 mmol/L (20-30); Chloride 101 mmol/L (98-107); Potassium 4.1 mmol/L (3.5-5.1); Sodium 131 mmol/L (136-145)
[2023-06-30 06:42] LABS: Calcium 8.1 mg/dL (8.7-10.4)
[2023-06-30 06:47] LABS: Glucose 310 mg/dL (74-106)
[2023-06-30 06:48] LABS: Blood Urea Nitrogen 11 mg/dL (9-23); Magnesium 1.6 mg/dL (1.6-2.6)
[2023-06-30] MEDS: LINEZOLID 600MG/300ML 300 ML IV SCH ×2 (08:47→20:20)
[2023-06-30] MEDS: ASPirin 81 mg TAB PO SCH (10:20)
[2023-06-30] MEDS: METOPROLOL TARTRATE 25 MG TAB PO SCH ×2 (10:22→22:14)
[2023-06-30] MEDS: DULoxetine HCL 30 MG CAP PO SCH (10:22)
[2023-06-30] MEDS: CLOPIDOGREL BISULFATE 75 MG TAB PO SCH (10:22)
[2023-06-30] MEDS: OMEPRAZOLE-SOD BICARB 20 MG POWDER PO SCH (11:39)
[2023-06-30] MEDS: FUROSEMIDE 20 MG TAB PO SCH (12:37)
[2023-06-30] MEDS ORDERED: MULTIPLE VITAMINS W/ MINERALS TAB PO ONE (15:45)
[2023-06-30] MEDS ORDERED: LACTULOSE 20Gm/30ML SOLN PO ONE (15:45)
[2023-06-30] MEDS ORDERED: MAGNESIUM OXIDE 400 MG TAB PO ONE (15:45)
[2023-06-30 17:45] LABS: Urine Bacteria NONE SEEN /hpf (None Seen); Urine Blood 1+ /uL (Negative); Urine Clarity Clear (Clear); Urine Color Colorless (Yellow); Urine Protein, UAD TRACE (Negative); Urine Specific Gravity 1.018 (1.001-1.035); Urine Urobilinogen Normal (Negative); Urine WBC <1 /hpf (0 - 3)
[2023-06-30] MEDS: ATORVASTATIN 20 MG TAB PO SCH (22:14)
[2023-06-30] MEDS: INSULIN LANTUS (GLARGINE) 1 /0.01ml (100units/ml) SC SCH (22:19)
[2023-06-30] MEDS: HYDROcodone-ACET 5/325MG TAB PO PRN (22:42)
[2023-07-01] MEDS: CEFEPIME 1GM/ 50ML 50 ML IV SCH ×3 (00:30→13:58)
[2023-07-01 05:00] VITALS: BP 89/51; PULSE 88; RESP 18; TEMP 97.8; O2SAT 91
[2023-07-01] MEDS: InsuLIN REG 1unit/0.01ml Soln (100units/ml) SC SCH ×4 (06:46→23:50)
[2023-07-01] MEDS: INSULIN LANTUS (GLARGINE) 1 /0.01ml (100units/ml) SC SCH ×2 (06:58→23:43)
[2023-07-01] MEDS: ACCU-CHEK COMFORT CURVE STRIP VI SCH ×4 (06:58→23:48)
[2023-07-01] MEDS: LINEZOLID 600MG/300ML 300 ML IV SCH ×2 (08:12→21:53)
[2023-07-01 08:16] LABS: Chloride 99 mmol/L (98-107); Potassium 3.9 mmol/L (3.5-5.1); Sodium 131 mmol/L (136-145)
[2023-07-01 08:17] LABS: Anion Gap 7 (5-15); Calcium 8.5 mg/dL (8.5-10.1); Carbon Dioxide 25 mmol/L (20-30)
[2023-07-01 08:22] LABS: Glucose 316 mg/dL (74-106)
[2023-07-01 08:23] LABS: BUN/Creatinine Ratio 10.8 (10.0-20.0); Blood Urea Nitrogen 10 mg/dL (9-23)
[2023-07-01 08:32] VITALS: BP 106/66; PULSE 91; RESP 18; TEMP 98; O2SAT 93
[2023-07-01 08:56] LABS: Magnesium 1.7 mg/dL (1.6-2.6)
[2023-07-01] MEDS: ASPirin 81 mg TAB PO SCH (10:13)
[2023-07-01] MEDS: MULTIPLE VITAMINS W/ MINERALS TAB PO SCH (10:14)
[2023-07-01] MEDS: FUROSEMIDE 20 MG TAB PO SCH (10:15)
[2023-07-01] MEDS: METOPROLOL TARTRATE 25 MG TAB PO SCH ×2 (10:15→22:00)
[2023-07-01] MEDS: DULoxetine HCL 30 MG CAP PO SCH (10:15)
[2023-07-01] MEDS: CLOPIDOGREL BISULFATE 75 MG TAB PO SCH (10:15)
[2023-07-01] MEDS: MAGNESIUM OXIDE 400 MG TAB PO SCH (10:16)
[2023-07-01] MEDS: OMEPRAZOLE-SOD BICARB 20 MG POWDER PO SCH (10:21)
[2023-07-01 12:54] VITALS: BP 97/44; PULSE 68; RESP 16; TEMP 98.1; O2SAT 98
[2023-07-01 16:51] VITALS: BP 91/54; PULSE 83; RESP 18; TEMP 98; O2SAT 94
[2023-07-01 20:00] VITALS: PULSE 88; RESP 16
[2023-07-01 22:00] VITALS: BP 97/46; PULSE 88; RESP 16; TEMP 98.2; O2SAT 95
[2023-07-01] MEDS: ATORVASTATIN 20 MG TAB PO SCH (23:50)
[2023-07-02 05:00] VITALS: BP 109/54; PULSE 90; RESP 17; TEMP 98; O2SAT 97
[2023-07-02] MEDS: ACCU-CHEK COMFORT CURVE STRIP VI SCH ×4 (06:51→21:47)
[2023-07-02] MEDS: InsuLIN REG 1unit/0.01ml Soln (100units/ml) SC SCH ×4 (06:52→21:50)
[2023-07-02] MEDS: INSULIN LANTUS (GLARGINE) 1 /0.01ml (100units/ml) SC SCH ×2 (06:53→21:49)
[2023-07-02] MEDS: CEFEPIME 1GM/ 50ML 50 ML IV SCH (06:53)
[2023-07-02 08:00] VITALS: BP 106/66; PULSE 89; RESP 17; TEMP 98; O2SAT 97
[2023-07-02] MEDS: LINEZOLID 600MG/300ML 300 ML IV SCH ×2 (08:18→20:26)
[2023-07-02 08:29] VITALS: BP 106/66; PULSE 89; RESP 17; TEMP 98; O2SAT 97
[2023-07-02] MEDS: ASPirin 81 mg TAB PO SCH (09:23)
[2023-07-02] MEDS: MULTIPLE VITAMINS W/ MINERALS TAB PO SCH (09:24)
[2023-07-02] MEDS: MAGNESIUM OXIDE 400 MG TAB PO SCH (09:24)
[2023-07-02] MEDS: FUROSEMIDE 20 MG TAB PO SCH (09:25)
[2023-07-02] MEDS: DULoxetine HCL 30 MG CAP PO SCH (09:25)
[2023-07-02] MEDS: METOPROLOL TARTRATE 25 MG TAB PO SCH ×2 (09:25→21:30)
[2023-07-02] MEDS: CLOPIDOGREL BISULFATE 75 MG TAB PO SCH (09:25)
[2023-07-02] MEDS: OMEPRAZOLE-SOD BICARB 20 MG POWDER PO SCH (11:50)
[2023-07-02 12:34] VITALS: BP 104/55; PULSE 81; RESP 17; TEMP 98; O2SAT 97
[2023-07-02 17:15] VITALS: BP 107/57; PULSE 83; RESP 16; TEMP 98.6; O2SAT 97
[2023-07-02] MEDS: ATORVASTATIN 20 MG TAB PO SCH (21:29)
[2023-07-02 22:00] VITALS: BP 108/69; PULSE 89; RESP 16; TEMP 98.3; O2SAT 95
[2023-07-03 05:00] VITALS: BP 112/59; PULSE 82; RESP 17; TEMP 98.4; O2SAT 96
[2023-07-03] MEDS: ACCU-CHEK COMFORT CURVE STRIP VI SCH ×2 (06:04→12:00)
[2023-07-03] MEDS: INSULIN LANTUS (GLARGINE) 1 /0.01ml (100units/ml) SC SCH (06:09)
[2023-07-03] MEDS: InsuLIN REG 1unit/0.01ml Soln (100units/ml) SC SCH ×2 (06:11→12:34)
[2023-07-03] MEDS: HYDROcodone-ACET 5/325MG TAB PO PRN (06:58)
[2023-07-03 08:00] VITALS: PULSE 77
[2023-07-03 08:30] VITALS: PULSE 89; RESP 16; O2SAT 97
[2023-07-03 08:41] VITALS: BP 90/50; PULSE 81; RESP 16; TEMP 98.9; O2SAT 94
[2023-07-03] MEDS: LINEZOLID 600MG/300ML 300 ML IV SCH (08:58)
[2023-07-03] MEDS: ASPirin 81 mg TAB PO SCH (09:09)
[2023-07-03] MEDS: MAGNESIUM OXIDE 400 MG TAB PO SCH (09:09)
[2023-07-03] MEDS: MULTIPLE VITAMINS W/ MINERALS TAB PO SCH (09:09)
[2023-07-03] MEDS: DULoxetine HCL 30 MG CAP PO SCH (09:10)
[2023-07-03] MEDS: METOPROLOL TARTRATE 25 MG TAB PO SCH (09:10)
[2023-07-03] MEDS: CLOPIDOGREL BISULFATE 75 MG TAB PO SCH (09:10)
[2023-07-03] MEDS: FUROSEMIDE 20 MG TAB PO SCH (09:10)
[2023-07-03] MEDS: OMEPRAZOLE-SOD BICARB 20 MG POWDER PO SCH (09:17)
[2023-07-03] MEDS ORDERED: levoFLOXacin 500MG 100 ML IV SCH (10:00)
[2023-07-03 12:38] VITALS: BP 109/68; PULSE 77; RESP 19; TEMP 98.9; O2SAT 92
[2023-07-03 13:06] VITALS: BP 104/55; PULSE 78
== END 2023-07-03 14:50 | disposition hospice, home (50) | DRG 616 ==
LOC: ER 17:04 → EDUNIT# 20:08 → OVERFLOW 20:08 → WEST WING 06-27 08:11 → TELE-WESTW 06-27 14:32 → WEST WING 06-28 17:22
PROVIDERS: ADMIT Internal Medicine; ATTEND Internal Medicine
PROC: 0Y6M0Z0 Detachment at Right Foot, Complete, Open Approach (ICD-10-PCS; principal; 2023-06-27 12:37)
PROC: 05HA33Z Insertion of Infusion Device into Left Brachial Vein, Percutaneous Approach (ICD-10-PCS; 2023-06-28)
PROC: B54NZZA Ultrasonography of Left Upper Extremity Veins, Guidance (ICD-10-PCS; 2023-06-28)
DX: E11.69 Type 2 diabetes mellitus with other specified complication (principal); I50.23 Acute on chronic systolic (congestive) heart failure; E87.21 Acute metabolic acidosis; M86.8X7 Other osteomyelitis, ankle and foot; L97.519 Non-pressure chronic ulcer of other part of right foot with unspecified severity; I82.501 Chronic embolism and thrombosis of unspecified deep veins of right lower extremity; L08.9 Local infection of the skin and subcutaneous tissue, unspecified; E86.0 Dehydration; E87.5 Hyperkalemia; E11.621 Type 2 diabetes mellitus with foot ulcer; E11.65 Type 2 diabetes mellitus with hyperglycemia; J44.9 Chronic obstructive pulmonary disease, unspecified; E11.51 Type 2 diabetes mellitus with diabetic peripheral angiopathy without gangrene; E78.00 Pure hypercholesterolemia, unspecified; I99.8 Other disorder of circulatory system; Z88.1 Allergy status to other antibiotic agents; Z88.3 Allergy status to other anti-infective agents; Z88.2 Allergy status to sulfonamides; Z87.891 Personal history of nicotine dependence; Z79.4 Long term (current) use of insulin; Z82.49 Family history of ischemic heart disease and other diseases of the circulatory system
CPT/HCPCS: 36415; 71045; 73630; 73701; 80048; 80053; 81001; 82043; 82270; 82306; 82962; 83036; 83605; 83735; 83880; 84132; 84443; 85025; 85610; 85652; 85730; 86141; 86850; 86900; 86901; 87040; 87070; 87075; 87076; 87077; 87186; 87205; 93926; 93971; G0378; J0690; J1815; J1956; J2543

== ENCOUNTER 2023-11-25 10:46 | Inpatient (IN) | payer MEDICARE, MEDICAID ==
[~2023-11-25] VITALS: Ht 177.8 cm; Wt 67.3 kg
[2023-11-25 05:00] VITALS: BP 97/49; PULSE 98; RESP 20; TEMP 98.3; O2SAT 92
[~2023-11-25 10:46] MED LIST changes: +ATOR-507 PO; -CEPH250C PO; -CIPR-173 PO; -CLOP75TA70 PO; -DULO20CA PO; +DULO60CA41 PO; -METO25TA93 PO; -ONDA-155 PO
[2023-11-25 13:03] LABS: Urine Bacteria None Seen /hpf (None Seen)
[2023-11-25 13:14] LABS: Urine Blood Negative /uL (Negative); Urine Clarity Clear (Clear); Urine Color Straw (Yellow); Urine Hyaline Cast FEW /lpf (0 - 2); Urine Protein, UAD Negative (Negative); Urine Specific Gravity 1.007 (1.001-1.035); Urine Urobilinogen Normal (Negative); Urine WBC 1 /hpf (0 - 3)
[2023-11-25 14:53] LABS: White Blood Cell 11.2 10^3/uL (4.4-10.8)
[2023-11-25 14:55] LABS: Hematocrit 20.1 % (41.0-53.0); Mean Corpuscular Hemoglobin 26.6 pg (28.0-32.0); Mean Corpuscular Hgb Conc. 32.4 g/dL (32.0-36.0); Mean Corpuscular Volume 81.9 fL (80.0-100.0); Red Blood Cells 2.46 10^6/uL (4.5-5.90)
[2023-11-25 15:12] LABS: Alanine Aminotransferase 33 U/L (7-40); Albumin 3.4 g/dL (3.2-4.8); Alkaline Phosphatase 102 U/L (46-116); Anion Gap 7 (5-15); Aspartate Aminotransferase 26 U/L (13-40); BUN/Creatinine Ratio 26.5 (10.0-20.0); Blood Urea Nitrogen 27 mg/dL (9-23); Calcium 8.8 mg/dL (8.7-10.4); Carbon Dioxide 25 mmol/L (20-30); Chloride 107 mmol/L (98-107); Glucose 132 mg/dL (74-106); Potassium 3.9 mmol/L (3.5-5.1); Sodium 139 mmol/L (136-145)
[2023-11-25 15:13] LABS: Bilirubin, Total 0.4 mg/dL (0.2-1.0); Total Protein 7.6 g/dL (5.7-8.2)
[2023-11-25 15:16] LABS: Red Cell Distribution Width 22.4 % (11.8-14.3)
[2023-11-25 15:17] LABS: Hemoglobin 6.5 g/dL (13.5-17.5)
[2023-11-25 15:19] LABS: Basophils % (manual) 0 (0.0-2.0); Blast Cells 0; Metamyelocytes % 0; Myelocytes % 0; Promyelocytes % 0; Reactive Lymphocytes 0
[2023-11-25 17:31] LABS: Anisocytosis Slight; Band Neutrophils % (manual) 3; Eosinophils % (manual) 4 (0-7); Large Platelets FEW; Lymphocytes % (manual) 19 (10.0-50.0); Monocytes % (manual) 4 (0-12); Platelet Estimate Adequa; Polychromasia Slight
[2023-11-25 18:13] LABS: % Iron Saturation 14.3 % (20-55)
[2023-11-25 18:25] LABS: Folate (Folic Acid) 17.08 ng/mL (>5.38)
[2023-11-25 18:26] LABS: Ferritin 118.1 ng/mL (22-322)
[2023-11-25 19:40] VITALS: PULSE 102; RESP 20; O2SAT 97
[2023-11-25 19:58] LABS: Erythrocyte Sedimentation Rate 122 mm/hr (0-20)
[2023-11-25 20:00] LABS: Triglycerides 74 mg/dL (< 150)
[2023-11-25 20:01] LABS: LDL Cholesterol 55 mg/dL (< 100)
[2023-11-25 20:02] LABS: Cholesterol 111 mg/dL (< 200); HDL Cholesterol 41 mg/dL (40-59)
[2023-11-25] MEDS: PANTOPRAZOLE 40 MG/10 ML VIAL INJ IV ONE (20:30)
[2023-11-25] MEDS: CEFEPIME 1GM/ 50ML 50 ML IV ONE (20:34)
[2023-11-25] MEDS: PIPERACILLIN-TAZOB 3.375GM 100 ML IV ONE (21:40)
[2023-11-25 22:43] VITALS: BP 108/48; PULSE 109; RESP 20; TEMP 98.1
[2023-11-25 23:05] VITALS: BP 93/50; PULSE 109; RESP 20; TEMP 98.1
[2023-11-25] MEDS: FUROSEMIDE 20 MG/2 ML VIAL IV SCH (23:17)
[2023-11-26] VITALS (13 sets, daily range): BP systolic 95–125; BP diastolic 46–71; PULSE 89–104; RESP 16–20; TEMP 97.6–98.7; O2SAT 90–98
[2023-11-26] MEDS ORDERED: CEFEPIME 1GM/ 50ML 50 ML IV SCH (02:00)
[2023-11-26] MEDS: ONDANSETRON HCL 4 MG/2 ML VIAL IV ONE (02:04)
[2023-11-26] MEDS: PIPERACILLIN-TAZOB 3.375GM 100 ML IV SCH (05:36)
[2023-11-26 06:38] LABS: Alanine Aminotransferase 34 U/L (7-40); Albumin 3.4 g/dL (3.2-4.8); Alkaline Phosphatase 107 U/L (46-116); Anion Gap 8 (5-15); Aspartate Aminotransferase 24 U/L (13-40); BUN/Creatinine Ratio 23.4 (10.0-20.0); Blood Urea Nitrogen 29 mg/dL (9-23); Calcium 8.4 mg/dL (8.7-10.4); Carbon Dioxide 23 mmol/L (20-30); Chloride 109 mmol/L (98-107); Glucose 231 mg/dL (74-106); Potassium 4.6 mmol/L (3.5-5.1); Sodium 140 mmol/L (136-145)
[2023-11-26 06:39] LABS: Bilirubin, Total 0.4 mg/dL (0.2-1.0); Total Protein 7.3 g/dL (5.7-8.2)
[2023-11-26 09:28] LABS: Hemoglobin 7.6 g/dL (13.5-17.5)
[2023-11-26 09:32] LABS: Hematocrit 23.4 % (41.0-53.0)
[2023-11-26] MEDS: PANTOPRAZOLE 40 MG/10 ML VIAL INJ IV SCH (11:09)
[2023-11-26] MEDS: LACTULOSE 20Gm/30ML SOLN PO ONE (13:02)
[2023-11-26] MEDS: ATORVASTATIN 20 MG TAB PO SCH (21:02)
[2023-11-27] VITALS (7 sets, daily range): BP systolic 50–112; BP diastolic 40–79; PULSE 89–99; RESP 16–20; TEMP 97.6–98.7; O2SAT 96–99
[2023-11-27 05:47] LABS: Eosinophils # (auto) 0.5 10 ^3/uL (0-0.8); Hematocrit 24.5 % (41.0-53.0); Lymphocytes # (auto) 1.8 10 ^3/uL (0.4-5.4); Neutrophils # (auto) 3.5 10 ^3/uL (1.6-8.6); Red Blood Cells 2.82 10^6/uL (4.5-5.90); Red Cell Distribution Width 20.9 % (11.8-14.3); White Blood Cell 6.2 10^3/uL (4.4-10.8)
[2023-11-27 05:50] LABS: Basophils # (auto) 0 10 ^3/uL (0-0.2); Basophils % (auto) 0.7 % (0.0-2.0); Eosinophils % (auto) 7.4 % (0.0-7.0); Hemoglobin 7.8 g/dL (13.5-17.5); Lymphocytes % (auto) 28.3 % (10.0-50.0); Mean Corpuscular Hemoglobin 27.5 pg (28.0-32.0); Mean Corpuscular Hgb Conc. 31.7 g/dL (32.0-36.0); Mean Corpuscular Volume 86.7 fL (80.0-100.0); Monocytes # (auto) 0.5 10 ^3/uL (0-1.3); Neutrophils % (auto) 55.6 % (37.0-80.0); Nucleated Red Blood Cells % 0.1 %
[2023-11-27 05:55] LABS: Alanine Aminotransferase 27 U/L (7-40); Albumin 3.1 g/dL (3.2-4.8); Alkaline Phosphatase 105 U/L (46-116); Anion Gap 9 (5-15); Aspartate Aminotransferase 24 U/L (13-40); BUN/Creatinine Ratio 16.7 (10.0-20.0); Blood Urea Nitrogen 18 mg/dL (9-23); Calcium 8.1 mg/dL (8.7-10.4); Carbon Dioxide 22 mmol/L (20-30); Chloride 108 mmol/L (98-107); Glucose 295 mg/dL (74-106); Sodium 139 mmol/L (136-145)
[2023-11-27 05:56] LABS: Bilirubin, Total 0.4 mg/dL (0.2-1.0)
[2023-11-27] MEDS: MUPIROCIN 2% OINT 15gm or 22gm TOP SCH (10:24)
[2023-11-28 01:00] VITALS: BP 104/62; PULSE 89; RESP 17; TEMP 98.3; O2SAT 95
[2023-11-28 05:00] VITALS: BP 100/59; PULSE 88; RESP 18; TEMP 97.6; O2SAT 93
[2023-11-28 06:03] LABS: Basophils # (auto) 0 10 ^3/uL (0-0.2); Basophils % (auto) 0.6 % (0.0-2.0); Eosinophils # (auto) 0.5 10 ^3/uL (0-0.8); Hemoglobin 8.2 g/dL (13.5-17.5); Mean Corpuscular Hemoglobin 27.1 pg (28.0-32.0); Mean Corpuscular Hgb Conc. 32.7 g/dL (32.0-36.0); Mean Corpuscular Volume 82.9 fL (80.0-100.0); Red Blood Cells 3.02 10^6/uL (4.5-5.90); White Blood Cell 7.8 10^3/uL (4.4-10.8)
[2023-11-28 06:06] LABS: Eosinophils % (auto) 6.5 % (0.0-7.0); Lymphocytes # (auto) 2.4 10 ^3/uL (0.4-5.4); Lymphocytes % (auto) 31.2 % (10.0-50.0); Monocytes # (auto) 0.6 10 ^3/uL (0-1.3); Monocytes % (auto) 7.2 % (0.0-12.0); Neutrophils # (auto) 4.3 10 ^3/uL (1.6-8.6); Neutrophils % (auto) 54.5 % (37.0-80.0); Nucleated Red Blood Cells % 0.2 %; Red Cell Distribution Width 22.4 % (11.8-14.3)
[2023-11-28 06:17] LABS: Alanine Aminotransferase 26 U/L (7-40); Albumin 3.3 g/dL (3.2-4.8); Alkaline Phosphatase 112 U/L (46-116); Anion Gap 5 (5-15); Aspartate Aminotransferase 17 U/L (13-40); BUN/Creatinine Ratio 18.1 (10.0-20.0); Blood Urea Nitrogen 19 mg/dL (9-23); Calcium 8.2 mg/dL (8.5-10.1); Carbon Dioxide 27 mmol/L (20-30); Chloride 106 mmol/L (98-107); Glucose 269 mg/dL (74-106); Potassium 4.1 mmol/L (3.5-5.1); Sodium 138 mmol/L (136-145)
[2023-11-28 06:18] LABS: Bilirubin, Total 0.4 mg/dL (0.2-1.0); Total Protein 7.1 g/dL (5.7-8.2)
[2023-11-28] MEDS ORDERED: CEPH500C PO (07:05)
[2023-11-28 10:00] VITALS: BP 94/42; PULSE 82; RESP 17; TEMP 98.4; O2SAT 95
[2023-11-28 13:00] VITALS: BP 92/63; PULSE 90; RESP 18; TEMP 97.6; O2SAT 97
[2023-11-28 17:00] VITALS: BP 106/62; PULSE 92; RESP 18; TEMP 98; O2SAT 96
== END 2023-11-28 19:01 | disposition home health service (06) | DRG 871 ==
LOC: EDBD 10:46 → ER 10:46 → TELE 17:21 → TELE-CENTR 11-26 02:51 → CENTRAL 11-26 12:45
PROVIDERS: ADMIT Internal Medicine; ATTEND Internal Medicine
PROC: 30233N1 Transfusion of Nonautologous Red Blood Cells into Peripheral Vein, Percutaneous Approach (ICD-10-PCS; principal; 2023-11-25)
DX: A41.9 Sepsis, unspecified organism (principal); I21.A1 Myocardial infarction type 2; M86.8X7 Other osteomyelitis, ankle and foot; I50.22 Chronic systolic (congestive) heart failure; D64.9 Anemia, unspecified; E78.5 Hyperlipidemia, unspecified; J44.9 Chronic obstructive pulmonary disease, unspecified; E11.42 Type 2 diabetes mellitus with diabetic polyneuropathy; E11.69 Type 2 diabetes mellitus with other specified complication; R62.7 Adult failure to thrive; E11.51 Type 2 diabetes mellitus with diabetic peripheral angiopathy without gangrene; Z89.611 Acquired absence of right leg above knee; Z89.432 Acquired absence of left foot; Z88.1 Allergy status to other antibiotic agents; Z88.3 Allergy status to other anti-infective agents; Z83.3 Family history of diabetes mellitus; Z79.4 Long term (current) use of insulin; Z98.62 Peripheral vascular angioplasty status; Z82.49 Family history of ischemic heart disease and other diseases of the circulatory system; Z68.21 Body mass index [BMI] 21.0-21.9, adult; Z79.899 Other long term (current) drug therapy
CPT/HCPCS: 36415; 70450; 71045; 80053; 80061; 81001; 82270; 82607; 82728; 82746; 83036; 83540; 83550; 83605; 83615; 83880; 84484; 85007; 85014; 85018; 85025; 85027; 85045; 85379; 85652; 86850; 86900; 86901; 86920; 87040; 87077; 87081; 87205; C9113; G0378; J2405; J2543

== ENCOUNTER → 2024-06-01 | Outpatient (CLI) | payer MEDICARE, MEDICAID ==
[~2024-06-01] MED LIST changes: +ASPI-325 PO; +ATOR20TA50 PO; +CEPH500C PO; +DOXY1CAP57 PO; +DULO1CAP6 PO; -FUR20T PO; +FURO20TA4 PO; +INSLANTI SC; +PANT40T PO
[2024-06-01 12:11] LABS: Basophils # (auto) 0.1 10 ^3/uL (0-0.2); Basophils % (auto) 1.1 % (0.0-2.0); Eosinophils # (auto) 0.3 10 ^3/uL (0-0.8); Eosinophils % (auto) 4.2 % (0.0-7.0); Hematocrit 33.5 % (41.0-53.0); Hemoglobin 10.9 g/dL (13.5-17.5); Lymphocytes # (auto) 2.5 10 ^3/uL (0.4-5.4); Lymphocytes % (auto) 31.4 % (10.0-50.0); Mean Corpuscular Hemoglobin 26.3 pg (28.0-32.0); Mean Corpuscular Hgb Conc. 32.6 g/dL (32.0-36.0); Mean Corpuscular Volume 80.5 fL (80.0-100.0); Monocytes # (auto) 0.6 10 ^3/uL (0-1.3); Monocytes % (auto) 7.8 % (0.0-12.0); Neutrophils # (auto) 4.4 10 ^3/uL (1.6-8.6); Neutrophils % (auto) 55.5 % (37.0-80.0); Platelet Count (auto) 222 10^3/uL (140-450); Red Blood Cells 4.16 10^6/uL (4.5-5.90); Red Cell Distribution Width 19.2 % (11.8-14.3); White Blood Cell 7.9 10^3/uL (4.4-10.8)
== END | disposition home or self-care (01) ==
LOC: LAB 11:30
PROVIDERS: ATTEND Podiatrist Foot & Ankle Surgery
DX: E11.8 Type 2 diabetes mellitus with unspecified complications (principal)
CPT/HCPCS: 36415; 83036; 85025

== ENCOUNTER 2024-07-13 14:06 | Inpatient (IN) | payer MEDICARE, MEDICAID ==
[~2024-07-13] VITALS: Ht 177.8 cm; Wt 74.9 kg
[~2024-07-13 14:06] MED LIST changes: +DULO1CAP5 PO; +FLUC200T50 PO
--- NOTE | 2024-07-13 14:47 | ED.PDOC ---
History of Present Illness HPI Comments 73-year-old male with a history of left foot osteomyelitis status post partial left foot amputation referred by primary physician for evaluation of possible wound infection. Patient states he has had an open wound on the left lower extremity stump which has become red, painful, swollen and has had yellow disc harge for the last several days. He saw his primary physician today, and was referred to the ER for IV antibiotics. Patient denies any fever. Chief Complaint: Wound Check Time Seen by MD: 14:38 Primary Care Provider: FABRICE EDWARDS Allergies: Coded Allergies: Vancomycin (Verified Allergy, Severe, 12/14/20) PER PATIENT, STATES IT CAUSED HIM KIDNEY FAILURE Sulfamethoxazole w/Trimethoprim (Verified Allergy, Unknown, 12/11/20) Clindamycin (Verified Adverse Reaction, Intermediate, BREAKS OUT IN SWEAT, 12/11/20) Home Meds Active Scripts Doxycycline Monohydrate (Doxycycline Monohydrate) 100 Mg Cap, 1 CAP PO BID, #20 CAP Prov:FATMATA BOSWELL MD 05/19/24 Cephalexin Monohydrate (Cephalexin) 500 Mg Cap, 500 MG PO TID for 7 Days, #21 CAP Prov:JOSE MIGUEL MAZA 11/28/23 Pantoprazole Sodium Sesquihydr (Protonix) 40 Mg Tab, 40 MG PO DAILY, #30 TAB Prov:Sirisha Zhang 02/14/20 Aspirin (Asa) 81 Mg Ch, 81 MG PO DAILY, #100 TAB.CHEW Prov:GIGI CAM MD 07/18/19 Reported Medications Pantoprazole Sodium Sesquihydr (Pantoprazole Sodium) 40 Mg Tab, 1 TAB PO DAILY 05/15/24 Insulin Glargine (Lantus) 100 Unit/Ml Inj, 30 UNIT SC BID 05/15/24 Aspirin (Aspirin Low Dose) 81 Mg Tab, 1 TAB PO DAILY 05/15/24 Atorvastatin Calcium (Lipitor) 40 Mg Tab, 1 TAB PO DAILY 10/01/23 Duloxetine Hcl (Cymbalta) 60 Mg Cap, 1 CAP PO DAILY 10/01/23 Duloxetine HCl (Duloxetine HCl) 60 Mg Cap, 1 CAP PO DAILY 06/26/23 Atorvastatin Calcium (ATORVASTATIN CALCIUM) 20 Mg Tab, 1 TAB PO DAILY 06/26/23 Furosemide (Furosemide) 20 Mg Tab, 1 TAB PO DAILY 06/26/23 Furosemide (Furosemide) 20 Mg Tab, 1 TAB PO DAILY 05/01/23 Mode of Arrival: Wheelchair Past Medical History PAST MEDICAL HISTORY: CHF, COPD, DM, High Lipids, HTN Past Medical History (Other): Left foot osteomyelitis in September 2023, right lower extremity gangrene, diabetic neuropathy, nephropathy and vasculopathy Surgical History: AKA Surgical History (Other): Right AKA, left forefoot amputation Family History Family History: Reviewed,noncontributory to illness Social History Smoker: Non-Smoker Alcohol: Denies ETOH Use Drugs: Denies Drug Use Lives In: Home, Usp All Other Systems: Reviewed and Negative (Comprehensive systems review obtained and negative except for what is stated in the HPI.) Physical Exam General Appearance: No Apparent Distress HEENT: Other (Pupils symmetric. No facial asymmetry. Moist mucous membranes.) Neck: Full Range of Motion, Normal Inspection Respiratory: Lungs Clear, No Accessory Muscle Use, No Respiratory Distress, Normal Breath Sounds Cardiovascular: No JVD, Regular Rate/Rhythm Breast Exam: Deferred Gastrointestinal: Non Tender, Soft Genitalia: Deferred Pelvic: Deferred Rectal: Deferred Extremities: Other (Left lower extremity stump with approximate 2 cm open wound, surrounding erythema of the distal stump, yellow discharge on dressing. Soft tissue tenderness distal stump. No fluctuance.) Neurologic: Alert (Oriented x4) Cerebellar Function: NOT DONE Reflexes: NOT DONE Skin: Dry, Normal Color, Warm, Wounds (Left lower extremity stump open wound with yellow discharge, surrounding erythema and soft tissue tenderness) Lymphatic: NOT DONE Was a procedure done? Was a procedure done?: No Differential Dx Considerations may include: Cellulitis, abscess, osteomyelitis, sepsis, hyperglycemia, among others X-Ray, Labs, Meds, VS Vital Signs Date Time Temp Pulse Resp B/P (MAP) Pulse Ox O2 Delivery O2 Flow Rate FiO2 07/13/24 19:50 97.8 89 18 91/53 (66) 97 97.8 07/13/24 16:49 102 18 95 Room Air* 0 21 07/13/24 16:48 98.3 102 18 115/68 (84) 95 98.3 07/13/24 14:24 98.2 106 20 107/61 (76) 97 Lab Test 07/13/24 20:33 07/13/24 15:02 07/13/24 14:29 Range/Units POC Glucose 242 H 288 H 70-106 mg/dl White Blood Count 8.2 4.4-10.8 10^3/uL Red Blood Count 4.27 L 4.5-5.90 10^6/uL Hemoglobin 11.1 L 13.5-17.5 g/dL Hematocrit 33.1 L 41.0-53.0 % Mean Corpuscular Volume 77.5 L 80.0-100.0 fL Mean Corpuscular Hemoglobin 26.1 L 28.0-32.0 pg Mean Corpuscular Hemoglobin Concent 33.6 32.0-36.0 g/dL Red Cell Distribution Width 15.7 H 11.8-14.3 % Platelet Count 325 140-450 10^3/uL Mean Platelet Volume 7.0 6.9-10.8 fL Neutrophils (%) (Auto) 61.9 37.0-80.0 % Lymphocytes (%) (Auto) 22.3 10.0-50.0 % Monocytes (%) (Auto) 10.1 0.0-12.0 % Eosinophils (%) (Auto) 5.0 0.0-7.0 % Basophils (%) (Auto) 0.7 0.0-2.0 % Neutrophils # (Auto) 5.1 1.6-8.6 10 ^3/uL Lymphocytes # (Auto) 1.8 0.4-5.4 10 ^3/uL Monocytes # (Auto) 0.8 0-1.3 10 ^3/uL Eosinophils # (Auto) 0.4 0-0.8 10 ^3/uL Basophils # (Auto) 0.1 0-0.2 10 ^3/uL Nucleated Red Blood Cells 0.1 % Sodium Level 134 L 136-145 mmol/L Potassium Level 4.2 3.5-5.1 mmol/L Chloride Level 101 98-107 mmol/L Carbon Dioxide Level 26 20-31 mmol/L Anion Gap 7 5-15 Blood Urea Nitrogen 27 H 9-23 mg/dL Creatinine 1.47 H 0.700-1.30 mg/dL Glomerular Filtration Rate Calc 50 >90 mL/min BUN/Creatinine Ratio 18.4 10.0-20.0 Serum Glucose 278 H 74-106 mg/dL Lactic Acid Level 1.3 0.4-2.0 mmol/L Calcium Level 9.4 8.7-10.4 mg/dL Current Medications Medications (Trade) Dose Ordered Sig/Colin Route Start Time Stop Time Status Last Admin Piperacillin Sod/ Tazobactam Sod 100 ml @ 100 mls/hr ONCE ONCE IV 07/13/24 14:45 07/13/24 15:50 DC 07/13/24 16:42 Acetaminophen/ Hydrocodone Bitart ([place] 5/325MG Tab) 1 tab ONCE ONCE PO 07/13/24 17:45 07/13/24 17:59 DC 07/13/24 18:09 Sodium Chloride 1,000 ml @ 1,000 mls/hr Q1H ONCE IV 07/13/24 20:00 07/13/24 20:59 DC 07/13/24 20:03 [place] [address] Ph: [phone] DIAGNOSTIC IMAGING Diagnostic Imaging Report : [id number] Signed PATIENT: TIFFANY ELY AACCT: [id number] UNIT: [id number] : 1950 LOC: ER ROOM / BED: / AGE / SEX: 73 / M ADM STATUS: REG ER SERVICE [id number] ORDERING PHYSICIAN: KASHMIR MILTON MD PROCEDURE(s): LFOOT - L FOOT 3 VIEW XRAY REASON: wound infection r/o osteo ORDER NUMBER(s): [id number], ACCESSION NUMBER(s): [id number] CLINICAL INDICATION: wound infection r/o osteo TECHNIQUE: 4 radiographic views of the left foot were obtained. Comparison: No prior radiographs for comparison FINDINGS/IMPRESSION: Forefoot amputation left foot with osteoporotic changes. Can not exclude osteomyelitis if of clinical concern recommend MRI. The visualized joint space is well maintained. The alignment is anatomical. There is no radiopaque foreign body. HS:Y ATED BY: BJ JUARES Jr., DO DICTATED DATE/TIME: 07/13/241507 SIGNED BY: BJ JUARES Jr., SIGNED DATE/TIME: 07/13/241507 CC: X-Ray, Labs, Meds, VS Comment 73-year-old male with a history of retention, diabetes, CHF, COPD, Left foot osteomyelitis status post partial foot amputation, right lower extremity g angrene, diabetic neuropathy, nephropathy and vasculopathy referred by primary physician for evaluation of a left lower extremity stump wound infection Vitals remarkable for heart rate 106 Exam remarkable for left lower extremity stump erythema, yellow wound discharge and soft tissue tenderness Rhythm strip independently interpreted by me: Sinus tach, rate 100, no ectopy. Left foot x-rays: FINDINGS/IMPRESSION: Forefoot amputation left foot with osteoporotic changes. Can not exclude os teomyelitis if of clinical concern recommend MRI. The visualized joint space is well maintained. The alignment is anatomical. There is no radiopaque foreign body. CBC unremarkable, metabolic panel remarkable for sodium 134, BUN 27, creatinine 1.47, glucose 278, lactate normal Blood and wound cultures pending Patient treated with the following in the ED: Zosyn 4.5 g IV, [place] 5/325 mg p.o., 1 L 0.9 normal saline IV bolus On re-evaluation, patient states pain has improved. Vitals are stable. Plan is to admit the patient for IV antibiotics, possible MRI for evaluation of osteomyelitis, and wound care evaluation Time of 1ST Reevaluation: 15:08 Reevaluation 1ST: Unchanged Patient Education/Counseling: Diagnosis, Treatment Family Education/Counseling: No Family Present Departure 1 Departure Time of Disposition: 18:23 Impression: Primary Impression: Wound infection after surgery Additional Impression: Foot osteomyelitis, left Qualified Codes: M86.9 - Osteomyelitis, unspecified Disposition: 09 ADMITTED INPATIENT Admit to: Med Surg Condition: Guarded Critical Care Note Critical Care Time?: No Stability Stability form required: No Heart Score Heart Score: Heart Score Response (Comments) Value History N/A 0 EKG N/A 0 Age N/A 0 Risk Factors N/A 0 Troponin N/A 0 Total 0 I personally scribed for KASHMIR MILTON MD ([email or web address]) on 07/13/24 at 15:17. Electronically submitted by Daisy Spence ([email or web address]). I personally scribed for KASHMIR MILTON MD ([email or web address]) on 07/13/24 at 15:18. Electronically submitted by Daisy Spence ([email or web address]). KASHMIR MILTON MD Jul 13, 2024 14:47
--- NOTE | 2024-07-13 15:11 | DVH ---
CLINICAL INDICATION: wound infection r/o osteo TECHNIQUE: 4 radiographic views of the left foot were obtained. Comparison: No prior radiographs for comparison FINDINGS/IMPRESSION: Forefoot amputation left foot with osteoporotic changes. Can not exclude osteomyelitis if of clinical concern recommend MRI. The visualized joint space is well maintained. The alignment is anatomical. There is no radiopaque foreign body. HS:Y
[2024-07-13 15:34] LABS: Basophils # (auto) 0.1 10 ^3/uL (0-0.2); Basophils % (auto) 0.7 % (0.0-2.0); Mean Corpuscular Hemoglobin 26.1 pg (28.0-32.0); Mean Corpuscular Hgb Conc. 33.6 g/dL (32.0-36.0); Monocytes # (auto) 0.8 10 ^3/uL (0-1.3)
[2024-07-13 15:36] LABS: Eosinophils # (auto) 0.4 10 ^3/uL (0-0.8); Hematocrit 33.1 % (41.0-53.0); Hemoglobin 11.1 g/dL (13.5-17.5); Lymphocytes # (auto) 1.8 10 ^3/uL (0.4-5.4); Lymphocytes % (auto) 22.3 % (10.0-50.0); Mean Corpuscular Volume 77.5 fL (80.0-100.0); Monocytes % (auto) 10.1 % (0.0-12.0); Neutrophils # (auto) 5.1 10 ^3/uL (1.6-8.6); Neutrophils % (auto) 61.9 % (37.0-80.0); Nucleated Red Blood Cells % 0.1 %; Platelet Count (auto) 325 10^3/uL (140-450); Red Blood Cells 4.27 10^6/uL (4.5-5.90); Red Cell Distribution Width 15.7 % (11.8-14.3); White Blood Cell 8.2 10^3/uL (4.4-10.8)
[2024-07-13 15:46] LABS: Chloride 101 mmol/L (98-107); Potassium 4.2 mmol/L (3.5-5.1)
[2024-07-13 15:47] LABS: Anion Gap 7 (5-15); Calcium 9.4 mg/dL (8.7-10.4); Carbon Dioxide 26 mmol/L (20-31)
[2024-07-13 15:52] LABS: BUN/Creatinine Ratio 18.4 (10.0-20.0)
[2024-07-13 16:04] LABS: Blood Urea Nitrogen 27 mg/dL (9-23); Glucose 278 mg/dL (74-106); Sodium 134 mmol/L (136-145)
[2024-07-13] MEDS: PIPERACILLIN-TAZO 4.5GM 100 ML IV ONE (16:42)
[2024-07-13 16:49] VITALS: PULSE 102; RESP 18; O2SAT 95
[2024-07-13] MEDS: HYDROcodone-ACET 5/325MG TAB PO ONE (18:09)
[2024-07-13] MEDS: SODIUM CHLORIDE 0.9% 1,000 ML IV ONE (20:03)
--- NOTE | 2024-07-13 22:43 | DVHHPRES ---
History of Present Illness Resident Creating Document: ALIS VSAQUEZ RESDIENT History of Present Illness This is a 73-year-old male with past medical history of COPD, peripheral artery disease, HFpEF, diabetes mellitus type 2 referred from the office for evaluation of possible wound infection. Per patient, the patient has an ulcer with scant amount of discharge at the area of left foot stump since 3 week which is gradually has worsened. Patient also complained of left leg pain. PMHx: COPD, peripheral artery disease, HFpEF, diabetes mellitus type 2 PSHx: Right lower limb amputation at the level of knee and left leg amputation the level of forefoot Family history: Noncontributory Social history: Patient lives at home alone, chair bound, ex-smoker, denies alcohol or any other drug use Home medication: Aspirin, atorvastatin, duloxetine, Lasix 20 mg, insulin Lantus 35 mg b.i.d. Allergic history: Vancomycin, clindamycin and Bactrim Review of Systems Review of Systems General: patient denies fever, fatigue, weaknes, sweating, any recent changes in appetite and weight HEENT: No headaches, visiual changes, hearing loss, tinnitus, nasal congestion and discharge, and sore throat. Cardiovascular: Denies chest pain, palpitations, dyspnea on exertion, orthopnea, or claudication. Respiratory: No cough, and wheezing. Gastrointestinal: Denies nausea, vomiting, dysphagia, odynophagia, heartburn, abdominal pain, flatulence, bloating, diarrhea, constipation, change in stool, or blood in stool. Genitourinary: No dysuria, hematuria, discharge, frequency, urgency, nocturia, incontinence, and urinary retention. Endocrine: No heat or cold intolerance, polydipsia, polyuria, and polyphagia. Neurological: No dizziness, extremity weakness and numbness, tremors, gait disturbance, seizures, and memory impairment. Psychiatric: Denies depression, anxiety,or insomnia. Musculoskeletal: Left leg pain at the level of amputation stump Allergies: Coded Allergies: Vancomycin (Verified Allergy, Severe, 12/14/20) PER PATIENT, STATES IT CAUSED HIM KIDNEY FAILURE Sulfamethoxazole w/Trimethoprim (Verified Allergy, Unknown, 12/11/20) Clindamycin (Verified Adverse Reaction, Intermediate, BREAKS OUT IN SWEAT, 12/11/20) Exam Vital Signs Vital Signs Date Time Temp Pulse Resp B/P (MAP) Pulse Ox O2 Delivery O2 Flow Rate FiO2 07/13/24 22:00 97.5 81 18 99/70 (80) 95 97.5 07/13/24 16:49 Room Air* 0 21 Exam General Appearance: Alert, Oriented X3, Cooperative, No acute distress HEENT: Atraumatic, PERRLA, EOMI, Mucous membrane moist/pink Respiratory: Clear to auscultation, Normal air movement Cardiovascular: Regular rate, Normal S1, Normal S2, No murmurs, no chest wall tenderness Abdominal: Normal bowel sounds, Soft, No tenderness, No hepatospenomegaly, No masses Extremities: Left lower extremity stump with approximate 2 cm open wound, surrounding erythema of the distal stump, scant amount yellow discharge on dressing. Soft tissue tenderness distal stump. No fluctuance. Skin: Erythematous rashes on the left lower extremity Labs/Xrays Labs Test 07/13/24 20:33 07/13/24 15:02 Range/Units POC Glucose 242 H 70-106 mg/dl White Blood Count 8.2 4.4-10.8 10^3/uL Red Blood Count 4.27 L 4.5-5.90 10^6/uL Hemoglobin 11.1 L 13.5-17.5 g/dL Hematocrit 33.1 L 41.0-53.0 % Mean Corpuscular Volume 77.5 L 80.0-100.0 fL Mean Corpuscular Hemoglobin 26.1 L 28.0-32.0 pg Mean Corpuscular Hemoglobin Concent 33.6 32.0-36.0 g/dL Red Cell Distribution Width 15.7 H 11.8-14.3 % Platelet Count 325 140-450 10^3/uL Mean Platelet Volume 7.0 6.9-10.8 fL Neutrophils (%) (Auto) 61.9 37.0-80.0 % Lymphocytes (%) (Auto) 22.3 10.0-50.0 % Monocytes (%) (Auto) 10.1 0.0-12.0 % Eosinophils (%) (Auto) 5.0 0.0-7.0 % Basophils (%) (Auto) 0.7 0.0-2.0 % Neutrophils # (Auto) 5.1 1.6-8.6 10 ^3/uL Lymphocytes # (Auto) 1.8 0.4-5.4 10 ^3/uL Monocytes # (Auto) 0.8 0-1.3 10 ^3/uL Eosinophils # (Auto) 0.4 0-0.8 10 ^3/uL Basophils # (Auto) 0.1 0-0.2 10 ^3/uL Nucleated Red Blood Cells 0.1 % Sodium Level 134 L 136-145 mmol/L Potassium Level 4.2 3.5-5.1 mmol/L Chloride Level 101 98-107 mmol/L Carbon Dioxide Level 26 20-31 mmol/L Anion Gap 7 5-15 Blood Urea Nitrogen 27 H 9-23 mg/dL Creatinine 1.47 H 0.700-1.30 mg/dL Glomerular Filtration Rate Calc 50 >90 mL/min BUN/Creatinine Ratio 18.4 10.0-20.0 Serum Glucose 278 H 74-106 mg/dL Lactic Acid Level 1.3 0.4-2.0 mmol/L Calcium Level 9.4 8.7-10.4 mg/dL Assessment/Plan Assessment/Plan Diabetic foot Left leg Cellulitis Possible osteomyelitis 2 cm open wound at the level of left lower limb amputation stump with surrounding erythema and scant amount of yellow discharge Chest x-ray shows, forefoot amputation left foot with osteoporotic changes, can not exclude osteomyelitis Arterial duplex ultrasound shows, no arterial occlusion/thrombosis seen Wound consult Consult Podiatry Left leg MRI Wound culture Blood culture Empiric antibiotic of Zosyn and doxycycline Wound dressing IV normal saline History of coronary artery disease Peripheral artery disease History of mildly reduced EFmrHF Continue aspirin and atorvastatin Echo from 05/17/2024 shows EF 45% with grade 1 diastolic dysfunction COPD, stable Diabetes mellitus type 2 Injection Lantus 15 units daily Insulin night sliding scale Mild hyponatremia, monitoring LINNETTE, on CKD grade 2, likely VMN IV fluid Hyperlipidemia Continue atorvastatin DIET: Diabetic diet DVT PROPHYLAXIS: Protonix CODE STATUS: Goal of care discussed for more than 21 minutes, modified DNR (no intubation, okay with chest compression and cardioversion) DISPOSITION: Med/surge Patient's status discussed with the patient. Case discussed with Dr. Blas Plan discussed with: Patient, Other (RN) My Orders Orders - ALIS VASQUEZ RESDIENT Procedure Category Date Status Time Admit ADMIT 07/13/24 Transmitted 22:31 Notify Of Changes KWAME 07/13/24 In Process From Base 22:31 Complete Blood Count LAB 07/14/24 Verified 04:00 Comprehensive LAB 07/14/24 Verified Metabolic Panel 04:00 Zosyn Extended PHA 07/14/24 Verified Infusion 06:00 Doxycycline PHA 07/13/24 Verified 100mg/100ml 22:45 Enoxaparin Sodium PHA 07/13/24 Verified (Lovenox) 22:45 Enoxaparin Sodium PHA 07/14/24 Verified (Lovenox) 10:00 Sodium Chloride 0.9% PHA 07/13/24 Verified 22:45 Insulin Lantus PHA 07/13/24 Verified (Glargine) (Lantus) 22:45 Insulin Lantus PHA 07/14/24 Verified (Glargine) (Lantus) 07:00 Mrsa Screen OLEG 07/13/24 Verified 22:32 * Wound Consult CONS 07/13/24 Verified Wound Dressing ED NURSING 07/13/24 Verified Consistent DIET 07/14/24 Verified Carb(Ccho)Diabetes Breakfast Lt Low Ext Art Duplex US 07/13/24 Verified 22:32 Erythrocyte LAB 07/13/24 Verified Sedimentation Rate 22:32 C-Reactive Protein LAB 07/13/24 Verified 22:32 Blood Culture OLEG 07/13/24 Verified 22:32 Wound Culture W/ Gs OLEG 07/13/24 Verified 22:32 Mri L Foot Wo Contrast MRI 07/13/24 Verified 22:32 Urinalysis LAB 07/13/24 Verified 22:32 Date of Service: Jul 13, 2024 Billing Provider: SANDI BLAS MD Common Visit Codes: [id number] INP/OBS CARE (HIGH) Secondary Visit Codes: [id number] CARE PLAN 30 MINUTES ALIS VASQUEZ RESDIENT Jul 13, 2024 22:43 SANDI BLAS MD Jul 14, 2024 08:26
[2024-07-13] MEDS: SODIUM CHLORIDE 0.9% 500 ML IV ONE (23:25)
[2024-07-13] MEDS: DOXYCYCLINE 100MG/100ML 100 ML IV SCH (23:25)
[2024-07-13] MEDS: ENOXAPARIN SOD 40 MG/0.4 ML SYRINGE SC ONE (23:25)
[2024-07-13] MEDS: INSULIN LANTUS (GLARGINE) 1 /0.01ml (100units/ml) SC ONE (23:31)
[2024-07-13 23:49] LABS: Erythrocyte Sedimentation Rate 96 mm/hr (0-20)
[2024-07-14 01:14] LABS: Urine Bacteria FEW /hpf (None Seen); Urine Blood TRACE /uL (Negative); Urine Clarity Clear (Clear); Urine Color Yellow (Yellow); Urine Protein, UAD TRACE (Negative); Urine Squamous Epithelial Cell None Seen /hpf (<5); Urine Urobilinogen Normal (Negative); Urine WBC 1 /hpf (0 - 3); Urine pH 5.5 (5.0-9.0)
--- NOTE | 2024-07-14 03:48 | DVH ---
Examination: ESTEPHANIA CLINICAL INDICATION: R/O PAD COMPARISON: None. TECHNIQUE: Using real-time ultrasonic imaging and color Doppler the arterial circulation Left lower extremity was studied carefully. FINDINGS: Atherosclerotic calcifications are noted along all the arteries. Left common femoral, superficial femoral and popliteal arteries are normal in course, caliber and con tour. These arteries exhibit normal biphasic flow with good diastolic run-off. No evidence of turbulence o r aliasing seen. The peak systolic, peak end-diastolic velocities and their respective S/D ratios in common femoral, s uperficial femoral and popliteal arteries are within normal limits. No evidence of hemodynamically significant stenosis seen. IMPRESSION: 1. No areas of hemodynamically significant stenosis could be identified. 2. No arterial occlusion/thrombosis seen. Electronically Signed 07/14/2024 03:47 Ryland Jackson
[2024-07-14] MEDS ORDERED: DEXTROSE (50%) 50ML SYRG IV PRN (04:15)
[2024-07-14] MEDS ORDERED: HYDROcodone-ACET 5/325MG TAB PO PRN (04:15)
[2024-07-14] MEDS: PIPERACILLIN-TAZOB 3.375GM 100 ML IV SCH (04:20)
[2024-07-14] MEDS: ATORVASTATIN 20 MG TAB PO ONE (04:38)
[2024-07-14] MEDS: ACCU-CHEK COMFORT CURVE STRIP VI SCH (07:56)
[2024-07-14] MEDS: InsuLIN REG 1unit/0.01ml Soln (100units/ml) SC SCH (08:00)
[2024-07-14 08:30] LABS: Basophils # (auto) 0.1 10 ^3/uL (0-0.2); Eosinophils # (auto) 0.6 10 ^3/uL (0-0.8); Mean Corpuscular Hgb Conc. 33.2 g/dL (32.0-36.0); Neutrophils # (auto) 3.9 10 ^3/uL (1.6-8.6); Nucleated Red Blood Cells % 0.1 %; White Blood Cell 7.3 10^3/uL (4.4-10.8)
[2024-07-14 08:32] LABS: Basophils % (auto) 1.2 % (0.0-2.0); Eosinophils % (auto) 7.9 % (0.0-7.0); Hematocrit 34.7 % (41.0-53.0); Hemoglobin 11.5 g/dL (13.5-17.5); Lymphocytes % (auto) 27.3 % (10.0-50.0); Mean Corpuscular Hemoglobin 26.4 pg (28.0-32.0); Mean Corpuscular Volume 79.6 fL (80.0-100.0); Monocytes # (auto) 0.7 10 ^3/uL (0-1.3); Monocytes % (auto) 10.3 % (0.0-12.0); Neutrophils % (auto) 53.3 % (37.0-80.0); Platelet Count (auto) 301 10^3/uL (140-450); Red Blood Cells 4.36 10^6/uL (4.5-5.90); Red Cell Distribution Width 15.7 % (11.8-14.3)
[2024-07-14 08:39] LABS: Alanine Aminotransferase 18 U/L (7-40); Albumin 3.8 g/dL (3.2-4.8); Anion Gap 7 (5-15); Aspartate Aminotransferase 20 U/L (13-40); BUN/Creatinine Ratio 16.5 (10.0-20.0); Blood Urea Nitrogen 21 mg/dL (9-23); Calcium 9.3 mg/dL (8.7-10.4); Carbon Dioxide 25 mmol/L (20-31); Chloride 106 mmol/L (98-107); Glucose 87 mg/dL (74-106); Potassium 4.2 mmol/L (3.5-5.1); Sodium 138 mmol/L (136-145)
[2024-07-14 08:42] LABS: Alkaline Phosphatase 131 U/L (46-116); Bilirubin, Total 0.3 mg/dL (0.2-1.0); Total Protein 9.1 g/dL (5.7-8.2)
--- NOTE | 2024-07-14 08:46 | DVH ---
CLINICAL HISTORY: 73 years old, Male; Osteomyelitis . TECHNIQUE: Multi sequence multi planar MRI images of the left foot were obtained IV contrast. COMPARISON: MRI MRI L FOOT WO CONTRAST on DOS: 09/30/23, CT CT L FOOT WO CONTRAST on DOS: 09/30/23, MRI M RI R FOOT WO CONTRAST on DOS: 05/01/23 FINDINGS: Postsurgical changes of prior amputation at the level of the navicular and mid to distal a spect of the calcaneus. There is a wound at the amputation stump with surrounding soft tissue edema a nd ill-defined fluid extending adjacent to the calcaneus and talus. Extensive marrow edema involving the residual portions of the navicular as well as the anterior calcaneus, extending up to approximate ly 2.7 cm in anterior to posterior extent of the remaining anterior portions of the calcaneus. Erosi ve changes are seen involving the calcaneus and navicular, likely secondary to osteomyelitis. Mild T2 hyperintense and T1 hypointense signal also noted at the distal articular surface of the talus, poss ible mild osteomyelitis. Possible small erosion of the dorsal aspect of the talar head. IMPRESSION: 1. Wound at the amputation stump with surrounding soft tissue inflammatory changes, likely cellulitis and probable phlegmon. Limited evaluation for abscess on noncontrast enhanced exam. 2. Suspected osteomyelitis of the anterior portions of the remaining calcaneus as well as in the vira cular. Probable mild osteomyelitis changes at the talar head.
[2024-07-14] MEDS: INSULIN LANTUS (GLARGINE) 1 /0.01ml (100units/ml) SC SCH (08:52)
[2024-07-14] MEDS: ASPirin 81 mg TAB PO SCH (10:14)
[2024-07-14 11:00] VITALS: RESP 18; O2SAT 97
--- NOTE | 2024-07-14 15:03 | DVHPN2 ---
Changes from previous H/P or p: No Changes Objective Vitals Vital Signs Date Time Temp Pulse Resp B/P (MAP) Pulse Ox O2 Delivery O2 Flow Rate FiO2 07/14/24 11:00 18 97 Room Air* 0 21 07/14/24 10:07 98.3 83 94/47 (63) 98.3 Intake/Output Intake and Output 07/14/24 07:00 Intake Total 1400 ml Balance 1400 ml Intake IV Total 1400 ml Medications Current Medications Medications Dose Ordered Sig/Colin Route Start Time Stop Time Status Last Admin Dose Admin Piperacillin Sod/ Tazobactam Sod 100 ml @ 25 mls/hr Q8H IV 07/14/24 01:00 07/14/24 09:25 25 MLS/HR Doxycycline Hyclate 100 ml @ 50 mls/hr Q12H IV 07/13/24 22:45 07/14/24 10:58 50 MLS/HR Enoxaparin Sodium 40 mg Q24H SC 07/14/24 23:00 Insulin Glargine 15 units QAM SC 07/14/24 07:00 07/14/24 08:52 15 UNITS Aspirin 81 mg DAILY PO 07/14/24 10:00 07/14/24 10:14 81 MG Atorvastatin Calcium 10 mg HS PO 07/14/24 22:00 Diagnostic Test (Pha) 1 strip IQ4HR 07/14/24 08:00 07/14/24 12:35 1 STRIP Insulin Human Regular IQ4HR SC 07/14/24 08:00 Dextrose 50 ml UD PRN IV 07/14/24 04:15 Acetaminophen/ Hydrocodone Bitart 1 tab Q4HPRN PRN PO 07/14/24 04:15 Laboratory Results Laboratory Tests 07/14/24 08:00 Chemistry Test 07/13/24 15:02 07/14/24 08:00 Calcium Level 9.4 mg/dL (8.7-10.4) 9.3 mg/dL (8.7-10.4) Albumin 3.8 g/dL (3.2-4.8) Total Protein 9.1 g/dL (5.7-8.2) H LFT Test 07/14/24 08:00 Alanine Aminotransferase (ALT) 18 U/L (7-40) Alkaline Phosphatase 131 U/L (46-116) H Aspartate Amino Transferase (AST) 20 U/L (13-40) Total Bilirubin 0.3 mg/dL (0.2-1.0) Urinalysis Test 07/14/24 00:03 Urine Color Yellow (Yellow) Urine Clarity Clear (Clear) Urine pH 5.5 (5.0-9.0) Urine Specific [place] 1.020 (1.001-1.035) Urine Protein Trace (Negative) H Urine Ketones Negative (Negative) Urine Blood Trace /uL (Negative) H Urine Nitrite Negative (Negative) Urine Bilirubin Negative (Negative) Urine Urobilinogen Normal mg/dL (Negative) Urine Leukocyte Esterase Negative /uL (Negative) Urine RBC 8 /hpf (0 - 3) Urine WBC 1 /hpf (0 - 3) Urine Squamous Epithelial Cells None seen /hpf (<5) Urine Bacteria Few /hpf (None Seen) H Urine Glucose 2+ mg/dL (Normal) H Microbiology Microbiology Date/Time Source Procedure Growth Status 07/14/24 00:03 Foot Gram Stain - Final Resulted 07/14/24 00:03 Foot Wound Culture Pending Resulted Labs and/or images reviewed: Labs reviewed by me, Image(s) reviewed by me Assessment/Plan Assessment/Plan Nonhealing left foot diabetic wound Zosyn doxycycline, wound cultures pending blood cultures pending Uncontrolled diabetes Diabetic neuropathy nephropathy vasculopathy Osteomyelitis left calcaneus: Consult for podiatric Dr. Lazcano History of coronary artery disease Peripheral arterial disease Acute on chronic systolic congestive heart failure Total time spent 65 minutes Advanced care planning 20 minutes Patient is no intubation Plan discussed with: Patient Date of Service: Jul 14, 2024 Billing Provider: LOUISE PUGA MD Common Visit Codes: 24529-[id number] CARE 30-74 MIN Secondary Visit Codes: [id number] CARE PLAN 30 MINUTES LOUISE PUGA MD Jul 14, 2024 15:03
[2024-07-14 21:00] VITALS: BP 123/60; PULSE 92; RESP 18; TEMP 98.1; O2SAT 93
[2024-07-14] MEDS: ATORVASTATIN 20 MG TAB PO SCH (22:20)
[2024-07-14] MEDS: ENOXAPARIN SOD 40 MG/0.4 ML SYRINGE SC SCH (22:22)
[2024-07-14] MEDS ORDERED: DULO20CA PO (22:25)
[2024-07-14 22:26] VITALS: PULSE 66; RESP 18; O2SAT 97
[2024-07-15] VITALS (11 sets, daily range): BP systolic 99–125; BP diastolic 47–71; PULSE 63–86; RESP 16–19; TEMP 97.6–98.7; O2SAT 90–99
--- NOTE | 2024-07-15 08:41 | DVHPN2 ---
Reviewed: Care Plan, H&P, Labs, Medications, Previous Orders, Radiology Changes from previous H/P or p: No Changes Objective Vitals Vital Signs Date Time Temp Pulse Resp B/P (MAP) Pulse Ox O2 Delivery O2 Flow Rate FiO2 07/15/24 05:00 98.5 74 16 100/50 (67) 90 98.5 07/14/24 22:26 Room Air* 0 21 Intake/Output Intake and Output 07/15/24 06:59 Intake Total 250 ml Output Total 0 ml Balance 250 ml Intake Oral 250 ml Output Urine Total 0 ml Medications Current Medications Medications Dose Ordered Sig/Colin Route Start Time Stop Time Status Last Admin Dose Admin Piperacillin Sod/ Tazobactam Sod 100 ml @ 25 mls/hr Q8H IV 07/14/24 01:00 07/15/24 01:00 25 MLS/HR Doxycycline Hyclate 100 ml @ 50 mls/hr Q12H IV 07/13/24 22:45 07/14/24 22:27 50 MLS/HR Enoxaparin Sodium 40 mg Q24H SC 07/14/24 23:00 07/14/24 22:22 40 MG Insulin Glargine 15 units QAM SC 07/14/24 07:00 07/14/24 08:52 15 UNITS Aspirin 81 mg DAILY PO 07/14/24 10:00 07/14/24 10:14 81 MG Atorvastatin Calcium 10 mg HS PO 07/14/24 22:00 07/14/24 22:20 10 MG Diagnostic Test (Pha) 1 strip IQ4HR 07/14/24 08:00 07/15/24 08:00 1 STRIP Insulin Human Regular IQ4HR SC 07/14/24 08:00 07/15/24 00:00 3 UNITS Dextrose 50 ml UD PRN IV 07/14/24 04:15 Acetaminophen/ Hydrocodone Bitart 1 tab Q4HPRN PRN PO 07/14/24 04:15 Laboratory Results Laboratory Tests 07/14/24 08:00 Urinalysis Test 07/14/24 00:03 Urine Color Yellow (Yellow) Urine Clarity Clear (Clear) Urine pH 5.5 (5.0-9.0) Urine Specific [place] 1.020 (1.001-1.035) Urine Protein Trace (Negative) H Urine Ketones Negative (Negative) Urine Blood Trace /uL (Negative) H Urine Nitrite Negative (Negative) Urine Bilirubin Negative (Negative) Urine Urobilinogen Normal mg/dL (Negative) Urine Leukocyte Esterase Negative /uL (Negative) Urine RBC 8 /hpf (0 - 3) Urine WBC 1 /hpf (0 - 3) Urine Squamous Epithelial Cells None seen /hpf (<5) Urine Bacteria Few /hpf (None Seen) H Urine Glucose 2+ mg/dL (Normal) H Microbiology Microbiology Date/Time Source Procedure Growth Status 07/14/24 00:03 Foot Gram Stain - Final Resulted 07/14/24 00:03 Foot Wound Culture Pending Resulted 07/13/24 15:09 Blood Blood Culture - Preliminary NO GROWTH AFTER 24 HOURS OF INCUBATION. Resulted Labs and/or images reviewed: Labs reviewed by me, Image(s) reviewed by me Assessment/Plan Assessment/Plan Nonhealing left foot diabetic wound Zosyn doxycycline, wound cultures pending , blood cultures negative Uncontrolled diabetes Diabetic neuropathy nephropathy vasculopathy Osteomyelitis left calcaneus: Consult for podiatric Dr. Lazcano, patient getting incision and drainage today, History of coronary artery disease Peripheral arterial disease Acute on chronic systolic congestive heart failure Total time spent 55 minutes Advanced care planning 20 minutes Patient is no intubation Will order PICC line Plan discussed with: Patient Date of Service: Jul 15, 2024 Billing Provider: LOUISE PUGA MD Common Visit Codes: [id number] INP/OBS CARE(HIGH) LOUISE PUGA MD Jul 15, 2024 08:41
--- NOTE | 2024-07-15 12:00 | DVH ---
CHEST RADIOGRAPH Indication: PRE-OP EVAL/pain Technique: Single frontal view of the chest was obtained Comparison: XY CHEST PORTABLE on DOS: 11/25/23, XY CHEST PORTABLE on DOS: 10/05/23, XY CHEST PORTABLE on DOS: 10/04/23, XY CHEST PORTABLE on DOS: 10/03/23, XY CHEST XRAY 1 VIEW on DOS: 10/02/23 FINDINGS: Lines and Tubes: None Lungs: left basilar airspace opacity. Pleura: No effusion. No pneumothorax. Cardiomediastinal contours: Unremarkable Bones: No acute osseous abnormality. IMPRESSION: Left basilar pneumonia.
--- NOTE | 2024-07-15 12:36 | DVHINCON2 ---
Date Seen: Jul 15, 2024 Reason for Consultation Left foot wound History of Present Illness This is a 73-year-old male with past medical history of COPD, peripheral artery disease, HFpEF, diabetes mellitus type 2 referred from the office for evaluation of possible wound infection. Per patient, the patient has an ulcer with scant amount of discharge at the area of left foot stump since 3 week which is gradually has worsened. Patient also complained of left leg pain. Past Medical History See H&P Past Surgical History See H&P Family History: CHF (congestive heart failure) G8 MOTHER, Onset:40's - 50 Cancer G8 FATHER, Onset:40's - 50 G8 BROTHER, Onset:50's - 60 Diabetes mellitus G8 MOTHER Family history: Diabetes mellitus G8 BROTHER, Onset: - G8 SISTER, Onset: Hypertension G8 FATHER Allergies: Coded Allergies: Vancomycin (Verified Allergy, Severe, 12/14/20) PER PATIENT, STATES IT CAUSED HIM KIDNEY FAILURE Sulfamethoxazole w/Trimethoprim (Verified Allergy, Unknown, 12/11/20) Clindamycin (Verified Adverse Reaction, Intermediate, BREAKS OUT IN SWEAT, 12/11/20) Home Meds Reported Medications Duloxetine Hcl (Cymbalta) 20 Mg Cap, 1 CAP PO DAILY, #30 CAP 2 Refills 07/14/24 Fluconazole (Fluconazole) 200 Mg Tab, 1 TAB PO BID for 5 Days, #10 07/14/24 Duloxetine HCl (Duloxetine HCl) 30 Mg Cap, 1 CAP PO BID for 30 Days, #60 07/14/24 Pantoprazole Sodium Sesquihydr (Pantoprazole Sodium) 40 Mg Tab, 1 TAB PO DAILY for 90 Days, #90 05/15/24 Insulin Glargine (Lantus) 100 Unit/Ml Inj, 30 UNIT SC BID for 100 Days, #60 05/15/24 Aspirin (Aspirin Low Dose) 81 Mg Tab, 1 TAB PO DAILY for 90 Days, #90 05/15/24 Atorvastatin Calcium (Lipitor) 40 Mg Tab, 1 TAB PO DAILY for 90 Days, #90 10/01/23 Furosemide (Furosemide) 20 Mg Tab, 1 TAB PO DAILY for 90 Days, #90 05/01/23 Discontinued Reported Medications Duloxetine HCl (Duloxetine HCl) 60 Mg Cap, 1 CAP PO DAILY 06/26/23 Current Medications Current Medications Medications (Trade) Dose Ordered Sig/Colin Route PRN Reason Start Time Stop Time Status Last Admin Enoxaparin Sodium (Lovenox) 40 mg Q24H SC 07/14/24 23:00 07/14/24 22:22 Atorvastatin Calcium (Lipitor) 10 mg HS PO 07/14/24 22:00 07/14/24 22:20 Vital Signs Vital Signs Date Time Temp Pulse Resp B/P (MAP) Pulse Ox O2 Delivery O2 Flow Rate FiO2 07/15/24 08:53 97.6 70 18 99/67 (78) 95 97.6 07/14/24 22:26 Room Air* 0 21 Physical Exam DERMATOLOGIC EXAM: - Skin is dry and cool to the touch dry bilaterally. - Nails 1-5 of the bilateral foot are thickened, discolored, dystrophic, and tender to palpate with subungual debris - Hair loss noted to bilateral feet Wound #1: Location: Left stab Measurements: Length 2 cm x width 1 cm x depth on cm. Wound margins: Hyperkeratotic. Wound base: Full thickness. General Appearance: Healthy and bleeding. Probes to Bone: No Purulent drainage: Yes Serous drainage: No Erythema: Periwound VASCULAR EXAM: - DP and PT pulses are palpable bilaterally. - MAGNETIC PROSPECTOR is brisk to all digits. - Feet are cool to touch compared to lower legs bilaterally. NEUROLOGIC EXAM: - Normal light touch sensation to the superficial peroneal, deep peroneal, sural, saphenous, and tibial nerve branches. - Protective sensation is diminished as tested with a 5.07 10g [place] bilaterally. MUSCULOSKELETAL EXAM: - No gross deformities - Muscle strength is 5/5 and active motion is pain-free and symmetrical bilaterally - No pain or crepitation with passive range of motion bilaterally to all major pedal joints Labs/Diagnostic Data Labs Test 07/15/24 08:24 07/14/24 08:00 07/14/24 00:03 07/13/24 15:02 Range/Units POC Glucose 114 H 70-106 mg/dl White Blood Count 7.3 4.4-10.8 10^3/uL Red Blood Count 4.36 L 4.5-5.90 10^6/uL Hemoglobin 11.5 L 13.5-17.5 g/dL Hematocrit 34.7 L 41.0-53.0 % Mean Corpuscular Volume 79.6 L 80.0-100.0 fL Mean Corpuscular Hemoglobin 26.4 L 28.0-32.0 pg Mean Corpuscular Hemoglobin Concent 33.2 32.0-36.0 g/dL Red Cell Distribution Width 15.7 H 11.8-14.3 % Platelet Count 301 140-450 10^3/uL Mean Platelet Volume 6.9 6.9-10.8 fL Neutrophils (%) (Auto) 53.3 37.0-80.0 % Lymphocytes (%) (Auto) 27.3 10.0-50.0 % Monocytes (%) (Auto) 10.3 0.0-12.0 % Eosinophils (%) (Auto) 7.9 H 0.0-7.0 % Basophils (%) (Auto) 1.2 0.0-2.0 % Neutrophils # (Auto) 3.9 1.6-8.6 10 ^3/uL Lymphocytes # (Auto) 2.0 0.4-5.4 10 ^3/uL Monocytes # (Auto) 0.7 0-1.3 10 ^3/uL Eosinophils # (Auto) 0.6 0-0.8 10 ^3/uL Basophils # (Auto) 0.1 0-0.2 10 ^3/uL Nucleated Red Blood Cells 0.1 % Sodium Level 138 136-145 mmol/L Potassium Level 4.2 3.5-5.1 mmol/L Chloride Level 106 98-107 mmol/L Carbon Dioxide Level 25 20-31 mmol/L Anion Gap 7 5-15 Blood Urea Nitrogen 21 9-23 mg/dL Creatinine 1.27 0.700-1.30 mg/dL Glomerular Filtration Rate Calc 60 >90 mL/min BUN/Creatinine Ratio 16.5 10.0-20.0 Serum Glucose 87 # 74-106 mg/dL Calcium Level 9.3 8.7-10.4 mg/dL Total Bilirubin 0.3 0.2-1.0 mg/dL Aspartate Amino Transferase (AST) 20 13-40 U/L Alanine Aminotransferase (ALT) 18 7-40 U/L Alkaline Phosphatase 131 H 46-116 U/L Total Protein 9.1 H 5.7-8.2 g/dL Albumin 3.8 3.2-4.8 g/dL Urine Color Yellow Yellow Urine Clarity Clear Clear Urine pH 5.5 5.0-9.0 Urine Specific [place] 1.020 1.001-1.035 Urine Protein Trace H Negative Urine Ketones Negative Negative Urine Blood Trace H Negative /uL Urine Nitrite Negative Negative Urine Bilirubin Negative Negative Urine Urobilinogen Normal Negative mg/dL Urine Leukocyte Esterase Negative Negative /uL Urine RBC 8 0 - 3 /hpf Urine WBC 1 0 - 3 /hpf Urine Squamous Epithelial Cells None seen <5 /hpf Urine Bacteria Few H None Seen /hpf Urine Glucose 2+ H Normal mg/dL Erythrocyte Sedimentation Rate 96 H 0-20 mm/hr Lactic Acid Level 1.3 0.4-2.0 mmol/L C-Reactive Protein High Sensitivity 8.12 H <1.0 mg/dL Microbiology Date/Time Source Procedure Growth Status 07/14/24 00:03 Foot Gram Stain - Final Resulted 07/14/24 00:03 Foot Wound Culture Pending Resulted 07/13/24 15:09 Blood Blood Culture - Preliminary NO GROWTH AFTER 24 HOURS OF INCUBATION. Resulted Problems(with codes): (1) Sepsis (2) Skin graft (allograft) (autograft) failure (3) Encounter for pre-operative examination (4) Non-healing wound (5) Visit for wound care (6) HTN (hypertension) (7) Cellulitis of left foot (8) Osteomyelitis of left foot (9) Uncontrolled diabetes mellitus (10) Diabetic infection of left foot (11) URI (upper respiratory infection) (12) Upper respiratory tract infection (13) COPD (chronic obstructive pulmonary disease) (14) Diabetes (15) Wheezing (16) Chronic ulcer of ankle (17) Peripheral vascular disease (18) DVT (deep venous thrombosis) (19) Ischemic necrosis of toe (20) Fasciitis (21) Cellulitis of right foot (22) Osteomyelitis (23) Right foot infection (24) Generalized weakness (25) Hyperglycemia (26) Foot osteomyelitis, right (27) Elevated lactic acid level (28) Vertigo (29) Failure to thrive in adult (30) Constipation (31) Urinary tract infection (32) Abdominal pain (33) Acute urinary retention (34) Generalized abdominal pain (35) Leukocytosis, unspecified (36) Lower abdominal pain (37) Diabetes mellitus with hyperglycemia (38) Acute cystitis with hematuria (39) Acute cystitis without hematuria (40) Foot osteomyelitis, left (41) Wound infection after surgery Plan/Recommendation ASSESSMENT: Patient is a year old seen on the floor for a worsening ulcer PLAN: - The patients chart was reviewed, clinical findings were discussed with the patient, the etiologies of the conditions were discussed in detail, and a treatment plan was agreed to at this time, with both oral and written in structions provided. - reviewed advanced imaging - discussed plan is to perform an incision and drainage - patient will be NPO at midnight - take him to the OR today - patient will return to the OR at a future date for closure - we will get cultures in the OR - can weightbear as tolerated in postoperative shoe All questions were answered and concerns addressed to the patient's sa tisfaction. The patient was given the phone number to the clinic and was told how to make contact with the clinic should any concerns or questions arise. Patient understands that if any questions or concerns arise prior to the next appointment, we should be contacted immediately. FOLLOW-UP: Continue to follow while inpatient Plan discussed with: Patient Date of Service: Jul 15, 2024 Billing Provider: MAGGIE LARSON DPM Common Visit Codes: [id number] INP/OBS CARE (HIGH) MAGGIE LARSON DPM Jul 15, 2024 12:36
[2024-07-15] MEDS ORDERED: fentaNYL CITRATE 100 MCG/2 ML VL ONE (13:47)
[2024-07-15] MEDS ORDERED: MIDAZOLAM HCL 2MG/2ML 2ml VIAL (1mg/ml) ONE (13:47)
[2024-07-15] MEDS: BUPIVACAINE 0.25% INJ 50ML VIAL ONE (14:02)
[2024-07-16] VITALS (8 sets, daily range): BP systolic 102–138; BP diastolic 48–68; PULSE 65–83; RESP 15–18; TEMP 97.4–97.9; O2SAT 92–95
[2024-07-16 06:10] LABS: INR 1.08 (0.9-1.15); Partial Thromboplastin Time 30.5 SEC (24.5-34.5); Prothrombin Time 11.4 sec (9.3-11.8)
--- NOTE | 2024-07-16 09:11 | DVHOP2 ---
Operative Report - 2 Report Details Date: 07/15/24 Preop Diagnosis: 1. Left foot osteomyelitis 2. Left foot abscess 3. Left foot cellulitis Postop Diagnosis: Same as preop Surgeon: Maggie Larson MD Anesthesiologist: See anesthesia Anesthesia: Mac Consent: The patient was informed of the risks and benefits of the procedure. These include but are not limited to complications of anesthesia, postoperative infection, incomplete relief of symptoms, recurrence of symptoms, damage to blood vessels, nerves and tendons, deep venous thrombosis, pulmonary embolism and possible need for repeat surgery in the future. Estimated Blood Loss: Minimal Fluids: See anesthesia Findings: Consistent with diagnosis Indications for Surgery: Worsening left foot wound Name of Procedure Performed 1. Left foot I&D to bone (29847) 2. Left foot bone biopsy () Procedure Details Procedure Details: PRE-PROCEDURE INFORMATION: In the pre-op holding area, the extremity to be operated on was clearly marked and the patient verified correct laterality of the marking. The patient was transferred to the OR table and placed in a supine position. A timeout was performed in which identification of the correct patient, procedure, location, and materials was done. The left foot and leg were prepped and draped in normal sterile fashion. DESCRIPTION OF PROCEDURE: Attention was directed to the left where area of fluctuance was noted. An incision was made over this area and was deepened through blunt dissection. The incision was deepened to the level of abscess and bone. Care was taken to the dissection to avoid any neurovascular and tendinous structures. The incision was deepened to the bone, and the abscess appeared to be purulent fluid consistent with pus. The cortices of the bone was then removed with Simone an all necrotic tissue. After the abscess was drained, the area was irrigated with 3 L normal saline using cysto tubing. Deep cultures were then obtained from the wound. The area was then inspected and any areas of tracking, especially along the tendons were also drained. A bone biopsy was then taken of the navicular which was deepened to the muscle belly and tendons. The bone was then sent to pathology to determine the extent of osteomyelitis. The wound was packed with Betadine-soaked gauze and we will need to be closed at a later date. POSTOPERATIVE INFORMATION: The patient tolerated the above noted procedure and anesthesia well and was transferred to the PACU with vital signs stable, and vascular status intact with capillary refill intact to all digits. Bone biopsy and cultures were taken. Patient will return to the floor and continue IV antibiotics. Patient will return to the OR on Friday for possible closure and placement of graft due to significant tissue loss. Condition Good Disposition Still a Patient MAGGIE LARSON DPM Jul 16, 2024 09:10
--- NOTE | 2024-07-16 10:32 | DVHPN2 ---
Reviewed: Care Plan, H&P, Labs, Medications, Previous Orders, Radiology Changes from previous H/P or p: No Changes Objective Vitals Vital Signs Date Time Temp Pulse Resp B/P (MAP) Pulse Ox O2 Delivery O2 Flow Rate FiO2 07/16/24 09:00 97.9 83 15 110/68 (82) 92 97.9 07/15/24 20:00 Room Air* 0 21 Intake/Output Intake and Output 07/16/24 07:00 Intake Total 660 ml Output Total 1250 ml Balance -590 ml Intake Oral 560 ml IV Total 100 ml Output Urine Total 1250 ml # Bowel Movements 1 Medications Current Medications Medications Dose Ordered Sig/Colin Route Start Time Stop Time Status Last Admin Dose Admin Piperacillin Sod/ Tazobactam Sod 100 ml @ 25 mls/hr Q8H IV 07/14/24 01:00 07/16/24 09:11 25 MLS/HR Doxycycline Hyclate 100 ml @ 50 mls/hr Q12H IV 07/13/24 22:45 07/14/24 22:27 50 MLS/HR Enoxaparin Sodium 40 mg Q24H SC 07/14/24 23:00 07/15/24 21:47 40 MG Insulin Glargine 15 units QAM SC 07/14/24 07:00 07/16/24 06:14 15 UNITS Aspirin 81 mg DAILY PO 07/14/24 10:00 07/16/24 09:12 81 MG Atorvastatin Calcium 10 mg HS PO 07/14/24 22:00 07/15/24 21:45 10 MG Diagnostic Test (Pha) 1 strip IQ4HR 07/14/24 08:00 07/16/24 08:00 1 STRIP Insulin Human Regular IQ4HR SC 07/14/24 08:00 07/16/24 09:22 4 UNITS Dextrose 50 ml UD PRN IV 07/14/24 04:15 Acetaminophen/ Hydrocodone Bitart 1 tab Q4HPRN PRN PO 07/14/24 04:15 Laboratory Results Laboratory Tests 07/14/24 08:00 Coagulation Test 07/16/24 05:20 Prothrombin Time 11.4 sec (9.3-11.8) Prothrombin Time INR 1.08 (0.9-1.15) Activated Partial Thromboplast Time 30.5 SEC (24.5-34.5) Urinalysis Test 07/14/24 00:03 Urine Color Yellow (Yellow) Urine Clarity Clear (Clear) Urine pH 5.5 (5.0-9.0) Urine Specific [place] 1.020 (1.001-1.035) Urine Protein Trace (Negative) H Urine Ketones Negative (Negative) Urine Blood Trace /uL (Negative) H Urine Nitrite Negative (Negative) Urine Bilirubin Negative (Negative) Urine Urobilinogen Normal mg/dL (Negative) Urine Leukocyte Esterase Negative /uL (Negative) Urine RBC 8 /hpf (0 - 3) Urine WBC 1 /hpf (0 - 3) Urine Squamous Epithelial Cells None seen /hpf (<5) Urine Bacteria Few /hpf (None Seen) H Urine Glucose 2+ mg/dL (Normal) H Microbiology Microbiology Date/Time Source Procedure Growth Status 07/14/24 00:03 Foot Gram Stain - Final Resulted 07/14/24 00:03 Foot Wound Culture Pending Resulted 07/13/24 15:09 Blood Blood Culture - Preliminary NO GROWTH AFTER 48 HOURS OF INCUBATION. Resulted Labs and/or images reviewed: Labs reviewed by me, Image(s) reviewed by me Assessment/Plan Assessment/Plan Nonhealing left foot diabetic wound Zosyn doxycycline, wound cultures pending , blood cultures negative Uncontrolled diabetes Diabetic neuropathy nephropathy vasculopathy Osteomyelitis left calcaneus: Status post incision and drainage by Dr. Lazcano on 07-16-24 History of coronary artery disease Peripheral arterial disease Acute on chronic systolic congestive heart failure Total time spent 55 minutes Advanced care planning 20 minutes Patient is no intubation PICC line placement being done Will DC tomorrow Plan discussed with: Patient My Orders Orders - LOUISE PUGA MD Procedure Category Date Status Time Dietary NOTICE 07/16/24 Transmitted Recommendations 09:51 Date of Service: Jul 16, 2024 Billing Provider: LOUISE PUGA MD Common Visit Codes: [id number] INP/OBS CARE(HIGH) LOUISE PUGA MD Jul 16, 2024 10:32
--- NOTE | 2024-07-16 13:21 | DVHPN2 ---
Subjective This is a 73-year-old male with past medical history of COPD, peripheral artery disease, HFpEF, diabetes mellitus type 2 referred from the office for evaluation of possible wound infection. Per patient, the patient has an ulcer with scant amount of discharge at the area of left foot stump since 3 week which is gradually has worsened. Patient also complained of left leg pain. Reviewed: Care Plan, H&P, Labs, Medications, Previous Orders, Radiology Changes from previous H/P or p: No Changes Objective Vitals Vital Signs Date Time Temp Pulse Resp B/P (MAP) Pulse Ox O2 Delivery O2 Flow Rate FiO2 07/16/24 09:00 97.9 83 15 110/68 (82) 92 97.9 07/15/24 20:00 Room Air* 0 21 Intake/Output Intake and Output 07/16/24 07:00 Intake Total 660 ml Output Total 1250 ml Balance -590 ml Intake Oral 560 ml IV Total 100 ml Output Urine Total 1250 ml # Bowel Movements 1 Exam DERMATOLOGIC EXAM: - Skin is dry and cool to the touch dry bilaterally. - Nails 1-5 of the bilateral foot are thickened, discolored, dystrophic, and tender to palpate with subungual debris - Hair loss noted to bilateral feet Wound #1: Location: Left stab Measurements: Length 2 cm x width 1 cm x depth on cm. Wound margins: Hyperkeratotic. Wound base: Full thickness. General Appearance: Healthy and bleeding. Probes to Bone: No Purulent drainage: Yes Serous drainage: No Erythema: Periwound VASCULAR EXAM: - DP and PT pulses are palpable bilaterally. - ENGINEERING DIRECTOR is brisk to all digits. - Feet are cool to touch compared to lower legs bilaterally. NEUROLOGIC EXAM: - Normal light touch sensation to the superficial peroneal, deep peroneal, sural, saphenous, and tibial nerve branches. - Protective sensation is diminished as tested with a 5.07 10g [place] bilaterally. MUSCULOSKELETAL EXAM: - No gross deformities - Muscle strength is 5/5 and active motion is pain-free and symmetrical bilaterally - No pain or crepitation with passive range of motion bilaterally to all major pedal joints Medications Current Medications Medications Dose Ordered Sig/Colin Route Start Time Stop Time Status Last Admin Dose Admin Piperacillin Sod/ Tazobactam Sod 100 ml @ 25 mls/hr Q8H IV 07/14/24 01:00 07/16/24 09:11 25 MLS/HR Doxycycline Hyclate 100 ml @ 50 mls/hr Q12H IV 07/13/24 22:45 07/16/24 11:45 50 MLS/HR Enoxaparin Sodium 40 mg Q24H SC 07/14/24 23:00 07/15/24 21:47 40 MG Insulin Glargine 15 units QAM SC 07/14/24 07:00 07/16/24 06:14 15 UNITS Aspirin 81 mg DAILY PO 07/14/24 10:00 07/16/24 09:12 81 MG Atorvastatin Calcium 10 mg HS PO 07/14/24 22:00 07/15/24 21:45 10 MG Diagnostic Test (Pha) 1 strip IQ4HR 07/14/24 08:00 07/16/24 12:00 1 STRIP Insulin Human Regular IQ4HR SC 07/14/24 08:00 07/16/24 13:14 4 UNITS Dextrose 50 ml UD PRN IV 07/14/24 04:15 Acetaminophen/ Hydrocodone Bitart 1 tab Q4HPRN PRN PO 07/14/24 04:15 Laboratory Results Laboratory Tests 07/14/24 08:00 Coagulation Test 07/16/24 05:20 Prothrombin Time 11.4 sec (9.3-11.8) Prothrombin Time INR 1.08 (0.9-1.15) Activated Partial Thromboplast Time 30.5 SEC (24.5-34.5) Urinalysis Test 07/14/24 00:03 Urine Color Yellow (Yellow) Urine Clarity Clear (Clear) Urine pH 5.5 (5.0-9.0) Urine Specific [place] 1.020 (1.001-1.035) Urine Protein Trace (Negative) H Urine Ketones Negative (Negative) Urine Blood Trace /uL (Negative) H Urine Nitrite Negative (Negative) Urine Bilirubin Negative (Negative) Urine Urobilinogen Normal mg/dL (Negative) Urine Leukocyte Esterase Negative /uL (Negative) Urine RBC 8 /hpf (0 - 3) Urine WBC 1 /hpf (0 - 3) Urine Squamous Epithelial Cells None seen /hpf (<5) Urine Bacteria Few /hpf (None Seen) H Urine Glucose 2+ mg/dL (Normal) H Microbiology Microbiology Date/Time Source Procedure Growth Status 07/14/24 00:03 Foot Gram Stain - Final Resulted 07/14/24 00:03 Foot Wound Culture Pending Resulted 07/13/24 15:09 Blood Blood Culture - Preliminary NO GROWTH AFTER 48 HOURS OF INCUBATION. Resulted Assessment/Plan Assessment/Plan ASSESSMENT: Patient is a year old seen on the floor one day s/p from a left foot I&D PLAN: - The patients chart was reviewed, clinical findings were discussed with the patient, the etiologies of the conditions were discussed in detail, and a treatment plan was agreed to at this time, with both oral and written instructions provided. - reviewed advanced imaging - discussed plan is to perform an incision and drainage and placement of graft on Friday - patient will be NPO at Friday night midnight - take him to the OR Friday - patient will return to the OR at a future date for closure - can weightbear as tolerated in postoperative shoe All questions were answered and concerns addressed to the patient's satisfaction. The patient was given the phone number to the clinic and was told how to make contact with the clinic should any concerns or questions arise. Patient understands that if any questions or concerns arise prior to the next appointment, we should be contacted immediately. FOLLOW-UP: Continue to follow while inpatient Plan discussed with: Patient Problem List: (1) Foot osteomyelitis, left (2) Wound infection after surgery (3) COPD (chronic obstructive pulmonary disease) (4) Constipation (5) Urinary tract infection (6) Generalized weakness (7) Diabetes (8) Fasciitis (9) Hyperglycemia (10) Vertigo (11) Wheezing (12) Peripheral vascular disease (13) Sepsis (14) DVT (deep venous thrombosis) (15) Abdominal pain (16) Osteomyelitis (17) HTN (hypertension) (18) URI (upper respiratory infection) (19) Generalized abdominal pain (20) Upper respiratory tract infection (21) Chronic ulcer of ankle (22) Uncontrolled diabetes mellitus (23) Leukocytosis, unspecified (24) Lower abdominal pain (25) Failure to thrive in adult (26) Osteomyelitis of left foot (27) Foot osteomyelitis, right (28) Cellulitis of left foot (29) Cellulitis of right foot (30) Acute urinary retention (31) Ischemic necrosis of toe (32) Visit for wound care (33) Acute cystitis with hematuria (34) Acute cystitis without hematuria (35) Elevated lactic acid level (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
[2024-07-16] MEDS: LIDOCAINE 1% (LOCAL ANESTH.) PF 5ml SDV ID ONE (16:47)
[2024-07-16] MEDS: ERTAPENEM SOD INJ 1 GM in SODIUM CHL 0.9% 50 ML IV ONE (16:59)
[2024-07-16] MEDS: SODIUM CHLOR 0.9% PF (SALINE LOCK) 10ML VIAL/SYR IV SCH (21:34)
[2024-07-17] VITALS (7 sets, daily range): BP systolic 97–129; BP diastolic 40–67; PULSE 64–83; RESP 16–18; TEMP 97.5–97.9; O2SAT 92–97
--- NOTE | 2024-07-17 09:35 | DVHPN2 ---
Reviewed: Care Plan, H&P, Labs, Medications, Previous Orders, Radiology Changes from previous H/P or p: No Changes Objective Vitals Vital Signs Date Time Temp Pulse Resp B/P (MAP) Pulse Ox O2 Delivery O2 Flow Rate FiO2 07/17/24 08:30 97.5 64 18 129/67 (87) 97 97.5 07/16/24 20:00 Room Air* 0 21 Intake/Output Intake and Output 07/17/24 07:00 Intake Total 1675 ml Output Total 251 ml Balance 1424 ml Intake Oral 1675 ml Output Urine Total 250 ml Stool Total 1 ml # Voids 8 Medications Current Medications Medications Dose Ordered Sig/Colin Route Start Time Stop Time Status Last Admin Dose Admin Enoxaparin Sodium 40 mg Q24H SC 07/14/24 23:00 07/16/24 21:30 40 MG Insulin Glargine 15 units QAM SC 07/14/24 07:00 07/17/24 04:46 15 UNITS Aspirin 81 mg DAILY PO 07/14/24 10:00 07/16/24 09:12 81 MG Atorvastatin Calcium 10 mg HS PO 07/14/24 22:00 07/16/24 21:30 10 MG Diagnostic Test (Pha) 1 strip IQ4HR 07/14/24 08:00 07/17/24 04:17 1 STRIP Insulin Human Regular IQ4HR SC 07/14/24 08:00 07/17/24 04:00 3 UNITS Dextrose 50 ml UD PRN IV 07/14/24 04:15 Acetaminophen/ Hydrocodone Bitart 1 tab Q4HPRN PRN PO 07/14/24 04:15 Ertapenem 1 gm/ Sodium Chloride 50 ml @ 100 mls/hr DAILY IV 07/17/24 10:00 Sodium Chloride 10 ml QSHIFT@10,22 IV 07/16/24 22:00 07/16/24 21:34 10 ML Laboratory Results Laboratory Tests 07/14/24 08:00 Urinalysis Test 07/14/24 00:03 Urine Color Yellow (Yellow) Urine Clarity Clear (Clear) Urine pH 5.5 (5.0-9.0) Urine Specific [place] 1.020 (1.001-1.035) Urine Protein Trace (Negative) H Urine Ketones Negative (Negative) Urine Blood Trace /uL (Negative) H Urine Nitrite Negative (Negative) Urine Bilirubin Negative (Negative) Urine Urobilinogen Normal mg/dL (Negative) Urine Leukocyte Esterase Negative /uL (Negative) Urine RBC 8 /hpf (0 - 3) Urine WBC 1 /hpf (0 - 3) Urine Squamous Epithelial Cells None seen /hpf (<5) Urine Bacteria Few /hpf (None Seen) H Urine Glucose 2+ mg/dL (Normal) H Microbiology Microbiology Date/Time Source Procedure Growth Status 07/14/24 00:03 Foot Gram Stain - Final Resulted 07/14/24 00:03 Wound Culture - Preliminary Klebsiella oxytoca Escherichia coli - ESBL Resulted 07/13/24 15:09 Blood Blood Culture - Preliminary NO GROWTH AFTER 72 HOURS OF INCUBATION. 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 Lazcano on 07-16-24 History of coronary artery disease Peripheral arterial disease Acute on chronic systolic congestive heart failure Patient is no intubation Patient has PICC line in place Plan discussed with: Patient My Orders Orders - LOUISE PUGA MD Procedure Category Date Status Time Dietary NOTICE 07/16/24 Transmitted Recommendations 09:51 Ertapenem Sod Inj PHA 07/17/24 In Process (Invanz) 10:00 Us Guided Vascular US 07/16/24 Taken Access 16:35 Nursing Protocol Picc KWAME 07/16/24 In Process 16:35 Change Dressing Prn KWAME 07/16/24 In Process 16:35 Sodium Chloride Lock PHA 07/16/24 In Process (Saline Lock Ns) 22:00 Do Not Use Picc For KWAME 07/16/24 In Process Blood Cult 16:35 May Draw Blood From KWAME 07/16/24 In Process Picc 16:35 Ok To Use Picc KWAME 07/16/24 In Process 16:35 Change Picc Dressing KWAME 07/16/24 In Process Q7 Days 16:35 Date of Service: Jul 17, 2024 Billing Provider: LOUISE PUGA MD Common Visit Codes: [id number] INP/OBS CARE(HIGH) LOUISE PUGA MD Jul 17, 2024 09:35
--- NOTE | 2024-07-17 09:41 | DVHDS2 ---
Discharge Summary Date of Admission Jul 13, 2024 at 22:31 Date of Discharge: Jul 17, 2024 Admitting Diagnosis Left foot diabetic wound infection Wounds: Left foot wound infection Labs/Diagnostic Data: Laboratory Results Test 07/17/24 08:11 07/16/24 05:20 07/14/24 08:00 07/14/24 00:03 POC Glucose 91 mg/dl (70-106) Prothrombin Time 11.4 sec (9.3-11.8) Prothrombin Time INR 1.08 (0.9-1.15) Activated Partial Thromboplast Time 30.5 SEC (24.5-34.5) White Blood Count 7.3 10^3/uL (4.4-10.8) Red Blood Count 4.36 10^6/uL (4.5-5.90) Hemoglobin 11.5 g/dL (13.5-17.5) Hematocrit 34.7 % (41.0-53.0) Mean Corpuscular Volume 79.6 fL (80.0-100.0) Mean Corpuscular Hemoglobin 26.4 pg (28.0-32.0) Mean Corpuscular Hemoglobin Concent 33.2 g/dL (32.0-36.0) Red Cell Distribution Width 15.7 % (11.8-14.3) Platelet Count 301 10^3/uL (140-450) Mean Platelet Volume 6.9 fL (6.9-10.8) Neutrophils (%) (Auto) 53.3 % (37.0-80.0) Lymphocytes (%) (Auto) 27.3 % (10.0-50.0) Monocytes (%) (Auto) 10.3 % (0.0-12.0) Eosinophils (%) (Auto) 7.9 % (0.0-7.0) Basophils (%) (Auto) 1.2 % (0.0-2.0) Neutrophils # (Auto) 3.9 10 ^3/uL (1.6-8.6) Lymphocytes # (Auto) 2.0 10 ^3/uL (0.4-5.4) Monocytes # (Auto) 0.7 10 ^3/uL (0-1.3) Eosinophils # (Auto) 0.6 10 ^3/uL (0-0.8) Basophils # (Auto) 0.1 10 ^3/uL (0-0.2) Nucleated Red Blood Cells 0.1 % Sodium Level 138 mmol/L (136-145) Potassium Level 4.2 mmol/L (3.5-5.1) Chloride Level 106 mmol/L (98-107) Carbon Dioxide Level 25 mmol/L (20-31) Anion Gap 7 (5-15) Blood Urea Nitrogen 21 mg/dL (9-23) Creatinine 1.27 mg/dL (0.700-1.30) Glomerular Filtration Rate Calc 60 mL/min (>90) BUN/Creatinine Ratio 16.5 (10.0-20.0) Serum Glucose 87 mg/dL (74-106) Calcium Level 9.3 mg/dL (8.7-10.4) Total Bilirubin 0.3 mg/dL (0.2-1.0) Aspartate Amino Transferase (AST) 20 U/L (13-40) Alanine Aminotransferase (ALT) 18 U/L (7-40) Alkaline Phosphatase 131 U/L (46-116) Total Protein 9.1 g/dL (5.7-8.2) Albumin 3.8 g/dL (3.2-4.8) Urine Color Yellow (Yellow) Urine Clarity Clear (Clear) Urine pH 5.5 (5.0-9.0) Urine Specific [place] 1.020 (1.001-1.035) Urine Protein Trace (Negative) Urine Ketones Negative (Negative) Urine Blood Trace /uL (Negative) Urine Nitrite Negative (Negative) Urine Bilirubin Negative (Negative) Urine Urobilinogen Normal mg/dL (Negative) Urine Leukocyte Esterase Negative /uL (Negative) Urine RBC 8 /hpf (0 - 3) Urine WBC 1 /hpf (0 - 3) Urine Squamous Epithelial Cells None seen /hpf (<5) Urine Bacteria Few /hpf (None Seen) Urine Glucose 2+ mg/dL (Normal) Test 07/13/24 15:02 Erythrocyte Sedimentation Rate 96 mm/hr (0-20) Lactic Acid Level 1.3 mmol/L (0.4-2.0) C-Reactive Protein High Sensitivity 8.12 mg/dL (<1.0) Other Laboratory Tests 07/14/24 08:00 Brief Hx & Hospital Course: 73-year-old male with a history of diabetes diabetic neuropathy nephropathy vasculopathy noncompliant history of coronary artery disease peripheral arterial disease acute on chronic CHF uncontrolled diabetes came in for nonhealing left foot diabetic wound. Underwent incision and drainage by podiatric Dr. Lazcano on 07/16/2024 CT showed osteomyelitis of left calcaneus. Wound cultures grew Klebsiella oxytoca and ESBL E coli and placed on Invanz 1 g IV daily for one month which he will receive through home health. Discharged home general condition poor but stable at the time of discharge. He will follow up withDr Lazcano in two weeks. Consults/Reason for consult [employer] Dr Lazcano Operations or Procedures Incision And drainage of the left foot abscess Condition at Discharge: Poor Final Diagnosis/Problems List Nonhealing left foot diabetic wound wound cultures growing Klebsiella oxytoca and ESBL E coli, placed on Invanz 1 g IV daily for one month Uncontrolled diabetes Diabetic neuropathy nephropathy vasculopathy Osteomyelitis left calcaneus: Status post incision and drainage by Dr. Lazcano on 07-16-24 History of coronary artery disease Peripheral arterial disease Acute on chronic systolic congestive heart failure Patient is no intubation Discharge Disposition: Home with Health Services Discharge Instruct/Medications Diet: Consistent carbohydrate Activity: Light activity Follow Up/Referral: Follow up with your primary Dr and home health doctor Follow up with refueling ramp supervisor Dr Lazcano in two weeks Medications: Invanz 1 g IV daily for four weeks for osteomyelitis 39 (Time Taken for discharge summary 39 minutes) Discharge Statement: "Patient was advised to return to the ER or call 911 if any headaches, dizziness, shortness of breath, chest pain, abdominal pain, bleeding, fevers, or worsening of medical condition. Patient was counseled about treatment plan, medications, possible side effects, patientverbalized understanding. All questions were answered to the best of my ability. This discharge took greater then 30 minutes in planning, reviewing documentation, counseling the patient, and discussing with other team members." ASSESSMENT ASSESSMENT Hospital Course Status post incision and drainage of the left foot abscess Assessment Nonhealing left foot diabetic wound wound cultures growing Klebsiella oxytoca and ESBL E coli, placed on Invanz 1 g IV daily for one month Uncontrolled diabetes Diabetic neuropathy nephropathy vasculopathy Osteomyelitis left calcaneus: Status post incision and drainage by Dr. Lazcano on 07-16-24 History of coronary artery disease Peripheral arterial disease Acute on chronic systolic congestive heart failure Patient is no intubation Date of Service: Jul 17, 2024 Billing Provider: LOUISE PUGA MD Common Visit Codes: [id number] DISCH DAY >30min LOUISE PUGA MD Jul 17, 2024 09:41
[2024-07-17] MEDS: ERTAPENEM SOD INJ 1 GM in SODIUM CHL 0.9% 50 ML IV SCH (11:06)
== END 2024-07-17 18:10 | disposition home health service (06) | DRG 856 ==
LOC: ER 14:06 → OVERFLOW 22:31 → EAST 07-14 21:37
PROVIDERS: ADMIT Family Medicine; ATTEND Family Medicine
PROC: 0Y9N0ZZ Drainage of Left Foot, Open Approach (ICD-10-PCS; 2024-07-15)
PROC: 0QBM0ZX Excision of Left Tarsal, Open Approach, Diagnostic (ICD-10-PCS; principal; 2024-07-15 13:51)
PROC: 02HV33Z Insertion of Infusion Device into Superior Vena Cava, Percutaneous Approach (ICD-10-PCS; 2024-07-16)
PROC: B548ZZA Ultrasonography of Superior Vena Cava, Guidance (ICD-10-PCS; 2024-07-16)
DX: T81.41XA Infection following a procedure, superficial incisional surgical site, initial encounter (principal); I50.23 Acute on chronic systolic (congestive) heart failure; M86.8X7 Other osteomyelitis, ankle and foot; L03.116 Cellulitis of left lower limb; E87.1 Hypo-osmolality and hyponatremia; L02.612 Cutaneous abscess of left foot; N17.9 Acute kidney failure, unspecified; E11.621 Type 2 diabetes mellitus with foot ulcer; Z66 Do not resuscitate; E11.40 Type 2 diabetes mellitus with diabetic neuropathy, unspecified; E11.21 Type 2 diabetes mellitus with diabetic nephropathy; E11.69 Type 2 diabetes mellitus with other specified complication; I11.0 Hypertensive heart disease with heart failure; J44.9 Chronic obstructive pulmonary disease, unspecified; I25.10 Atherosclerotic heart disease of native coronary artery without angina pectoris; Y83.8 Other surgical procedures as the cause of abnormal reaction of the patient, or of later complication, without mention of misadventure at the time of the procedure; E11.51 Type 2 diabetes mellitus with diabetic peripheral angiopathy without gangrene; E78.5 Hyperlipidemia, unspecified; B96.1 Klebsiella pneumoniae [K. pneumoniae] as the cause of diseases classified elsewhere; L97.529 Non-pressure chronic ulcer of other part of left foot with unspecified severity; Z88.1 Allergy status to other antibiotic agents; Z89.611 Acquired absence of right leg above knee; Y92.89 Other specified places as the place of occurrence of the external cause; Z87.891 Personal history of nicotine dependence; Z89.511 Acquired absence of right leg below knee; Z82.49 Family history of ischemic heart disease and other diseases of the circulatory system; Z83.3 Family history of diabetes mellitus; Z91.199 Patient's noncompliance with other medical treatment and regimen due to unspecified reason; Z79.82 Long term (current) use of aspirin; Z79.4 Long term (current) use of insulin; Z79.899 Other long term (current) drug therapy
CPT/HCPCS: 36415; 36569; 71045; 73630; 73718; 76937; 80048; 80053; 81001; 82962; 83605; 85025; 85610; 85652; 85730; 86141; 87040; 87077; 87081; 87186; 87205; 93926; G0378; J1335; J1815; J2250; J2543; J3490

== ENCOUNTER 2024-08-02 12:39 | Emergency (ER) | payer MEDICARE, MEDICAID ==
[~2024-08-02 12:39] MED LIST changes: -ASPI81CH43 PO; -ATOR20TA50 PO; -CEPH500C PO; -DOXY1CAP57 PO; -DULO1CAP6 PO; +DULO20CA PO; -DULO60CA41 PO; -PANT40TA2 PO
--- NOTE | 2024-08-02 13:12 | ED.PDOC ---
General HPI Comments 73 y.o male with PMHx of DM, hyperlipidemia, NM, presents to the ED with caregiver for an evaluation of cloudy urine that presented 3 days ago. Patient denies any odor, hematuria, dysuria, fever, chills, back or abdominal pain. Caregiver reports patient is on antibiotics at this time due to a recent left foot surgery. Chief Complaint: Urinary Time Seen by MD: 13:04 Primary Care Provider: FABRICE EDWARDS Reviewed notes: Nurses Notes, Medications, Allergies Allergies: Coded Allergies: Vancomycin (Verified Allergy, Severe, 12/14/20) PER PATIENT, STATES IT CAUSED HIM KIDNEY FAILURE Sulfamethoxazole w/Trimethoprim (Verified Allergy, Unknown, 12/11/20) Clindamycin (Verified Adverse Reaction, Intermediate, BREAKS OUT IN SWEAT, 12/11/20) Home Meds Active Scripts Ciprofloxacin Hcl (Cipro) 500 Mg Tab, 1 TAB PO BID, #14 TAB Prov:CATHERINE JACKSON MD 08/02/24 Reported Medications Duloxetine Hcl (Cymbalta) 20 Mg Cap, 1 CAP PO DAILY, #30 CAP 2 Refills 07/14/24 Fluconazole (Fluconazole) 200 Mg Tab, 1 TAB PO BID for 5 Days, #10 07/14/24 Duloxetine HCl (Duloxetine HCl) 30 Mg Cap, 1 CAP PO BID for 30 Days, #60 07/14/24 Pantoprazole Sodium Sesquihydr (Pantoprazole Sodium) 40 Mg Tab, 1 TAB PO DAILY for 90 Days, #90 05/15/24 Insulin Glargine (Lantus) 100 Unit/Ml Inj, 30 UNIT SC BID for 100 Days, #60 05/15/24 Aspirin (Aspirin Low Dose) 81 Mg Tab, 1 TAB PO DAILY for 90 Days, #90 05/15/24 Atorvastatin Calcium (Lipitor) 40 Mg Tab, 1 TAB PO DAILY for 90 Days, #90 10/01/23 Furosemide (Furosemide) 20 Mg Tab, 1 TAB PO DAILY for 90 Days, #90 05/01/23 Information Source: Patient Mode of Arrival: Ambulatory Severity: Moderate Timing: Days (3) Duration: Since onset Onset: Spontaneous Symptoms: None History of: None Location: None Modifying factors: None associated signs and symptoms: None Past Medical History PAST MEDICAL HISTORY: CHF, COPD, DM, High Lipids, HTN Surgical History: AKA (right ) Surgical History (Other): left foot sx with multiple toe amputation Family History Family History: Reviewed,noncontributory to illness Social History Smoker: Non-Smoker Alcohol: Denies ETOH Use Drugs: Denies Drug Use Lives In: Home, Intermediate Constitutional: denies: chills, diaphoresis, fatigue, fever, malaise, sweats, weakness, others EENTM: denies: blurred vision, double vision, ear bleeding, ear discharge, ear drainage, ear pain, ear ringing, eye pain, eye redness, hearing loss, mouth pain, mouth swelling, nasal discharge, nose bleeding, nose congestion, nose pain, photophobia, tearing, throat pain, throat swelling, voice changes, others Respiratory: denies: cough, hemoptysis, orthopnea, SOB at rest, shortness of breath, SOB with excertion, stridor, wheezing, others Cardiovascular: denies: chest pain, dizzy spells, diaphoresis, Dyspnea on exertion, edema, irregular heart beat, left arm pain, lightheadedness, palpitations, PND, syncope, others Genitourinary: reports: others (cloudy urine ); denies: burning, dysuria, flank pain, frequency, hematuria, incontinence, penile discharge, penile sore, pain, testicle pain, testicle swelling, urgency Neurological: denies: dizziness, fainting, headache, left sided numbness, left sided weakness, numbness, paresthesia, pre-existing deficit, right sided numbness, right sided weakness, seizure, speech problems, tingling, tremors, weakness, others Musculoskeletal: denies: back pain, gout, joint pain, joint swelling, muscle pain, muscle stiffness, neck pain, others Integumetry: denies: bruises, change in color, change in hair/nails, dryness, laceration, lesions, lumps, rash, wounds, others Allergic/Immunocompromised: denies: Difficulty Healing, Frequent Infections, Hives, Itching, others Hematologic/Lymphatic: denies: anemia, blood clots, easy bleeding, easy bruising, swollen glands, others Endocrine: denies: excessive hunger, excessive sweating, excessive thirst, excessive urination, flushing, intolerance to cold, intolerance to heat, unexplained weight gain, unexplained weight loss, others Psychiatric: denies: anxiety, bipolar disorder, depression, hopeless, panic disorder, schizophrenia, sleepless, suicidal, others All Other Systems: Reviewed and Negative Physical Exam General Appearance: No Apparent Distress HEENT: Normal ENT Inspection, Pharynx Normal, TMs Normal Neck: Full Range of Motion, Non-Tender, Normal, Normal Inspection Respiratory: Chest Non-Tender, Lungs Clear, No Accessory Muscle Use, No Respiratory Distress, Normal Breath Sounds Cardiovascular: No Edema, No JVD, No Murmur, No Gallop, Normal Peripheral Pulses, Regular Rate/Rhythm Breast Exam: Deferred Gastrointestinal: No Organomegaly, Non Tender, No Pulsatile Mass, Normal Bowel Sounds, Soft Genitalia: Deferred Pelvic: Deferred Rectal: Deferred Extremities: No calf tenderness, Normal capillary refill, No pedal edema, Other (Right AKA and left foot partial amputation) Musculoskeletal : Apperance: Normal Neurologic: Alert, tire adjuster II-XII nml as Tested, No Motor Deficits, Normal Affect, Normal Mood, No Sensory Deficits Cerebellar Function: Normal Reflexes: Normal Skin: Dry, Normal Color, Warm Lymphatic: No Adenopathy Was a procedure done? Was a procedure done?: No Differential Diagnosis Kidney stone (Female): N/A Urinary Problem (Male): Renal Failure, Urolithiasis, UTI X-Ray, Labs, Meds, VS Vital Signs Date Time Temp Pulse Resp B/P (MAP) Pulse Ox O2 Delivery O2 Flow Rate FiO2 08/02/24 12:56 98.4 90 16 114/54 (74) 93 Lab Test 08/02/24 13:40 08/02/24 12:44 Range/Units White Blood Count 8.9 4.4-10.8 10^3/uL Red Blood Count 4.21 L 4.5-5.90 10^6/uL Hemoglobin 10.8 L 13.5-17.5 g/dL Hematocrit 32.8 L 41.0-53.0 % Mean Corpuscular Volume 77.9 L 80.0-100.0 fL Mean Corpuscular Hemoglobin 25.8 L 28.0-32.0 pg Mean Corpuscular Hemoglobin Concent 33.1 32.0-36.0 g/dL Red Cell Distribution Width 15.8 H 11.8-14.3 % Platelet Count 275 140-450 10^3/uL Mean Platelet Volume 7.9 6.9-10.8 fL Neutrophils (%) (Auto) 67.2 37.0-80.0 % Lymphocytes (%) (Auto) 21.0 10.0-50.0 % Monocytes (%) (Auto) 7.7 0.0-12.0 % Eosinophils (%) (Auto) 3.1 0.0-7.0 % Basophils (%) (Auto) 1.0 0.0-2.0 % Neutrophils # (Auto) 6.0 1.6-8.6 10 ^3/uL Lymphocytes # (Auto) 1.9 0.4-5.4 10 ^3/uL Monocytes # (Auto) 0.7 0-1.3 10 ^3/uL Eosinophils # (Auto) 0.3 0-0.8 10 ^3/uL Basophils # (Auto) 0.1 0-0.2 10 ^3/uL Nucleated Red Blood Cells 0.0 % Sodium Level 139 136-145 mmol/L Potassium Level 4.1 3.5-5.1 mmol/L Chloride Level 105 98-107 mmol/L Carbon Dioxide Level 22 20-31 mmol/L Anion Gap 12 5-15 Blood Urea Nitrogen 40 H 9-23 mg/dL Creatinine 1.32 H 0.700-1.30 mg/dL Glomerular Filtration Rate Calc 57 >90 mL/min BUN/Creatinine Ratio 30.3 H 10.0-20.0 Serum Glucose 188 H 74-106 mg/dL Calcium Level 9.4 8.7-10.4 mg/dL Urine Color Light-yellow Yellow Urine Clarity Clear Clear Urine pH 5.0 5.0-9.0 Urine Specific [place] 1.018 1.001-1.035 Urine Protein Trace H Negative Urine Ketones Negative Negative Urine Blood Trace H Negative /uL Urine Nitrite Negative Negative Urine Bilirubin Negative Negative Urine Urobilinogen Normal Negative mg/dL Urine Leukocyte Esterase Trace Negative /uL Urine RBC 2 0 - 3 /hpf Urine Microscopic WBC 6 H 0-3 /HPF Urine Squamous Epithelial Cells None seen <5 /hpf Urine Bacteria None seen None Seen /hpf Urine Hyaline Casts Few 0 - 2 /lpf Urine Glucose Trace Normal mg/dL The patient's urine test is positive for a slight UTI The patient's creatinine is 1.32 The BUN is 40 The CBC shows anemia with a hemoglobin of 10.8 and hematocrit of 32.8 At this time, patient was being discharged on Cipro The patient will return to the emergency department's condition worsens Time of 1ST Reevaluation: 13:09 Reevaluation 1ST: Unchanged Patient Education/Counseling: Diagnosis, Treatment, Prognosis, Need For Follow Up Family Education/Counseling: Diagnosis, Treatment, Prognosis, Need For Follow Up Departure 1 Departure Time of Disposition: 14:30 Impression: Primary Impression: Acute cystitis with hematuria Disposition: 01 HOME / SELF CARE / HOMELESS Condition: Fair e-Prescriptions Ciprofloxacin Hcl (Cipro) 500 Mg Tab 1 TAB PO BID, #14 TAB Prov: CATHERINE JACKSON MD 08/02/24 Discharged With: Self, Photography Manager Critical Care Note Critical Care Time?: No Stability Stability form required: No I personally scribed for CATHERINE JACKSON MD ([email or web address]) on 08/02/24 at 13:12. Electronically submitted by Irene Ferrer ([facility]). CATHERINE JACKSON MD Aug 02, 2024 13:12
[2024-08-02 13:25] LABS: Urine Bacteria None Seen /hpf (None Seen)
[2024-08-02 13:37] LABS: Urine Blood TRACE /uL (Negative); Urine Clarity Clear (Clear); Urine Color Light-Yellow (Yellow); Urine Hyaline Cast FEW /lpf (0 - 2); Urine Protein, UAD TRACE (Negative); Urine Specific Gravity 1.018 (1.001-1.035); Urine Squamous Epithelial Cell None Seen /hpf (<5); Urine Urobilinogen Normal (Negative); Urine WBC 6 /HPF (0-3)
[2024-08-02 14:03] LABS: Basophils # (auto) 0.1 10 ^3/uL (0-0.2); Eosinophils # (auto) 0.3 10 ^3/uL (0-0.8); Mean Corpuscular Hemoglobin 25.8 pg (28.0-32.0); Monocytes # (auto) 0.7 10 ^3/uL (0-1.3); White Blood Cell 8.9 10^3/uL (4.4-10.8)
[2024-08-02 14:05] LABS: Eosinophils % (auto) 3.1 % (0.0-7.0); Hematocrit 32.8 % (41.0-53.0); Hemoglobin 10.8 g/dL (13.5-17.5); Lymphocytes # (auto) 1.9 10 ^3/uL (0.4-5.4); Mean Corpuscular Hgb Conc. 33.1 g/dL (32.0-36.0); Mean Corpuscular Volume 77.9 fL (80.0-100.0); Monocytes % (auto) 7.7 % (0.0-12.0); Neutrophils % (auto) 67.2 % (37.0-80.0); Platelet Count (auto) 275 10^3/uL (140-450); Red Blood Cells 4.21 10^6/uL (4.5-5.90); Red Cell Distribution Width 15.8 % (11.8-14.3)
[2024-08-02 14:17] LABS: Anion Gap 12 (5-15); Carbon Dioxide 22 mmol/L (20-31); Chloride 105 mmol/L (98-107); Potassium 4.1 mmol/L (3.5-5.1); Sodium 139 mmol/L (136-145)
[2024-08-02 14:18] LABS: Calcium 9.4 mg/dL (8.7-10.4)
[2024-08-02 14:24] LABS: BUN/Creatinine Ratio 30.3 (10.0-20.0); Blood Urea Nitrogen 40 mg/dL (9-23); Glucose 188 mg/dL (74-106)
[2024-08-02] MEDS ORDERED: CIPR-173 PO (14:29)
[2024-08-02 14:56] VITALS: BP 109/63; PULSE 87; RESP 16; TEMP 98.2; O2SAT 94
== END 2024-08-02 14:59 | disposition home or self-care (01) ==
LOC: ER 12:39
DX: N30.01 Acute cystitis with hematuria (principal); I11.0 Hypertensive heart disease with heart failure; I50.9 Heart failure, unspecified; J44.9 Chronic obstructive pulmonary disease, unspecified; E11.9 Type 2 diabetes mellitus without complications; E78.5 Hyperlipidemia, unspecified; I25.2 Old myocardial infarction; Z98.890 Other specified postprocedural states; Z88.1 Allergy status to other antibiotic agents; Z88.2 Allergy status to sulfonamides
CPT/HCPCS: 36415; 80048; 81001; 85025

== ENCOUNTER 2024-08-05 19:18 | Inpatient (IN) | payer MEDICARE, MEDICAID ==
[~2024-08-05] VITALS: Ht 177.8 cm; Wt 75.3 kg
[~2024-08-05 19:18] MED LIST changes: +CIPR-173 PO
--- NOTE | 2024-08-05 19:38 | ED.PDOC ---
History of Present Illness HPI Comments 73-year-old male who came to ER by EMS due to generalized weakness. Patient does have hypertension, diabetes, CHF, recurrent UTIs, status post right AKA, left foot amputation. Patient picked up at home, where family members noted patient to be generally weak. Was noted to be confused at times, having occasional hallucinations. Patient recently seen here for UTIs. Chief Complaint: Weakness Time Seen by MD: 19:37 Primary Care Provider: FABRICE EDWARDS Reviewed Notes: Administrative Dietitian Notes Allergies: Coded Allergies: Vancomycin (Verified Allergy, Severe, 12/14/20) PER PATIENT, STATES IT CAUSED HIM KIDNEY FAILURE Sulfamethoxazole w/Trimethoprim (Verified Allergy, Unknown, 12/11/20) Clindamycin (Verified Adverse Reaction, Intermediate, BREAKS OUT IN SWEAT, 12/11/20) Home Meds Active Scripts Ciprofloxacin Hcl (Cipro) 500 Mg Tab, 1 TAB PO BID, #14 TAB Prov:CATHERINE JACKSON MD 08/02/24 Reported Medications Duloxetine Hcl (Cymbalta) 20 Mg Cap, 1 CAP PO DAILY, #30 CAP 2 Refills 07/14/24 Fluconazole (Fluconazole) 200 Mg Tab, 1 TAB PO BID for 5 Days, #10 07/14/24 Duloxetine HCl (Duloxetine HCl) 30 Mg Cap, 1 CAP PO BID for 30 Days, #60 07/14/24 Pantoprazole Sodium Sesquihydr (Pantoprazole Sodium) 40 Mg Tab, 1 TAB PO DAILY for 90 Days, #90 05/15/24 Insulin Glargine (Lantus) 100 Unit/Ml Inj, 30 UNIT SC BID for 100 Days, #60 05/15/24 Aspirin (Aspirin Low Dose) 81 Mg Tab, 1 TAB PO DAILY for 90 Days, #90 05/15/24 Atorvastatin Calcium (Lipitor) 40 Mg Tab, 1 TAB PO DAILY for 90 Days, #90 10/01/23 Furosemide (Furosemide) 20 Mg Tab, 1 TAB PO DAILY for 90 Days, #90 05/01/23 Information Source: Patient, Emergency Med Personnel Mode of Arrival: EMS Severity: Moderate Timing: Days Duration: Intermittent Review of Systems REVIEW OF SYSTEMS: No fever, no chills, or fatigue HEENT: No sore throat, no earache, no congestion, no neck pain. Cardiac: No chest pain. No palpitations. Lungs: No shortness of breath, no cough. GI: No nausea, no vomiting, no diarrhea, no constipation, no abdominal pain : No dysuria, frequency, or urgency. No hematuria. Musculoskeletal: No joint pain , no joint swelling, no extremity edema. Skin: No rash, no itching. Neuro: No headache, no dizziness, no weakness Vital Signs Vital Signs Date Time Temp Pulse Resp B/P (MAP) Pulse Ox O2 Delivery O2 Flow Rate FiO2 08/05/24 19:18 98.3 110 14 124/70 (88) 98 Physical Exam General: Awake, alert and oriented. No acute distress. Skin: Skin in warm, dry and intact. Appropriate color for ethnicity. Nailbeds pink with no cyanosis. HEENT: The head is normocephalic and atraumatic. Conjunctivae are clear without exudates or hemorrhage. Sclera is non-icteric. EOM are intact. No signs of nystagmus. Eyelids are normal in appearance without swelling or lesions. Oral mucosa is pink and moist Neck: The neck is supple with normal range of motion. No JVD. Cardiac: Heart rate and rhythm are normal. No murmurs, gallops, or rubs are auscultated. Respiratory: No signs of respiratory distress. Lung sounds are clear in all lobes bilaterally without rales, ronchi, or wheezes. Abdominal: Abdomen is soft, non-tender without distention. Bowel sounds are present and normoactive in all four quadrants. Extremities: Upper and lower extremities are atraumatic in appearance without deformity or edema. Neurological: The patient is awake, alert and oriented to person, place, and time with normal speech. Speech is clear. There is no facial asymmetry. Psychiatric: Appropriate mood and affect. Good judgement and insight. No visual or auditory hallucinations. Past Medical History PAST MEDICAL HISTORY: CHF, COPD, DM, High Lipids, HTN, UTI'S Surgical History: AKA (Right) Surgical History (Other): Left foot amputation Family History Family History: Reviewed,noncontributory to illness Social History Smoker: Non-Smoker Alcohol: Denies ETOH Use Drugs: Denies Drug Use Lives In: Home Was a procedure done? Was a procedure done?: No Differential Dx Considerations may include: Anemia, electrolyte imbalance, sepsis, UTI, pneumonia X-Ray, Labs, Meds, VS Vital Signs Date Time Temp Pulse Resp B/P (MAP) Pulse Ox O2 Delivery O2 Flow Rate FiO2 08/05/24 19:18 98.3 110 14 124/70 (88) 98 Lab Test 08/05/24 20:11 Range/Units White Blood Count 10.2 4.4-10.8 10^3/uL Red Blood Count 4.07 L 4.5-5.90 10^6/uL Hemoglobin 10.4 L 13.5-17.5 g/dL Hematocrit 31.4 L 41.0-53.0 % Mean Corpuscular Volume 77.3 L 80.0-100.0 fL Mean Corpuscular Hemoglobin 25.6 L 28.0-32.0 pg Mean Corpuscular Hemoglobin Concent 33.2 32.0-36.0 g/dL Red Cell Distribution Width 16.3 H 11.8-14.3 % Platelet Count 304 140-450 10^3/uL Mean Platelet Volume 7.3 6.9-10.8 fL Neutrophils (%) (Auto) 63.1 37.0-80.0 % Lymphocytes (%) (Auto) 23.4 10.0-50.0 % Monocytes (%) (Auto) 8.9 0.0-12.0 % Eosinophils (%) (Auto) 3.6 0.0-7.0 % Basophils (%) (Auto) 1.0 0.0-2.0 % Neutrophils # (Auto) 6.4 1.6-8.6 10 ^3/uL Lymphocytes # (Auto) 2.4 0.4-5.4 10 ^3/uL Monocytes # (Auto) 0.9 0-1.3 10 ^3/uL Eosinophils # (Auto) 0.4 0-0.8 10 ^3/uL Basophils # (Auto) 0.1 0-0.2 10 ^3/uL Nucleated Red Blood Cells 0.1 % Prothrombin Time 11.4 9.3-11.8 sec Prothrombin Time INR 1.08 0.9-1.15 Sodium Level 140 136-145 mmol/L Potassium Level 3.8 3.5-5.1 mmol/L Chloride Level 108 H 98-107 mmol/L Carbon Dioxide Level 22 20-31 mmol/L Anion Gap 10 5-15 Blood Urea Nitrogen 32 H 9-23 mg/dL Creatinine 1.24 0.700-1.30 mg/dL Glomerular Filtration Rate Calc 61 >90 mL/min BUN/Creatinine Ratio 25.8 H 10.0-20.0 Serum Glucose 74 # 74-106 mg/dL Lactic Acid Level 1.2 0.4-2.0 mmol/L Calcium Level 9.3 8.7-10.4 mg/dL Total Bilirubin 0.3 0.2-1.0 mg/dL Aspartate Amino Transferase (AST) 163 H 13-40 U/L Alanine Aminotransferase (ALT) 46 H 7-40 U/L Alkaline Phosphatase 109 46-116 U/L Total Protein 8.0 5.7-8.2 g/dL Albumin 3.7 3.2-4.8 g/dL Current Medications Medications (Trade) Dose Ordered Sig/Colin Route Start Time Stop Time Status Last Admin Sodium Chloride 1,000 ml @ 1,000 mls/hr Q1H ONCE IV 08/05/24 19:30 08/05/24 20:29 DC 08/06/24 01:13 CHEST RADIOGRAPH Indication: Suspected Sepsis Technique: Single frontal view of the chest was obtained COMPARISON: XY CHEST PORTABLE on DOS: 07/15/24, XY CHEST PORTABLE on DOS: 11/25/23, XY CHEST PORTABLE on DOS: 10/05/23, XY CHEST PORTABLE on DOS: 10/04/23, XY CHEST PORTABLE on DOS: 10/03/23 FINDINGS: Lines and Tubes: None Lungs: Chronic increased interstitial opacities are again noted in both lungs with mid to lower lung zone predominance greater on the left side. Pleura: No effusion. No pneumothorax. Cardiomediastinal contours: Unremarkable Bones: Unremarkable IMPRESSION: Chronic increased interstitial opacities in both lungs likely related to interstitial lung disease. No definite acute abnormality identified. Time of 1ST Reevaluation: 19:33 Reevaluation 1ST: Unchanged Patient Education/Counseling: Diagnosis, Treatment Family Education/Counseling: No Family Present Departure 1 Departure Time of Disposition: 23:59 Impression: Primary Impression: Sepsis Additional Impressions: Amputation stump infection Altered mental status Disposition: ADMITTED INPATIENT Condition: Stable Comments 77-year-old male likely septic. Antibiotics, IV fluids initiated in the emergency department. Source is likely infected ulcer of the left foot amputation. Extensive evaluation was performed in attempt to identify or rule out: (See differential diagnosis section) The following tests were ordered, and results were reviewed by me: (See diagnostic results section) The following test were independently interpreted by me: N/A I reviewed and agreed with the following test results read by other providers: Chest x-ray, CT head I reviewed the following notes from the pt's past medical encounters: N/A Additional information was gathered from interviewing the following independent historians: EMS personnel Discussion of management or test interpretation with external physician/other qualified health resident care aide: N/A Decision regarding hospitalization or escalation of hospital level of care: Risk and benefits of admission for further treatment of patient's condition was considered. Due to patient's current clinical condition, high risk of decline and poor outcome if discharged and need for further inpatient management and monitoring, patient will be admitted to the hospital. Critical Care Note Critical Care Time?: No Stability Stability form required: No Heart Score Heart Score: Heart Score Response (Comments) Value History N/A 0 EKG N/A 0 Age N/A 0 Risk Factors N/A 0 Troponin N/A 0 Total 0 I personally scribed for ERA HUBBARD MD ([email or web address]) on 08/05/24 at 19:38. Electronically submitted by Jae Newell ([email or web address]). I personally scribed for ERA HUBBARD MD ([email or web address]) on 08/05/24 at 22:16. Electronically submitted by Jae Newell ([email or web address]). ERA HUBBARD MD Aug 05, 2024 19:38
[2024-08-05 20:27] LABS: Basophils # (auto) 0.1 10 ^3/uL (0-0.2); Eosinophils # (auto) 0.4 10 ^3/uL (0-0.8); Eosinophils % (auto) 3.6 % (0.0-7.0); Hematocrit 31.4 % (41.0-53.0); Hemoglobin 10.4 g/dL (13.5-17.5); Lymphocytes # (auto) 2.4 10 ^3/uL (0.4-5.4); Lymphocytes % (auto) 23.4 % (10.0-50.0); Mean Corpuscular Hemoglobin 25.6 pg (28.0-32.0); Mean Corpuscular Hgb Conc. 33.2 g/dL (32.0-36.0); Mean Corpuscular Volume 77.3 fL (80.0-100.0); Monocytes # (auto) 0.9 10 ^3/uL (0-1.3); Monocytes % (auto) 8.9 % (0.0-12.0); Neutrophils # (auto) 6.4 10 ^3/uL (1.6-8.6); Neutrophils % (auto) 63.1 % (37.0-80.0); Nucleated Red Blood Cells % 0.1 %; Platelet Count (auto) 304 10^3/uL (140-450); Red Blood Cells 4.07 10^6/uL (4.5-5.90); Red Cell Distribution Width 16.3 % (11.8-14.3); White Blood Cell 10.2 10^3/uL (4.4-10.8)
[2024-08-05 20:42] LABS: INR 1.08 (0.9-1.15); Prothrombin Time 11.4 sec (9.3-11.8)
[2024-08-05 20:57] LABS: Alkaline Phosphatase 109 U/L (46-116); Anion Gap 10 (5-15); BUN/Creatinine Ratio 25.8 (10.0-20.0); Calcium 9.3 mg/dL (8.7-10.4); Carbon Dioxide 22 mmol/L (20-31); Potassium 3.8 mmol/L (3.5-5.1); Sodium 140 mmol/L (136-145)
[2024-08-05 20:58] LABS: Albumin 3.7 g/dL (3.2-4.8); Bilirubin, Total 0.3 mg/dL (0.2-1.0)
[2024-08-05 20:59] LABS: Alanine Aminotransferase 46 U/L (7-40); Aspartate Aminotransferase 163 U/L (13-40); Blood Urea Nitrogen 32 mg/dL (9-23); Chloride 108 mmol/L (98-107); Glucose 74 mg/dL (74-106)
--- NOTE | 2024-08-05 21:09 | DVH ---
CHEST RADIOGRAPH Indication: Suspected Sepsis Technique: Single frontal view of the chest was obtained COMPARISON: XY CHEST PORTABLE on DOS: 07/15/24, XY CHEST PORTABLE on DOS: 11/25/23, XY CHEST PORTABLE o n DOS: 10/05/23, XY CHEST PORTABLE on DOS: 10/04/23, XY CHEST PORTABLE on DOS: 10/03/23 FINDINGS: Lines and Tubes: None Lungs: Chronic increased interstitial opacities are again noted in both lungs with mid to lower lung zone predominance greater on the left side. Pleura: No effusion. No pneumothorax. Cardiomediastinal contours: Unremarkable Bones: Unremarkable IMPRESSION: Chronic increased interstitial opacities in both lungs likely related to interstitial lung disease. No definite acute abnormality identified.
[2024-08-06] MEDS ORDERED: NITROGLYCERIN 0.4 MG SL TAB SL PRN (00:15)
[2024-08-06] MEDS ORDERED: DOCUSATE SOD 100 MG CAP PO PRN (00:15)
[2024-08-06] MEDS ORDERED: MORPHINE SULFATE INJ 2 MG/ml SYRG IV PRN (00:15)
[2024-08-06] MEDS ORDERED: ONDANSETRON HCL 4 MG/2 ML VIAL IV PRN (00:15)
[2024-08-06] MEDS ORDERED: IBUPROFEN 600 MG TAB PO PRN (00:15)
--- NOTE | 2024-08-06 00:29 | DVHHP2 ---
History of Present Illness Reason for Visit: Generalized weakness History of Present Illness The patient is a 73-year-old male with multiple past medical history including CHF, COPD, DM, and hypertension who presented to [facility] ED with complaint of generalized weakness. Family member noticed patient getting very weak, confused, occasionally hallucination, getting worse that prompted this visit. Patient was recently diagnosed for UTIs. Patient was seen and evaluated in the ED, laboratory data shows WBC 10.2, hemoglobin 10 four, hematocrit 314, platelets 304, sodium 140, potassium 3.8, BUN 32, creatinine 1.24, GFR 61, glucose 74, AST 162, ALT 46, blood pressure 124/70, heart rate 110, temperature 98.3 F, O2 saturation 98% on room air. Left lower extremity CT revealing osteomyelitis of the remaining navicular bone and distal calcaneus with bony irregularity, lucency and sclerosis. Chest x-ray revealing increased interstitial opacity in both lungs likely related to interstitial lung disease. Patient was started on IV antibiotic regimen Zosyn, please see medication orders section in the computer. On my assessment, patient denied chest pain, no headache, no dizziness, no diaphoresis, no nausea, no vomiting, chills. Patient was admitted for further evaluation and medical management. Past Medical History CHF, COPD, DM, High Lipids, HTN, UTI'S Past Surgical History AKA (Right), Left foot amputation Family History Reviewed, noncontributory to the management of this case. Past Social History The patient lives at home, denies smoking, alcohol or illicit drugs abuse. Review of Systems Constitutional: Yes: Weakness; No: Fever, Chills, Sweats, Malaise, Other Eyes: No: Pain, Vision change, Conjunctivae inflammation, Eyelid inflammation, Other, Redness ENT: No: Ear pain, Ear discharge, Nose pain, Nose discharge, Nose congestion, Mouth pain, Mouth swelling, Throat pain, Throat swelling, Other Respiratory: No: Cough, Dry, Shortness of breath, SOB with excertion, Wheezing, Hemoptysis, Pleuritic Pain, Sputum, Wheezing, Other Cardiovascular: No: Chest Pain, Palpitations, Orthopnea, Paroxysmal Noc. Dyspnea, Edema, Lt Headedness, Other Gastrointestinal: No: Nausea, Vomiting, Abdominal Pain, Diarrhea, Constipation, Melena, Hematochezia, Other Genitourinary: No Dysuria, No Frequency, No Incontinence, No Hematuria, No Retention, No Other Musculoskeletal: other (Right AKA, left foot amputation); No: neck pain, shoulder pain, arm pain, back pain, hand pain, leg pain, foot pain Skin: Other (Left foot infection); No: Rash, Lesions, Jaundice, Bruising Neurological: No: Weakness, Numbness, Incoordination, Change in speech, Confusion, Seizures, Other Allergies: Coded Allergies: Vancomycin (Verified Allergy, Severe, 12/14/20) PER PATIENT, STATES IT CAUSED HIM KIDNEY FAILURE Sulfamethoxazole w/Trimethoprim (Verified Allergy, Unknown, 12/11/20) Clindamycin (Verified Adverse Reaction, Intermediate, BREAKS OUT IN SWEAT, 12/11/20) Exam Vital Signs Vital Signs Date Time Temp Pulse Resp B/P (MAP) Pulse Ox O2 Delivery O2 Flow Rate FiO2 08/05/24 19:18 98.3 110 14 124/70 (88) 98 General Appearance: Alert, Cooperative, No acute distress, Other (Oriented x2) HEENT: Atraumatic, PERRLA, EOMI, Mucous membr. moist/pink Respiratory: Clear to auscultation, Normal air movement Cardiovascular: Regular rate, Normal S1, Normal S2, No murmurs Abdominal: Normal bowel sounds, Soft, No tenderness, No hepatospenomegaly, No masses Extremities: No clubbing, No cyanosis, No edema, Normal pulses, Other (Left foot tenderness) Skin: No breakdown Neuro: Normal speech, Normal tone, Sensation intact, Cranial nerves 3-12 NL, Reflexes 2+, Other (Unsteady gait) Psych/Mental Status: Mental status NL, Mood NL Labs/Xrays Labs Test 08/05/24 20:11 Range/Units White Blood Count 10.2 4.4-10.8 10^3/uL Red Blood Count 4.07 L 4.5-5.90 10^6/uL Hemoglobin 10.4 L 13.5-17.5 g/dL Hematocrit 31.4 L 41.0-53.0 % Mean Corpuscular Volume 77.3 L 80.0-100.0 fL Mean Corpuscular Hemoglobin 25.6 L 28.0-32.0 pg Mean Corpuscular Hemoglobin Concent 33.2 32.0-36.0 g/dL Red Cell Distribution Width 16.3 H 11.8-14.3 % Platelet Count 304 140-450 10^3/uL Mean Platelet Volume 7.3 6.9-10.8 fL Neutrophils (%) (Auto) 63.1 37.0-80.0 % Lymphocytes (%) (Auto) 23.4 10.0-50.0 % Monocytes (%) (Auto) 8.9 0.0-12.0 % Eosinophils (%) (Auto) 3.6 0.0-7.0 % Basophils (%) (Auto) 1.0 0.0-2.0 % Neutrophils # (Auto) 6.4 1.6-8.6 10 ^3/uL Lymphocytes # (Auto) 2.4 0.4-5.4 10 ^3/uL Monocytes # (Auto) 0.9 0-1.3 10 ^3/uL Eosinophils # (Auto) 0.4 0-0.8 10 ^3/uL Basophils # (Auto) 0.1 0-0.2 10 ^3/uL Nucleated Red Blood Cells 0.1 % Prothrombin Time 11.4 9.3-11.8 sec Prothrombin Time INR 1.08 0.9-1.15 Sodium Level 140 136-145 mmol/L Potassium Level 3.8 3.5-5.1 mmol/L Chloride Level 108 H 98-107 mmol/L Carbon Dioxide Level 22 20-31 mmol/L Anion Gap 10 5-15 Blood Urea Nitrogen 32 H 9-23 mg/dL Creatinine 1.24 0.700-1.30 mg/dL Glomerular Filtration Rate Calc 61 >90 mL/min BUN/Creatinine Ratio 25.8 H 10.0-20.0 Serum Glucose 74 # 74-106 mg/dL Lactic Acid Level 1.2 0.4-2.0 mmol/L Calcium Level 9.3 8.7-10.4 mg/dL Total Bilirubin 0.3 0.2-1.0 mg/dL Aspartate Amino Transferase (AST) 163 H 13-40 U/L Alanine Aminotransferase (ALT) 46 H 7-40 U/L Alkaline Phosphatase 109 46-116 U/L Total Protein 8.0 5.7-8.2 g/dL Albumin 3.7 3.2-4.8 g/dL PATIENT: TIFFANY ELY AACCT: [id number] UNIT: [id number] : 1950 LOC: TELE ROOM / BED: 1021-ERT / A AGE / SEX: 73 / M ADM STATUS: ADM IN SERVICE 16 ORDERING PHYSICIAN: ERA HUBBARD MD PROCEDURE(s): LLEX - LEFT LOWER EXTREMITY W/O CON REASON: Left lower extremity amputation wound, left lower extremity ORDER NUMBER(s): [id number], ACCESSION NUMBER(s): [id number] INDICATION: Left lower extremity amputation wound, left lower extremity COMPARISON: None TECHNIQUE: CT of the left lower extremity at and below the level of the right knee was performed without contrast. Volume transverse images were obtained and reconstructed in multiple planes using bone and soft tissue algorithms. All CT scans at this medical facility are performed using dose modulation techniques as appropriate to a performed exam including the following: Automated exposure control was utilized; adjustment of the MA and/or KV according to patient size; and use of iterative reconstruction technique. FINDINGS: Prior amputation of the left foot hindfoot with the calcaneus and talus remaining. There some motion artifact on this examination. There is bony demineralization and normal alignment. There is no acute fracture. There is bony irregularity, sclerosis and lucency of the distal calcaneus and in the remaining navicular bone. There is soft tissue swelling and irregularity overlying the amputation site at the anterior and plantar aspect. Calcified atherosclerosis is present. No knee joint effusion. No well-formed fluid collection or soft tissue gas IMPRESSION: 1. Osteomyelitis of the remaining navicular bone and distal calcaneus with bony irregularity, lucency and sclerosis. This May have chronic and acute components. 2. Prior amputation of the left foot with the hindfoot remaining. There is soft tissue swelling in irregularity of the soft tissue at the amputation margin. 3. No acute fracture. 4. Bony demineralization. ORDERING PHYSICIAN: ERA HUBBARD MD PROCEDURE(s): HWOCT - HEAD WITHOUT CONTRAST REASON: Altered mental status ORDER NUMBER(s): [id number], ACCESSION NUMBER(s): [id number] CT HEAD WITHOUT CONTRAST INDICATION: Altered mental status COMPARISON: CT HEAD WITHOUT CONTRAST on DOS: 11/25/23 TECHNIQUE: CT of the head without intravenous contrast. RADIATION DOSE: CTDIvol: mGy, DLP: mGy*cm FINDINGS: There is no evidence of intracranial hemorrhage, acute infarct, extra-axial collection, mass effect, midline shift, herniation or hydrocephalus. The ventricles, sulci and cisterns are age appropriate. Mild chronic white matter microvascular ischemic changes. Visualized paranasal sinuses and mastoid air cells are clear. Soft tissues and osseous structures are unremarkable. IMPRESSION: No acute intracranial abnormality idenified. No significant change compared to the prior CT scan from October 2023. ORDERING PHYSICIAN: ERA HUBBARD MD PROCEDURE(s): CXR1 - CHEST XRAY 1 VIEW REASON: Suspected Sepsis ORDER NUMBER(s): [id number], ACCESSION NUMBER(s): [id number] CHEST RADIOGRAPH Indication: Suspected Sepsis Technique: Single frontal view of the chest was obtained COMPARISON: XY CHEST PORTABLE on DOS: 07/15/24, XY CHEST PORTABLE on DOS: 11/25/23, XY CHEST PORTABLE on DOS: 10/05/23, XY CHEST PORTABLE on DOS: 10/04/23, XY CHEST PORTABLE on DOS: 10/03/23 FINDINGS: Lines and Tubes: None Lungs: Chronic increased interstitial opacities are again noted in both lungs with mid to lower lung zone predominance greater on the left side. Pleura: No effusion. No pneumothorax. Cardiomediastinal contours: Unremarkable Bones: Unremarkable IMPRESSION: Chronic increased interstitial opacities in both lungs likely related to interstitial lung disease. No definite acute abnormality identified. Assessment/Plan Assessment/Plan Amputation stump infection Altered mental status Osteomyelitis of the left foot Elevated liver enzymes Generalized weakness Plan 1. Admit to telemetry unit 2. Breathing treatment 3. Pain control management 4. IV antibiotic management 5. Management of fluids and electrolytes 6. Consultation for hospitalist/wound care 7. Diagnostic test left foot CT 8. DVT prophylaxis-on aspirin 9. Repeat labs CBC, CMP in a.m. 10. Home medication reviewed and reconciled 11. Continue with current medical management 12. Treatment plan discussed with patient and RN. Patient verbalized understanding. Plan discussed with: Patient, Other (RN) My Orders Orders - ARAVIND MUNOZ DNP Procedure Category Date Status Time Complete Blood Count LAB 08/06/24 Verified 04:00 Comprehensive LAB 08/06/24 Verified Metabolic Panel 04:00 Ibuprofen Tablet PHA 08/06/24 Verified (Motrin Tablet) 00:15 Ceftriaxone Ivpb PHA 08/06/24 Verified Rocephin 09:00 Admit ADMIT 08/06/24 Verified 00:14 Allergies KWAME 08/06/24 Verified 00:14 Code Status CODE 08/06/24 Verified 00:14 Sodium Chloride Lock PHA 08/06/24 Verified (Saline Lock Ns) 06:00 Oxygen Per Hour RT 08/06/24 Verified 00:14 Hydrocodone-Acet PHA 08/06/24 Verified 5/325mg Tab ([place] 00:15 Ondansetron Hcl PHA 08/06/24 Verified (Zofran) 00:15 Docusate Sodium PHA 08/06/24 Verified Capsule (Colace 00:15 Complete Blood Count LAB 08/07/24 Verified 04:00 Comprehensive LAB 08/07/24 Verified Metabolic Panel 04:00 Cardiac DIET 08/06/24 Verified Diet-2gna,Lofat,Lochol Breakfast Condition: Serious KWAME 08/06/24 Verified 00:14 Bedrest With Bathroom [facility] 08/06/24 Verified Privileg 00:14 Sequential [facility] 08/06/24 Verified Compression Device Nitroglycerin [facility] 08/06/24 Verified Sublingual (Ntrostat 00:15 Morphine Sulfate PHA 08/06/24 Verified Injection 00:15 Notify Md Of Changes [facility] 08/06/24 Verified From Base 00:14 Teletype Operator For [facility] 08/06/24 Verified 24 Hours 00:14 Emergency Dysrhythmia [facility] 08/06/24 Verified Protocol 00:14 Rhythm Strips Once [facility] 08/06/24 Verified Every Shift 00:14 Oxygen By Nasal RT 08/06/24 Verified Cannula 00:14 Aspirin Tablet [facility] 08/06/24 Verified 10:00 Atorvastatin (Lipitor) PHA 08/06/24 Verified 22:00 Famotidine Injection [facility] 08/06/24 Verified (Pepcid Injection) 10:00 Problem List: (1) Amputation stump infection (2) Altered mental status (3) Osteomyelitis of left foot (4) Elevated liver enzymes (5) Generalized weakness Date of Service: Aug 06, 2024 Billing Provider: ARAVIND MUNOZ DNP Common Visit Codes: [id number] INP/OBS CARE (HIGH) ARAVIND MUNOZ DNP Aug 06, 2024 00:29
--- NOTE | 2024-08-06 00:42 | DVH ---
CT HEAD WITHOUT CONTRAST INDICATION: Altered mental status COMPARISON: CT HEAD WITHOUT CONTRAST on DOS: 11/25/23 TECHNIQUE: CT of the head without intravenous contrast. RADIATION DOSE: CTDIvol: mGy, DLP: mGy*cm FINDINGS: There is no evidence of intracranial hemorrhage, acute infarct, extra-axial collection, mass effect, midline shift, herniation or hydrocephalus. The ventricles, sulci and cisterns are age appropriate. Mild chronic white matter microvascular ischemic changes. Visualized paranasal sinuses and mastoid air cells are clear. Soft tissues and osseous structures are unremarkable. IMPRESSION: No acute intracranial abnormality idenified. No significant change compared to the prior CT scan from October 2023.
[2024-08-06] MEDS: SODIUM CHLORIDE 0.9% 1,000 ML IV ONE ×3 (01:13→05:04)
--- NOTE | 2024-08-06 01:54 | DVH ---
INDICATION: Left lower extremity amputation wound, left lower extremity COMPARISON: None TECHNIQUE: CT of the left lower extremity at and below the level of the right knee was performed with out contrast. Volume transverse images were obtained and reconstructed in multiple planes using bone and soft tissue algorithms. All CT scans at this medical facility are performed using dose modulation techniques as appropriate t o a performed exam including the following: Automated exposure control was utilized; adjustment of th e MA and/or KV according to patient size; and use of iterative reconstruction technique. FINDINGS: Prior amputation of the left foot hindfoot with the calcaneus and talus remaining. There some motion artifact on this examination. There is bony demineralization and normal alignment. There is no acute fracture. There is bony irregularity, sclerosis and lucency of the distal calcaneus and in the remain ing navicular bone. There is soft tissue swelling and irregularity overlying the amputation site at t he anterior and plantar aspect. Calcified atherosclerosis is present. No knee joint effusion. No wel l-formed fluid collection or soft tissue gas IMPRESSION: 1. Osteomyelitis of the remaining navicular bone and distal calcaneus with bony irregularity, lucency and sclerosis. This May have chronic and acute components. 2. Prior amputation of the left foot with the hindfoot remaining. There is soft tissue swelling in ir regularity of the soft tissue at the amputation margin. 3. No acute fracture. 4. Bony demineralization.
[2024-08-06] MEDS: cefTRIAXone 1GM/50ML D5W 50 ML IV ONE (02:56)
[2024-08-06] MEDS: MORPHINE SULFATE INJ 2 MG/ml SYRG IV PRN (04:02)
[2024-08-06 04:21] LABS: COVID19 ANTIGEN SOFIA FIA NEGATIVE (NEGATIVE); Rapid Influenza A Negative (Negative); Rapid Influenza B Negative (Negative)
[2024-08-06] MEDS: SODIUM CHLOR 0.9% PF (SALINE LOCK) 10ML VIAL/SYR IV SCH (05:04)
[2024-08-06 07:30] VITALS: PULSE 87; RESP 14; O2SAT 98
[2024-08-06] MEDS: ASPirin 81 mg TAB PO SCH (10:09)
[2024-08-06] MEDS: FAMOTIDINE (10MG/ML) 2ML VL IV SCH (10:10)
[2024-08-06] MEDS: ERTAPENEM SOD INJ 1 GM in SODIUM CHL 0.9% 50 ML IV SCH (10:32)
[2024-08-06 11:14] LABS: Basophils # (auto) 0.1 10 ^3/uL (0-0.2); Eosinophils # (auto) 0.4 10 ^3/uL (0-0.8); Monocytes # (auto) 0.7 10 ^3/uL (0-1.3); Nucleated Red Blood Cells % 0.1 %
[2024-08-06 11:16] LABS: Basophils % (auto) 0.9 % (0.0-2.0); Eosinophils % (auto) 5.1 % (0.0-7.0); Hematocrit 29.7 % (41.0-53.0); Hemoglobin 9.9 g/dL (13.5-17.5); Lymphocytes # (auto) 1.7 10 ^3/uL (0.4-5.4); Lymphocytes % (auto) 21.3 % (10.0-50.0); Mean Corpuscular Hemoglobin 25.9 pg (28.0-32.0); Mean Corpuscular Hgb Conc. 33.2 g/dL (32.0-36.0); Mean Corpuscular Volume 77.9 fL (80.0-100.0); Neutrophils % (auto) 63.7 % (37.0-80.0); Platelet Count (auto) 267 10^3/uL (140-450); Red Blood Cells 3.82 10^6/uL (4.5-5.90); White Blood Cell 7.8 10^3/uL (4.4-10.8)
[2024-08-06 11:25] LABS: Urine Bacteria None Seen /hpf (None Seen)
[2024-08-06 11:34] LABS: Albumin 3.5 g/dL (3.2-4.8); Alkaline Phosphatase 99 U/L (46-116); Anion Gap 11 (5-15); BUN/Creatinine Ratio 23.9 (10.0-20.0); Bilirubin, Total 0.3 mg/dL (0.2-1.0); Calcium 8.8 mg/dL (8.7-10.4); Carbon Dioxide 22 mmol/L (20-31); Potassium 3.7 mmol/L (3.5-5.1); Sodium 142 mmol/L (136-145); Total Protein 7.5 g/dL (5.7-8.2)
[2024-08-06 11:41] LABS: Alanine Aminotransferase 52 U/L (7-40); Aspartate Aminotransferase 177 U/L (13-40); Blood Urea Nitrogen 28 mg/dL (9-23); Chloride 109 mmol/L (98-107); Glucose 116 mg/dL (74-106)
[2024-08-06 11:55] LABS: Opiate Scree,Urine Neg (NEGATIVE)
[2024-08-06 11:58] LABS: Urine Blood 1+ /uL (Negative); Urine Clarity Clear (Clear); Urine Color Yellow (Yellow); Urine Protein, UAD 1+ (Negative); Urine Specific Gravity 1.022 (1.001-1.035); Urine Squamous Epithelial Cell None Seen /hpf (<5); Urine Urobilinogen Normal (Negative); Urine WBC 1 /HPF (0-3); Urine pH 5.5 (5.0-9.0)
[2024-08-06] MEDS: LIDOCAINE 2% JELLY 11ml (GLYDO) UR ONE (12:07)
[2024-08-06] MEDS: HYDROcodone-ACET 5/325MG TAB PO PRN (12:08)
[2024-08-06 12:09] LABS: Barbiturate Scree,Urine Neg (NEGATIVE); Phencyclidine Screen, Urine Neg (NEGATIVE)
[2024-08-06 12:10] LABS: Amphetamine Screen, Urine Neg (NEGATIVE); Benzodiazephine Screen, Urine Neg (NEGATIVE); Cannabinoid Screen, Urine Neg (NEGATIVE); Cocaine Screen, Urine Neg (NEGATIVE)
[2024-08-06] MEDS ORDERED: AMPICILLIN & SULBACTAM SODIUM 3 GM in SODIUM CHL 0.9% 100 ML IV SCH (12:30)
[2024-08-06] MEDS: LIDOCAINE 2% JELLY 11ml (GLYDO) ONE (13:53)
[2024-08-06] MEDS ORDERED: PIPERACILLIN-TAZOB 3.375GM 100 ML IV SCH (14:00)
--- NOTE | 2024-08-06 17:27 | DVHPNRES ---
Progress Note Date Seen: Aug 06, 2024 Resident Creating Document: JAMISON COHEN RESIDENT Medical Necessity Reason Pt with a Central, PICC or Fol: No Subjective Review of Systems This is a 73-year-old male with past medical history of CHF, COPD, type 2 diabetes mellitus, hypertension, osteomyelitis, right sided s/p above knee amputation, and Lt sided s/p partial amputation with nonhealing wound in the stump presented to the ED with a chief complaint of altered mental status and generalized weakness. According to the family they noticed the patient getting very weak, confused, occasional hallucination getting worse that prompted this visit. Patient was seen and examined on the bedside. he is alert oriented x2. complaint of fatigue, generalized weakness and leg pain. no other active complaint Constitutional: No: Fever, Chills, Sweats, Weakness, Malaise, Other Eyes: No: Pain, Vision change, Conjunctivae inflammation, Eyelid inflammation, Other, Redness ENT: No: Ear pain, Ear discharge, Nose pain, Nose discharge, Nose congestion, Mouth pain, Mouth swelling, Throat pain, Throat swelling, Other Respiratory: Shortness of breath, improving No: Cough, Dry,Wheezing, Hemoptysis, Pleuritic Pain, Sputum, Wheezing, Other Cardiovascular: No: Chest Pain, Palpitations, Orthopnea, Paroxysmal Noc. Dyspnea, Edema, Lt Headedness, Other Gastrointestinal: No: Nausea, Vomiting, Abdominal Pain, Diarrhea, Constipation, Melena, Hematochezia, Other Musculoskeletal: Leg pain, No: other, neck pain, shoulder pain, arm pain, back pain, hand pain, foot pain Neurological:; No: Weakness, Numbness, Incoordination, Change in speech, Confusion, Seizures Objective vital signs Vital Sign Date Time Temp Pulse Resp B/P (MAP) Pulse Ox O2 Delivery O2 Flow Rate FiO2 08/06/24 16:00 89 08/06/24 14:15 98.6 16 117/46 (69) 95 98.6 08/06/24 07:30 Nasal Cannula* 2 28 medications Current Medications Medications Dose Ordered Sig/Colin Route Start Time Stop Time Status Last Admin Dose Admin Ibuprofen 600 mg Q6HP PRN PO 08/06/24 00:15 Sodium Chloride 10 ml Q8HR IV 08/06/24 06:00 08/06/24 13:53 10 ML Acetaminophen/ Hydrocodone Bitart 1 tab Q4HP PRN PO 08/06/24 00:15 08/06/24 12:08 1 TAB Ondansetron HCl 4 mg Q4HP PRN IV 08/06/24 00:15 Docusate Sodium 100 mg BIDPRN PRN PO 08/06/24 00:15 Nitroglycerin 0.4 mg Q5MINP PRN SL 08/06/24 00:15 Morphine Sulfate 2 mg Q30M PRN IV 08/06/24 00:15 Aspirin 81 mg DAILY PO 08/06/24 10:00 08/06/24 10:09 81 MG Atorvastatin Calcium 20 mg HS PO 08/06/24 22:00 Famotidine 20 mg DAILY IV 08/06/24 10:00 08/06/24 10:10 20 MG Morphine Sulfate 2 mg Q4HPRN PRN IV 08/06/24 03:45 08/06/24 04:02 2 MG Ertapenem 1 gm/ Sodium Chloride 50 ml @ 100 mls/hr DAILY IV 08/06/24 10:00 08/06/24 10:32 100 MLS/HR Diagnostic Test (Pha) 1 strip ACHS 08/06/24 22:00 UNV Insulin Human Regular ACHS SC 08/06/24 22:00 UNV Dextrose 50 ml UD PRN IV 08/06/24 17:30 UNV Examination Physical examination: General Appearance: Alert, Oriented X3, Cooperative, No acute distress HEENT: Atraumatic, PERRLA, EOMI, Mucous membrane moist/pink Respiratory: Clear to auscultation, Normal air movement Cardiovascular: Regular rate, Normal S1, Normal S2, No murmurs, no chest wall tenderness Abdominal: Normal bowel sounds, Soft, No tenderness, No hepatospenomegaly, No masses Extremities: Rt sided above knee amputation, stump wound in Lt foot, No clubbing, No cyanosis, Normal pulses, No tenderness/swelling Skin: No rashes, No breakdown, No significant lesion Neuro: Normal gait, Normal speech, Strength at 5/5 X4 ext, Normal tone, Sensation intact, groosly intact cranial nerves. Psych/Mental Status: Mental status NL, Mood NL laboratory and microbiology Laboratory Tests 08/06/24 10:40 Test 08/06/24 10:40 Range/Units Serum Glucose 116 H 74-106 mg/dL Labs and/or images reviewed: Labs reviewed by me, Image(s) reviewed by me Problem List/Assessment/Plan Problem List/Assessment/Plan Assessment and plan: # Acute Metabolic versus toxic encephalopathy - CT head without contrast revealed no acute intracranial abnormality - TSH is normal and UDS negative - Ammonia is 18 - Patient was give 3 L IV bolus. # Possible osteomyelitis in the LT foot, s/p partial amputation of the Lt foot - CT of the left lower extremity revealed osteomyelitis of the remaining navicular bone and distal calcaneus with bony irregularity, lucency and sclerosis - Previous wound c/s of Lt stump was positive for ESBL, Enterococcus faecalis and Staph aureus. - IV ertapenem 1 g daily - Consulted Podiatry # Chronic COPD # Possible interstitial lung disease - Chest Xray showed Chronic increased interstitial opacities in both lungs likely related to interstitial lung disease. - Medneb with albuterol and ipratropium q.6 p.r.n. # Type 2 diabetes mellitus, HbA1C 8.7% - Mild sliding scale of insulin # Transaminitis without hyperbilirubinemia - Ordered hepatitis panel - Monitor CMP # PUD prophylaxis - Pepcid 20 mg p.o. daily # DVT prophylaxis - Lovenox 40 mg sc daily Goal of care discussed with the patient for more than 20 minutes full code Plan discussed with the Basim Plan discussed with: Patient, Other My Orders My Orders Orders - JAMISON COHEN Procedure Category Date Status Time Urinalysis LAB 08/06/24 Uncollected 08:15 Communication Order ORDERS 08/06/24 Transmitted 08:15 Ertapenem Sod Inj PHA 08/06/24 In Process (Invanz) 10:00 *Podiatry Consult CONS 08/06/24 Transmitted Musson(Dvmg) 12:08 Apply/Change Dressing KWAME 08/06/24 In Process 12:30 Glucose Blood PHA 08/06/24 Logged (Accu-Chek Comfort 22:00 Insulin R (Human) PHA 08/06/24 Logged (Insulin R) 22:00 Dextrose 50% Syringe PHA 08/06/24 Logged 17:30 Date of Service: Aug 06, 2024 Billing Provider: GIANA DELATORRE MD Common Visit Codes: [id number] INP/OBS CARE(HIGH) JAMISON COHEN Aug 06, 2024 17:27 GIANA DELATORRE MD Aug 10, 2024 09:50
[2024-08-06 19:45] VITALS: PULSE 98; RESP 16; O2SAT 94
[2024-08-06] MEDS ORDERED: cefTRIAXone 1GM/50ML D5W 50 ML IV SCH (21:00)
[2024-08-06] MEDS: ATORVASTATIN 20 MG TAB PO SCH (22:00)
[2024-08-06] MEDS: ACCU-CHEK COMFORT CURVE STRIP VI SCH (22:00)
[2024-08-06] MEDS: InsuLIN REG 1unit/0.01ml Soln (100units/ml) SC SCH (22:00)
[2024-08-06] MEDS: DEXTROSE (50%) 50ML SYRG IV PRN (22:56)
[2024-08-07 07:41] LABS: Basophils # (auto) 0.1 10 ^3/uL (0-0.2); Eosinophils # (auto) 0.7 10 ^3/uL (0-0.8); Eosinophils % (auto) 10.3 % (0.0-7.0); Lymphocytes # (auto) 1.9 10 ^3/uL (0.4-5.4); Neutrophils # (auto) 3.8 10 ^3/uL (1.6-8.6)
[2024-08-07 07:42] LABS: Basophils % (auto) 1.2 % (0.0-2.0); Hematocrit 32.2 % (41.0-53.0); Hemoglobin 10.6 g/dL (13.5-17.5); Lymphocytes % (auto) 26.6 % (10.0-50.0); Mean Corpuscular Hemoglobin 25.6 pg (28.0-32.0); Mean Corpuscular Hgb Conc. 33.1 g/dL (32.0-36.0); Mean Corpuscular Volume 77.3 fL (80.0-100.0); Monocytes # (auto) 0.6 10 ^3/uL (0-1.3); Monocytes % (auto) 8.5 % (0.0-12.0); Neutrophils % (auto) 53.4 % (37.0-80.0); Platelet Count (auto) 271 10^3/uL (140-450); Red Blood Cells 4.16 10^6/uL (4.5-5.90); Red Cell Distribution Width 16.2 % (11.8-14.3); White Blood Cell 7.1 10^3/uL (4.4-10.8)
[2024-08-07 07:52] VITALS: PULSE 86; RESP 20; O2SAT 100
[2024-08-07 08:02] LABS: Albumin 3.6 g/dL (3.2-4.8); Alkaline Phosphatase 101 U/L (46-116); Anion Gap 12 (5-15); BUN/Creatinine Ratio 18.1 (10.0-20.0); Bilirubin, Total 0.3 mg/dL (0.2-1.0); Blood Urea Nitrogen 19 mg/dL (9-23); Carbon Dioxide 22 mmol/L (20-31); Sodium 143 mmol/L (136-145); Total Protein 7.9 g/dL (5.7-8.2)
[2024-08-07 08:09] LABS: Alanine Aminotransferase 51 U/L (7-40); Aspartate Aminotransferase 131 U/L (13-40); Chloride 109 mmol/L (98-107); Glucose 70 mg/dL (74-106); Potassium 3.4 mmol/L (3.5-5.1)
--- NOTE | 2024-08-07 11:18 | DVHPNRES ---
Progress Note Date Seen: Aug 07, 2024 Resident Creating Document: JAMISON COHEN RESIDENT Medical Necessity Reason Pt with a Central, PICC or Fol: No Subjective Review of Systems This is a 73-year-old male with past medical history of CHF, COPD, type 2 diabetes mellitus, hypertension, osteomyelitis, right sided s/p above knee amputation, and Lt sided s/p partial amputation with nonhealing wound in the stump presented to the ED with a chief complaint of altered mental status and generalized weakness. According to the family they noticed the patient getting very weak, confused, occasional hallucination getting worse that prompted this visit. Patient was seen and examined on the bedside. He is alert oriented x2. complaint of fatigue, generalized weakness and leg pain. no other active complaint Objective vital signs Vital Sign Date Time Temp Pulse Resp B/P (MAP) Pulse Ox O2 Delivery O2 Flow Rate FiO2 08/07/24 08:00 85 08/07/24 07:52 98.7 20 115/55 (75) 100 98.7 08/07/24 07:52 Nasal Cannula* 1 24 medications Current Medications Medications Dose Ordered Sig/Colin Route Start Time Stop Time Status Last Admin Dose Admin Ibuprofen 600 mg Q6HP PRN PO 08/06/24 00:15 Sodium Chloride 10 ml Q8HR IV 08/06/24 06:00 08/07/24 06:00 10 ML Acetaminophen/ Hydrocodone Bitart 1 tab Q4HP PRN PO 08/06/24 00:15 08/06/24 12:08 1 TAB Ondansetron HCl 4 mg Q4HP PRN IV 08/06/24 00:15 Docusate Sodium 100 mg BIDPRN PRN PO 08/06/24 00:15 Nitroglycerin 0.4 mg Q5MINP PRN SL 08/06/24 00:15 Morphine Sulfate 2 mg Q30M PRN IV 08/06/24 00:15 Aspirin 81 mg DAILY PO 08/06/24 10:00 08/07/24 10:05 81 MG Atorvastatin Calcium 20 mg HS PO 08/06/24 22:00 Famotidine 20 mg DAILY IV 08/06/24 10:00 08/07/24 10:05 20 MG Morphine Sulfate 2 mg Q4HPRN PRN IV 08/06/24 03:45 08/06/24 04:02 2 MG Ertapenem 1 gm/ Sodium Chloride 50 ml @ 100 mls/hr DAILY IV 08/06/24 10:00 08/07/24 10:37 100 MLS/HR Diagnostic Test (Pha) 1 strip ACHS 08/06/24 22:00 08/07/24 07:07 1 STRIP Dextrose 50 ml UD PRN IV 08/06/24 17:30 08/06/24 22:56 50 ML Examination Physical examination: General Appearance: Alert, Oriented X3, Cooperative, No acute distress HEENT: Atraumatic, PERRLA, EOMI, Mucous membrane moist/pink Respiratory: Clear to auscultation, Normal air movement Cardiovascular: Regular rate, Normal S1, Normal S2, No murmurs, no chest wall tenderness Abdominal: Normal bowel sounds, Soft, No tenderness, No hepatosplenomegaly, No masses Extremities: Rt sided above knee amputation, stump wound in Lt foot with pus discharge Skin: No rashes, No breakdown, No significant lesion Neuro: Normal gait, Normal speech, Strength at 5/5 X4 ext, Normal tone, Sensation intact, groosly intact cranial nerves. Psych/Mental Status: Mental status NL, Mood NL laboratory and microbiology Laboratory Tests 08/07/24 07:28 Test 08/07/24 07:28 Range/Units Serum Glucose 70 L 74-106 mg/dL Microbiology Date/Time Source Procedure Growth Status 08/06/24 03:40 Foot Gram Stain Pending Resulted 08/06/24 03:40 Foot Wound Culture - Preliminary Resulted 08/05/24 20:11 Blood Blood Culture - Preliminary NO GROWTH AFTER 24 HOURS OF INCUBATION. Resulted Labs and/or images reviewed: Labs reviewed by me, Image(s) reviewed by me Problem List/Assessment/Plan Problem List/Assessment/Plan Assessment and plan: # Acute Metabolic versus toxic encephalopathy - CT head without contrast revealed no acute intracranial abnormality - TSH is normal and UDS negative - Ammonia is 18 - Patient was given 3 L IV bolus. # Possible osteomyelitis in the LT foot, s/p partial amputation of the Lt foot - CT of the left lower extremity revealed osteomyelitis of the remaining navicular bone and distal calcaneus with bony irregularity, lucency and sclerosis - Previous wound c/s of Lt stump was positive for ESBL, Enterococcus faecalis and Staph aureus. - IV ertapenem 1 g daily - Pending recommendation from the Podiatry # Chronic COPD # Possible interstitial lung disease - Chest x-ray showed Chronic increased interstitial opacities in both lungs likely related to interstitial lung disease. - MedNeb with albuterol and ipratropium q.6 p.r.n. # Type 2 diabetes mellitus, HbA1C 8.7% - Mild sliding scale of insulin # Transaminitis without hyperbilirubinemia - Ordered hepatitis panel - Monitor CMP # PUD prophylaxis - Pepcid 20 mg p.o. daily # DVT prophylaxis - Lovenox 40 mg sc daily Goal of care discussed with the patient for 20 minutes full code Plan discussed with Plan discussed with: Patient, Other (RN) My Orders My Orders Orders - JAMISON COHEN Procedure Category Date Status Time *Podiatry Consult CONS 08/06/24 Transmitted Musson([facility]) 12:08 Apply/Change Dressing KWAME 08/06/24 In Process 12:30 Glucose Blood PHA 08/06/24 In Process (Accu-Chek Comfort 22:00 Dextrose 50% Syringe PHA 08/06/24 In Process 17:30 Potassium Er Tablet PHA 08/07/24 Logged (Klor-Con Tablet) 11:00 Addendum Addendum Addendum I was physically present for the lopez portions of the service provided to patient by THE RESIDENT. I have reviewed the documentation, discussed the case with resident and agree with the resident's documentation except as noted. Also the patient's clinical case was discussed with the patient's nurse. This medical document was created using an electronic medical record system with computerized dictation system. Although this document has been carefully reviewed, there might still be some phonetic and typographical errors. These areas are purely typographical due to imperfections of the software programs, and do not reflect any compromise in the patient's medical care. Late signature. Date of Service: Aug 07, 2024 Billing Provider: ISREAL GREEN MD Common Visit Codes: [id number] INP/OBS CARE(HIGH) Secondary Visit Codes: [id number] CARE PLAN 30 MINUTES (20 minutes) JAMISON COHEN RESIDENT Aug 07, 2024 11:18 ISREAL GREEN MD Aug 09, 2024 06:45
[2024-08-07] MEDS: POTASSIUM CHL 20 Meq TABLET PO ONE (11:32)
[2024-08-07 16:15] VITALS: BP 124/67; PULSE 89; RESP 18; RESP 19; TEMP 98.6; O2SAT 94
[2024-08-07] MEDS ORDERED: DEXTROSE (50%) 50ML SYRG IV PRN (17:00)
[2024-08-07] MEDS: InsuLIN REG 1unit/0.01ml Soln (100units/ml) SC SCH (17:00)
[2024-08-07 17:09] VITALS: BP 124/67; PULSE 89; RESP 19; TEMP 98.6; O2SAT 99
[2024-08-07] MEDS: ACCU-CHEK COMFORT CURVE STRIP VI SCH (17:24)
[2024-08-07 20:00] VITALS: PULSE 81
[2024-08-07 21:00] VITALS: BP 104/57; PULSE 91; RESP 18; TEMP 98.2; O2SAT 91
[2024-08-08] VITALS (8 sets, daily range): BP systolic 89–126; BP diastolic 50–65; PULSE 81–112; RESP 12–18; TEMP 97.4–98.2; O2SAT 92–98
[2024-08-08 08:49] LABS: Basophils # (auto) 0.1 10 ^3/uL (0-0.2); Hemoglobin 10.9 g/dL (13.5-17.5); Monocytes # (auto) 0.8 10 ^3/uL (0-1.3)
[2024-08-08 08:50] LABS: Eosinophils # (auto) 0.9 10 ^3/uL (0-0.8); Eosinophils % (auto) 10.5 % (0.0-7.0); Lymphocytes # (auto) 2.6 10 ^3/uL (0.4-5.4); Lymphocytes % (auto) 29.9 % (10.0-50.0); Mean Corpuscular Hemoglobin 25.7 pg (28.0-32.0); Mean Corpuscular Volume 77.8 fL (80.0-100.0); Monocytes % (auto) 8.8 % (0.0-12.0); Neutrophils # (auto) 4.4 10 ^3/uL (1.6-8.6); Neutrophils % (auto) 49.8 % (37.0-80.0); Platelet Count (auto) 307 10^3/uL (140-450); Red Blood Cells 4.24 10^6/uL (4.5-5.90); Red Cell Distribution Width 15.9 % (11.8-14.3); White Blood Cell 8.8 10^3/uL (4.4-10.8)
[2024-08-08 09:03] LABS: Alanine Aminotransferase 45 U/L (7-40); Albumin 3.5 g/dL (3.2-4.8); Alkaline Phosphatase 96 U/L (46-116); Anion Gap 8 (5-15); Aspartate Aminotransferase 104 U/L (13-40); BUN/Creatinine Ratio 19.7 (10.0-20.0); Bilirubin, Total 0.3 mg/dL (0.2-1.0); Blood Urea Nitrogen 24 mg/dL (9-23); Carbon Dioxide 24 mmol/L (20-31); Chloride 109 mmol/L (98-107); Glucose 169 mg/dL (74-106); Potassium 4.5 mmol/L (3.5-5.1); Sodium 141 mmol/L (136-145); Total Protein 7.8 g/dL (5.7-8.2)
--- NOTE | 2024-08-08 14:49 | DVHPNRES ---
Progress Note Date Seen: Aug 08, 2024 Resident Creating Document: CHLOE MORRIS RESIDENT Has the PT tested + for MRSA If YES, has PT been informed?: No Medical Necessity Reason Pt with a Central, PICC or Fol: No Subjective Review of Systems This is a 73-year-old male with past medical history of CHF, COPD, type 2 diabetes mellitus, hypertension, osteomyelitis, right sided s/p above knee amputation, and Lt sided s/p partial amputation with nonhealing wound in the stump presented to the ED with a chief complaint of altered mental status and generalized weakness. According to the family they noticed the patient getting very weak, confused, occasional hallucination getting worse that prompted this visit. Patient seen and examined at bedside. Patient is alert and oriented x3. The patient has slightly slurred speech which is currently his baseline and is hard to understand. Today, we placed a consult for talent recruiter with Dr. Sotelo, due to possible osteomyelitis of the left navicular bone of the left foot which is already partially amputated. The patient is currently on IV ertapenem since ESBL organism was growing in previous wound culture. We will continue current IV antibiotics at this time and we will wait for Podiatry assessment. CBC and BNP were grossly unremarkable at this time. ROS Constitutional: Denies weight loss, fever and chills. HEENT: Denies changes in vision and hearing. Respiratory: Denies shortness of breath and cough Cardiovascular: Denies chest discomfort or palpitations GI: Denies abdominal pain, nausea, vomiting and diarrhea. : Denies dysuria and urinary frequency. Musculoskeletal: Denies myalgias and joint pain Skin: Denies rash and pruritus. Neurological: Denies dizziness, headache, vision or hearing problems Objective vital signs Vital Sign Date Time Temp Pulse Resp B/P (MAP) Pulse Ox O2 Delivery O2 Flow Rate FiO2 08/08/24 09:00 98.1 87 14 126/62 (83) 95 98.1 08/08/24 08:00 Nasal Cannula* 2 28 Total Intake and Output 08/07/24 08/07/24 08/08/24 15:00 23:00 07:00 Intake Total 450 ml 350 ml Output Total 900 ml 700 ml Balance -900 ml 450 ml -350 ml medications Current Medications Medications Dose Ordered Sig/Colin Route Start Time Stop Time Status Last Admin Dose Admin Ibuprofen 600 mg Q6HP PRN PO 08/06/24 00:15 Sodium Chloride 10 ml Q8HR IV 08/06/24 06:00 08/08/24 14:03 10 ML Acetaminophen/ Hydrocodone Bitart 1 tab Q4HP PRN PO 08/06/24 00:15 08/06/24 12:08 1 TAB Ondansetron HCl 4 mg Q4HP PRN IV 08/06/24 00:15 Docusate Sodium 100 mg BIDPRN PRN PO 08/06/24 00:15 Nitroglycerin 0.4 mg Q5MINP PRN SL 08/06/24 00:15 Morphine Sulfate 2 mg Q30M PRN IV 08/06/24 00:15 Aspirin 81 mg DAILY PO 08/06/24 10:00 08/08/24 10:00 81 MG Atorvastatin Calcium 20 mg HS PO 08/06/24 22:00 08/07/24 21:39 20 MG Famotidine 20 mg DAILY IV 08/06/24 10:00 08/08/24 10:00 20 MG Morphine Sulfate 2 mg Q4HPRN PRN IV 08/06/24 03:45 08/06/24 04:02 2 MG Ertapenem 1 gm/ Sodium Chloride 50 ml @ 100 mls/hr DAILY IV 08/06/24 10:00 08/08/24 10:40 100 MLS/HR Diagnostic Test (Pha) 1 strip ACHS 08/07/24 17:00 08/08/24 11:32 1 STRIP Insulin Human Regular ACHS SC 08/07/24 17:00 08/08/24 11:22 4 UNITS Dextrose 50 ml UD PRN IV 08/07/24 17:00 Examination Physical Examination General: Patient alert and oriented in person, place and time. Slurred speech, difficult to understand (current baseline). Patient following commands. HEENT: Normocephalic, atraumatic, moist mucous membranes Respiratory/pulmonary: Clear lungs bilaterally, no associated crackles or wheezes. Cardiovascular: Normal heart sounds S1 and S2 with no associated murmurs Abdomen: Abdomen nondistended, there is no pain to palpation in any of the abdominal quadrants, no palpable masses. Extremities: There is a right-sided above-knee amputation, stump is dry and clean without wound. There is a partial left foot amputation with stump that has a wound with a slight whitish secretion inside the deep wound but no actively oozing. Peripheral Pulses: 3+ Radial (R). 3+ Radial (L). 3+ Dorsalis pedis (R). 3+ Dorsalis pedis(L) Skin: No rashes or pruritus, there is no sacral edema present at this time. Neurological: Intact cranial nerves with no focal neurologic deficits. laboratory and microbiology Laboratory Tests 08/08/24 08:33 Test 08/08/24 08:33 Range/Units Serum Glucose 169 H 74-106 mg/dL Microbiology Date/Time Source Procedure Growth Status 08/06/24 03:40 Foot Gram Stain - Final Resulted 08/06/24 03:40 Foot Wound Culture - Preliminary Resulted 08/05/24 20:11 Blood Blood Culture - Preliminary NO GROWTH AFTER 48 HOURS OF INCUBATION. Resulted Labs and/or images reviewed: Labs reviewed by me, Image(s) reviewed by me Problem List/Assessment/Plan Problem List/Assessment/Plan Assessment/Plan Acute Metabolic/toxic encephalopathy - CT head without contrast revealed no acute intracranial abnormality - TSH is normal and UDS negative - Ammonia is 18 - Patient was given 3 L IV bolus. Possible osteomyelitis in the LT foot, s/p partial amputation of the Lt foot - CT of the left lower extremity revealed osteomyelitis of the remaining navicular bone and distal calcaneus with bony irregularity, lucency and sclerosis - Previous wound c/s of Lt stump was positive for ESBL, Enterococcus faecalis and Staph aureus. - Continue IV ertapenem 1 g daily - talent recruiter was consulted (Dr. Sotelo) for further assessment Chronic COPD Possible interstitial lung disease - Chest x-ray showed Chronic increased interstitial opacities in both lungs likely related to interstitial lung disease. - MedNeb with albuterol and ipratropium q.6 p.r.n. Type 2 diabetes mellitus, HbA1C 8.7% - Mild sliding scale of insulin Transaminitis without hyperbilirubinemia - Ordered hepatitis panel - Monitor CMP PUD prophylaxis - Pepcid 20 mg p.o. daily DVT prophylaxis - Lovenox 40 mg sc daily Plan discussed with Dr. Green Plan discussed with: Patient, Other (RN) My Orders My Orders Orders - CHLOE MORRIS Procedure Category Date Status Time *Podiatry Consult Dr. FIELDS 08/08/24 Transmitted Deepak 11:17 Addendum Addendum Addendum I was physically present for the lopez portions of the service provided to patient by THE RESIDENT. I have reviewed the documentation, discussed the case with resident and agree with the resident's documentation except as noted. Also the patient's clinical case was discussed with the patient's nurse. This medical document was created using an electronic medical record system with computerized dictation system. Although this document has been carefully reviewed, there might still be some phonetic and typographical errors. These areas are purely typographical due to imperfections of the software programs, and do not reflect any compromise in the patient's medical care. Late signature. Date of Service: Aug 08, 2024 Billing Provider: ISREAL GREEN MD Common Visit Codes: [id number] INP/OBS CARE(HIGH) CHLOE MORRIS RESIDENT Aug 08, 2024 14:49 ISREAL GREEN MD Aug 09, 2024 06:47
[2024-08-09] VITALS (9 sets, daily range): BP systolic 97–109; BP diastolic 40–66; PULSE 81–94; RESP 12–20; TEMP 97.7–98.5; O2SAT 90–95
--- NOTE | 2024-08-09 07:13 | DVHPNRES ---
Progress Note Date Seen: Aug 09, 2024 Resident Creating Document: REBECCA HYMAN RESIDENT Has the PT tested + for MRSA If YES, has PT been informed?: No Medical Necessity Reason Pt with a Central, PICC or Fol: No Subjective Review of Systems This is a 73-year-old male with past medical history of CHF, COPD, type 2 diabetes mellitus, hypertension, osteomyelitis, right sided s/p above knee amputation, and Lt sided s/p partial amputation with nonhealing wound in the stump presented to the ED with a chief complaint of altered mental status and generalized weakness. According to the family they noticed the patient getting very weak, confused, occasional hallucination getting worse that prompted this visit. Patient seen and examined at bedside. Patient is alert and oriented x3. Pending bone glue maker consult Objective vital signs Vital Sign Date Time Temp Pulse Resp B/P (MAP) Pulse Ox O2 Delivery O2 Flow Rate FiO2 08/09/24 05:00 98.4 91 12 99/63 (75) 94 98.4 08/08/24 20:00 Room Air* 0 21 Total Intake and Output 08/08/24 08/08/24 08/09/24 15:00 23:00 07:00 Intake Total 50 ml 980 ml 200 ml Output Total 600 ml 420 ml Balance 50 ml 380 ml -220 ml medications Current Medications Medications Dose Ordered Sig/Colin Route Start Time Stop Time Status Last Admin Dose Admin Ibuprofen 600 mg Q6HP PRN PO 08/06/24 00:15 Sodium Chloride 10 ml Q8HR IV 08/06/24 06:00 08/09/24 06:12 10 ML Acetaminophen/ Hydrocodone Bitart 1 tab Q4HP PRN PO 08/06/24 00:15 08/06/24 12:08 1 TAB Ondansetron HCl 4 mg Q4HP PRN IV 08/06/24 00:15 Docusate Sodium 100 mg BIDPRN PRN PO 08/06/24 00:15 Nitroglycerin 0.4 mg Q5MINP PRN SL 08/06/24 00:15 Morphine Sulfate 2 mg Q30M PRN IV 08/06/24 00:15 Aspirin 81 mg DAILY PO 08/06/24 10:00 08/08/24 10:00 81 MG Atorvastatin Calcium 20 mg HS PO 08/06/24 22:00 08/08/24 21:53 20 MG Famotidine 20 mg DAILY IV 08/06/24 10:00 08/08/24 10:00 20 MG Morphine Sulfate 2 mg Q4HPRN PRN IV 08/06/24 03:45 08/06/24 04:02 2 MG Ertapenem 1 gm/ Sodium Chloride 50 ml @ 100 mls/hr DAILY IV 08/06/24 10:00 08/08/24 10:40 100 MLS/HR Diagnostic Test (Pha) 1 strip ACHS 08/07/24 17:00 08/09/24 06:12 1 STRIP Insulin Human Regular ACHS SC 08/07/24 17:00 08/09/24 06:11 3 UNITS Dextrose 50 ml UD PRN IV 08/07/24 17:00 Examination Elderly patient lying in bed, in no acute distress. Difficult to understand s peech. General: afebrile, palor, mucosae are moist Cardiovascular: Regular S1 and S2. No murmurs, gallops or rubs. No JVD e levation. No pedal edema Respiratory: Normal B/L air entry on room air. Clear lung sounds on auscultation Abdomen: Soft, nontender, nondistended, normoactive bowel sounds, no rebound tenderness, no organomegaly, no masses Genitourinary: Deferred MSK/skin: Mobilizes 4 limbs. Skin is dry and warm. R AKA & L partial left foot amputation with overlying dressing Neurological: No motor, no sensitive deficits, normal speech. Pupils are isocoric and reactive. Psych/Mental Status: A/Ox3 laboratory and microbiology Test 08/09/24 05:14 Range/Units Serum Glucose Pending Microbiology Date/Time Source Procedure Growth Status 08/06/24 03:40 Foot Gram Stain - Final Resulted 08/06/24 03:40 Foot Wound Culture - Preliminary Resulted 08/05/24 20:11 Blood Blood Culture - Preliminary NO GROWTH AFTER 72 HOURS OF INCUBATION. Resulted Labs and/or images reviewed: Labs reviewed by me, Image(s) reviewed by me Problem List/Assessment/Plan Problem List/Assessment/Plan Acute Metabolic/toxic encephalopathy - CT head without contrast revealed no acute intracranial abnormality - TSH is normal and UDS negative - Ammonia is 18 - Patient was given 3 L IV bolus. Possible osteomyelitis in the LT foot, s/p partial amputation of the Lt foot - CT of the left lower extremity revealed osteomyelitis of the remaining navicular bone and distal calcaneus with bony irregularity, lucency and sclerosis - Previous wound c/s of Lt stump was positive for ESBL, Enterococcus faecalis and Staph aureus. - Continue IV ertapenem 1 g daily - bone glue maker was consulted (Dr. Sotelo) for further assessment Chronic COPD Possible interstitial lung disease - Chest x-ray showed Chronic increased interstitial opacities in both lungs likely related to interstitial lung disease. - MedNeb with albuterol and ipratropium q.6 p.r.n. Type 2 diabetes mellitus, HbA1C 8.7% - Mild sliding scale of insulin Transaminitis secondary to hepatic steatosis PUD prophylaxis - Pepcid 20 mg p.o. daily DVT prophylaxis - Lovenox 40 mg sc daily PT eval pending Pending bone glue maker consult Plan discussed with patient in which all questions have been answered Case discussed with Dr. Stallworth Plan discussed with: Patient My Orders My Orders Orders - REBECCA HYMAN Procedure Category Date Status Time LIVER 08/09/24 Logged 07:11 Date of Service: Aug 09, 2024 Billing Provider: GIANA DELATORRE MD Common Visit Codes: [id number] INP/OBS CARE(HIGH) REBECCA HYMAN Aug 09, 2024 07:13 GIANA DELATORRE MD Aug 10, 2024 09:53
[2024-08-09 07:23] LABS: Basophils # (auto) 0.1 10 ^3/uL (0-0.2); Basophils % (auto) 0.8 % (0.0-2.0); Eosinophils # (auto) 0.8 10 ^3/uL (0-0.8); Lymphocytes # (auto) 2.4 10 ^3/uL (0.4-5.4); Monocytes # (auto) 0.6 10 ^3/uL (0-1.3)
[2024-08-09 07:27] LABS: Alkaline Phosphatase 94 U/L (46-116); Anion Gap 9 (5-15); Carbon Dioxide 24 mmol/L (20-31); Chloride 106 mmol/L (98-107); Eosinophils % (auto) 11.7 % (0.0-7.0); Hematocrit 34.7 % (41.0-53.0); Hemoglobin 11.6 g/dL (13.5-17.5); Lymphocytes % (auto) 33.1 % (10.0-50.0); Mean Corpuscular Hemoglobin 25.9 pg (28.0-32.0); Mean Corpuscular Hgb Conc. 33.4 g/dL (32.0-36.0); Mean Corpuscular Volume 77.5 fL (80.0-100.0); Monocytes % (auto) 8.3 % (0.0-12.0); Neutrophils # (auto) 3.3 10 ^3/uL (1.6-8.6); Neutrophils % (auto) 46.1 % (37.0-80.0); Nucleated Red Blood Cells % 0.1 %; Platelet Count (auto) 278 10^3/uL (140-450); Potassium 4.9 mmol/L (3.5-5.1); Red Blood Cells 4.48 10^6/uL (4.5-5.90); Sodium 139 mmol/L (136-145); White Blood Cell 7.2 10^3/uL (4.4-10.8)
[2024-08-09 07:28] LABS: Albumin 3.5 g/dL (3.2-4.8)
[2024-08-09 07:31] LABS: Total Protein 7.7 g/dL (5.7-8.2)
[2024-08-09 07:33] LABS: Alanine Aminotransferase 40 U/L (7-40); Aspartate Aminotransferase 70 U/L (13-40); Blood Urea Nitrogen 23 mg/dL (9-23); Glucose 192 mg/dL (74-106)
[2024-08-09 07:36] LABS: Bilirubin, Total 0.3 mg/dL (0.2-1.0)
--- NOTE | 2024-08-09 10:47 | DVH ---
INDICATION: transaminitis TECHNIQUE: Multiple real-time sonographic images of the abdomen were obtained. COMPARISON: None FINDINGS: The liver is increased in echogenicity. The liver measures 11.9 cm. No intrahepatic biliar y ductal dilatation is noted. The gallbladder wall measures 0.2 cm and is unremarkable. No gallstones or sludge is seen. The com mon duct measures 0.3 cm and is unremarkable. No pericholecystic fluid is noted. Negative sonographi c De La Rosa's sign. The right kidney measures 9.1 cm. No hydronephrosis. The pancreas is not well visualized due to obscuration from bowel gas. The visualized portions of the IVC and aorta are grossly unremarkable. IMPRESSION: 1. Hepatic steatosis. 2. No evidence of gallstones or acute cholecystitis.
--- NOTE | 2024-08-09 12:56 | DVHINCON2 ---
Date Seen: Aug 09, 2024 Reason for Consultation Left foot wound History of Present Illness The patient is a 73-year-old male with multiple past medical history including CHF, COPD, DM, and hypertension who presented to [facility] ED with complaint of generalized weakness. Family member noticed patient getting very weak, confused, occasionally hallucination, getting worse that prompted this visit. Patient was recently diagnosed for UTIs. Patient was seen and evaluated in the ED, laboratory data shows WBC 10.2, hemoglobin 10 four, hematocrit 314, platelets 304, sodium 140, potassium 3.8, BUN 32, creatinine 1.24, GFR 61, glucose 74, AST 162, ALT 46, blood pressure 124/70, heart rate 110, temperature 98.3 F, O2 saturation 98% on room air. Left lower extremity CT revealing osteomyelitis of the remaining navicular bone and distal calcaneus with bony irregularity, lucency and sclerosis. Chest x-ray revealing increased interstitial opacity in both lungs likely related to interstitial lung disease. Patient was started on IV antibiotic regimen Zosyn, please see medication orders section in the computer. On my assessment, patient denied chest pain, no headache, no dizziness, no diaphoresis, no nausea, no vomiting, chills. Patient was admitted for further evaluation and medical management. Past Medical History See H&P Past Surgical History See H&P Family History: CHF (congestive heart failure) G8 MOTHER, Onset:40's - 50 Cancer G8 FATHER, Onset:40's - 50 G8 BROTHER, Onset:50's - 60 Diabetes mellitus G8 MOTHER Family history: Diabetes mellitus G8 BROTHER, Onset:20's - 25 G8 SISTER, Onset:20's - 25 Hypertension G8 FATHER Allergies: Coded Allergies: Vancomycin (Verified Allergy, Severe, 12/14/20) PER PATIENT, STATES IT CAUSED HIM KIDNEY FAILURE Sulfamethoxazole w/Trimethoprim (Verified Allergy, Unknown, 12/11/20) Clindamycin (Verified Adverse Reaction, Intermediate, BREAKS OUT IN SWEAT, 12/11/20) Home Meds Active Scripts Ciprofloxacin Hcl (Cipro) 500 Mg Tab, 1 TAB PO BID, #14 TAB Prov:CATHERINE JACKSON MD 08/02/24 Reported Medications Duloxetine Hcl (Cymbalta) 20 Mg Cap, 1 CAP PO DAILY, #30 CAP 2 Refills 07/14/24 Fluconazole (Fluconazole) 200 Mg Tab, 1 TAB PO BID for 5 Days, #10 07/14/24 Duloxetine HCl (Duloxetine HCl) 30 Mg Cap, 1 CAP PO BID for 30 Days, #60 07/14/24 Pantoprazole Sodium Sesquihydr (Pantoprazole Sodium) 40 Mg Tab, 1 TAB PO DAILY for 90 Days, #90 05/15/24 Insulin Glargine (Lantus) 100 Unit/Ml Inj, 30 UNIT SC BID for 100 Days, #60 05/15/24 Aspirin (Aspirin Low Dose) 81 Mg Tab, 1 TAB PO DAILY for 90 Days, #90 05/15/24 Atorvastatin Calcium (Lipitor) 40 Mg Tab, 1 TAB PO DAILY for 90 Days, #90 10/01/23 Furosemide (Furosemide) 20 Mg Tab, 1 TAB PO DAILY for 90 Days, #90 05/01/23 Vital Signs Vital Signs Date Time Temp Pulse Resp B/P (MAP) Pulse Ox O2 Delivery O2 Flow Rate FiO2 08/09/24 09:00 97.9 89 17 100/58 (72) 92 97.9 08/09/24 08:23 Nasal Cannula* 2 28 Physical Exam DERMATOLOGIC EXAM: - Skin is dry and cool to the touch dry - Nails 1-5 of the foot are thickened, discolored, dystrophic, and tender to palpate with subungual debris - Hair loss noted to feet Wound #1: Location: Left stump Measurements: Length 3 cm x width 2 cm x depth 1 cm. Wound margins: Hyperkeratotic. Wound base: Full thickness. General Appearance: Healthy and bleeding. Probes to Bone: No Purulent drainage: No Serous drainage: No Erythema: Absent VASCULAR EXAM: - DP and PT pulses are palpable - OTOLARYNGOLOGY REP is brisk to all digits. - Feet are cool to touch compared to lower legs NEUROLOGIC EXAM: - Normal light touch sensation to the superficial peroneal, deep peroneal, sural, saphenous, and tibial nerve branches. - Protective sensation is diminished as tested with a 5.07 10g [place] MUSCULOSKELETAL EXAM: - No gross deformities - Muscle strength is 5/5 and active motion is pain-free and symmetrical - No pain or crepitation with passive range of motion to all major pedal joints Labs/Diagnostic Data Labs Test 08/09/24 12:02 08/09/24 05:14 08/06/24 11:23 08/06/24 10:40 Range/Units POC Glucose 254 H 70-106 mg/dl White Blood Count 7.2 4.4-10.8 10^3/uL Red Blood Count 4.48 L 4.5-5.90 10^6/uL Hemoglobin 11.6 L 13.5-17.5 g/dL Hematocrit 34.7 L 41.0-53.0 % Mean Corpuscular Volume 77.5 L 80.0-100.0 fL Mean Corpuscular Hemoglobin 25.9 L 28.0-32.0 pg Mean Corpuscular Hemoglobin Concent 33.4 32.0-36.0 g/dL Red Cell Distribution Width 16.0 H 11.8-14.3 % Platelet Count 278 140-450 10^3/uL Mean Platelet Volume 7.4 6.9-10.8 fL Neutrophils (%) (Auto) 46.1 37.0-80.0 % Lymphocytes (%) (Auto) 33.1 10.0-50.0 % Monocytes (%) (Auto) 8.3 0.0-12.0 % Eosinophils (%) (Auto) 11.7 H 0.0-7.0 % Basophils (%) (Auto) 0.8 0.0-2.0 % Neutrophils # (Auto) 3.3 1.6-8.6 10 ^3/uL Lymphocytes # (Auto) 2.4 0.4-5.4 10 ^3/uL Monocytes # (Auto) 0.6 0-1.3 10 ^3/uL Eosinophils # (Auto) 0.8 0-0.8 10 ^3/uL Basophils # (Auto) 0.1 0-0.2 10 ^3/uL Nucleated Red Blood Cells 0.1 % Sodium Level 139 136-145 mmol/L Potassium Level 4.9 3.5-5.1 mmol/L Chloride Level 106 98-107 mmol/L Carbon Dioxide Level 24 20-31 mmol/L Anion Gap 9 5-15 Blood Urea Nitrogen 23 9-23 mg/dL Creatinine 1.21 0.700-1.30 mg/dL Glomerular Filtration Rate Calc 63 >90 mL/min BUN/Creatinine Ratio 19.0 10.0-20.0 Serum Glucose 192 H 74-106 mg/dL Calcium Level 9.0 8.7-10.4 mg/dL Total Bilirubin 0.3 0.2-1.0 mg/dL Aspartate Amino Transferase (AST) 70 H 13-40 U/L Alanine Aminotransferase (ALT) 40 7-40 U/L Alkaline Phosphatase 94 46-116 U/L Total Protein 7.7 5.7-8.2 g/dL Albumin 3.5 3.2-4.8 g/dL Urine Color Yellow Yellow Urine Clarity Clear Clear Urine pH 5.5 5.0-9.0 Urine Specific [place] 1.022 1.001-1.035 Urine Protein 1+ H Negative Urine Ketones 1+ H Negative Urine Blood 1+ H Negative /uL Urine Nitrite Negative Negative Urine Bilirubin Negative Negative Urine Urobilinogen Normal Negative mg/dL Urine Leukocyte Esterase Negative Negative /uL Urine RBC 4 0 - 3 /hpf Urine Microscopic WBC 1 0-3 /HPF Urine Squamous Epithelial Cells None seen <5 /hpf Urine Bacteria None seen None Seen /hpf Urine Glucose Normal Normal mg/dL Urine Opiates Screen Neg NEGATIVE Urine Fentanyl Screen Neg NEGATIVE Urine Barbiturates Screen Neg NEGATIVE Urine Phencyclidine Screen Neg NEGATIVE Urine Amphetamines Screen Neg NEGATIVE Urine Benzodiazepines Screen Neg NEGATIVE Urine Cocaine Screen Neg NEGATIVE Urine Cannabinoids Screen Neg NEGATIVE Hemoglobin A1c 8.7 H <5.7 % A1C B-Type Natriuretic Peptide 98.22 0-100 pg/mL Thyroid Stimulating Hormone (TSH) 1.96 0.55-4.78 uIU/mL Test 08/06/24 03:40 08/06/24 00:40 08/05/24 20:11 Range/Units Influenza Type A Antigen Negative Negative Influenza Type B Antigen Negative Negative SARS-CoV-2 Antigen (Rapid) Negative NEGATIVE Ammonia 14 11-32 umol/L Prothrombin Time 11.4 9.3-11.8 sec Prothrombin Time INR 1.08 0.9-1.15 Lactic Acid Level 1.2 0.4-2.0 mmol/L Microbiology Date/Time Source Procedure Growth Status 08/06/24 03:40 Foot Gram Stain - Final Resulted 08/06/24 03:40 Foot Wound Culture - Preliminary Resulted 08/05/24 20:11 Blood Blood Culture - Preliminary NO GROWTH AFTER 72 HOURS OF INCUBATION. Resulted Problems(with codes): (1) Foot osteomyelitis, left (2) Wound infection after surgery (3) COPD (chronic obstructive pulmonary disease) (4) Constipation (5) Urinary tract infection (6) Diabetes (7) Fasciitis (8) Hyperglycemia (9) Vertigo (10) Wheezing (11) Peripheral vascular disease (12) DVT (deep venous thrombosis) (13) Abdominal pain (14) Osteomyelitis (15) HTN (hypertension) (16) URI (upper respiratory infection) (17) Generalized abdominal pain (18) Upper respiratory tract infection (19) Chronic ulcer of ankle (20) Uncontrolled diabetes mellitus (21) Leukocytosis, unspecified (22) Lower abdominal pain (23) Failure to thrive in adult (24) Foot osteomyelitis, right (25) Cellulitis of left foot (26) Cellulitis of right foot (27) Acute urinary retention (28) Ischemic necrosis of toe (29) Visit for wound care (30) Acute cystitis without hematuria (31) Elevated lactic acid level (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 (33) Diabetic infection of left foot (34) Right foot infection (35) Non-healing wound (36) Diabetes mellitus with hyperglycemia (37) Encounter for pre-operative examination (38) Acute cystitis with hematuria (39) Sepsis (40) Altered mental status (41) Amputation stump infection (42) Generalized weakness (43) Osteomyelitis of left foot (44) Elevated liver enzymes Plan/Recommendation ASSESSMENT: Patient is a 73 year old seen on the floor for a worsening ulcer PLAN: - The patients chart was reviewed, clinical findings were discussed with the patient, the etiologies of the conditions were discussed in detail, and a treatment plan was agreed to at this time, with both oral and written instructions provided. - reviewed advanced imaging - discussed that patient is a poor surgical candidate at this time - MRI findings are likely chronic in nature - can continue antibiotics - recommend outpatient wound care - no surgical intervention needed at this point All questions were answered and concerns addressed to the patient's satisfaction. The patient was given the phone number to the clinic and was told how to make contact with the clinic should any concerns or questions arise. Patient understands that if any questions or concerns arise prior to the next appointment, we should be contacted immediately. FOLLOW-UP: Continue to follow while inpatient Plan discussed with: Patient Date of Service: Aug 09, 2024 Billing Provider: MAGGIE LARSON DPM Common Visit Codes: CONSULT ONLY Consultation Codes: [id number] CONSULT <80MIN MAGGIE LARSON DPM Aug 09, 2024 12:56
[2024-08-09 14:17] LABS: Erythrocyte Sedimentation Rate 96 mm/hr (0-20)
[2024-08-10] VITALS (8 sets, daily range): BP systolic 93–135; BP diastolic 46–77; PULSE 82–92; RESP 16–20; TEMP 97.4–98.4; O2SAT 93–97
[2024-08-10] MEDS ORDERED: DEXTROSE (50%) 50ML SYRG IV PRN (06:45)
[2024-08-10 07:11] LABS: Anion Gap 8 (5-15); Carbon Dioxide 24 mmol/L (20-31); Chloride 105 mmol/L (98-107); Potassium 4.9 mmol/L (3.5-5.1); Sodium 137 mmol/L (136-145)
[2024-08-10 07:33] LABS: Glucose 236 mg/dL (74-106)
[2024-08-10 07:34] LABS: BUN/Creatinine Ratio 20.2 (10.0-20.0); Blood Urea Nitrogen 26 mg/dL (9-23)
[2024-08-10 07:42] LABS: Basophils # (auto) 0.1 10 ^3/uL (0-0.2); Eosinophils # (auto) 1.1 10 ^3/uL (0-0.8)
[2024-08-10 07:47] LABS: Basophils % (auto) 0.9 % (0.0-2.0); Eosinophils % (auto) 12.8 % (0.0-7.0); Hematocrit 35.4 % (41.0-53.0); Hemoglobin 11.6 g/dL (13.5-17.5); Lymphocytes # (auto) 2.9 10 ^3/uL (0.4-5.4); Mean Corpuscular Hemoglobin 25.3 pg (28.0-32.0); Mean Corpuscular Hgb Conc. 32.7 g/dL (32.0-36.0); Mean Corpuscular Volume 77.5 fL (80.0-100.0); Monocytes # (auto) 0.5 10 ^3/uL (0-1.3); Monocytes % (auto) 6.1 % (0.0-12.0); Neutrophils # (auto) 3.8 10 ^3/uL (1.6-8.6); Neutrophils % (auto) 45.2 % (37.0-80.0); Nucleated Red Blood Cells % 0.2 %; Platelet Count (auto) 283 10^3/uL (140-450); Red Blood Cells 4.57 10^6/uL (4.5-5.90); Red Cell Distribution Width 15.9 % (11.8-14.3); White Blood Cell 8.3 10^3/uL (4.4-10.8)
[2024-08-10] MEDS: InsuLIN REG 1unit/0.01ml Soln (100units/ml) SC SCH (08:00)
[2024-08-10] MEDS: ACCU-CHEK COMFORT CURVE STRIP VI SCH (08:28)
--- NOTE | 2024-08-10 10:50 | DVHINCON2 ---
Date of service: Aug 10, 2024 Referring Physician Modesto Leon NP Reason for Consultation Chronic non healing ulceration left foot stump History of Present Illness The patient is a 73-year-old male with multiple past medical history including CHF, COPD, DM, and hypertension who was seen at bed side resting comfortably. The patient reports that he developed a scab on the stump of the left foot. Does not know how it occurred. The patient denies any other complaints. The patient has been seen at my office for serial debridement of his ulceration and was showing significant progress. Past Medical History CHF, COPD, DM, High Lipids, HTN, UTI'S Past Surgical History AKA (Right), Left foot amputation Family History: CHF (congestive heart failure) G8 MOTHER, Onset:40's - 50 Cancer G8 FATHER, Onset:40's - 50 G8 BROTHER, Onset:50's - 60 Diabetes mellitus G8 MOTHER Family history: Diabetes mellitus G8 BROTHER, Onset:20's - G8 SISTER, Onset:20's - Hypertension G8 FATHER Family History Reviewed ans is no contributory to management of this case. Social History Denies tobacco use denies alcohol use denies the use of illicit drugs Allergies: Coded Allergies: Vancomycin (Verified Allergy, Severe, 12/14/20) PER PATIENT, STATES IT CAUSED HIM KIDNEY FAILURE Sulfamethoxazole w/Trimethoprim (Verified Allergy, Unknown, 12/11/20) Clindamycin (Verified Adverse Reaction, Intermediate, BREAKS OUT IN SWEAT, 12/11/20) Home Meds Active Scripts Ciprofloxacin Hcl (Cipro) 500 Mg Tab, 1 TAB PO BID, #14 TAB Prov:CATHERINE JACKSON MD 08/02/24 Reported Medications Duloxetine Hcl (Cymbalta) 20 Mg Cap, 1 CAP PO DAILY, #30 CAP 2 Refills 07/14/24 Fluconazole (Fluconazole) 200 Mg Tab, 1 TAB PO BID for 5 Days, #10 07/14/24 Duloxetine HCl (Duloxetine HCl) 30 Mg Cap, 1 CAP PO BID for 30 Days, #60 07/14/24 Pantoprazole Sodium Sesquihydr (Pantoprazole Sodium) 40 Mg Tab, 1 TAB PO DAILY for 90 Days, #90 05/15/24 Insulin Glargine (Lantus) 100 Unit/Ml Inj, 30 UNIT SC BID for 100 Days, #60 05/15/24 Aspirin (Aspirin Low Dose) 81 Mg Tab, 1 TAB PO DAILY for 90 Days, #90 05/15/24 Atorvastatin Calcium (Lipitor) 40 Mg Tab, 1 TAB PO DAILY for 90 Days, #90 10/01/23 Furosemide (Furosemide) 20 Mg Tab, 1 TAB PO DAILY for 90 Days, #90 05/01/23 Current Medications Current Medications Medications (Trade) Dose Ordered Sig/Colin Route PRN Reason Start Time Stop Time Status Last Admin Diagnostic Test (Pha) (Accu-Chek Comfort Curve T) 1 strip IQ4HR 08/10/24 08:00 08/10/24 08:28 Insulin Human Regular (InsuLIN R) IQ4HR SC 08/10/24 08:00 08/10/24 08:00 Dextrose 50 ml UD PRN IV Blood Sugar LESS THAN 60 08/10/24 06:45 Review of Systems Constitutional: Yes: Weakness; No: Fever, Chills, Sweats, Malaise, Other Eyes: No: Pain, Vision change, Conjunctivae inflammation, Eyelid inflammation, Other, Redness ENT: No: Ear pain, Ear discharge, Nose pain, Nose discharge, Nose congestion, Mouth pain, Mouth swelling, Throat pain, Throat swelling, Other Respiratory: No: Cough, Dry, Shortness of breath, SOB with excertion, Wheezing, Hemoptysis, Pleuritic Pain, Sputum, Wheezing, Other Cardiovascular: No: Chest Pain, Palpitations, Orthopnea, Paroxysmal Noc. Dyspnea, Edema, Lt Headedness, Other Gastrointestinal: No: Nausea, Vomiting, Abdominal Pain, Diarrhea, Constipation, Melena, Hematochezia, Other Genitourinary: No Dysuria, No Frequency, No Incontinence, No Hematuria, No Retention, No Other Musculoskeletal: other (Right AKA, left foot amputation); No: neck pain, shoulder pain, arm pain, back pain, hand pain, leg pain, foot pain Skin: Other (Left foot infection); No: Rash, Lesions, Jaundice, Bruising Neurological: No: Weakness, Numbness, Incoordination, Change in speech, Confusion, Seizures, Other Vital Signs Vital Signs Date Time Temp Pulse Resp B/P (MAP) Pulse Ox O2 Delivery O2 Flow Rate FiO2 08/10/24 09:00 97.5 86 16 129/77 (94) 93 97.5 08/09/24 20:00 Nasal Cannula* 2 28 Physical Exam General Appearance: Alert, Cooperative, No acute distress, Other (Oriented x2) HEENT: Atraumatic, PERRLA, EOMI, Mucous membr. moist/pink Respiratory: Clear to auscultation, Normal air movement Cardiovascular: Regular rate, Normal S1, Normal S2, No murmurs Abdominal: Normal bowel sounds, Soft, No tenderness, No hepatospenomegaly, No masses Extremities: No clubbing, No cyanosis, No edema, Normal pulses, Other (Left foot tenderness) ulceration at lateral aspect of the stump measuring approximately 1.5x4.0x2.5cm. evidence of scab formation to the medial aspect of the left foot stump ( NEW). Skin: No breakdown Neuro: Normal speech, Normal tone, Sensation intact, Cranial nerves 3-12 NL, Reflexes 2+, Other (Unsteady gait) Psych/Mental Status: Mental status NL, Mood NL Labs/Diagnostic Data Labs Test 08/10/24 08:27 08/10/24 05:23 08/09/24 13:18 08/09/24 05:14 Range/Units POC Glucose 194 H 70-106 mg/dl White Blood Count 8.3 4.4-10.8 10^3/uL Red Blood Count 4.57 4.5-5.90 10^6/uL Hemoglobin 11.6 L 13.5-17.5 g/dL Hematocrit 35.4 L 41.0-53.0 % Mean Corpuscular Volume 77.5 L 80.0-100.0 fL Mean Corpuscular Hemoglobin 25.3 L 28.0-32.0 pg Mean Corpuscular Hemoglobin Concent 32.7 32.0-36.0 g/dL Red Cell Distribution Width 15.9 H 11.8-14.3 % Platelet Count 283 140-450 10^3/uL Mean Platelet Volume 7.4 6.9-10.8 fL Neutrophils (%) (Auto) 45.2 37.0-80.0 % Lymphocytes (%) (Auto) 35.0 10.0-50.0 % Monocytes (%) (Auto) 6.1 0.0-12.0 % Eosinophils (%) (Auto) 12.8 H 0.0-7.0 % Basophils (%) (Auto) 0.9 0.0-2.0 % Neutrophils # (Auto) 3.8 1.6-8.6 10 ^3/uL Lymphocytes # (Auto) 2.9 0.4-5.4 10 ^3/uL Monocytes # (Auto) 0.5 0-1.3 10 ^3/uL Eosinophils # (Auto) 1.1 H 0-0.8 10 ^3/uL Basophils # (Auto) 0.1 0-0.2 10 ^3/uL Nucleated Red Blood Cells 0.2 % Sodium Level 137 136-145 mmol/L Potassium Level 4.9 3.5-5.1 mmol/L Chloride Level 105 98-107 mmol/L Carbon Dioxide Level 24 20-31 mmol/L Anion Gap 8 5-15 Blood Urea Nitrogen 26 H 9-23 mg/dL Creatinine 1.29 0.700-1.30 mg/dL Glomerular Filtration Rate Calc 59 >90 mL/min BUN/Creatinine Ratio 20.2 H 10.0-20.0 Serum Glucose 236 H 74-106 mg/dL Calcium Level 9.0 8.7-10.4 mg/dL Erythrocyte Sedimentation Rate 96 H 0-20 mm/hr Total Bilirubin 0.3 0.2-1.0 mg/dL Aspartate Amino Transferase (AST) 70 H 13-40 U/L Alanine Aminotransferase (ALT) 40 7-40 U/L Alkaline Phosphatase 94 46-116 U/L C-Reactive Protein High Sensitivity 7.44 H <1.0 mg/dL Total Protein 7.7 5.7-8.2 g/dL Albumin 3.5 3.2-4.8 g/dL Test 08/06/24 11:23 08/06/24 10:40 08/06/24 03:40 08/06/24 00:40 Range/Units Urine Color Yellow Yellow Urine Clarity Clear Clear Urine pH 5.5 5.0-9.0 Urine Specific [place] 1.022 1.001-1.035 Urine Protein 1+ H Negative Urine Ketones 1+ H Negative Urine Blood 1+ H Negative /uL Urine Nitrite Negative Negative Urine Bilirubin Negative Negative Urine Urobilinogen Normal Negative mg/dL Urine Leukocyte Esterase Negative Negative /uL Urine RBC 4 0 - 3 /hpf Urine Microscopic WBC 1 0-3 /HPF Urine Squamous Epithelial Cells None seen <5 /hpf Urine Bacteria None seen None Seen /hpf Urine Glucose Normal Normal mg/dL Urine Opiates Screen Neg NEGATIVE Urine Fentanyl Screen Neg NEGATIVE Urine Barbiturates Screen Neg NEGATIVE Urine Phencyclidine Screen Neg NEGATIVE Urine Amphetamines Screen Neg NEGATIVE Urine Benzodiazepines Screen Neg NEGATIVE Urine Cocaine Screen Neg NEGATIVE Urine Cannabinoids Screen Neg NEGATIVE Hemoglobin A1c 8.7 H <5.7 % A1C B-Type Natriuretic Peptide 98.22 0-100 pg/mL Thyroid Stimulating Hormone (TSH) 1.96 0.55-4.78 uIU/mL Influenza Type A Antigen Negative Negative Influenza Type B Antigen Negative Negative SARS-CoV-2 Antigen (Rapid) Negative NEGATIVE Ammonia 14 11-32 umol/L Test 08/05/24 20:11 Range/Units Prothrombin Time 11.4 9.3-11.8 sec Prothrombin Time INR 1.08 0.9-1.15 Lactic Acid Level 1.2 0.4-2.0 mmol/L Microbiology Date/Time Source Procedure Growth Status 08/06/24 03:40 Foot Gram Stain - Final Resulted 08/06/24 03:40 Foot Wound Culture - Preliminary Resulted 08/05/24 20:11 Blood Blood Culture - Preliminary NO GROWTH AFTER 72 HOURS OF INCUBATION. Resulted Assessment Painful chronic ulceration stump of the left foot. Scab formation at the medical edge of the stump of the left foot. Pain in foot. Plan/Recommendation Continue with IV antibiotics pending C&S results. Continue with wound care and Medi-Honey once daily. The patient may be discharged home form [facility]. The lyle ent to follow up at my office after discharge to continue his care. All questions and concerns were answered to the patient's satisfaction. Thank you for your consultation. Plan discussed with: Patient SHERRY EDWARDS DPM Aug 10, 2024 10:50
--- NOTE | 2024-08-10 16:44 | DVHDSRES ---
Discharge Summary Date of Admission Resident Creating Document: REBECCA HYMAN RESIDENT Aug 06, 2024 at 00:14 Date of Discharge: Aug 13, 2024 Labs/Diagnostic Data: Laboratory Results Test 08/10/24 12:52 08/10/24 05:23 08/09/24 13:18 08/09/24 05:14 POC Glucose 109 mg/dl (70-106) White Blood Count 8.3 10^3/uL (4.4-10.8) Red Blood Count 4.57 10^6/uL (4.5-5.90) Hemoglobin 11.6 g/dL (13.5-17.5) Hematocrit 35.4 % (41.0-53.0) Mean Corpuscular Volume 77.5 fL (80.0-100.0) Mean Corpuscular Hemoglobin 25.3 pg (28.0-32.0) Mean Corpuscular Hemoglobin Concent 32.7 g/dL (32.0-36.0) Red Cell Distribution Width 15.9 % (11.8-14.3) Platelet Count 283 10^3/uL (140-450) Mean Platelet Volume 7.4 fL (6.9-10.8) Neutrophils (%) (Auto) 45.2 % (37.0-80.0) Lymphocytes (%) (Auto) 35.0 % (10.0-50.0) Monocytes (%) (Auto) 6.1 % (0.0-12.0) Eosinophils (%) (Auto) 12.8 % (0.0-7.0) Basophils (%) (Auto) 0.9 % (0.0-2.0) Neutrophils # (Auto) 3.8 10 ^3/uL (1.6-8.6) Lymphocytes # (Auto) 2.9 10 ^3/uL (0.4-5.4) Monocytes # (Auto) 0.5 10 ^3/uL (0-1.3) Eosinophils # (Auto) 1.1 10 ^3/uL (0-0.8) Basophils # (Auto) 0.1 10 ^3/uL (0-0.2) Nucleated Red Blood Cells 0.2 % Sodium Level 137 mmol/L (136-145) Potassium Level 4.9 mmol/L (3.5-5.1) Chloride Level 105 mmol/L (98-107) Carbon Dioxide Level 24 mmol/L (20-31) Anion Gap 8 (5-15) Blood Urea Nitrogen 26 mg/dL (9-23) Creatinine 1.29 mg/dL (0.700-1.30) Glomerular Filtration Rate Calc 59 mL/min (>90) BUN/Creatinine Ratio 20.2 (10.0-20.0) Serum Glucose 236 mg/dL (74-106) Calcium Level 9.0 mg/dL (8.7-10.4) Erythrocyte Sedimentation Rate 96 mm/hr (0-20) Total Bilirubin 0.3 mg/dL (0.2-1.0) Aspartate Amino Transferase (AST) 70 U/L (13-40) Alanine Aminotransferase (ALT) 40 U/L (7-40) Alkaline Phosphatase 94 U/L (46-116) C-Reactive Protein High Sensitivity 7.44 mg/dL (<1.0) Total Protein 7.7 g/dL (5.7-8.2) Albumin 3.5 g/dL (3.2-4.8) Test 08/06/24 11:23 08/06/24 10:40 08/06/24 03:40 08/06/24 00:40 Urine Color Yellow (Yellow) Urine Clarity Clear (Clear) Urine pH 5.5 (5.0-9.0) Urine Specific [place] 1.022 (1.001-1.035) Urine Protein 1+ (Negative) Urine Ketones 1+ (Negative) Urine Blood 1+ /uL (Negative) Urine Nitrite Negative (Negative) Urine Bilirubin Negative (Negative) Urine Urobilinogen Normal mg/dL (Negative) Urine Leukocyte Esterase Negative /uL (Negative) Urine RBC 4 /hpf (0 - 3) Urine Microscopic WBC 1 /HPF (0-3) Urine Squamous Epithelial Cells None seen /hpf (<5) Urine Bacteria None seen /hpf (None Seen) Urine Glucose Normal mg/dL (Normal) Urine Opiates Screen Neg (NEGATIVE) Urine Fentanyl Screen Neg (NEGATIVE) Urine Barbiturates Screen Neg (NEGATIVE) Urine Phencyclidine Screen Neg (NEGATIVE) Urine Amphetamines Screen Neg (NEGATIVE) Urine Benzodiazepines Screen Neg (NEGATIVE) Urine Cocaine Screen Neg (NEGATIVE) Urine Cannabinoids Screen Neg (NEGATIVE) Hemoglobin A1c 8.7 % A1C (<5.7) B-Type Natriuretic Peptide 98.22 pg/mL (0-100) Thyroid Stimulating Hormone (TSH) 1.96 uIU/mL (0.55-4.78) Influenza Type A Antigen Negative (Negative) Influenza Type B Antigen Negative (Negative) SARS-CoV-2 Antigen (Rapid) Negative (NEGATIVE) Ammonia 14 umol/L (11-32) Test 08/05/24 20:11 Prothrombin Time 11.4 sec (9.3-11.8) Prothrombin Time INR 1.08 (0.9-1.15) Lactic Acid Level 1.2 mmol/L (0.4-2.0) Other Laboratory Tests 08/10/24 05:23 Brief Hx & Hospital Course: This is a 73-year-old male with past medical history of CHF, COPD, type 2 diabetes mellitus, hypertension, osteomyelitis, right sided s/p above knee amputation, and Lt sided s/p partial amputation with nonhealing wound in the stump presented to the ED with a chief complaint of altered mental status and generalized weakness. According to the family they noticed the patient getting very weak, confused, occasional hallucination getting worse that prompted this visit. During hospitalization, left lower extremity CT scan confirmed osteomyelitis of the remaining navicular bone and distal calcaneus. No acute fracture. Bony demineralization. Patient was continued on IV Invanz which was started on 07/16, podiatry was consulted which recommended outpatient podiatry follow up along with wound care and IV antibiotics. He also had ALOC secondary to metabolic/toxic encephalopathy, CT head was unremarkable. TSH/UDS unremarkable. Ammonia was within normal limits. Previous wound c/s of Lt stump was positive for ESBL, Enterococcus faecalis and Staph aureus.. He was continued on DVT prophylaxis with Lovenox 40 mg sc daily. And peptic ulcer prophylaxis with Protonix 20 mg daily. Physical therapy was consulted and recommended manual wheelchair. Wound culture was positive for Enterococcus and Staphylococcus, patient was started on p.o. Zyvox b.i.d. for the next 6 weeks. 08/13-patient is hemodynamically stable, no active complaint, therefore is being discharged home with the home health for IV ertapenem till 08/27/24 and p.o. Zyvox for the next 6 weeks till 09/24 and wound care. He agrees with the discharge plan. Discharge note; Continue IV ertapenem until 08/27/2024 Continue p.o. Zyvox till 09/24 Continue wound care Follow up with engine cleaner within 7 days Follow up wound care and home health Follow up with the discharge clinic appointment within 7 days Follow up with primary care physician within 7 days Diagnosis: Acute Metabolic/toxic encephalopathy secondary to likely autonomic dysfunction osteomyelitis in the LT foot secondary to Enterococcus and Staphylococcus, s/p partial amputation of the Lt foot Diabetic neuropathy Chronic COPD Uncontrolled type 2 diabetes mellitus hemoglobin A1c 8.7 Transaminitis secondary to hepatic steatosis Status post right AKA and left metatarsal amputation Peripheral arterial disease Consults/Reason for consult Podiatry consult Condition at Discharge: Stable Final Diagnosis/Problems List Acute Metabolic/toxic encephalopathy secondary to likely autonomic dysfunction osteomyelitis in the LT foot secondary to Enterococcus and Staphylococcus, s/p partial amputation of the Lt foot Diabetic neuropathy Chronic COPD Uncontrolled type 2 diabetes mellitus hemoglobin A1c 8.7 Transaminitis secondary to hepatic steatosis Status post right AKA and left metatarsal amputation Discharge Disposition: Home with Health Services Discharge Instruct/Medications Diet: Consistent carbohydrate Activity: Light activity Follow Up/Referral: Follow up with engine cleaner within 7 days Follow up wound care and home health Follow up with the discharge clinic appointment within 7 days Follow up with primary care physician within 7 days Medications: Per EMR Discharge Statement: "Patient was advised to return to the ER or call 911 if any headaches, dizziness, shortness of breath, chest pain, abdominal pain, bleeding, fevers, or worsening of medical condition. Patient was counseled about treatment plan, medications, possible side effects, patientverbalized understanding. All questions were answered to the best of my ability. This discharge took greater then 30 minutes in planning, reviewing documentation, counseling the patient, and discussing with other team members." ASSESSMENT ASSESSMENT Assessment Acute Metabolic/toxic encephalopathy secondary to likely autonomic dysfunction osteomyelitis in the LT foot, s/p partial amputation of the Lt foot Diabetic neuropathy Chronic COPD Uncontrolled type 2 diabetes mellitus hemoglobin A1c 8.7 Transaminitis secondary to hepatic steatosis Status post right AKA and left metatarsal amputation Date of Service: Aug 13, 2024 Billing Provider: GIANA DELATORRE MD Common Visit Codes: [id number] DISCH DAY >30min REBECCA HYMAN Aug 10, 2024 16:44 GIANA DELATORRE MD Aug 16, 2024 00:26
[2024-08-11] VITALS (8 sets, daily range): BP systolic 90–104; BP diastolic 45–64; PULSE 53–92; RESP 16–20; TEMP 97.6–99.8; O2SAT 92–95
[2024-08-11] MEDS: SODIUM CHLORIDE 0.9% 250 ML IV ONE (06:50)
[2024-08-11 09:16] LABS: Basophils # (auto) 0.1 10 ^3/uL (0-0.2); Basophils % (auto) 1.3 % (0.0-2.0); Eosinophils % (auto) 11.1 % (0.0-7.0); Hematocrit 36.8 % (41.0-53.0); Hemoglobin 11.8 g/dL (13.5-17.5); Lymphocytes # (auto) 2.9 10 ^3/uL (0.4-5.4); Lymphocytes % (auto) 31.8 % (10.0-50.0); Mean Corpuscular Hgb Conc. 32.1 g/dL (32.0-36.0); Mean Corpuscular Volume 77.8 fL (80.0-100.0); Monocytes # (auto) 0.6 10 ^3/uL (0-1.3); Monocytes % (auto) 6.9 % (0.0-12.0); Neutrophils # (auto) 4.5 10 ^3/uL (1.6-8.6); Neutrophils % (auto) 48.9 % (37.0-80.0); Nucleated Red Blood Cells % 0.1 %; Platelet Count (auto) 308 10^3/uL (140-450); Red Blood Cells 4.73 10^6/uL (4.5-5.90); Red Cell Distribution Width 15.7 % (11.8-14.3); White Blood Cell 9.3 10^3/uL (4.4-10.8)
[2024-08-11 09:34] LABS: Alanine Aminotransferase 28 U/L (7-40); Albumin 3.4 g/dL (3.2-4.8); Alkaline Phosphatase 101 U/L (46-116); Anion Gap 8 (5-15); Aspartate Aminotransferase 33 U/L (13-40); BUN/Creatinine Ratio 19.6 (10.0-20.0); Blood Urea Nitrogen 22 mg/dL (9-23); Calcium 8.8 mg/dL (8.7-10.4); Carbon Dioxide 23 mmol/L (20-31); Chloride 106 mmol/L (98-107); Potassium 4.7 mmol/L (3.5-5.1); Sodium 137 mmol/L (136-145)
[2024-08-11 09:35] LABS: Total Protein 7.8 g/dL (5.7-8.2)
[2024-08-11 09:36] LABS: Bilirubin, Total 0.3 mg/dL (0.2-1.0)
--- NOTE | 2024-08-11 09:47 | DVH ---
EXAM: XY CHEST XRAY 1 VIEW Indication: fever, low spo2 Technique: Single frontal view of the chest was obtained Comparison: XY CHEST XRAY 1 VIEW on DOS: 08/05/24, XY CHEST PORTABLE on DOS: 07/15/24, XY CHEST PORTABLE on DOS: 11/25/23, XY CHEST PORTABLE on DOS: 10/05/23, XY CHEST PORTABLE on DOS: 10/04/23 FINDINGS: Lines and Tubes: None Lungs: Diffuse interstitial opacities. Pleura: No effusion. No pneumothorax. Cardiomediastinal contours: Unremarkable Bones: No acute osseous abnormality. IMPRESSION: Diffuse interstitial opacities are unchanged.
[2024-08-11 10:58] LABS: Glucose 161 mg/dL (74-106)
--- NOTE | 2024-08-11 15:32 | DVHPNRES ---
Progress Note Date Seen: Aug 11, 2024 Resident Creating Document: REBECCA HYMAN RESIDENT Has the PT tested + for MRSA If YES, has PT been informed?: No Medical Necessity Reason Pt with a Central, PICC or Fol: No Subjective Review of Systems This is a 73-year-old male with past medical history of CHF, COPD, type 2 diabetes mellitus, hypertension, osteomyelitis, right sided s/p above knee amputation, and Lt sided s/p partial amputation with nonhealing wound in the stump presented to the ED with a chief complaint of altered mental status and generalized weakness. According to the family they noticed the patient getting very weak, confused, occasional hallucination getting worse that prompted this visit. Patient seen and examined at bedside. Patient is alert and oriented x3. Overnight, patient was febrile. Ortega catheter removed. Patient is urinating on his own. Detailed discussion regarding SNF placement, patient refused and wants to go home. Wound culture completed, shows Enterococcus and Staph haemolyticus, started p.o. Zyvox 600 mg q.12 Objective vital signs Vital Sign Date Time Temp Pulse Resp B/P (MAP) Pulse Ox O2 Delivery O2 Flow Rate FiO2 08/11/24 09:00 97.6 87 16 104/59 (74) 94 97.6 08/10/24 20:30 Room Air* 0 21 Total Intake and Output 08/10/24 08/10/24 08/11/24 15:00 23:00 07:00 Intake Total 50 ml 425 ml 200 ml Output Total 550 ml 500 ml Balance 50 ml -125 ml -300 ml medications Current Medications Medications Dose Ordered Sig/Colin Route Start Time Stop Time Status Last Admin Dose Admin Ibuprofen 600 mg Q6HP PRN PO 08/06/24 00:15 Sodium Chloride 10 ml Q8HR IV 08/06/24 06:00 08/11/24 06:22 10 ML Acetaminophen/ Hydrocodone Bitart 1 tab Q4HP PRN PO 08/06/24 00:15 08/06/24 12:08 1 TAB Ondansetron HCl 4 mg Q4HP PRN IV 08/06/24 00:15 Docusate Sodium 100 mg BIDPRN PRN PO 08/06/24 00:15 Nitroglycerin 0.4 mg Q5MINP PRN SL 08/06/24 00:15 Aspirin 81 mg DAILY PO 08/06/24 10:00 08/11/24 10:04 81 MG Atorvastatin Calcium 20 mg HS PO 08/06/24 22:00 08/10/24 22:05 20 MG Famotidine 20 mg DAILY IV 08/06/24 10:00 08/11/24 10:04 20 MG Morphine Sulfate 2 mg Q4HPRN PRN IV 08/06/24 03:45 08/06/24 04:02 2 MG Ertapenem 1 gm/ Sodium Chloride 50 ml @ 100 mls/hr DAILY IV 08/06/24 10:00 08/11/24 10:12 100 MLS/HR Diagnostic Test (Pha) 1 strip ACHS 08/07/24 17:00 08/10/24 17:00 1 STRIP Dextrose 50 ml UD PRN IV 08/07/24 17:00 Diagnostic Test (Pha) 1 strip IQ4HR 08/10/24 08:00 08/11/24 11:41 1 STRIP Insulin Human Regular IQ4HR SC 08/10/24 08:00 08/11/24 11:41 3 UNITS Dextrose 50 ml UD PRN IV 08/10/24 06:45 Examination Elderly patient lying in bed, in no acute distress. General: afebrile, palor, mucosae are moist Cardiovascular: Regular S1 and S2. No murmurs, gallops or rubs. No JVD elevation. No pedal edema Respiratory: Normal B/L air entry on room air. Clear lung sounds on auscultation Abdomen: Soft, nontender, nondistended, normoactive bowel sounds, no rebound tenderness, no organomegaly, no masses Genitourinary: Deferred MSK/skin: Mobilizes 4 limbs. Skin is dry and warm. R AKA & L partial left foot amputation with overlying dressing Neurological: No motor, no sensitive deficits, normal speech. Pupils are isocoric and reactive. Psych/Mental Status: A/Ox4 laboratory and microbiology Laboratory Tests 08/11/24 08:36 Test 08/11/24 08:36 Range/Units Serum Glucose 161 H 74-106 mg/dL Microbiology Date/Time Source Procedure Growth Status 08/06/24 03:40 Foot Gram Stain - Final Complete 08/06/24 03:40 Wound Culture - Final Enterococcus casseliflavus Staphylococcus haemolyticus Complete 08/05/24 20:11 Blood Blood Culture - Final NO GROWTH AFTER 5 DAYS OF INCUBATION. Complete Labs and/or images reviewed: Labs reviewed by me, Image(s) reviewed by me Problem List/Assessment/Plan Problem List/Assessment/Plan Acute Metabolic/toxic encephalopathy - CT head without contrast revealed no acute intracranial abnormality - TSH is normal and UDS negative - Ammonia is 18 - Patient was given 3 L IV bolus. Possible osteomyelitis in the LT foot, s/p partial amputation of the Lt foot - CT of the left lower extremity revealed osteomyelitis of the remaining navicular bone and distal calcaneus with bony irregularity, lucency and sclerosis - Previous wound c/s of Lt stump was positive for ESBL, Enterococcus faecalis and Staph aureus. 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 Zyvox 600 mg q.12 starting 08/11 till the next 6 weeks Chronic COPD Possible interstitial lung disease - Chest x-ray showed Chronic increased interstitial opacities in both lungs likely related to interstitial lung disease. - MedNeb with albuterol and ipratropium q.6 p.r.n. Type 2 diabetes mellitus, HbA1C 8.7% - Mild sliding scale of insulin Transaminitis secondary to hepatic steatosis PUD prophylaxis - Pepcid 20 mg p.o. daily DVT prophylaxis - Lovenox 40 mg sc daily PT recommended manual wheelchair Patient refused SNF placement Discontinued Ortega catheter Plan discussed with patient in which all questions have been answered Case discussed with Dr. Stallworth Plan discussed with: Patient, Other (Caregiver) My Orders My Orders Orders - REBECCA HYMAN Procedure Category Date Status Time * Ostomy Care Nurse CONS 08/10/24 Transmitted Consult Schedule For Dc KWAME 08/10/24 In Process Clinic F/U 16:45 Ok To Change Ortega ORDERS 08/11/24 Transmitted 06:27 Chest Xray 1 View XY 08/11/24 Resulted 06:27 * Wound Consult CONS 08/11/24 Transmitted D/C Ortega KWAME 08/11/24 In Process 08:25 * Ostomy Care Nurse CONS 08/11/24 Transmitted Consult 09:13 Discharge DISCHARGE 08/11/24 Transmitted 14:36 Dietary Evaluation Review Comments: 2 GNa CCHO-60 diet Dontae BID for wound healing Expected Outcomes/Goals: controlled DM, gradually healed wounds. gradual wt loss Date of Service: Aug 11, 2024 Billing Provider: GIANA DELATORRE MD Common Visit Codes: [id number] INP/OBS CARE(HIGH) REBECCA HYMAN RESIDENT Aug 11, 2024 15:32 GIANA DELATORRE MD Aug 16, 2024 00:01
[2024-08-12] VITALS (8 sets, daily range): BP systolic 94–115; BP diastolic 49–66; PULSE 77–99; RESP 16–20; TEMP 97.7–98.1; O2SAT 88–99
[2024-08-12] MEDS: LINEZOLID 600MG TABLET PO SCH (04:16)
[2024-08-12 06:38] LABS: Basophils # (auto) 0.1 10 ^3/uL (0-0.2); Monocytes # (auto) 0.6 10 ^3/uL (0-1.3)
[2024-08-12 06:41] LABS: Basophils % (auto) 1.1 % (0.0-2.0); Eosinophils # (auto) 0.9 10 ^3/uL (0-0.8); Eosinophils % (auto) 10.5 % (0.0-7.0); Hematocrit 35.7 % (41.0-53.0); Hemoglobin 11.5 g/dL (13.5-17.5); Lymphocytes # (auto) 2.7 10 ^3/uL (0.4-5.4); Lymphocytes % (auto) 31.6 % (10.0-50.0); Mean Corpuscular Hemoglobin 24.9 pg (28.0-32.0); Mean Corpuscular Hgb Conc. 32.3 g/dL (32.0-36.0); Mean Corpuscular Volume 77.2 fL (80.0-100.0); Monocytes % (auto) 7.3 % (0.0-12.0); Neutrophils # (auto) 4.3 10 ^3/uL (1.6-8.6); Neutrophils % (auto) 49.5 % (37.0-80.0); Platelet Count (auto) 263 10^3/uL (140-450); Red Blood Cells 4.62 10^6/uL (4.5-5.90); White Blood Cell 8.6 10^3/uL (4.4-10.8)
[2024-08-12 06:43] LABS: Anion Gap 7 (5-15); Carbon Dioxide 24 mmol/L (20-31); Potassium 4.2 mmol/L (3.5-5.1); Sodium 138 mmol/L (136-145)
[2024-08-12 06:49] LABS: BUN/Creatinine Ratio 18.7 (10.0-20.0); Blood Urea Nitrogen 23 mg/dL (9-23); Calcium 8.6 mg/dL (8.7-10.4); Chloride 107 mmol/L (98-107); Glucose 220 mg/dL (74-106)
--- NOTE | 2024-08-12 12:48 | DVHPNRES ---
Progress Note Date Seen: Aug 12, 2024 Resident Creating Document: REBECCA HYMAN RESIDENT Has the PT tested + for MRSA If YES, has PT been informed?: No Medical Necessity Reason Pt with a Central, PICC or Fol: No Subjective Review of Systems This is a 73-year-old male with past medical history of CHF, COPD, type 2 diabetes mellitus, hypertension, osteomyelitis, right sided s/p above knee amputation, and Lt sided s/p partial amputation with nonhealing wound in the stump presented to the ED with a chief complaint of altered mental status and generalized weakness. According to the family they noticed the patient getting very weak, confused, occasional hallucination getting worse that prompted this visit. Patient seen and examined at bedside. Patient is alert and oriented x3. . Detailed discussion regarding SNF placement, patient refused and wants to go home. Wound culture completed, shows Enterococcus and Staph haemolyticus, IV invanz and p.o. Zyvox 600 mg q.12 Objective vital signs Vital Sign Date Time Temp Pulse Resp B/P (MAP) Pulse Ox O2 Delivery O2 Flow Rate FiO2 08/12/24 09:00 98.0 79 17 96/54 (68) 96 98.0 08/11/24 20:00 Nasal Cannula* 1 24 Total Intake and Output 08/11/24 08/11/24 08/12/24 15:00 23:00 07:00 Intake Total 50 ml 575 ml 100 ml Output Total 400 ml Balance 50 ml 575 ml -300 ml medications Current Medications Medications Dose Ordered Sig/Colin Route Start Time Stop Time Status Last Admin Dose Admin Ibuprofen 600 mg Q6HP PRN PO 08/06/24 00:15 Sodium Chloride 10 ml Q8HR IV 08/06/24 06:00 08/12/24 05:49 10 ML Acetaminophen/ Hydrocodone Bitart 1 tab Q4HP PRN PO 08/06/24 00:15 08/06/24 12:08 1 TAB Ondansetron HCl 4 mg Q4HP PRN IV 08/06/24 00:15 Docusate Sodium 100 mg BIDPRN PRN PO 08/06/24 00:15 Nitroglycerin 0.4 mg Q5MINP PRN SL 08/06/24 00:15 Aspirin 81 mg DAILY PO 08/06/24 10:00 08/12/24 09:55 81 MG Atorvastatin Calcium 20 mg HS PO 08/06/24 22:00 08/12/24 04:16 20 MG Famotidine 20 mg DAILY IV 08/06/24 10:00 08/12/24 09:56 20 MG Morphine Sulfate 2 mg Q4HPRN PRN IV 08/06/24 03:45 08/06/24 04:02 2 MG Ertapenem 1 gm/ Sodium Chloride 50 ml @ 100 mls/hr DAILY IV 08/06/24 10:00 08/12/24 09:55 100 MLS/HR Diagnostic Test (Pha) 1 strip ACHS 08/07/24 17:00 08/12/24 06:36 1 STRIP Dextrose 50 ml UD PRN IV 08/07/24 17:00 Diagnostic Test (Pha) 1 strip IQ4HR 08/10/24 08:00 08/12/24 05:46 1 STRIP Dextrose 50 ml UD PRN IV 08/10/24 06:45 Linezolid 600 mg BID PO 08/11/24 22:00 08/12/24 09:55 600 MG Examination Elderly patient lying in bed, in no acute distress. General: afebrile, palor, mucosae are moist Cardiovascular: Regular S1 and S2. No murmurs, gallops or rubs. No JVD elevation. No pedal edema Respiratory: Normal B/L air entry on room air. Clear lung sounds on auscultation Abdomen: Soft, nontender, nondistended, normoactive bowel sounds, no rebound tenderness, no organomegaly, no masses Genitourinary: Deferred MSK/skin: Mobilizes 4 limbs. Skin is dry and warm. R AKA & L partial left foot amputation with overlying dressing Neurological: No motor, no sensitive deficits, normal speech. Pupils are isocoric and reactive. Psych/Mental Status: A/Ox4 laboratory and microbiology Laboratory Tests 08/12/24 05:09 Test 08/12/24 05:09 Range/Units Serum Glucose 220 H 74-106 mg/dL Microbiology Date/Time Source Procedure Growth Status 08/06/24 03:40 Foot Gram Stain - Final Complete 08/06/24 03:40 Wound Culture - Final Enterococcus casseliflavus Staphylococcus haemolyticus Complete 08/05/24 20:11 Blood Blood Culture - Final NO GROWTH AFTER 5 DAYS OF INCUBATION. Complete Labs and/or images reviewed: Labs reviewed by me, Image(s) reviewed by me Problem List/Assessment/Plan Problem List/Assessment/Plan Acute Metabolic/toxic encephalopathy - CT head without contrast revealed no acute intracranial abnormality - TSH is normal and UDS negative - Ammonia is 18 - Patient was given 3 L IV bolus. Possible osteomyelitis in the LT foot, s/p partial amputation of the Lt foot - CT of the left lower extremity revealed osteomyelitis of the remaining navicular bone and distal calcaneus with bony irregularity, lucency and sclerosis - Previous wound c/s of Lt stump was positive for ESBL, Enterococcus faecalis and Staph aureus. 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 Zyvox 600 mg q.12 starting 08/11 till 09/24 Chronic COPD Possible interstitial lung disease - Chest x-ray showed Chronic increased interstitial opacities in both lungs likely related to interstitial lung disease. - MedNeb with albuterol and ipratropium q.6 p.r.n. Type 2 diabetes mellitus, HbA1C 8.7% - Mild sliding scale of insulin Transaminitis secondary to hepatic steatosis PUD prophylaxis - Pepcid 20 mg p.o. daily DVT prophylaxis - Lovenox 40 mg sc daily PT recommended manual wheelchair Patient refused SNF placement Discontinued Ortega catheter DC with home health Plan discussed with patient in which all questions have been answered Case discussed with Dr. 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 gradual wt loss Date of Service: Aug 12, 2024 Billing Provider: GIANA DELATORRE MD Common Visit Codes: [id number] INP/OBS CARE(HIGH) REBECCA HYMAN Aug 12, 2024 12:48 GIANA DELATORRE MD Aug 16, 2024 00:07
[2024-08-13 01:00] VITALS: BP 101/60; PULSE 90; RESP 17; TEMP 98.1; O2SAT 89
[2024-08-13 05:00] VITALS: BP 103/63; PULSE 90; RESP 18; TEMP 97.9; O2SAT 90
[2024-08-13] MEDS ORDERED: DEXTROSE (50%) 50ML SYRG IV PRN (07:30)
[2024-08-13 07:44] LABS: Potassium 4.3 mmol/L (3.5-5.1); Sodium 138 mmol/L (136-145)
[2024-08-13 07:45] LABS: Anion Gap 9 (5-15); Carbon Dioxide 21 mmol/L (20-31)
[2024-08-13 07:46] LABS: Calcium 8.9 mg/dL (8.7-10.4)
[2024-08-13 07:48] LABS: Chloride 108 mmol/L (98-107)
[2024-08-13 07:51] LABS: BUN/Creatinine Ratio 16.4 (10.0-20.0); Blood Urea Nitrogen 20 mg/dL (9-23)
[2024-08-13 07:53] LABS: Glucose 144 mg/dL (74-106)
[2024-08-13 07:54] LABS: Basophils # (auto) 0.1 10 ^3/uL (0-0.2); Basophils % (auto) 1.3 % (0.0-2.0); Eosinophils # (auto) 0.8 10 ^3/uL (0-0.8); Eosinophils % (auto) 8.5 % (0.0-7.0); Hematocrit 36.4 % (41.0-53.0); Hemoglobin 11.7 g/dL (13.5-17.5); Lymphocytes # (auto) 3.2 10 ^3/uL (0.4-5.4); Lymphocytes % (auto) 32.8 % (10.0-50.0); Mean Corpuscular Hemoglobin 24.9 pg (28.0-32.0); Mean Corpuscular Hgb Conc. 32.1 g/dL (32.0-36.0); Mean Corpuscular Volume 77.4 fL (80.0-100.0); Monocytes # (auto) 0.7 10 ^3/uL (0-1.3); Monocytes % (auto) 7.2 % (0.0-12.0); Neutrophils # (auto) 4.9 10 ^3/uL (1.6-8.6); Neutrophils % (auto) 50.2 % (37.0-80.0); Nucleated Red Blood Cells % 0.1 %; Platelet Count (auto) 289 10^3/uL (140-450); Red Blood Cells 4.69 10^6/uL (4.5-5.90); Red Cell Distribution Width 15.6 % (11.8-14.3); White Blood Cell 9.7 10^3/uL (4.4-10.8)
[2024-08-13 08:00] VITALS: PULSE 84; RESP 16; O2SAT 93
[2024-08-13] MEDS: ACCU-CHEK COMFORT CURVE STRIP VI SCH (08:35)
[2024-08-13] MEDS: InsuLIN REG 1unit/0.01ml Soln (100units/ml) SC SCH (08:35)
[2024-08-13 09:00] VITALS: BP 98/64; PULSE 84; RESP 19; TEMP 97.5; O2SAT 93
[2024-08-13] MEDS ORDERED: LINE1TAB6 PO (10:34)
[2024-08-13 11:06] VITALS: BP 97/61; PULSE 84; RESP 19; TEMP 36.4; O2SAT 93
[2024-08-13 11:11] VITALS: BP 97/61; PULSE 84; RESP 19; TEMP 36.4; O2SAT 93
--- NOTE | 2024-08-13 14:39 | DVHPNRES ---
Progress Note Date Seen: Aug 13, 2024 Resident Creating Document: REBECCA HYMAN RESIDENT Has the PT tested + for MRSA If YES, has PT been informed?: No Medical Necessity Reason Pt with a Central, PICC or Fol: Yes The following are medically ne: PICC Line Subjective Review of Systems This is a 73-year-old male with past medical history of CHF, COPD, type 2 diabetes mellitus, hypertension, osteomyelitis, right sided s/p above knee amputation, and Lt sided s/p partial amputation with nonhealing wound in the stump presented to the ED with a chief complaint of altered mental status and generalized weakness. According to the family they noticed the patient getting very weak, confused, occasional hallucination getting worse that prompted this visit. 08/13 - Patient seen and examined at bedside. Patient is alert and oriented x3. . Detailed discussion regarding SNF placement, patient refused and wants to go home. Wound culture completed, shows Enterococcus and Staph haemolyticus, IV invanz and p.o. Zyvox 600 mg q.12 Objective vital signs Vital Sign Date Time Temp Pulse Resp B/P (MAP) Pulse Ox O2 Delivery O2 Flow Rate FiO2 08/13/24 11:11 36.4 84 19 93 08/13/24 09:00 98/64 (75) 08/13/24 08:00 Nasal Cannula* 1 24 Total Intake and Output 08/12/24 08/12/24 08/13/24 15:00 23:00 07:00 Intake Total 450 ml 550 ml Output Total 395 ml 400 ml Balance 55 ml 150 ml Examination Elderly patient lying in bed, in no acute distress. General: afebrile, palor, mucosae are moist Cardiovascular: Regular S1 and S2. No murmurs, gallops or rubs. No JVD elevation. No pedal edema Respiratory: Normal B/L air entry on room air. Clear lung sounds on auscultation Abdomen: Soft, nontender, nondistended, normoactive bowel sounds, no rebound tenderness, no organomegaly, no masses Genitourinary: Deferred MSK/skin: Mobilizes 4 limbs. Skin is dry and warm. R AKA & L partial left foot amputation with overlying dressing Neurological: No motor, no sensitive deficits, normal speech. Pupils are isocoric and reactive. Psych/Mental Status: A/Ox4 laboratory and microbiology Laboratory Tests 08/13/24 07:20 Test 08/13/24 07:20 Range/Units Serum Glucose 144 H 74-106 mg/dL Microbiology Date/Time Source Procedure Growth Status 08/06/24 03:40 Foot Gram Stain - Final Complete 08/06/24 03:40 Wound Culture - Final Enterococcus casseliflavus Staphylococcus haemolyticus Complete 08/05/24 20:11 Blood Blood Culture - Final NO GROWTH AFTER 5 DAYS OF INCUBATION. Complete Labs and/or images reviewed: Labs reviewed by me, Image(s) reviewed by me Problem List/Assessment/Plan Problem List/Assessment/Plan Acute Metabolic/toxic encephalopathy - CT head without contrast revealed no acute intracranial abnormality - TSH is normal and UDS negative - Ammonia is 18 - Patient was given 3 L IV bolus. Possible osteomyelitis in the LT foot, s/p partial amputation of the Lt foot - CT of the left lower extremity revealed osteomyelitis of the remaining navicular bone and distal calcaneus with bony irregularity, lucency and sclerosis - Previous wound c/s of Lt stump was positive for ESBL, Enterococcus faecalis and Staph aureus. 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 Zyvox 600 mg q.12 starting 08/11 till 09/24 Chronic COPD Possible interstitial lung disease - Chest x-ray showed Chronic increased interstitial opacities in both lungs likely related to interstitial lung disease. - MedNeb with albuterol and ipratropium q.6 p.r.n. Type 2 diabetes mellitus, HbA1C 8.7% - Mild sliding scale of insulin Transaminitis secondary to hepatic steatosis PUD prophylaxis - Pepcid 20 mg p.o. daily DVT prophylaxis - Lovenox 40 mg sc daily PT recommended manual wheelchair Patient refused SNF placement Discontinued Ortega catheter DC with home health Plan discussed with patient in which all questions have been answered Case discussed with Dr. Stallworth Plan discussed with: Patient My Orders My Orders Orders - REBECCA HYMAN RESIDENT Procedure Category Date Status Time * Soda Clerk CONS 08/13/24 Transmitted Consult Dietary Evaluation Review Comments: 2 GNa CCHO-60 diet Dontae BID for wound healing Expected Outcomes/Goals: controlled DM, gradually healed wounds. gradual wt loss Date of Service: Aug 13, 2024 Billing Provider: GIANA DELATORRE MD Common Visit Codes: [id number] INP/OBS CARE(HIGH) REBECCA HYMAN Aug 13, 2024 14:39 GIANA DELATORRE MD Aug 16, 2024 00:13
== END 2024-08-13 11:45 | disposition home health service (06) | DRG 73 ==
LOC: EDBD 19:18 → ER 19:18 → EDUNIT# 19:18 → TELE 08-06 00:14 → TELE-CENTR 08-06 00:28 → TELE 08-10 14:29 → CENTRAL 08-10 14:37
PROVIDERS: ADMIT Student in an Organized Health Care Education/Training Program; ATTEND Student in an Organized Health Care Education/Training Program
DX: G90.89 Other disorders of autonomic nervous system (principal); G92.8 Other toxic encephalopathy; M86.8X7 Other osteomyelitis, ankle and foot; E11.69 Type 2 diabetes mellitus with other specified complication; E11.621 Type 2 diabetes mellitus with foot ulcer; J44.9 Chronic obstructive pulmonary disease, unspecified; I50.9 Heart failure, unspecified; I11.0 Hypertensive heart disease with heart failure; Z20.822 Contact with and (suspected) exposure to COVID-19; L97.529 Non-pressure chronic ulcer of other part of left foot with unspecified severity; K76.0 Fatty (change of) liver, not elsewhere classified; E11.40 Type 2 diabetes mellitus with diabetic neuropathy, unspecified; E11.51 Type 2 diabetes mellitus with diabetic peripheral angiopathy without gangrene; Z83.3 Family history of diabetes mellitus; Z82.49 Family history of ischemic heart disease and other diseases of the circulatory system; Z79.4 Long term (current) use of insulin; Z87.440 Personal history of urinary (tract) infections; Z88.3 Allergy status to other anti-infective agents; Z88.1 Allergy status to other antibiotic agents; Z89.611 Acquired absence of right leg above knee; Y83.5 Amputation of limb(s) as the cause of abnormal reaction of the patient, or of later complication, without mention of misadventure at the time of the procedure; Y92.89 Other specified places as the place of occurrence of the external cause
CPT/HCPCS: 36415; 70450; 71045; 73700; 76705; 80048; 80053; 80307; 81001; 82140; 82962; 83036; 83605; 83880; 84443; 85025; 85610; 85652; 86141; 87040; 87077; 87186; 87205; 87426; 87804; 97110; 97163; 97530; G0378; J1335; J1815; J3490

== ENCOUNTER 2024-08-17 13:15 | Inpatient (IN) | payer MEDICARE, MEDICAID ==
[~2024-08-17] VITALS: Ht 175.3 cm; Wt 69.4 kg
[~2024-08-17 13:15] MED LIST changes: -CIPR-173 PO; -DULO20CA PO; -FLUC200T50 PO; +LINE1TAB6 PO
--- NOTE | 2024-08-17 13:25 | ED.PDOC ---
Altered Mental Status HPI Comments 73 year old male NITA presents to the ED with chief complaint of ALOC. 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 EMS relays that the patient is reportedly prone to infections. EMS states patient's blood glucose level was at 277. Patient unable to answer any questions at this time and EMS denies any further history. Chief Complaint: ALOC Time Seen by MD: 13:21 Primary Care Provider: FABRICE EDWARDS Reviewed Notes: Nurses Notes, Glue Line Operator Notes, Medications, Allergies Allergies: Coded Allergies: Vancomycin (Verified Allergy, Severe, 12/14/20) PER PATIENT, STATES IT CAUSED HIM KIDNEY FAILURE Sulfamethoxazole w/Trimethoprim (Verified Allergy, Unknown, 12/11/20) Clindamycin (Verified Adverse Reaction, Intermediate, BREAKS OUT IN SWEAT, 12/11/20) Home Meds Active Scripts Linezolid (Zyvox) 600 Mg Tab, 600 MG PO BID for 36 Days, #72 TAB 0 Refills Prov:REBECCA HYMAN RESIDENT 08/13/24 Reported Medications Duloxetine HCl (Duloxetine HCl) 30 Mg Cap, 1 CAP PO BID for 30 Days, #60 07/14/24 Pantoprazole Sodium Sesquihydr (Pantoprazole Sodium) 40 Mg Tab, 1 TAB PO DAILY for 90 Days, #90 05/15/24 Insulin Glargine (Lantus) 100 Unit/Ml Inj, 30 UNIT SC BID for 100 Days, #60 05/15/24 Aspirin (Aspirin Low Dose) 81 Mg Tab, 1 TAB PO DAILY for 90 Days, #90 05/15/24 Atorvastatin Calcium (Lipitor) 40 Mg Tab, 1 TAB PO DAILY for 90 Days, #90 10/01/23 Furosemide (Furosemide) 20 Mg Tab, 1 TAB PO DAILY for 90 Days, #90 05/01/23 Discontinued Reported Medications Duloxetine Hcl (Cymbalta) 20 Mg Cap, 1 CAP PO DAILY, #30 CAP 2 Refills 07/14/24 Fluconazole (Fluconazole) 200 Mg Tab, 1 TAB PO BID for 5 Days, #10 07/14/24 Discontinued Scripts Ciprofloxacin Hcl (Cipro) 500 Mg Tab, 1 TAB PO BID, #14 TAB Prov:CATHERINE JACKSON MD 08/02/24 Information Source: Emergency Med Personnel Mode of Arrival: EMS Severity: Unresponsive Timing: Hours Duration: Since onset Prehospital treatment: None Quality: Decreased Alertness, Change in Behavior, Confusion Recent: None History of: Diabetes Past Medical History PAST MEDICAL HISTORY: CHF, COPD, DM, High Lipids, HTN, UTI'S Surgical History: AKA Surgical History (Other): Right AKA, Left Foot Amputation Family History Family History: Reviewed,noncontributory to illness Social History Smoker: Non-Smoker Alcohol: Denies ETOH Use Drugs: Denies Drug Use Lives In: Home Unable to Obtain due to: Altered Mental Status All Other Systems: Reviewed and Negative Physical Exam General Appearance: Moderate Distress, Normal HEENT: Normal ENT Inspection, PERRL/EOMI Neck: Full Range of Motion, Non-Tender, Normal, Normal Inspection Respiratory: Chest Non-Tender, Lungs Clear, No Accessory Muscle Use, No Respiratory Distress, Normal Breath Sounds Cardiovascular: No Edema, No JVD, No Murmur, No Gallop, Normal Peripheral Pulses, Regular Rate/Rhythm Breast Exam: Deferred Gastrointestinal: No Organomegaly, Non Tender, No Pulsatile Mass, Normal Bowel Sounds, Soft Genitalia: Deferred Pelvic: Deferred Rectal: Deferred Extremities: No calf tenderness, Normal capillary refill, Normal range of motion, Non-tender, No pedal edema, Other (Right above knee amputation left toe amputation) Musculoskeletal : Apperance: Normal Neurologic: Disoriented Cerebellar Function: NOT DONE Reflexes: NOT DONE Skin: Dry, Normal Color, Warm Peripheral Pulses: 3+ Radial (R), 3+ Radial (L) Lymphatic: No Adenopathy Was a procedure done? Was a procedure done?: No Differential Diagnosis (ALOC) Differential Diagnosis: Encephalopathy, Sepsis X-Ray, Labs, Meds, VS Vital Signs Date Time Temp Pulse Resp B/P (MAP) Pulse Ox O2 Delivery O2 Flow Rate FiO2 08/17/24 13:15 97.9 101 24 142/81 (101) 95 Lab Test 08/17/24 13:56 08/17/24 13:50 Range/Units Blood Gas Specimen Type Arterial Blood Gas Sample Site Right radial Blood Gas Patient Temperature 37.0 Arterial Blood Date Drawn [id number] Arterial Blood pH 7.405 7.350-7.450 Arterial Blood Partial Pressure CO2 34.3 L 35.0-48.0 mmHg Arterial Blood Partial Pressure O2 59.0 L 83.0-108.0 mmHg Arterial Blood HCO3 21.0 21.0-28.0 mmol/L Arterial Blood Oxygen Saturation 87.3 L 94.0-98.0 % Arterial Blood Base Excess -3.1 L -2.0-3.0 mmol/L Arterial Blood Oxyhemoglobin 86.2 L 94.0-98.0 % Arterial Blood Carboxyhemoglobin 0.7 0.5-1.5 % Arterial Blood Methemoglobin 0.6 0.0-1.5 % Pradeep Test Yes Blood Gas Total Hemoglobin 11.90 L 13.5-17.5 g/dL Blood Gas Modality Room air FiO2 % 21.0 White Blood Count 7.8 4.4-10.8 10^3/uL Red Blood Count 4.53 4.5-5.90 10^6/uL Hemoglobin 11.3 L 13.5-17.5 g/dL Hematocrit 35.3 L 41.0-53.0 % Mean Corpuscular Volume 77.9 L 80.0-100.0 fL Mean Corpuscular Hemoglobin 25.0 L 28.0-32.0 pg Mean Corpuscular Hemoglobin Concent 32.1 32.0-36.0 g/dL Red Cell Distribution Width 16.0 H 11.8-14.3 % Platelet Count 255 140-450 10^3/uL Mean Platelet Volume 7.9 6.9-10.8 fL Neutrophils (%) (Auto) 65.5 37.0-80.0 % Lymphocytes (%) (Auto) 21.8 10.0-50.0 % Monocytes (%) (Auto) 6.1 0.0-12.0 % Eosinophils (%) (Auto) 5.6 0.0-7.0 % Basophils (%) (Auto) 1.0 0.0-2.0 % Neutrophils # (Auto) 5.1 1.6-8.6 10 ^3/uL Lymphocytes # (Auto) 1.7 0.4-5.4 10 ^3/uL Monocytes # (Auto) 0.5 0-1.3 10 ^3/uL Eosinophils # (Auto) 0.4 0-0.8 10 ^3/uL Basophils # (Auto) 0.1 0-0.2 10 ^3/uL Nucleated Red Blood Cells 0.1 % Lactic Acid Level 4.6 *H 0.4-2.0 mmol/L Troponin I High Sensitivity 4 </=54 ng/L Plasma/Serum Blood Alcohol < 3.0 <10 mg/dL CT Head: FINDINGS: There is no evidence of acute intracranial hemorrhage, extra-axial collection, mass effect, midline shift, herniation or hydrocephalus. The ventricles, sulci and cisterns are age appropriate. The cheung-white differentiation is intact. Patchy periventricular and subcortical white matter hypoattenuation is nonspecific but may be related to small vessel ischemic disease. The visualized paranasal sinuses and mastoid air cells are clear. The surrounding soft tissues and osseous structures are unremarkable. IMPRESSION: 1. No acute intracranial abnormality. No interval change compared with the prior study. Patient altered. Has wound of the left lower extremity. Old right above knee amputation. Lactic acid elevated pain Tachycardia. Blood pressure slightly elevated. Wound consultation. CT of the head reviewed does not show any acute changes. Establish intravenous access. Was given fluids. Was given Zosyn. Waiting for family. Continue cardiac monitoring. Time of 1ST Reevaluation: 14:21 Reevaluation 1ST: Unchanged Patient Education/Counseling: Diagnosis, Treatment Family Education/Counseling: No Family Present Additional Information I reviewed the following notes from patient's past medical encounters: 08/06/24 for Generalized weakness The following tests were ordered, and results were reviewed by me: I reviewed and agreed with the following test results read by other providers: Additional Information was gathered from interviewing the following independent historians: EMS I discussed treatment and results with medical personnel. Departure 1 Departure Time of Disposition: 15:29 Impression: Primary Impression: Metabolic encephalopathy Additional Impressions: Sepsis, unspecified organism Qualified Codes: A41.9 - Sepsis, unspecified organism Uncontrolled diabetes mellitus Qualified Codes: E13.65 - Other specified diabetes mellitus with hypergly cemia Disposition: ADMITTED INPATIENT Admit to: Med Surg Condition: Guarded Critical Care Note Critical Care Time?: Yes (90 min-critical care time only) Critical care comment: Sepsis altered Stability Stability form required: No Heart Score Heart Score: Heart Score Response (Comments) Value History Slightly Suspicious 0 EKG Normal 0 Age >65 2 Risk Factors >3 or Hx ASHD 2 Troponin Normal limit 0 Total 4 I personally scribed for KALA MARQUEZ MD ([email or web address]) on 08/17/24 at 13:25. Electronically submitted by Kristian Gonzalez ([email or web address]). I personally scribed for KALA MARQUEZ MD ([email or web address]) on 08/17/24 at 15:06. Electronically submitted by Kristian Gonzalez ([email or web address]). KALA MARQUEZ MD Aug 17, 2024 13:25
[2024-08-17] MEDS: SODIUM CHLORIDE 0.9% 1,000 ML IVB ONE (13:30)
[2024-08-17 14:02] LABS: Base Excess -3.1 mmol/L (-2.0-3.0)
[2024-08-17 14:19] LABS: Basophils # (auto) 0.1 10 ^3/uL (0-0.2); Eosinophils # (auto) 0.4 10 ^3/uL (0-0.8); Eosinophils % (auto) 5.6 % (0.0-7.0); Hematocrit 35.3 % (41.0-53.0); Hemoglobin 11.3 g/dL (13.5-17.5); Lymphocytes # (auto) 1.7 10 ^3/uL (0.4-5.4); Lymphocytes % (auto) 21.8 % (10.0-50.0); Mean Corpuscular Hgb Conc. 32.1 g/dL (32.0-36.0); Mean Corpuscular Volume 77.9 fL (80.0-100.0); Monocytes # (auto) 0.5 10 ^3/uL (0-1.3); Monocytes % (auto) 6.1 % (0.0-12.0); Neutrophils # (auto) 5.1 10 ^3/uL (1.6-8.6); Neutrophils % (auto) 65.5 % (37.0-80.0); Nucleated Red Blood Cells % 0.1 %; Platelet Count (auto) 255 10^3/uL (140-450); Red Blood Cells 4.53 10^6/uL (4.5-5.90); White Blood Cell 7.8 10^3/uL (4.4-10.8)
[2024-08-17 14:55] LABS: Lactic Acid w/Reflex 4.6 mmol/L (0.4-2.0)
--- NOTE | 2024-08-17 15:03 | DVH ---
EXAM: HEAD WITHOUT CONTRAST INDICATION: altered TECHNIQUE: CT of the head without intravenous contrast. Radiation Dose : 1. Head: CT Dose: CTDI volume is 64.55 mGy. Dose-length product is 1271.88 mGy*cm The dose indicators for CT are the volume Computed Tomography (CT) Dose Index (CTDIvol) and the Dose Length Product (DLP), and are measured in units of mGy and mGy-cm, respectively. These indicators are not patient dose, but values generated from the CT scanner acquisition factors. The report includes radiation exposure data for exposures received during this examination. COMPARISON: CT HEAD WITHOUT CONTRAST on DOS: 08/06/24, CT HEAD WITHOUT CONTRAST on DOS: 11/25/23 FINDINGS: There is no evidence of acute intracranial hemorrhage, extra-axial collection, mass effect, midline s hift, herniation or hydrocephalus. The ventricles, sulci and cisterns are age appropriate. The cheung-white differentiation is intact. Patchy periventricular and subcortical white matter hypoattenuation is nonspecific but may be related to small vessel ischemic disease. The visualized paranasal sinuses and mastoid air cells are clear. The surrounding soft tissues and osseous structures are unremarkable. IMPRESSION: 1. No acute intracranial abnormality. No interval change compared with the prior study. Radiation optimization: All CT scans at this facility use at least one of these dose optimization david hniques: automated exposure control mA and/or kV adjustment per patient size (includes targeted exam s where dose is matched to clinical indication) or iterative reconstruction.
--- NOTE | 2024-08-17 15:07 | DVH ---
EXAM: XY CHEST PORTABLE Indication: sob Technique: Single frontal view of the chest was obtained Comparison: XY CHEST XRAY 1 VIEW on DOS: 08/11/24, XY CHEST XRAY 1 VIEW on DOS: 08/05/24, XY CHEST LUIS ANTONIO BLE on DOS: 07/15/24, XY CHEST PORTABLE on DOS: 11/25/23, XY CHEST PORTABLE on DOS: 10/05/23 FINDINGS: Lines and Tubes: Right PICC tip projects over the superior vena cava. Lungs: No focal consolidation. Pleura: No effusion. No pneumothorax. Cardiomediastinal contours: Unremarkable. Atherosclerotic vascular calcifications of the thoracic ao rta are noted. Bones: No acute osseous abnormality. IMPRESSION: No acute cardiopulmonary disease.
[2024-08-17] MEDS: PIPERACILLIN-TAZOB 3.375GM 100 ML IV ONE (16:33)
[2024-08-17 17:00] VITALS: PULSE 90; RESP 17; O2SAT 94
[2024-08-17] MEDS: LORazepam 2MG/ML-1ML VIAL IV ONE (17:00)
[2024-08-17 17:08] LABS: Urine Bacteria FEW /hpf (None Seen); Urine Blood TRACE /uL (Negative); Urine Budding Yeast FEW /hpf (None Seen); Urine Clarity Clear (Clear); Urine Color Light-Yellow (Yellow); Urine Protein, UAD TRACE (Negative); Urine Specific Gravity 1.018 (1.001-1.035); Urine Sperm PRESENT /hpf (None Seen); Urine Squamous Epithelial Cell None Seen /hpf (<5); Urine Urobilinogen Normal (Negative); Urine WBC 8 /HPF (0-3)
[2024-08-17] MEDS ORDERED: LORazepam 2MG/ML-1ML VIAL ONE (17:37)
[2024-08-17 20:32] VITALS: PULSE 74; RESP 16; O2SAT 93
[2024-08-17] MEDS ORDERED: DEXTROSE (50%) 50ML SYRG IV PRN (21:00)
[2024-08-17] MEDS ORDERED: PIPERACILLIN-TAZOB 3.375GM 100 ML IV SCH (21:00)
[2024-08-17] MEDS ORDERED: MORPHINE SULFATE INJ 2 MG/ml SYRG IV PRN (21:00)
[2024-08-17] MEDS ORDERED: NITROGLYCERIN 0.4 MG SL TAB SL PRN (21:00)
[2024-08-17] MEDS: PIPERACILLIN-TAZOB 3.375GM 100 ML IV SCH (21:17)
[2024-08-17] MEDS: SODIUM CHLORIDE 0.9% 1,000 ML IV SCH (21:50)
[2024-08-17 21:53] LABS: Alanine Aminotransferase 17 U/L (7-40); Albumin 3.2 g/dL (3.2-4.8); Alkaline Phosphatase 108 U/L (46-116); Anion Gap 9 (5-15); Aspartate Aminotransferase 26 U/L (13-40); BUN/Creatinine Ratio 21.5 (10.0-20.0); Blood Urea Nitrogen 20 mg/dL (9-23); Carbon Dioxide 24 mmol/L (20-31); Chloride 106 mmol/L (98-107); Potassium 3.8 mmol/L (3.5-5.1); Sodium 139 mmol/L (136-145)
[2024-08-17 21:54] LABS: Bilirubin, Total 0.2 mg/dL (0.2-1.0); Calcium 8.1 mg/dL (8.7-10.4); Glucose 223 mg/dL (74-106); Total Protein 7.3 g/dL (5.7-8.2)
[2024-08-17 22:31] LABS: Erythrocyte Sedimentation Rate 92 mm/hr (0-20)
[2024-08-17] MEDS: LINEZOLID 600MG/300ML 300 ML IV SCH (22:38)
[2024-08-17 22:58] LABS: Amphetamine Screen, Urine Neg (NEGATIVE); Barbiturate Scree,Urine Neg (NEGATIVE); Benzodiazephine Screen, Urine Neg (NEGATIVE); Cannabinoid Screen, Urine Neg (NEGATIVE); Cocaine Screen, Urine Neg (NEGATIVE); Opiate Scree,Urine Neg (NEGATIVE); Phencyclidine Screen, Urine Neg (NEGATIVE)
[2024-08-18] VITALS (10 sets, daily range): BP systolic 90–118; BP diastolic 44–70; PULSE 61–86; RESP 12–20; TEMP 97.2–98.6; O2SAT 96–100
[2024-08-18] MEDS: ACCU-CHEK COMFORT CURVE STRIP VI SCH (00:10)
[2024-08-18] MEDS: InsuLIN REG 1unit/0.01ml Soln (100units/ml) SC SCH (00:13)
--- NOTE | 2024-08-18 01:30 | DVHHPRES ---
History of Present Illness Resident Creating Document: JESSICA HARGROVE RESIDENT Reason for Visit: AMS History of Present Illness The patient is a 73-year-old male with a significant past medical history including congestive heart failure, chronic obstructive pulmonary disease, type 2 diabetes mellitus, hypertension, a right above-knee amputation, and a left- sided partial foot amputation complicated by osteomyelitis. He was recently discharged (on 08/13) after treatment for altered mental status attributed to acute metabolic/toxic encephalopathy and ongoing osteomyelitis of his remaining left foot bones. At discharge, he was instructed to continue IV ertapenem until 08/27/24, oral linezolid (Zyvox) through 09/24, and close outpatient follow-up. The patient now re-presents with confusion and altered mentation. According to EMS and caregivers, he was initially alert earlier in the day but developed progressive confusion; his manager of internal notes that he is prone to infections, and that his mental status shifted rapidly. His fingerstick glucose was reportedly in the 200s upon arrival. A D-dimer drawn in the ED is positive, and he has been tachycardic with prolonged immobility. He has supplemental oxygen requirements (O2 at admission). He does endorse some generalized weakness; any additional subjective details are limited given his altered mental status. PAST MEDICAL HISTORY: Congestive heart failure, chronic obstructive pulmonary disease, type 2 diabetes mellitus, hypertension, right above-knee amputation, partial left foot amputation secondary to osteomyelitis, diabetic neuropathy, hyperlipidemia, and history of metabolic encephalopathy. PAST SURGICAL HISTORY : Right above-knee amputation, partial left foot amputation SOCIAL HISTORY : Lives with a manager of internal, retired, denies smoking or alcohol (though actual usage unclear), reliant on wheelchair for mobility. REVIEW OF SYSTEMS: Limited by altered mentation. Per manager of internal, no new respiratory complaints but notes the patient can get short of breath with minimal exertion. Reports poor oral intake, occasional hallucinations in the past. Denies any chest pain or new GI/ symptoms to caretakers knowledge. Review of Systems Allergies: Coded Allergies: Vancomycin (Verified Allergy, Severe, 12/14/20) PER PATIENT, STATES IT CAUSED HIM KIDNEY FAILURE Sulfamethoxazole w/Trimethoprim (Verified Allergy, Unknown, 12/11/20) Clindamycin (Verified Adverse Reaction, Intermediate, BREAKS OUT IN SWEAT, 12/11/20) Medications Current Medications Medications Dose Ordered Sig/Colin Route Start Time Stop Time Status Last Admin Dose Admin Piperacillin Sod/ Tazobactam Sod 100 ml @ 25 mls/hr Q6H IV 08/17/24 21:00 08/17/24 21:17 25 MLS/HR Nitroglycerin 0.4 mg Q5MINP PRN SL 08/17/24 21:00 Morphine Sulfate 2 mg Q30M PRN IV 08/17/24 21:00 Linezolid 300 ml @ 150 mls/hr Q12HR IV 08/17/24 22:00 08/17/24 22:38 150 MLS/HR Sodium Chloride 1,000 ml @ 100 mls/hr Q10H IV 08/17/24 21:00 08/17/24 21:50 100 MLS/HR Diagnostic Test (Pha) 1 strip IQ4HR 08/18/24 00:00 08/18/24 00:10 1 STRIP Insulin Human Regular IQ4HR SC 08/18/24 00:00 08/18/24 00:13 4 UNITS Dextrose 50 ml UD PRN IV 08/17/24 21:00 Enoxaparin Sodium 100 mg DAILY SC 08/18/24 10:00 UNV Exam Vital Signs Vital Signs Date Time Temp Pulse Resp B/P (MAP) Pulse Ox O2 Delivery O2 Flow Rate FiO2 08/18/24 00:00 71 08/18/24 00:00 17 135/56 (82) 95 08/17/24 18:00 98.3 98.3 08/17/24 17:00 Room Air* 0 21 General Appearance: Other (drowsy ) HEENT: Atraumatic, PERRLA, EOMI Respiratory: Clear to auscultation Cardiovascular: Regular rate, Normal S1, Normal S2 Abdominal: Normal bowel sounds, Soft Extremities: Other (amputations described, wound in left foot ) Labs/Xrays Labs Test 08/18/24 00:10 08/17/24 21:37 08/17/24 20:45 08/17/24 16:35 Range/Units POC Glucose 205 H 70-106 mg/dl Erythrocyte Sedimentation Rate 92 H 0-20 mm/hr D-Dimer, Quantitative 3.04 H 0.0-0.49 mg/L FEU Ammonia 16 11-32 umol/L Sodium Level 139 136-145 mmol/L Potassium Level 3.8 3.5-5.1 mmol/L Chloride Level 106 98-107 mmol/L Carbon Dioxide Level 24 20-31 mmol/L Anion Gap 9 5-15 Blood Urea Nitrogen 20 9-23 mg/dL Creatinine 0.93 0.700-1.30 mg/dL Glomerular Filtration Rate Calc 87 >90 mL/min BUN/Creatinine Ratio 21.5 H 10.0-20.0 Serum Glucose 223 H 74-106 mg/dL Calcium Level 8.1 L 8.7-10.4 mg/dL Total Bilirubin 0.2 0.2-1.0 mg/dL Aspartate Amino Transferase (AST) 26 13-40 U/L Alanine Aminotransferase (ALT) 17 7-40 U/L Alkaline Phosphatase 108 46-116 U/L C-Reactive Protein High Sensitivity 1.90 H <1.0 mg/dL Total Protein 7.3 5.7-8.2 g/dL Albumin 3.2 3.2-4.8 g/dL Thyroid Stimulating Hormone (TSH) 2.09 0.55-4.78 uIU/mL Urine Color Light-yellow Yellow Urine Clarity Clear Clear Urine pH 5.0 5.0-9.0 Urine Specific [place] 1.018 1.001-1.035 Urine Protein Trace H Negative Urine Ketones Negative Negative Urine Blood Trace H Negative /uL Urine Nitrite Negative Negative Urine Bilirubin Negative Negative Urine Urobilinogen Normal Negative mg/dL Urine Leukocyte Esterase Negative Negative /uL Urine RBC 8 0 - 3 /hpf Urine Microscopic WBC 8 H 0-3 /HPF Urine Squamous Epithelial Cells None seen <5 /hpf Urine Bacteria Few H None Seen /hpf Urine Yeast (Budding) Few None Seen /hpf Urine Sperm Present None Seen /hpf Urine Glucose 2+ H Normal mg/dL Urine Opiates Screen Neg NEGATIVE Urine Fentanyl Screen Neg NEGATIVE Urine Barbiturates Screen Neg NEGATIVE Urine Phencyclidine Screen Neg NEGATIVE Urine Amphetamines Screen Neg NEGATIVE Urine Benzodiazepines Screen Neg NEGATIVE Urine Cocaine Screen Neg NEGATIVE Urine Cannabinoids Screen Neg NEGATIVE Test 08/17/24 16:05 08/17/24 13:56 08/17/24 13:50 Range/Units Lactic Acid Level 1.7 0.4-2.0 mmol/L Blood Gas Specimen Type Arterial Blood Gas Sample Site Right radial Blood Gas Patient Temperature 37.0 Arterial Blood Date Drawn [id number] Arterial Blood pH 7.405 7.350-7.450 Arterial Blood Partial Pressure CO2 34.3 L 35.0-48.0 mmHg Arterial Blood Partial Pressure O2 59.0 L 83.0-108.0 mmHg Arterial Blood HCO3 21.0 21.0-28.0 mmol/L Arterial Blood Oxygen Saturation 87.3 L 94.0-98.0 % Arterial Blood Base Excess -3.1 L -2.0-3.0 mmol/L Arterial Blood Oxyhemoglobin 86.2 L 94.0-98.0 % Arterial Blood Carboxyhemoglobin 0.7 0.5-1.5 % Arterial Blood Methemoglobin 0.6 0.0-1.5 % Pradeep Test Yes Blood Gas Total Hemoglobin 11.90 L 13.5-17.5 g/dL Blood Gas Modality Room air FiO2 % 21.0 White Blood Count 7.8 4.4-10.8 10^3/uL Red Blood Count 4.53 4.5-5.90 10^6/uL Hemoglobin 11.3 L 13.5-17.5 g/dL Hematocrit 35.3 L 41.0-53.0 % Mean Corpuscular Volume 77.9 L 80.0-100.0 fL Mean Corpuscular Hemoglobin 25.0 L 28.0-32.0 pg Mean Corpuscular Hemoglobin Concent 32.1 32.0-36.0 g/dL Red Cell Distribution Width 16.0 H 11.8-14.3 % Platelet Count 255 140-450 10^3/uL Mean Platelet Volume 7.9 6.9-10.8 fL Neutrophils (%) (Auto) 65.5 37.0-80.0 % Lymphocytes (%) (Auto) 21.8 10.0-50.0 % Monocytes (%) (Auto) 6.1 0.0-12.0 % Eosinophils (%) (Auto) 5.6 0.0-7.0 % Basophils (%) (Auto) 1.0 0.0-2.0 % Neutrophils # (Auto) 5.1 1.6-8.6 10 ^3/uL Lymphocytes # (Auto) 1.7 0.4-5.4 10 ^3/uL Monocytes # (Auto) 0.5 0-1.3 10 ^3/uL Eosinophils # (Auto) 0.4 0-0.8 10 ^3/uL Basophils # (Auto) 0.1 0-0.2 10 ^3/uL Nucleated Red Blood Cells 0.1 % Troponin I High Sensitivity 4 </=54 ng/L Plasma/Serum Blood Alcohol < 3.0 <10 mg/dL Assessment/Plan Assessment/Plan LABORATORY & DIAGNOSTIC DATA (highlights): Most recent labs on 08/17/24 show ESR elevated at 92, CRP high at 1.90 (trending down), serum glucose 223, A1c 8.7. D-dimer is positive. Patient remains on supplemental oxygen for mild hypoxia. Normal Head CT scan and chest x ray Foot CT scan jul 2024: 1. Osteomyelitis of the remaining navicular bone and distal calcaneus with bony irregularity, lucency and sclerosis. This May have chronic and acute components. 2. Prior amputation of the left foot with the hindfoot remaining. There is soft tissue swelling in irregularity of the soft tissue at the amputation margin. 3. No acute fracture. 4. Bony demineralization. ASSESSMENT /PLAN A 73-year-old male with multiple comorbidities (including diabetes, advanced peripheral arterial disease, partial foot amputation with ongoing osteomyelitis, and recent hospitalization for metabolic encephalopathy) now returning with acute altered mental status: #Acute metabolic encephalopathy due to sepsis #Osteomyelitis left foot secondary to Enterococcus and Staphylococcus, s/p partial amputation of the Lt foot #Uncontrolled diabetes 8.7 #Acute respiratory failure? #Rule out PE #COPD #Chronic systolic heart failure EF 45% #Status post right AKA and left metatarsal amputation #Peripheral arterial disease Admit Telemetry Hot Kettle Tender consult Angio CT chest NS 75 cc/hour Ertapenem IV Linezolid IV Lovenox -DVT prophylaxis Swallow evaluation to start diet Wound consult/culture Blood culture Urine culture Hot Kettle Tender consult Case discussed with Dr. Blas full code Plan discussed with: Patient, Other (rn) My Orders Orders - JESSICA HARGROVE RESIDENT Procedure Category Date Status Time Piperacillin-Tazob PHA 08/17/24 In Process 3.375gm (Zosyn 3.375g 21:00 Admit ADMIT 08/17/24 Transmitted 20:48 Nitroglycerin PHA 08/17/24 In Process Sublingual (Ntrostat 21:00 Morphine Sulfate PHA 08/17/24 In Process Injection 21:00 Oxygen By Nasal RT 08/17/24 Transmitted Cannula 20:48 Stat Ekg For Chest KWAME 08/17/24 In Process Pain 20:48 Notify Of Changes KWAME 08/17/24 In Process From Base 20:48 Fuel Cell Engineer For KWAME 08/17/24 In Process 24 Hours 20:48 Emergency Dysrhythmia KWAME 08/17/24 In Process Protocol 20:48 Rhythm Strips Once KWAME 08/17/24 In Process Every Shift 20:48 Linezolid 600mg/300ml PHA 08/17/24 In Process (Zyvox) 22:00 Sodium Chloride 0.9% PHA 08/17/24 In Process 21:00 Glucose Blood PHA 08/18/24 In Process (Accu-Chek Comfort 00:00 Insulin R (Human) PHA 08/18/24 In Process (Insulin R) 00:00 Dextrose 50% Syringe PHA 08/17/24 In Process 21:00 Covid19 Antigen Judie LAB 08/17/24 Logged Rapid Influenza A&B LAB 08/17/24 Logged 20:58 * Wound Consult CONS 08/17/24 Transmitted Wound Culture W/ Gs OLEG 08/17/24 Logged 21:[address] 08/18/24 Logged Contrast 00:14 Enoxaparin Sodium PHA 08/18/24 Logged (Lovenox) 10:00 Enoxaparin Sodium PHA 08/18/24 In Process (Lovenox) 01:30 Date of Service: Aug 17, 2024 Billing Provider: SANDI BLAS MD Common Visit Codes: [id number] INP/OBS CARE (HIGH) Secondary Visit Codes: [id number] CARE PLAN 30 MINUTES JESSICA HARGROVE RESIDENT Aug 18, 2024 01:30 SANDI BLAS MD Aug 18, 2024 08:45
[2024-08-18] MEDS ORDERED: ERTAPENEM SOD 1 GM INJ VIAL ONE (01:57)
[2024-08-18] MEDS: ENOXAPARIN SOD 100 MG/1 ML SYRINGE SC ONE (01:59)
[2024-08-18] MEDS: ERTAPENEM SOD INJ 1 GM in SODIUM CHL 0.9% 50 ML IV SCH (01:59)
[2024-08-18] MEDS ORDERED: SODIUM CHLORIDE 0.9% 1,000 ML IV SCH (02:00)
[2024-08-18 08:28] LABS: COVID19 ANTIGEN SOFIA FIA NEGATIVE (NEGATIVE)
[2024-08-18 08:29] LABS: Rapid Influenza A Negative (Negative); Rapid Influenza B Negative (Negative)
[2024-08-18] MEDS: ENOXAPARIN SOD 40 MG/0.4 ML SYRINGE SC SCH (09:31)
[2024-08-18] MEDS ORDERED: IOHEXOL 350 MG/ML 100ML IJ ONE (11:36)
--- NOTE | 2024-08-18 11:44 | DVHPN2 ---
Subjective The patient is seen and examined in at bedside. Still very confused. Reviewed: Care Plan, H&P, Labs, Medications, Previous Orders, Radiology Changes from previous H/P or p: No Changes Objective Vitals Vital Signs Date Time Temp Pulse Resp B/P (MAP) Pulse Ox O2 Delivery O2 Flow Rate FiO2 08/18/24 09:00 97.2 61 16 107/61 (76) 96 97.2 08/18/24 07:30 Nasal Cannula* 3 32 Intake/Output Intake and Output 08/18/24 07:00 Intake Total 1050 ml Output Total 650 ml Balance 400 ml Intake Oral 0 ml IV Total 1050 ml Output Urine Total 650 ml # Bowel Movements 1 General Appearance: Alert, Cooperative, No acute distress HEENT: Atraumatic, PERRLA, EOMI, Mucous membr. moist/pink Neck: Supple Lungs: Clear to auscultation, Normal air movement Cardiovascular: Regular rate, Normal S1, Normal S2, No murmurs, Gallops, Rubs Abdomen: Normal bowel sounds, Soft, No tenderness Neuro: Cranial nerves 3-12 NL Psych/Mental Status: Mental status NL Medications Current Medications Medications Dose Ordered Sig/Colin Route Start Time Stop Time Status Last Admin Dose Admin Nitroglycerin 0.4 mg Q5MINP PRN SL 08/17/24 21:00 Morphine Sulfate 2 mg Q30M PRN IV 08/17/24 21:00 Linezolid 300 ml @ 150 mls/hr Q12HR IV 08/17/24 22:00 08/18/24 09:31 150 MLS/HR Diagnostic Test (Pha) 1 strip IQ4HR 08/18/24 00:00 08/18/24 11:28 1 STRIP Insulin Human Regular IQ4HR SC 08/18/24 00:00 08/18/24 00:13 4 UNITS Dextrose 50 ml UD PRN IV 08/17/24 21:00 Enoxaparin Sodium 40 mg DAILY SC 08/18/24 10:00 08/18/24 09:31 40 MG Ertapenem 1 gm/ Sodium Chloride 50 ml @ 100 mls/hr DAILY IV 08/18/24 01:45 08/18/24 01:59 100 MLS/HR Sodium Chloride 1,000 ml @ 0 mls/hr Q0M IV 08/18/24 02:00 Laboratory Results Laboratory Tests 08/17/24 13:50 08/17/24 20:45 Chemistry Test 08/17/24 20:45 Albumin 3.2 g/dL (3.2-4.8) Calcium Level 8.1 mg/dL (8.7-10.4) L Total Protein 7.3 g/dL (5.7-8.2) Coagulation Test 08/17/24 21:37 D-Dimer, Quantitative 3.04 mg/L FEU (0.0-0.49) H LFT Test 08/17/24 20:45 Alanine Aminotransferase (ALT) 17 U/L (7-40) Alkaline Phosphatase 108 U/L (46-116) Aspartate Amino Transferase (AST) 26 U/L (13-40) Total Bilirubin 0.2 mg/dL (0.2-1.0) HgA1c, TSH Test 08/17/24 20:45 Thyroid Stimulating Hormone (TSH) 2.09 uIU/mL (0.55-4.78) Urinalysis Test 08/17/24 16:35 Urine Color Light-yellow (Yellow) Urine Clarity Clear (Clear) Urine pH 5.0 (5.0-9.0) Urine Specific [place] 1.018 (1.001-1.035) Urine Protein Trace (Negative) H Urine Ketones Negative (Negative) Urine Blood Trace /uL (Negative) H Urine Nitrite Negative (Negative) Urine Bilirubin Negative (Negative) Urine Urobilinogen Normal mg/dL (Negative) Urine Leukocyte Esterase Negative /uL (Negative) Urine RBC 8 /hpf (0 - 3) Urine Microscopic WBC 8 /HPF (0-3) H Urine Squamous Epithelial Cells None seen /hpf (<5) Urine Bacteria Few /hpf (None Seen) H Urine Yeast (Budding) Few /hpf (None Seen) Urine Sperm Present /hpf (None Seen) Urine Glucose 2+ mg/dL (Normal) H Blood Gas Results Test 08/17/24 13:56 Arterial Blood pH 7.405 (7.350-7.450) FiO2 % 21.0 Labs and/or images reviewed: Labs reviewed by me Assessment/Plan Assessment/Plan #Acute metabolic encephalopathy due to sepsis #Osteomyelitis left foot secondary to Enterococcus and Staphylococcus, s/p partial amputation of the Lt foot #Uncontrolled diabetes 8.7 #Acute respiratory failure? #Rule out PE #COPD #Chronic systolic heart failure EF 45% #Status post right AKA and left metatarsal amputation #Peripheral arterial disease Admit Continuing current management. Waiting for CT angio of chest done Waiting for soda fountain operator to see the patient. Continuing IV antibiotic with ertapenem and linezolid Continuing with IV fluid. We will follow up with blood culture, urine culture and wound culture. Continuing with sliding scale insulin This medical document was created using an electronic medical record system with [employer] direct computerized dictation system. Although this document has been carefully reviewed, there may still be some phonetic and typographical errors. These areas are purely typographical due to imperfections of the software programs, and do not reflect any compromise in the patient's medical care. Plan discussed with: Patient Date of Service: Aug 18, 2024 Billing Provider: DALILA ALAS MD Common Visit Codes: [id number] INP/OBS CARE(HIGH) DALILA ALAS MD Aug 18, 2024 11:44
--- NOTE | 2024-08-18 12:13 | DVH ---
CTA Chest with intravenous contrast INDICATION: RULE OUT PE COMPARISON: None TECHNIQUE: Multidetector spiral CTA of the chest was performed of the chest with intravenous contrast . PULMONARY ANGIOGRAPHY PROTOCOL was utilized using a bolus-tracking technique centered on the main p ulmonary artery. Axial, coronal and sagittal multiplanar and MIP reformats were performed. CONTRAST: Type of contrast: Omni 350 Contrast injected: 100 ml Radiation dose : Chest: CTDI volume is 5.92 mGy. Dose-length product is 991.65 mGy*cm The dose indicators for CT are the volume computed Tomography (CT) dose Index (CTDIvol) and the dose Length product (DLP), and are measured in units of mGy and mGy-cm, respectively. These indicators are not patient dose, but values generated from the CT scanner acquisition factors. The report includes radiation exposure data for exposures received during this examination. Findings: Pulmonary artery: No pulmonary embolism Lower neck: Normal thyroid. Lungs: Advanced emphysematous changes in both lungs. Atelectasis and scarring in the lung bases. Heart/Vascular Structures: Normal heart size. No pericardial effusion. Lymph Nodes: Mildly prominent mediastinal lymph nodes noted. Pleura: No pleural effusion or significant pneumothorax. Musculoskeletal: No acute osseous abnormality. Soft tissues: Normal. Upper abdomen: Limited portions of the upper abdomen are unremarkable. IMPRESSION: 1. No pulmonary embolism. 2. Smoking-related lung disease. No suspicious nodule or consolidation. HS:Y
--- NOTE | 2024-08-18 16:53 | MEDREC ---
[facility] ASP Intervention Section I [facility] ASP Intervention: Review courses of therapy (URINE CULTURE POSITIVE FOR YEAST - PLEASE CONSIDER ADDING ANTIFUNGAL ) LISSETTE BLANK PHARMACIST Aug 18, 2024 16:53
[2024-08-18] MEDS: MUPIROCIN 2% OINT 15gm or 22gm FOR MRSA NARES EACHNOSTRI SCH (21:32)
[2024-08-19] VITALS (8 sets, daily range): BP systolic 77–126; BP diastolic 32–73; PULSE 72–94; RESP 12–18; TEMP 97.7–98.8; O2SAT 94–100
[2024-08-19] MEDS: SODIUM CHLORIDE 0.9% 500 ML IV ONE (00:59)
[2024-08-19 07:08] LABS: Basophils # (auto) 0.1 10 ^3/uL (0-0.2); Basophils % (auto) 1.1 % (0.0-2.0); Hemoglobin 10.4 g/dL (13.5-17.5); Lymphocytes # (auto) 1.9 10 ^3/uL (0.4-5.4); White Blood Cell 6.5 10^3/uL (4.4-10.8)
[2024-08-19 07:10] LABS: Eosinophils # (auto) 0.8 10 ^3/uL (0-0.8); Eosinophils % (auto) 11.7 % (0.0-7.0); Hematocrit 32.1 % (41.0-53.0); Lymphocytes % (auto) 28.8 % (10.0-50.0); Mean Corpuscular Hemoglobin 24.8 pg (28.0-32.0); Mean Corpuscular Hgb Conc. 32.5 g/dL (32.0-36.0); Mean Corpuscular Volume 76.5 fL (80.0-100.0); Monocytes # (auto) 0.4 10 ^3/uL (0-1.3); Monocytes % (auto) 6.8 % (0.0-12.0); Neutrophils # (auto) 3.3 10 ^3/uL (1.6-8.6); Neutrophils % (auto) 51.6 % (37.0-80.0); Platelet Count (auto) 265 10^3/uL (140-450); Red Cell Distribution Width 15.7 % (11.8-14.3)
[2024-08-19 07:24] LABS: Alanine Aminotransferase 17 U/L (7-40); Albumin 3.2 g/dL (3.2-4.8); Alkaline Phosphatase 102 U/L (46-116); Anion Gap 10 (5-15); Aspartate Aminotransferase 23 U/L (13-40); BUN/Creatinine Ratio 11.8 (10.0-20.0); Blood Urea Nitrogen 12 mg/dL (9-23); Carbon Dioxide 24 mmol/L (20-31); Sodium 142 mmol/L (136-145)
[2024-08-19 07:32] LABS: Chloride 108 mmol/L (98-107); Potassium 3.4 mmol/L (3.5-5.1)
[2024-08-19 07:33] LABS: Bilirubin, Total 0.2 mg/dL (0.2-1.0); Calcium 8.5 mg/dL (8.7-10.4); Glucose 118 mg/dL (74-106)
[2024-08-19 07:34] LABS: Total Protein 7.2 g/dL (5.7-8.2)
--- NOTE | 2024-08-19 11:10 | DVHINCON2 ---
Date of service: Aug 19, 2024 Referring Physician Ila Kohler MD (Resident) Reason for Consultation Chronic non-healing wounds stump of the left foot. History of Present Illness The patient is a 73-year-old male who I am very familiar with. The patient sees me at the office for chronic nonhealing wound to the stump of the left foot. The patient was recently hospitalized for generalized weakness and sent home but was not seen at my office since his previous discharge. Apparently his home care nurse found him with altered mental state and was sent to [facility] further evaluation and management. The patient was undergoing debridement of the wounds of the stump of the left foot with application of amniotic membrane allograft on a weekly basis. Since his admission the last time to the hospital and this time no treatment has been rendered as far as the wounds to the stump of the left foot. Since he was last seen in my office there was an apparent additional wound to the stump of the left foot plantarly, inferior to the previous ulceration. The patient was seen at bedside resting comfortably declines any complaints and has no new other complaints. The patient denies nausea vomiting diarrhea or sub breath. Past Medical History Congestive heart failure chronic obstructive pulmonary disease type 2 diabetes mellitus hypertension, diabetic neuropathy, hyperlipidemia, and history of metabolic encephalopathy. Past Surgical History right above-knee amputation, partial left foot amputation secondary to osteomyelitis. Right above-knee amputation, partial left foot amputation Family History: CHF (congestive heart failure) G8 MOTHER, Onset:40's - 50 Cancer G8 FATHER, Onset:40's - 50 G8 BROTHER, Onset:50's - 60 Diabetes mellitus G8 MOTHER Family history: Diabetes mellitus G8 BROTHER, Onset:20's - 25 G8 SISTER, Onset:20's - 25 Hypertension G8 FATHER Family History Reviewed and is noncontributory to management of this case. Social History Denies smoking Denies alcohol use Denies the use of illicit drugs Lives at home Allergies: Coded Allergies: Vancomycin (Verified Allergy, Severe, 12/14/20) PER PATIENT, STATES IT CAUSED HIM KIDNEY FAILURE Sulfamethoxazole w/Trimethoprim (Verified Allergy, Unknown, 12/11/20) Clindamycin (Verified Adverse Reaction, Intermediate, BREAKS OUT IN SWEAT, 12/11/20) Home Meds Active Scripts Linezolid (Zyvox) 600 Mg Tab, 600 MG PO BID for 36 Days, #72 TAB 0 Refills Prov:REBECCA HYMAN RESIDENT 08/13/24 Reported Medications Duloxetine HCl (Duloxetine HCl) 30 Mg Cap, 1 CAP PO BID for 30 Days, #60 07/14/24 Pantoprazole Sodium Sesquihydr (Pantoprazole Sodium) 40 Mg Tab, 1 TAB PO DAILY for 90 Days, #90 05/15/24 Insulin Glargine (Lantus) 100 Unit/Ml Inj, 30 UNIT SC BID for 100 Days, #60 05/15/24 Aspirin (Aspirin Low Dose) 81 Mg Tab, 1 TAB PO DAILY for 90 Days, #90 05/15/24 Atorvastatin Calcium (Lipitor) 40 Mg Tab, 1 TAB PO DAILY for 90 Days, #90 10/01/23 Furosemide (Furosemide) 20 Mg Tab, 1 TAB PO DAILY for 90 Days, #90 05/01/23 Current Medications Current Medications Medications (Trade) Dose Ordered Sig/Colin Route PRN Reason Start Time Stop Time Status Last Admin Mupirocin (Bactroban 2% Ointment) 1 applic BID EACHNOSTRI 08/18/24 22:00 08/23/24 22:00 08/19/24 10:42 Review of Systems Patient denies shortness of breath chest pain nausea vomiting or diarrhea, denies burning tingling sensation left lower extremity. No focal deficits Vital Signs Vital Signs Date Time Temp Pulse Resp B/P (MAP) Pulse Ox O2 Delivery O2 Flow Rate FiO2 08/19/24 09:00 98.3 77 18 122/58 (79) 94 98.3 08/18/24 20:00 Nasal Cannula* 3 32 Physical Exam General Appearance: Other (drowsy ) HEENT: Atraumatic, PERRLA, EOMI Respiratory: Clear to auscultation Cardiovascular: Regular rate, Normal S1, Normal S2 Abdominal: Normal bowel sounds, Soft Extremities: Other (amputations described, wound in left foot ) Upon evaluation of the stump of the left foot there is evidence of an ulceration to the superior aspect of the left foot stump measuring approximately 2.5 cm x 2.5 cm by approximately 0.5 cm, there is an additional ulceration that is new inferior to the existing previous ulceration measuring approximately 1.0 cm x 3.0 cm by 0.5 cm in depth. Both ulcerations all full-thickness skin loss ulcerations extending all the way down to the deep base of the dermis and subcutaneous tissue. There was no evidence of any discharge, no foul odor, no cellulitis, no ascending cellulitis. There was evidence of scab formation noted in the bed of the wounds to both ulcerations as well. Vascular status DP/PT plus one over four to the left. No focal deficit noted Labs/Diagnostic Data Labs Test 08/19/24 08:06 08/19/24 04:39 08/18/24 05:00 08/17/24 21:37 Range/Units POC Glucose 112 H 70-106 mg/dl White Blood Count 6.5 4.4-10.8 10^3/uL Red Blood Count 4.20 L 4.5-5.90 10^6/uL Hemoglobin 10.4 L 13.5-17.5 g/dL Hematocrit 32.1 L 41.0-53.0 % Mean Corpuscular Volume 76.5 L 80.0-100.0 fL Mean Corpuscular Hemoglobin 24.8 L 28.0-32.0 pg Mean Corpuscular Hemoglobin Concent 32.5 32.0-36.0 g/dL Red Cell Distribution Width 15.7 H 11.8-14.3 % Platelet Count 265 140-450 10^3/uL Mean Platelet Volume 7.8 6.9-10.8 fL Neutrophils (%) (Auto) 51.6 37.0-80.0 % Lymphocytes (%) (Auto) 28.8 10.0-50.0 % Monocytes (%) (Auto) 6.8 0.0-12.0 % Eosinophils (%) (Auto) 11.7 H 0.0-7.0 % Basophils (%) (Auto) 1.1 0.0-2.0 % Neutrophils # (Auto) 3.3 1.6-8.6 10 ^3/uL Lymphocytes # (Auto) 1.9 0.4-5.4 10 ^3/uL Monocytes # (Auto) 0.4 0-1.3 10 ^3/uL Eosinophils # (Auto) 0.8 0-0.8 10 ^3/uL Basophils # (Auto) 0.1 0-0.2 10 ^3/uL Nucleated Red Blood Cells 0.0 % Sodium Level 142 136-145 mmol/L Potassium Level 3.4 L 3.5-5.1 mmol/L Chloride Level 108 H 98-107 mmol/L Carbon Dioxide Level 24 20-31 mmol/L Anion Gap 10 5-15 Blood Urea Nitrogen 12 9-23 mg/dL Creatinine 1.02 0.700-1.30 mg/dL Glomerular Filtration Rate Calc 78 >90 mL/min BUN/Creatinine Ratio 11.8 10.0-20.0 Serum Glucose 118 #H 74-106 mg/dL Calcium Level 8.5 L 8.7-10.4 mg/dL Total Bilirubin 0.2 0.2-1.0 mg/dL Aspartate Amino Transferase (AST) 23 13-40 U/L Alanine Aminotransferase (ALT) 17 7-40 U/L Alkaline Phosphatase 102 46-116 U/L Total Protein 7.2 5.7-8.2 g/dL Albumin 3.2 3.2-4.8 g/dL Influenza Type A Antigen Negative Negative Influenza Type B Antigen Negative Negative SARS-CoV-2 Antigen (Rapid) Negative NEGATIVE Erythrocyte Sedimentation Rate 92 H 0-20 mm/hr D-Dimer, Quantitative 3.04 H 0.0-0.49 mg/L FEU Ammonia 16 11-32 umol/L Test 08/17/24 20:45 08/17/24 16:35 08/17/24 16:05 08/17/24 13:56 Range/Units C-Reactive Protein High Sensitivity 1.90 H <1.0 mg/dL Thyroid Stimulating Hormone (TSH) 2.09 0.55-4.78 uIU/mL Urine Color Light-yellow Yellow Urine Clarity Clear Clear Urine pH 5.0 5.0-9.0 Urine Specific [place] 1.018 1.001-1.035 Urine Protein Trace H Negative Urine Ketones Negative Negative Urine Blood Trace H Negative /uL Urine Nitrite Negative Negative Urine Bilirubin Negative Negative Urine Urobilinogen Normal Negative mg/dL Urine Leukocyte Esterase Negative Negative /uL Urine RBC 8 0 - 3 /hpf Urine Microscopic WBC 8 H 0-3 /HPF Urine Squamous Epithelial Cells None seen <5 /hpf Urine Bacteria Few H None Seen /hpf Urine Yeast (Budding) Few None Seen /hpf Urine Sperm Present None Seen /hpf Urine Glucose 2+ H Normal mg/dL Urine Opiates Screen Neg NEGATIVE Urine Fentanyl Screen Neg NEGATIVE Urine Barbiturates Screen Neg NEGATIVE Urine Phencyclidine Screen Neg NEGATIVE Urine Amphetamines Screen Neg NEGATIVE Urine Benzodiazepines Screen Neg NEGATIVE Urine Cocaine Screen Neg NEGATIVE Urine Cannabinoids Screen Neg NEGATIVE Lactic Acid Level 1.7 0.4-2.0 mmol/L Blood Gas Specimen Type Arterial Blood Gas Sample Site Right radial Blood Gas Patient Temperature 37.0 Arterial Blood Date Drawn [id number] Arterial Blood pH 7.405 7.350-7.450 Arterial Blood Partial Pressure CO2 34.3 L 35.0-48.0 mmHg Arterial Blood Partial Pressure O2 59.0 L 83.0-108.0 mmHg Arterial Blood HCO3 21.0 21.0-28.0 mmol/L Arterial Blood Oxygen Saturation 87.3 L 94.0-98.0 % Arterial Blood Base Excess -3.1 L -2.0-3.0 mmol/L Arterial Blood Oxyhemoglobin 86.2 L 94.0-98.0 % Arterial Blood Carboxyhemoglobin 0.7 0.5-1.5 % Arterial Blood Methemoglobin 0.6 0.0-1.5 % Pradeep Test Yes Blood Gas Total Hemoglobin 11.90 L 13.5-17.5 g/dL Blood Gas Modality Room air FiO2 % 21.0 Test 08/17/24 13:50 Range/Units Troponin I High Sensitivity 4 </=54 ng/L Plasma/Serum Blood Alcohol < 3.0 <10 mg/dL Microbiology Date/Time Source Procedure Growth Status 08/18/24 05:00 Nose MRSA Screen - Final Methicillin Resistant S.aureus Complete 08/17/24 16:35 Urine - [place] Urine Culture - Preliminary Yeast, not Stephenie albicans Resulted 08/17/24 13:50 Blood Blood Culture - Preliminary NO GROWTH AFTER 24 HOURS OF INCUBATION. Resulted Assessment Previous CT left foot done in July indicates presence of osteomyelitis of the remaining navicular bone and distal calcaneus with bony irregularity, lucency and sclerosis. This May have chronic and acute components. 2. Prior amputation of the left foot with the hindfoot remaining. There is soft tissue swelling in irregularity of the soft tissue at the amputation margin. 3. No acute fracture. 4. Bony demineralization. 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 Chronic no -healing ulceration stump left foot. #Uncontrolled diabetes 8.7 #Acute respiratory failure? #Rule out PE #COPD #Chronic systolic heart failure EF 45% #Status post right AKA and left metatarsal amputation #Peripheral arterial disease Plan/Recommendation Continue with antibiotics as prescribed. Continue with wound care at bed side as prescribed. Continue with 100% NWB left foot stump. The patient may be discharged from Podiatric surgical view point and followed up at my office. PICC line consult for senior living IV therapy. All questions and concerns were answered to the patient's satisfaction. Thank you for your consultation. Plan discussed with: Patient SHERRY EDWARDS DPM Aug 19, 2024 11:10
--- NOTE | 2024-08-19 13:31 | DVHPN2 ---
Reviewed: Care Plan, H&P, Labs, Medications, Previous Orders, Radiology Changes from previous H/P or p: No Changes General: Per HPI Objective Vitals Vital Signs Date Time Temp Pulse Resp B/P (MAP) Pulse Ox O2 Delivery O2 Flow Rate FiO2 08/19/24 09:00 98.3 77 18 122/58 (79) 94 98.3 08/19/24 08:00 Nasal Cannula* 3 32 Intake/Output Intake and Output 08/19/24 07:00 Intake Total 800 ml Output Total 1000 ml Balance -200 ml Intake Oral 0 ml IV Total 800 ml Output Urine Total 1000 ml Stool Total 0 ml # Bowel Movements 2 General Appearance: Alert, Cooperative, No acute distress HEENT: Atraumatic, PERRLA, EOMI, Mucous membr. moist/pink Neck: Supple Lungs: Clear to auscultation, Normal air movement Cardiovascular: Regular rate, Normal S1, Normal S2, No murmurs, Gallops, Rubs Abdomen: Normal bowel sounds, Soft, No tenderness Neuro: Cranial nerves 3-12 NL Psych/Mental Status: Mental status NL Medications Current Medications Medications Dose Ordered Sig/Colin Route Start Time Stop Time Status Last Admin Dose Admin Nitroglycerin 0.4 mg Q5MINP PRN SL 08/17/24 21:00 Morphine Sulfate 2 mg Q30M PRN IV 08/17/24 21:00 Linezolid 300 ml @ 150 mls/hr Q12HR IV 08/17/24 22:00 08/19/24 11:48 150 MLS/HR Diagnostic Test (Pha) 1 strip IQ4HR 08/18/24 00:00 08/19/24 11:48 1 STRIP Insulin Human Regular IQ4HR SC 08/18/24 00:00 08/19/24 11:56 4 UNITS Dextrose 50 ml UD PRN IV 08/17/24 21:00 Enoxaparin Sodium 40 mg DAILY SC 08/18/24 10:00 08/19/24 10:41 40 MG Ertapenem 1 gm/ Sodium Chloride 50 ml @ 100 mls/hr DAILY IV 08/18/24 01:45 08/19/24 10:40 100 MLS/HR Sodium Chloride 1,000 ml @ 0 mls/hr Q0M IV 08/18/24 02:00 Mupirocin 1 applic BID EACHNOSTRI 08/18/24 22:00 08/23/24 22:00 08/19/24 10:42 1 APPLIC Laboratory Results Laboratory Tests 08/19/24 04:39 Chemistry Test 08/19/24 04:39 Albumin 3.2 g/dL (3.2-4.8) Calcium Level 8.5 mg/dL (8.7-10.4) L Total Protein 7.2 g/dL (5.7-8.2) LFT Test 08/19/24 04:39 Alanine Aminotransferase (ALT) 17 U/L (7-40) Alkaline Phosphatase 102 U/L (46-116) Aspartate Amino Transferase (AST) 23 U/L (13-40) Total Bilirubin 0.2 mg/dL (0.2-1.0) Urinalysis Test 08/17/24 16:35 Urine Color Light-yellow (Yellow) Urine Clarity Clear (Clear) Urine pH 5.0 (5.0-9.0) Urine Specific [place] 1.018 (1.001-1.035) Urine Protein Trace (Negative) H Urine Ketones Negative (Negative) Urine Blood Trace /uL (Negative) H Urine Nitrite Negative (Negative) Urine Bilirubin Negative (Negative) Urine Urobilinogen Normal mg/dL (Negative) Urine Leukocyte Esterase Negative /uL (Negative) Urine RBC 8 /hpf (0 - 3) Urine Microscopic WBC 8 /HPF (0-3) H Urine Squamous Epithelial Cells None seen /hpf (<5) Urine Bacteria Few /hpf (None Seen) H Urine Yeast (Budding) Few /hpf (None Seen) Urine Sperm Present /hpf (None Seen) Urine Glucose 2+ mg/dL (Normal) H Microbiology Microbiology Date/Time Source Procedure Growth Status 08/18/24 05:00 Foot Left Gram Stain - Final Resulted 08/18/24 05:00 Foot Left Wound Culture - Preliminary Resulted 08/17/24 16:35 Urine - [place] Urine Culture - Preliminary Yeast, not Stephenie albicans Resulted 08/17/24 13:50 Blood Blood Culture - Preliminary NO GROWTH AFTER 24 HOURS OF INCUBATION. 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 #Rule out PE #COPD #Chronic systolic heart failure EF 45% #Status post right AKA and left metatarsal amputation #Peripheral arterial disease Admit Continuing current management. Waiting for CT angio of chest done Waiting for manager of pmo to see the patient. Continuing IV antibiotic with ertapenem and linezolid Continuing with IV fluid. We will follow up with blood culture, urine culture and wound culture. Continuing with sliding scale insulin 08/19/2024 pt needs to continue with IV Abx awaiting for full evaluation by podiatry This medical document was created using an electronic medical record system with [employer] direct computerized dictation system. Although this document has been carefully reviewed, there may still be some phonetic and typographical errors. These areas are purely typographical due to imperfections of the software programs, and do not reflect any compromise in the patient's medical care. Plan discussed with: Patient Date of Service: Aug 19, 2024 Billing Provider: HARRIET HERRERA DO Common Visit Codes: [id number] INP/OBS CARE(HIGH) HARRIET HERRERA DO Aug 19, 2024 13:31
[2024-08-20] VITALS (8 sets, daily range): BP systolic 90–124; BP diastolic 43–63; PULSE 66–93; RESP 12–19; TEMP 97.3–98.5; O2SAT 90–98
--- NOTE | 2024-08-20 13:12 | DVHPN2 ---
Reviewed: Care Plan, H&P, Labs, Medications, Previous Orders, Radiology Changes from previous H/P or p: No Changes General: Per HPI Objective Vitals Vital Signs Date Time Temp Pulse Resp B/P (MAP) Pulse Ox O2 Delivery O2 Flow Rate FiO2 08/20/24 09:00 97.6 86 17 124/47 (72) 90 97.6 08/20/24 08:00 Room Air* 0 N/A Nasal Cannula* Intake/Output Intake and Output 08/20/24 07:00 Intake Total 1950 ml Output Total 300 ml Balance 1650 ml Intake Oral 1300 ml IV Total 650 ml Output Urine Total 300 ml # Voids 5 # Bowel Movements 1 General Appearance: Alert, Cooperative, No acute distress HEENT: Atraumatic, PERRLA, EOMI, Mucous membr. moist/pink Neck: Supple Lungs: Clear to auscultation, Normal air movement Cardiovascular: Regular rate, Normal S1, Normal S2, No murmurs, Gallops, Rubs Abdomen: Normal bowel sounds, Soft, No tenderness Neuro: Cranial nerves 3-12 NL Psych/Mental Status: Mental status NL Medications Current Medications Medications Dose Ordered Sig/Colin Route Start Time Stop Time Status Last Admin Dose Admin Nitroglycerin 0.4 mg Q5MINP PRN SL 08/17/24 21:00 Morphine Sulfate 2 mg Q30M PRN IV 08/17/24 21:00 Linezolid 300 ml @ 150 mls/hr Q12HR IV 08/17/24 22:00 08/20/24 12:11 150 MLS/HR Diagnostic Test (Pha) 1 strip IQ4HR 08/18/24 00:00 08/20/24 12:11 1 STRIP Insulin Human Regular IQ4HR SC 08/18/24 00:00 08/20/24 12:17 3 UNITS Dextrose 50 ml UD PRN IV 08/17/24 21:00 Enoxaparin Sodium 40 mg DAILY SC 08/18/24 10:00 08/20/24 09:20 40 MG Ertapenem 1 gm/ Sodium Chloride 50 ml @ 100 mls/hr DAILY IV 08/18/24 01:45 08/20/24 09:20 100 MLS/HR Sodium Chloride 1,000 ml @ 0 mls/hr Q0M IV 08/18/24 02:00 Mupirocin 1 applic BID EACHNOSTRI 08/18/24 22:00 08/23/24 22:00 08/20/24 09:21 1 APPLIC Laboratory Results Laboratory Tests 08/19/24 04:39 Urinalysis Test 08/17/24 16:35 Urine Color Light-yellow (Yellow) Urine Clarity Clear (Clear) Urine pH 5.0 (5.0-9.0) Urine Specific [place] 1.018 (1.001-1.035) Urine Protein Trace (Negative) H Urine Ketones Negative (Negative) Urine Blood Trace /uL (Negative) H Urine Nitrite Negative (Negative) Urine Bilirubin Negative (Negative) Urine Urobilinogen Normal mg/dL (Negative) Urine Leukocyte Esterase Negative /uL (Negative) Urine RBC 8 /hpf (0 - 3) Urine Microscopic WBC 8 /HPF (0-3) H Urine Squamous Epithelial Cells None seen /hpf (<5) Urine Bacteria Few /hpf (None Seen) H Urine Yeast (Budding) Few /hpf (None Seen) Urine Sperm Present /hpf (None Seen) Urine Glucose 2+ mg/dL (Normal) H Microbiology Microbiology Date/Time Source Procedure Growth Status 08/18/24 05:00 Foot Left Gram Stain - Final Resulted 08/18/24 05:00 Wound Culture - Preliminary Yeast, not Stephenie albicans Resulted 08/17/24 16:35 Urine - [place] Urine Culture - Final Yeast, not Stephenie albicans Complete 08/17/24 13:50 Blood Blood Culture - Preliminary NO GROWTH AFTER 48 HOURS OF INCUBATION. 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 #Rule out PE #COPD #Chronic systolic heart failure EF 45% #Status post right AKA and left metatarsal amputation #Peripheral arterial disease Admit Continuing current management. Waiting for CT angio of chest done Waiting for tower crane operator to see the patient. Continuing IV antibiotic with ertapenem and linezolid Continuing with IV fluid. We will follow up with blood culture, urine culture and wound culture. Continuing with sliding scale insulin 08/19/2024 pt needs to continue with IV Abx awaiting for full evaluation by podiatry 08/20/2024 per podiatry: "Continue with antibiotics as prescribed. Continue with wound care at bed side as prescribed. Continue with 100% NWB left foot stump. The patient may be discharged from Podiatric surgical view point and followed up at my office. PICC line consult for halfway IV therapy" will request for PICC line and case management for IV aBx This medical document was created using an electronic medical record system with [employer] direct computerized dictation system. Although this document has been carefully reviewed, there may still be some phonetic and typographical errors. These areas are purely typographical due to imperfections of the software programs, and do not reflect any compromise in the patient's medical care. Plan discussed with: Patient Date of Service: Aug 20, 2024 Billing Provider: HARRIET HERRERA DO Common Visit Codes: [id number] INP/OBS CARE(HIGH) HARRIET HERRERA DO Aug 20, 2024 13:12
[2024-08-21] VITALS (8 sets, daily range): BP systolic 82–120; BP diastolic 46–66; PULSE 66–86; RESP 16–18; TEMP 97.8–98; O2SAT 89–96
[2024-08-21 07:09] LABS: Anion Gap 10 (5-15); Carbon Dioxide 23 mmol/L (20-31); Chloride 107 mmol/L (98-107); Potassium 3.9 mmol/L (3.5-5.1); Sodium 140 mmol/L (136-145)
[2024-08-21 07:15] LABS: BUN/Creatinine Ratio 15.2 (10.0-20.0); Blood Urea Nitrogen 17 mg/dL (9-23)
[2024-08-21 07:23] LABS: Calcium 8.4 mg/dL (8.7-10.4); Glucose 194 mg/dL (74-106)
[2024-08-22 05:00] VITALS: BP 106/57; PULSE 81; RESP 18; TEMP 98; O2SAT 94
[2024-08-22 08:00] VITALS: PULSE 75; PULSE 84; RESP 17
[2024-08-22 09:00] VITALS: BP 103/62; PULSE 88; RESP 19; TEMP 97.9; O2SAT 96
[2024-08-22 13:00] VITALS: BP 134/65; PULSE 79; RESP 17; TEMP 98.4; O2SAT 96
--- NOTE | 2024-08-22 14:13 | DVHPN2 ---
Reviewed: Care Plan, H&P, Labs, Medications, Previous Orders, Radiology Changes from previous H/P or p: No Changes General: Per HPI Objective Vitals Vital Signs Date Time Temp Pulse Resp B/P (MAP) Pulse Ox O2 Delivery O2 Flow Rate FiO2 08/22/24 08:00 75 17 Room Air* 0 21 08/22/24 05:00 98.0 106/57 (73) 94 98.0 Intake/Output Intake and Output 08/22/24 07:00 Intake Total 1600 ml Output Total 1350 ml Balance 250 ml Intake Oral 950 ml IV Total 650 ml Output Urine Total 1350 ml # Bowel Movements 4 General Appearance: Alert, Cooperative, No acute distress HEENT: Atraumatic, PERRLA, EOMI, Mucous membr. moist/pink Neck: Supple Lungs: Clear to auscultation, Normal air movement Cardiovascular: Regular rate, Normal S1, Normal S2, No murmurs, Gallops, Rubs Abdomen: Normal bowel sounds, Soft, No tenderness Neuro: Cranial nerves 3-12 NL Psych/Mental Status: Mental status NL Medications Current Medications Medications Dose Ordered Sig/Colin Route Start Time Stop Time Status Last Admin Dose Admin Nitroglycerin 0.4 mg Q5MINP PRN SL 08/17/24 21:00 Morphine Sulfate 2 mg Q30M PRN IV 08/17/24 21:00 Linezolid 300 ml @ 150 mls/hr Q12HR IV 08/17/24 22:00 08/22/24 08:17 150 MLS/HR Diagnostic Test (Pha) 1 strip IQ4HR 08/18/24 00:00 08/22/24 12:55 1 STRIP Insulin Human Regular IQ4HR SC 08/18/24 00:00 08/22/24 12:57 4 UNITS Dextrose 50 ml UD PRN IV 08/17/24 21:00 Enoxaparin Sodium 40 mg DAILY SC 08/18/24 10:00 08/22/24 08:16 40 MG Ertapenem 1 gm/ Sodium Chloride 50 ml @ 100 mls/hr DAILY IV 08/18/24 01:45 08/22/24 08:17 100 MLS/HR Sodium Chloride 1,000 ml @ 0 mls/hr Q0M IV 08/18/24 02:00 Mupirocin 1 applic BID EACHNOSTRI 08/18/24 22:00 08/23/24 22:00 08/22/24 09:27 1 APPLIC Laboratory Results Laboratory Tests 08/19/24 04:39 08/21/24 06:11 Urinalysis Test 08/17/24 16:35 Urine Color Light-yellow (Yellow) Urine Clarity Clear (Clear) Urine pH 5.0 (5.0-9.0) Urine Specific [place] 1.018 (1.001-1.035) Urine Protein Trace (Negative) H Urine Ketones Negative (Negative) Urine Blood Trace /uL (Negative) H Urine Nitrite Negative (Negative) Urine Bilirubin Negative (Negative) Urine Urobilinogen Normal mg/dL (Negative) Urine Leukocyte Esterase Negative /uL (Negative) Urine RBC 8 /hpf (0 - 3) Urine Microscopic WBC 8 /HPF (0-3) H Urine Squamous Epithelial Cells None seen /hpf (<5) Urine Bacteria Few /hpf (None Seen) H Urine Yeast (Budding) Few /hpf (None Seen) Urine Sperm Present /hpf (None Seen) Urine Glucose 2+ mg/dL (Normal) H Microbiology Microbiology Date/Time Source Procedure Growth Status 08/18/24 05:00 Foot Left Gram Stain - Final Complete 08/18/24 05:00 Wound Culture - Final Yeast, not Stephenie albicans Complete 08/17/24 16:35 Urine - [place] Urine Culture - Final Yeast, not Stephenie albicans Complete 08/17/24 13:50 Blood Blood Culture - Final NO GROWTH AFTER 5 DAYS OF INCUBATION. 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 #Rule out PE #COPD #Chronic systolic heart failure EF 45% #Status post right AKA and left metatarsal amputation #Peripheral arterial disease Admit Continuing current management. Waiting for CT angio of chest done Waiting for development technician to see the patient. Continuing IV antibiotic with ertapenem and linezolid Continuing with IV fluid. We will follow up with blood culture, urine culture and wound culture. Continuing with sliding scale insulin 08/19/2024 pt needs to continue with IV Abx awaiting for full evaluation by podiatry 08/20/2024 per podiatry: "Continue with antibiotics as prescribed. Continue with wound care at bed side as prescribed. Continue with 100% NWB left foot stump. The patient may be discharged from Podiatric surgical view point and followed up at my office. PICC line consult for factory worker IV therapy" will request for PICC line and case management for IV aBx 08/21/2024 continue with IV Abx pt has PICC line on right arm d/c within 24 hours Plan discussed with: Patient My Orders Orders - HARRIET HERRERA DO Procedure Category Date Status Time Mrsa Screen OLEG 08/22/24 In Process 09:37 Date of Service: Aug 21, 2024 Billing Provider: HARRIET HERRERA DO Common Visit Codes: [id number] INP/OBS CARE(HIGH) HARRIET HERRERA DO Aug 22, 2024 14:13
--- NOTE | 2024-08-22 14:16 | DVHDS2 ---
Discharge Summary Date of Admission Aug 17, 2024 at 20:48 Date of Discharge: Aug 22, 2024 Labs/Diagnostic Data: Laboratory Results Test 08/22/24 12:28 08/21/24 06:11 08/19/24 04:39 08/18/24 05:00 POC Glucose 209 mg/dl (70-106) Sodium Level 140 mmol/L (136-145) Potassium Level 3.9 mmol/L (3.5-5.1) Chloride Level 107 mmol/L (98-107) Carbon Dioxide Level 23 mmol/L (20-31) Anion Gap 10 (5-15) Blood Urea Nitrogen 17 mg/dL (9-23) Creatinine 1.12 mg/dL (0.700-1.30) Glomerular Filtration Rate Calc 69 mL/min (>90) BUN/Creatinine Ratio 15.2 (10.0-20.0) Serum Glucose 194 mg/dL (74-106) Calcium Level 8.4 mg/dL (8.7-10.4) White Blood Count 6.5 10^3/uL (4.4-10.8) Red Blood Count 4.20 10^6/uL (4.5-5.90) Hemoglobin 10.4 g/dL (13.5-17.5) Hematocrit 32.1 % (41.0-53.0) Mean Corpuscular Volume 76.5 fL (80.0-100.0) Mean Corpuscular Hemoglobin 24.8 pg (28.0-32.0) Mean Corpuscular Hemoglobin Concent 32.5 g/dL (32.0-36.0) Red Cell Distribution Width 15.7 % (11.8-14.3) Platelet Count 265 10^3/uL (140-450) Mean Platelet Volume 7.8 fL (6.9-10.8) Neutrophils (%) (Auto) 51.6 % (37.0-80.0) Lymphocytes (%) (Auto) 28.8 % (10.0-50.0) Monocytes (%) (Auto) 6.8 % (0.0-12.0) Eosinophils (%) (Auto) 11.7 % (0.0-7.0) Basophils (%) (Auto) 1.1 % (0.0-2.0) Neutrophils # (Auto) 3.3 10 ^3/uL (1.6-8.6) Lymphocytes # (Auto) 1.9 10 ^3/uL (0.4-5.4) Monocytes # (Auto) 0.4 10 ^3/uL (0-1.3) Eosinophils # (Auto) 0.8 10 ^3/uL (0-0.8) Basophils # (Auto) 0.1 10 ^3/uL (0-0.2) Nucleated Red Blood Cells 0.0 % Total Bilirubin 0.2 mg/dL (0.2-1.0) Aspartate Amino Transferase (AST) 23 U/L (13-40) Alanine Aminotransferase (ALT) 17 U/L (7-40) Alkaline Phosphatase 102 U/L (46-116) Total Protein 7.2 g/dL (5.7-8.2) Albumin 3.2 g/dL (3.2-4.8) Influenza Type A Antigen Negative (Negative) Influenza Type B Antigen Negative (Negative) SARS-CoV-2 Antigen (Rapid) Negative (NEGATIVE) Test 08/17/24 21:37 08/17/24 20:45 08/17/24 16:35 08/17/24 16:05 Erythrocyte Sedimentation Rate 92 mm/hr (0-20) D-Dimer, Quantitative 3.04 mg/L FEU (0.0-0.49) Ammonia 16 umol/L (11-32) C-Reactive Protein High Sensitivity 1.90 mg/dL (<1.0) Thyroid Stimulating Hormone (TSH) 2.09 uIU/mL (0.55-4.78) Urine Color Light-yellow (Yellow) Urine Clarity Clear (Clear) Urine pH 5.0 (5.0-9.0) Urine Specific [place] 1.018 (1.001-1.035) Urine Protein Trace (Negative) Urine Ketones Negative (Negative) Urine Blood Trace /uL (Negative) Urine Nitrite Negative (Negative) Urine Bilirubin Negative (Negative) Urine Urobilinogen Normal mg/dL (Negative) Urine Leukocyte Esterase Negative /uL (Negative) Urine RBC 8 /hpf (0 - 3) Urine Microscopic WBC 8 /HPF (0-3) Urine Squamous Epithelial Cells None seen /hpf (<5) Urine Bacteria Few /hpf (None Seen) Urine Yeast (Budding) Few /hpf (None Seen) Urine Sperm Present /hpf (None Seen) Urine Glucose 2+ mg/dL (Normal) Urine Opiates Screen Neg (NEGATIVE) Urine Fentanyl Screen Neg (NEGATIVE) Urine Barbiturates Screen Neg (NEGATIVE) Urine Phencyclidine Screen Neg (NEGATIVE) Urine Amphetamines Screen Neg (NEGATIVE) Urine Benzodiazepines Screen Neg (NEGATIVE) Urine Cocaine Screen Neg (NEGATIVE) Urine Cannabinoids Screen Neg (NEGATIVE) Lactic Acid Level 1.7 mmol/L (0.4-2.0) Test 08/17/24 13:56 08/17/24 13:50 Blood Gas Specimen Type Arterial Blood Gas Sample Site Right radial Blood Gas Patient Temperature 37.0 Arterial Blood Date Drawn [id number] Arterial Blood pH 7.405 (7.350-7.450) Arterial Blood Partial Pressure CO2 34.3 mmHg (35.0-48.0) Arterial Blood Partial Pressure O2 59.0 mmHg (83.0-108.0) Arterial Blood HCO3 21.0 mmol/L (21.0-28.0) Arterial Blood Oxygen Saturation 87.3 % (94.0-98.0) Arterial Blood Base Excess -3.1 mmol/L (-2.0-3.0) Arterial Blood Oxyhemoglobin 86.2 % (94.0-98.0) Arterial Blood Carboxyhemoglobin 0.7 % (0.5-1.5) Arterial Blood Methemoglobin 0.6 % (0.0-1.5) Pradeep Test Yes Blood Gas Total Hemoglobin 11.90 g/dL (13.5-17.5) Blood Gas Modality Room air FiO2 % 21.0 Troponin I High Sensitivity 4 ng/L (</=54) Plasma/Serum Blood Alcohol < 3.0 mg/dL (<10) Other Laboratory Tests 08/21/24 06:11 08/19/24 04:39 Brief Hx & Hospital Course: The patient is a 73-year-old male with a significant past medical history including congestive heart failure, chronic obstructive pulmonary disease, type 2 diabetes mellitus, hypertension, a right above-knee amputation, and a left- sided partial foot amputation complicated by osteomyelitis. He was recently discharged (on 08/13) after treatment for altered mental status attributed to acute metabolic/toxic encephalopathy and ongoing osteomyelitis of his remaining left foot bones. At discharge, he was instructed to continue IV ertapenem until 08/27/24, oral linezolid (Zyvox) through 09/24, and close outpatient follow-up. The patient now re-presents with confusion and altered mentation. According to EMS and caregivers, he was initially alert earlier in the day but developed progressive confusion; his dredge pipe operator notes that he is prone to infections, and that his mental status shifted rapidly. His fingerstick glucose was reportedly in the 200s upon arrival. A D-dimer drawn in the ED is positive, and he has been tachycardic with prolonged immobility. He has supplemental oxygen requirements (O2 at admission). He does endorse some generalized weakness; any additional subjective details are limited given his altered mental status. PAST MEDICAL HISTORY: Congestive heart failure, chronic obstructive pulmonary disease, type 2 diabetes mellitus, hypertension, right above-knee amputation, partial left foot amputation secondary to osteomyelitis, diabetic neuropathy, hyperlipidemia, and history of metabolic encephalopathy. PAST SURGICAL HISTORY : Right above-knee amputation, partial left foot amputation SOCIAL HISTORY : Lives with a dredge pipe operator, retired, denies smoking or alcohol (though actual usage unclear), reliant on wheelchair for mobility. REVIEW OF SYSTEMS: Limited by altered mentation. Per dredge pipe operator, no new respiratory complaints but notes the patient can get short of breath with minimal exertion. Reports poor oral intake, occasional hallucinations in the past. Denies any chest pain or new GI/ symptoms to caretakers knowledge. #Acute metabolic encephalopathy due to sepsis #Osteomyelitis left foot secondary to Enterococcus and Staphylococcus, s/p partial amputation of the Lt foot #Uncontrolled diabetes 8.7 #Acute respiratory failure? #Rule out PE #COPD #Chronic systolic heart failure EF 45% #Status post right AKA and left metatarsal amputation #Peripheral arterial disease Admit Continuing current management. Waiting for CT angio of chest done Waiting for corporate travel agent to see the patient. Continuing IV antibiotic with ertapenem and linezolid Continuing with IV fluid. We will follow up with blood culture, urine culture and wound culture. Continuing with sliding scale insulin 08/19/2024 pt needs to continue with IV Abx awaiting for full evaluation by podiatry 08/20/2024 per podiatry: "Continue with antibiotics as prescribed. Continue with wound care at bed side as prescribed. Continue with 100% NWB left foot stump. The patient may be discharged from Podiatric surgical view point and followed up at my office. PICC line consult for equipment operator intermodal yard IV therapy" will request for PICC line and case management for IV aBx 08/21/2024 continue with IV Abx pt has PICC line on right arm d/c within 24 hours Condition at Discharge: Good Final Diagnosis/Problems List see above Discharge Disposition: [facility] Facility Discharge Instruct/Medications Diet: Cardiac 2g Na,low cholest Activity: No Restrictions, As Tolerated Discharge Statement: "Patient was advised to return to the ER or call 911 if any headaches, dizziness, shortness of breath, chest pain, abdominal pain, bleeding, fevers, or worsening of medical condition. Patient was counseled about treatment plan, medications, possible side effects, patientverbalized understanding. All questions were answered to the best of my ability. This discharge took greater then 30 minutes in planning, reviewing documentation, counseling the patient, and discussing with other team members." ASSESSMENT ASSESSMENT Assessment HARRIET HERRERA DO Aug 22, 2024 14:15
[2024-08-22 20:00] VITALS: PULSE 74; PULSE 82; RESP 19; O2SAT 94
[2024-08-22 21:00] VITALS: BP 105/61; PULSE 74; RESP 19; TEMP 98.2; O2SAT 94
[2024-08-23 01:00] VITALS: BP 111/50; PULSE 72; RESP 20; TEMP 98.2; O2SAT 94
[2024-08-23 05:00] VITALS: BP 123/72; PULSE 81; RESP 18; TEMP 98.1; O2SAT 92
[2024-08-23 08:00] VITALS: PULSE 71; RESP 18
[2024-08-23 08:48] VITALS: BP 105/63; PULSE 79; RESP 18; TEMP 97.3; O2SAT 91
[2024-08-23 13:00] VITALS: BP 124/68; PULSE 68; RESP 17; TEMP 98.1; O2SAT 92
--- NOTE | 2024-08-23 14:31 | DVHPN2 ---
Subjective The patient is stable He is scheduled to go home today on IV antibiotics IV antibiotics is 2 can not be Zyvox and Invanz The patient has home health to administer the antibiotics Follow up with Dr. Sotelo next week Stable for discharge Reviewed: Care Plan, H&P, Labs, Medications, Previous Orders, Radiology Changes from previous H/P or p: Changes General: Per HPI Objective Vitals Vital Signs Date Time Temp Pulse Resp B/P (MAP) Pulse Ox O2 Delivery O2 Flow Rate FiO2 08/23/24 13:00 98.1 68 17 124/68 (86) 92 98.1 08/23/24 08:00 Room Air* 0 21 Intake/Output Intake and Output 08/23/24 07:00 Intake Total 1365 ml Output Total 1500 ml Balance -135 ml Intake Oral 715 ml IV Total 650 ml Output Urine Total 1500 ml # Bowel Movements 3 General Appearance: Alert, Cooperative, No acute distress HEENT: Atraumatic, PERRLA, EOMI, Mucous membr. moist/pink Neck: Supple Lungs: Clear to auscultation, Normal air movement Cardiovascular: Regular rate, Normal S1, Normal S2, No murmurs, Gallops, Rubs Abdomen: Normal bowel sounds, Soft, No tenderness Neuro: Cranial nerves 3-12 NL Psych/Mental Status: Mental status NL Medications Current Medications Medications Dose Ordered Sig/Colin Route Start Time Stop Time Status Last Admin Dose Admin Nitroglycerin 0.4 mg Q5MINP PRN SL 08/17/24 21:00 Morphine Sulfate 2 mg Q30M PRN IV 08/17/24 21:00 Linezolid 300 ml @ 150 mls/hr Q12HR IV 08/17/24 22:00 08/23/24 08:35 150 MLS/HR Diagnostic Test (Pha) 1 strip IQ4HR 08/18/24 00:00 08/23/24 12:42 1 STRIP Insulin Human Regular IQ4HR SC 08/18/24 00:00 08/23/24 12:46 2 UNITS Dextrose 50 ml UD PRN IV 08/17/24 21:00 Enoxaparin Sodium 40 mg DAILY SC 08/18/24 10:00 08/23/24 08:35 40 MG Ertapenem 1 gm/ Sodium Chloride 50 ml @ 100 mls/hr DAILY IV 08/18/24 01:45 08/23/24 08:35 100 MLS/HR Sodium Chloride 1,000 ml @ 0 mls/hr Q0M IV 08/18/24 02:00 Mupirocin 1 applic BID EACHNOSTRI 08/18/24 22:00 08/23/24 22:00 08/23/24 10:27 1 APPLIC Laboratory Results Laboratory Tests 08/19/24 04:39 08/21/24 06:11 Urinalysis Test 08/17/24 16:35 Urine Color Light-yellow (Yellow) Urine Clarity Clear (Clear) Urine pH 5.0 (5.0-9.0) Urine Specific [place] 1.018 (1.001-1.035) Urine Protein Trace (Negative) H Urine Ketones Negative (Negative) Urine Blood Trace /uL (Negative) H Urine Nitrite Negative (Negative) Urine Bilirubin Negative (Negative) Urine Urobilinogen Normal mg/dL (Negative) Urine Leukocyte Esterase Negative /uL (Negative) Urine RBC 8 /hpf (0 - 3) Urine Microscopic WBC 8 /HPF (0-3) H Urine Squamous Epithelial Cells None seen /hpf (<5) Urine Bacteria Few /hpf (None Seen) H Urine Yeast (Budding) Few /hpf (None Seen) Urine Sperm Present /hpf (None Seen) Urine Glucose 2+ mg/dL (Normal) H Microbiology Microbiology Date/Time Source Procedure Growth Status 08/18/24 05:00 Foot Left Gram Stain - Final Complete 08/18/24 05:00 Wound Culture - Final Yeast, not Stephenie albicans Complete 08/17/24 16:35 Urine - [place] Urine Culture - Final Yeast, not Stephenie albicans Complete 08/17/24 13:50 Blood Blood Culture - Final NO GROWTH AFTER 5 DAYS OF INCUBATION. Complete Assessment/Plan Assessment/Plan Osteomyelitis left foot Metabolic encephalopathy due to sepsis Sepsis due to left foot osteomyelitis COPD Status post right AKA Status post left metatarsal amputation Peripheral vascular disease Plan discussed with: Patient Date of Service: Aug 23, 2024 Billing Provider: FATMATA BOSWELL MD Common Visit Codes: [id number] INP/OBS CARE(MOD) FATMATA BOSWELL MD Aug 23, 2024 14:31
[2024-08-23 14:47] VITALS: BP 124/68; PULSE 68; RESP 17; TEMP 36.7; O2SAT 100
== END 2024-08-23 18:35 | disposition home health service (06) | DRG 871 ==
LOC: EDBD 13:15 → ER 13:23 → OVERFLOW 20:48 → TELE-CENTR 08-18 03:20
PROVIDERS: ADMIT Internal Medicine Geriatric Medicine; ATTEND Internal Medicine Geriatric Medicine
DX: A41.81 Sepsis due to Enterococcus (principal); G93.41 Metabolic encephalopathy; J96.01 Acute respiratory failure with hypoxia; I50.22 Chronic systolic (congestive) heart failure; M86.8X7 Other osteomyelitis, ankle and foot; I11.0 Hypertensive heart disease with heart failure; E11.51 Type 2 diabetes mellitus with diabetic peripheral angiopathy without gangrene; A41.2 Sepsis due to unspecified staphylococcus; Z20.822 Contact with and (suspected) exposure to COVID-19; E78.5 Hyperlipidemia, unspecified; L97.529 Non-pressure chronic ulcer of other part of left foot with unspecified severity; E11.621 Type 2 diabetes mellitus with foot ulcer; E11.69 Type 2 diabetes mellitus with other specified complication; E11.40 Type 2 diabetes mellitus with diabetic neuropathy, unspecified; J44.9 Chronic obstructive pulmonary disease, unspecified; Z99.3 Dependence on wheelchair; Z89.611 Acquired absence of right leg above knee; Z88.1 Allergy status to other antibiotic agents; Z88.2 Allergy status to sulfonamides; Z88.8 Allergy status to other drugs, medicaments and biological substances; Z79.899 Other long term (current) drug therapy; Z79.82 Long term (current) use of aspirin; Z82.49 Family history of ischemic heart disease and other diseases of the circulatory system; Z83.3 Family history of diabetes mellitus; Z89.432 Acquired absence of left foot; Z79.4 Long term (current) use of insulin; I73.9 Peripheral vascular disease, unspecified
CPT/HCPCS: 36415; 36600; 70450; 71045; 71275; 80048; 80053; 80307; 80320; 81001; 82140; 82805; 82962; 83605; 84443; 84484; 85025; 85379; 85652; 86141; 87040; 87077; 87081; 87086; 87088; 87186; 87205; 87426; 87804; 92610; 96361; 96365; 96375; 99291; 99292; G0378; J1335; J1815; J2543

== ENCOUNTER 2025-02-15 08:54 | Outpatient (CLI) | payer MEDICARE, MEDICAID ==
[2025-02-15 09:11] LABS: Urine Protein, UAD Negative (Negative)
[2025-02-15 09:13] LABS: Hematocrit 38.7 % (41.0-53.0); Hemoglobin 13.1 g/dL (13.5-17.5); Mean Corpuscular Hemoglobin 27.1 pg (28.0-32.0); Mean Corpuscular Volume 80.0 fL (80.0-100.0); Nucleated Red Blood Cells % 0.1 %
[2025-02-15 09:38] LABS: Albumin 4.3 g/dL (3.2-4.8); Anion Gap 9 (5-15); BUN/Creatinine Ratio 17.9 (10.0-20.0); Calcium 9.0 mg/dL (8.7-10.4); Carbon Dioxide 28 mmol/L (20-31); Chloride 103 mmol/L (98-107); Cholesterol 113 mg/dL (< 200); Potassium 4.7 mmol/L (3.5-5.1); Sodium 140 mmol/L (136-145); Total Protein 8.1 g/dL (5.7-8.2)
[2025-02-15 09:39] LABS: Bilirubin, Total 0.5 mg/dL (0.2-1.0)
[2025-02-15 10:03] LABS: Glucose 191 mg/dL (74-106)
[2025-02-15 10:04] LABS: Alanine Aminotransferase 60 U/L (7-40); Alkaline Phosphatase 138 U/L (46-116); Blood Urea Nitrogen 25 mg/dL (9-23); HDL Cholesterol 30 mg/dL (40-59); Triglycerides 196 mg/dL (< 150)
== END 2025-02-15 17:00 | disposition home or self-care (01) ==
LOC: LAB 08:54
PROVIDERS: ATTEND Internal Medicine
DX: E11.22 Type 2 diabetes mellitus with diabetic chronic kidney disease (principal); I50.22 Chronic systolic (congestive) heart failure; N18.9 Chronic kidney disease, unspecified; E55.9 Vitamin D deficiency, unspecified
CPT/HCPCS: 36415; 80053; 80061; 81003; 82043; 82274; 82306; 82607; 83036; 84443; 85025